=== PATIENT | female | born 1930 | race African-American/Black ===

== ENCOUNTER 2020-01-30 19:59 | Inpatient (IN) | payer MEDICARE, MEDICAID ==
[~2020-01-30] VITALS: Ht 167.6 cm; Wt 68.5 kg
[2020-01-30 20:05] VITALS: BP 82/45
--- NOTE | 2020-01-30 20:05 | NUR ---
ED Nurse Note: Pt BIBA from home CO of generalized weakness x 3 days, afebrile, denies n/v/d. HR elevated, BP low, ERMD aware. Pt denies others being sick at home. Pt aao x 4, bedbound, incontinent. Awaiting ERMD at bedside
--- NOTE | 2020-01-30 20:10 | Emergency Room Report ---
History of Present Illness General Chief Complaint: Generalized Weakness Source: Patient (Ivonne Mora DO) Present Illness HPI Patient presents with complaints of general weakness from home We have very limited history there was question of chemo and radiation however we do not have any record of this Patient also reports radiation for gastric ulcers which does not correlate clinically Therefore the history of present illness remains very limited Patient denies vomiting there was no reports of diarrhea paramedics provided very limited input I am attempting to contact family and provide any further input from them Patient denies any cough denies any rash Contact was made with the patient's primary physician who does provide significant input patient has history of gastric cancer Had radiation at [facility] has also had recent hospitalization at [facility] End of November Patient also appears to have a history of atrial fibrillation and anemia (Ivonne Mora DO) Allergies: Coded Allergies: No Known Allergies (Unverified , 01/30/20) COVID-19 Screening Contact w/high risk pt: No Recent Travel to affected area: No Experienced COVID-19 symptoms?: No (Ivonne Mora DO) Patient History Past Medical History: see triage record Last Menstrual Period: na Reviewed Nursing Documentation: PMH: Agreed; PSxH: Agreed (Ivonne Mora DO) Nursing Documentation-PMH Hx Hypertension: Yes Hx Diabetes: Yes (Ivonne Mora DO) Review of Systems All Other Systems: limited - Other than the ones mentioned in the history of present illness all others are reviewed however they do stay limited due to the patient's mental status (Ivonne Mora DO) Physical Exam Vital Signs Date Time Temp Pulse Resp B/P (MAP) Pulse Ox O2 Delivery O2 Flow Rate FiO2 01/30/20 19:55 97.0 85 20 105/85 (92) 97 Room Air Sp02 EP Interpretation: reviewed, normal General Appearance: mild distress - Appears weak Head: normocephalic, atraumatic Eyes: bilateral eye PERRL, bilateral eye EOMI ENT: dry mucus membranes Neck: supple Respiratory: lungs clear, no respiratory distress, no retraction Cardiovascular #1: no edema, tachycardia Gastrointestinal: non tender, soft Musculoskeletal: normal inspection - Patient moves all extremities there is no obvious focal deficit however general weakness is appreciated Neurologic: oriented - Patient is awake and oriented to self however cannot provide any medical history Skin: no rash Lymphatic: no adenopathy (Ivonne Mora DO) Procedures Critical Care Time Critical Care Time 85 minutes for multiple re-evaluations critical presentation concern for decompensation and possible not including any procedural time (Ivonne Mora DO) Central Line Central Line : Consent: Emergent Central Line Lumen: triple Maximal Sterile Barrier Tech: yes cap, yes mask, yes sterile gown, yes sterile gloves, yes large sterile sheet, yes hand hygiene, yes chlorhexidine prep Central Line Postion: femoral (R) Anesthesia: Lidocaine cc's of anesthesia: 3 Complications: none Central Line Post Position: sutured Attempts: One Patient Tolerated: Well Complications: None (Ivonne Mora DO) Medical Decision Making Diagnostic Impression: Primary Impression: Sepsis Additional Impression: Atrial fibrillation with RVR ER Course Patient is a fairly complex patient with multiple differential to consideration including but not limited to cardiac cardiopulmonary and vascular emergencies Infectious process Covid-19 Significant dehydration also all entertained patient receiving IV hydration X-ray shows some minimal right-sided effusion Blood work reveals findings consistent with the patient's past medical history including renal insufficiency anemia at hemoglobin of 7.9 Patient however does not meet criteria for emergency transfusion type and screen has been ordered Patient had central line placed Given the lack of any appropriate IV access and admitted for further inpatient care And patient admitted to higher level of care in critical condition Labs Test 01/30/20 20:41 01/30/20 22:45 01/31/20 05:05 White Blood Count 6.7 K/UL (4.8-10.8) Red Blood Count 2.83 M/UL (4.20-5.40) Hemoglobin 7.9 G/DL (12.0-16.0) Hematocrit 26.0 % (37.0-47.0) Mean Corpuscular Volume 92 FL (80-99) Mean Corpuscular Hemoglobin 27.9 PG (27.0-31.0) Mean Corpuscular Hemoglobin Concent 30.4 G/DL (32.0-36.0) Red Cell Distribution Width 19.9 % (11.6-14.8) Platelet Count 490 K/UL (150-450) Mean Platelet Volume 6.2 FL (6.5-10.1) Neutrophils (%) (Auto) % (45.0-75.0) Lymphocytes (%) (Auto) % (20.0-45.0) Monocytes (%) (Auto) % (1.0-10.0) Eosinophils (%) (Auto) % (0.0-3.0) Basophils (%) (Auto) % (0.0-2.0) Differential Total Cells Counted 100 Neutrophils % (Manual) 88 % (45-75) Lymphocytes % (Manual) 6 % (20-45) Monocytes % (Manual) 6 % (1-10) Eosinophils % (Manual) 0 % (0-3) Basophils % (Manual) 0 % (0-2) Band Neutrophils 0 % (0-8) Platelet Estimate Increased Platelet Morphology Normal Polychromasia 1+ Hypochromasia 1+ Anisocytosis 2+ Prothrombin Time 11.6 SEC (9.30-11.50) Prothromb Time International Ratio 1.1 (0.9-1.1) Urine Color Wendy Urine Appearance Slightly cloudy Urine pH 5 (4.5-8.0) Urine Specific [place] 1.025 (1.005-1.035) Urine Protein 1+ (NEGATIVE) Urine Glucose (UA) Negative (NEGATIVE) Urine Ketones 1+ (NEGATIVE) Urine Blood 1+ (NEGATIVE) Urine Nitrite Negative (NEGATIVE) Urine Bilirubin 2+ (NEGATIVE) Urine Ictotest Negative (NEGATIVE) Urine Urobilinogen 1 MG/DL (0.0-1.0) Urine Leukocyte Esterase 1+ (NEGATIVE) Urine RBC 5-10 /HPF (0 - 2) Urine WBC 5-10 /HPF (0 - 2) Urine Squamous Epithelial Cells Few /LPF (NONE/OCC) Urine Bacteria Moderate /HPF (NONE) Sodium Level 137 MMOL/L (136-145) 139 MMOL/L (136-145) Potassium Level 3.6 MMOL/L (3.5-5.1) 3.5 MMOL/L (3.5-5.1) Chloride Level 95 MMOL/L (98-107) 98 MMOL/L (98-107) Carbon Dioxide Level 22 MMOL/L (21-32) 23 MMOL/L (21-32) Anion Gap 20 mmol/L (5-15) 19 mmol/L (5-15) Blood Urea Nitrogen 64 mg/dL (7-18) 61 mg/dL (7-18) Creatinine 2.7 MG/DL (0.55-1.30) 2.8 MG/DL (0.55-1.30) Estimat Glomerular Filtration Rate 20.1 mL/min (>60) 19.3 mL/min (>60) Glucose Level 180 MG/DL (74-106) 162 MG/DL (74-106) Lactic Acid Level 2.10 mmol/L (0.4-2.0) 2.20 mmol/L (0.66-2.22) Calcium Level 8.7 MG/DL (8.5-10.1) 8.2 MG/DL (8.5-10.1) Total Bilirubin 0.6 MG/DL (0.2-1.0) Aspartate Amino Transf (AST/SGOT) 20 U/L (15-37) Alanine Aminotransferase (ALT/SGPT) 17 U/L (12-78) Alkaline Phosphatase 139 U/L (46-116) Total Creatine Kinase 74 U/L (26-308) Creatine Kinase MB 0.6 NG/ML (0.0-3.6) Creatine Kinase MB Relative Index 0.8 Troponin I 0.000 ng/mL (0.000-0.056) 0.000 ng/mL (0.000-0.056) Pro-B-Type Natriuretic Peptide 45681 pg/mL (0-125) Total Protein 6.3 G/DL (6.4-8.2) Albumin 2.2 G/DL (3.4-5.0) Globulin 4.1 g/dL Albumin/Globulin Ratio 0.5 (1.0-2.7) Lipase 690 U/L (73-393) Hemoglobin A1c 5.9 % (4.3-6.0) Magnesium Level 2.0 MG/DL (1.8-2.4) Triglycerides Level 144 MG/DL (30-150) Cholesterol Level 176 MG/DL (< 200) LDL Cholesterol 110 mg/dL (<100) HDL Cholesterol 39 MG/DL (40-60) Cholesterol/HDL Ratio 4.5 (3.3-4.4) Thyroid Stimulating Hormone (TSH) 3.407 uiU/mL (0.358-3.740) (Ivonne Mora DO) ER Course Patient was endorsed me by Dr. Mora. Patient was noted to have history of atrial fibrillation being admitted to the hospital with slightly diminished blood pressure as well as rapid rate. She was noted to have rapid rate of 150 briefly and was given IV Cardizem. She subsequently had improvement in her heart rate. She was also given Rocephin due to some urinary infection. Labs Test 01/30/20 20:41 01/30/20 22:45 White Blood Count 6.7 K/UL (4.8-10.8) Red Blood Count 2.83 M/UL (4.20-5.40) Hemoglobin 7.9 G/DL (12.0-16.0) Hematocrit 26.0 % (37.0-47.0) Mean Corpuscular Volume 92 FL (80-99) Mean Corpuscular Hemoglobin 27.9 PG (27.0-31.0) Mean Corpuscular Hemoglobin Concent 30.4 G/DL (32.0-36.0) Red Cell Distribution Width 19.9 % (11.6-14.8) Platelet Count 490 K/UL (150-450) Mean Platelet Volume 6.2 FL (6.5-10.1) Neutrophils (%) (Auto) % (45.0-75.0) Lymphocytes (%) (Auto) % (20.0-45.0) Monocytes (%) (Auto) % (1.0-10.0) Eosinophils (%) (Auto) % (0.0-3.0) Basophils (%) (Auto) % (0.0-2.0) Differential Total Cells Counted 100 Neutrophils % (Manual) 88 % (45-75) Lymphocytes % (Manual) 6 % (20-45) Monocytes % (Manual) 6 % (1-10) Eosinophils % (Manual) 0 % (0-3) Basophils % (Manual) 0 % (0-2) Band Neutrophils 0 % (0-8) Platelet Estimate Increased Platelet Morphology Normal Polychromasia 1+ Hypochromasia 1+ Anisocytosis 2+ Prothrombin Time 11.6 SEC (9.30-11.50) Prothromb Time International Ratio 1.1 (0.9-1.1) Urine Color Wendy Urine Appearance Slightly cloudy Urine pH 5 (4.5-8.0) Urine Specific [place] 1.025 (1.005-1.035) Urine Protein 1+ (NEGATIVE) Urine Glucose (UA) Negative (NEGATIVE) Urine Ketones 1+ (NEGATIVE) Urine Blood 1+ (NEGATIVE) Urine Nitrite Negative (NEGATIVE) Urine Bilirubin 2+ (NEGATIVE) Urine Ictotest Negative (NEGATIVE) Urine Urobilinogen 1 MG/DL (0.0-1.0) Urine Leukocyte Esterase 1+ (NEGATIVE) Urine RBC 5-10 /HPF (0 - 2) Urine WBC 5-10 /HPF (0 - 2) Urine Squamous Epithelial Cells Few /LPF (NONE/OCC) Urine Bacteria Moderate /HPF (NONE) Sodium Level 137 MMOL/L (136-145) Potassium Level 3.6 MMOL/L (3.5-5.1) Chloride Level 95 MMOL/L (98-107) Carbon Dioxide Level 22 MMOL/L (21-32) Anion Gap 20 mmol/L (5-15) Blood Urea Nitrogen 64 mg/dL (7-18) Creatinine 2.7 MG/DL (0.55-1.30) Estimat Glomerular Filtration Rate 20.1 mL/min (>60) Glucose Level 180 MG/DL (74-106) Calcium Level 8.7 MG/DL (8.5-10.1) Total Bilirubin 0.6 MG/DL (0.2-1.0) Aspartate Amino Transf (AST/SGOT) 20 U/L (15-37) Alanine Aminotransferase (ALT/SGPT) 17 U/L (12-78) Alkaline Phosphatase 139 U/L (46-116) Total Creatine Kinase 74 U/L (26-308) Creatine Kinase MB 0.6 NG/ML (0.0-3.6) Creatine Kinase MB Relative Index 0.8 Troponin I 0.000 ng/mL (0.000-0.056) Pro-B-Type Natriuretic Peptide 18875 pg/mL (0-125) Total Protein 6.3 G/DL (6.4-8.2) Albumin 2.2 G/DL (3.4-5.0) Globulin 4.1 g/dL Albumin/Globulin Ratio 0.5 (1.0-2.7) Lipase 690 U/L (73-393) Lactic Acid Level 2.20 mmol/L (0.66-2.22) (Avery Murdock MD) EKG Diagnostic Results Rate: tachycardiac Rhythm: other ST Segments: other - Irregularly irregular ST changes (Ivonne Mora DO) Rhythm Strip Diag. Results EP Interpretation: yes Rate: 145 Rhythm: no PVC's, no ectopy, other - Irregularly irregular nonspecific ST changes (Ivonne Mora DO) Chest X-Ray Diagnostic Results Chest X-Ray Diagnostic Results : Chest X-Ray Ordered: Yes # of Views/Limited/Complete: 1 View Indication: Chest Pain EP Interpretation: Yes Interpretation: no pneumothorax, other - Small right-sided effusion heart size normal no acute bony abnormality Impression: Other - Small right-sided effusion Electronically Signed by: Ivonne Mora DO (Ivonne Mora DO) Last Vital Signs Date Time Temp Pulse Resp B/P (MAP) Pulse Ox O2 Delivery O2 Flow Rate FiO2 01/30/20 19:55 97.0 85 20 105/85 (92) 97 Room Air Status: improved (Ivonne Mora DO) Disposition: ADMITTED INPATIENT Condition: Critical Ivonne Mora DO Jan 30, 2020 20:10 Avery Murdock MD Jan 31, 2020 00:52
--- NOTE | 2020-01-30 20:12 | NUR ---
ED Nurse Note: ERMD at bedside for initial assessment
--- NOTE | 2020-01-30 20:13 | NUR ---
ED Nurse Note: EKG performed by electrician technician/ EDUCATIONAL/DEVELOPMENT ASSISTANT, ROSELIAD reviewing results.
--- NOTE | 2020-01-30 20:20 | NUR ---
ED Nurse Note: 2 attempts by 2 nurses to obtain IV line. Successful 22g IV in left wrist, IV fluids started and running. Pt tolerated well. Blood draw unable to be obtained. ERMD made aware. Will continue to gain access.
--- NOTE | 2020-01-30 20:35 | NUR ---
ED Nurse Note: Flu swab sent to lab
--- NOTE | 2020-01-30 20:40 | NUR ---
ED Nurse Note: Lab called to obtain blood draw d/t unsuccessful attempts via staff nurses and charge nurse.
--- NOTE | 2020-01-30 20:59 | NUR ---
ED Nurse Note: Blood draw successfully obtained, no access available. Awaiting ERMD at bedside.
[2020-01-30 21:01] LABS: HEMOGLOBIN 7.9 G/DL (12.0-16.0); MEAN CORPUSCULAR VOLUME 92 FL (80-99); PLATELET COUNT 490 K/UL (150-450); RED BLOOD COUNT 2.83 M/UL (4.20-5.40); RED CELL DISTRIBUTION WIDTH 19.9 % (11.6-14.8); WHITE BLOOD COUNT 6.7 K/UL (4.8-10.8)
[2020-01-30 21:05] LABS: APPEARANCE,URINE SLIGHTLY CLOUDY; BILIRUBIN, URINE 2+ (NEGATIVE); GLUCOSE, URINE (UA) NEGATIVE (NEGATIVE); KETONES,URINE 1+ (NEGATIVE); LEUKOCYTE ESTERASE ,URINE 1+ (NEGATIVE); NITRITE,URINE NEGATIVE (NEGATIVE); PH,URINE 5 (4.5-8.0); PROTEIN,URINE 1+ (NEGATIVE); UROBILINOGEN,URINE 1 MG/DL (0.0-1.0)
--- NOTE | 2020-01-30 21:05 | NUR ---
ED Nurse Note: IV line in wrist infiltrated. IV line discontinued. ERMD aware.
[2020-01-30 21:06] LABS: COLOR,URINE AMBER; INR 1.1 (0.9-1.1)
[2020-01-30 21:09] LABS: ANION GAP 20 mmol/L (5-15); BLOOD UREA NITROGEN 64 mg/dL (7-18); CALCIUM 8.7 MG/DL (8.5-10.1); CARBON DIOXIDE 22 MMOL/L (21-32); CHLORIDE 95 MMOL/L (98-107); CREATININE 2.7 MG/DL (0.55-1.30); POTASSIUM 3.6 MMOL/L (3.5-5.1); SODIUM 137 MMOL/L (136-145)
[2020-01-30] MEDS ORDERED: ZOFRAN ODT8 MG ORAL (21:09)
[2020-01-30] MEDS ORDERED: METOPROLOL TART50 M1 ORAL (21:09)
[2020-01-30] MEDS ORDERED: PRAVASTATIN SOD20 M1 ORAL (21:09)
[2020-01-30] MEDS ORDERED: TRADJENTA5 MG PO (21:09)
[2020-01-30] MEDS ORDERED: REGLAN10 M1 ORAL (21:09)
--- NOTE | 2020-01-30 21:10 | NUR ---
ED Nurse Note: Blood draw and urine sent to lab
[2020-01-30 21:21] LABS: ALANINE AMINOTRANSFERASE 17 U/L (12-78); ALBUMIN 2.2 G/DL (3.4-5.0); ALBUMIN/GLOBULIN RATIO 0.5 (1.0-2.7); ALKALINE PHOSPHATASE 139 U/L (46-116); ASPARTATE AMINO TRANSFERASE 20 U/L (15-37); BILIRUBIN,TOTAL 0.6 MG/DL (0.2-1.0); CKMB 0.6 NG/ML (0.0-3.6); CREATINE KINASE 74 U/L (26-308)
--- NOTE | 2020-01-30 21:42 | NUR ---
ED Nurse Note: ERMD obtained central line in right femoral. Line is patent and intact. Pt stable condition. Pt resting in bed aao x 4. will continue to monitor
[2020-01-30 22:34] VITALS: BP 105/62
--- NOTE | 2020-01-30 22:35 | NUR ---
ED Nurse Note: Pts grandson called for update on pt status. Pt aware and consented to informing grandson. grandson updated on POC.
--- NOTE | 2020-01-30 22:45 | NUR ---
ED Nurse Note: Repeat lactic drawn and COVID swab sent to lab
--- NOTE | 2020-01-30 22:55 | NUR ---
HAND-OFF: Report given to Reggie Olivarez RN. Pt moved to RM 07, placed on monitor. VSS.
--- NOTE | 2020-01-30 22:56 | NUR ---
ED Nurse Note: received report from Lyubov HOLMAN. will resume care of patient
[2020-01-30] MEDS ORDERED: Ondansetron ODT 8mg tab ORAL PRN (23:15)
[2020-01-30 23:39] VITALS: BP 98/55
--- NOTE | 2020-01-31 | NUR ---
ED Nurse Note: PRESSURE WOUND NOTED ON SACRAL AREA.
--- NOTE | 2020-01-31 00:15 | NUR ---
ED Nurse Note: patient c/o nausea and vomitted clear emesis. per standing order, will administer zofran.
[2020-01-31] MEDS ORDERED: cefTRIAXone 1 GM in NS 55 ML IVPB ONE (00:30)
--- NOTE | 2020-01-31 00:30 | NUR ---
ED Nurse Note: pt c/o lower back pain 05/14. per standing order, will administer med
[2020-01-31] MEDS ORDERED: dilTIAZem HCl 25mg/5ml Inj ONE (00:40)
[2020-01-31] MEDS ORDERED: dilTIAZem HCl 25mg/5ml Inj IVP ONE (00:45)
[2020-01-31 01:42] VITALS: BP 89/67
[2020-01-31] MEDS ORDERED: NS 250 ML IVPB ONE (02:00)
[2020-01-31 03:38] VITALS: BP 99/83
--- NOTE | 2020-01-31 03:39 | NUR ---
ED Nurse Note: pt is calm and sleeping. vss, nad. repositioned patient position
--- NOTE | 2020-01-31 04:00 | NUR ---
ED Nurse Note: unable to draw blood from central line. line flushing with fluid but is not drawing up blood. peripheral iv sites attempted but unable to obtain at this time. called lab for draw. will attempt again at a later time
--- NOTE | 2020-01-31 04:30 | NUR ---
ED Nurse Note: PER EVS, KINSEY BED NOT AVAILABLE AT THIS TIME. BANKRUPTCY LAW SPECIALIST AWARE.
--- NOTE | 2020-01-31 05:00 | NUR ---
ED Nurse Note: blood drawn and sent to lab
[2020-01-31 06:00] VITALS: BP 106/52
--- NOTE | 2020-01-31 06:00 | NUR ---
ED Nurse Note: PATIENT IS CALM AND SLEEPING. VSS, NAD.
[2020-01-31 06:30] LABS: ANION GAP 19 mmol/L (5-15); BLOOD UREA NITROGEN 61 mg/dL (7-18); CALCIUM 8.2 MG/DL (8.5-10.1); CARBON DIOXIDE 23 MMOL/L (21-32); CHLORIDE 98 MMOL/L (98-107); CHOLESTEROL 176 MG/DL (< 200); CREATININE 2.8 MG/DL (0.55-1.30); HDL CHOLESTEROL 39 MG/DL (40-60); POTASSIUM 3.5 MMOL/L (3.5-5.1); SODIUM 139 MMOL/L (136-145); TRIGLYCERIDES 144 MG/DL (30-150)
[2020-01-31] MEDS: NovoLOG Insulin Flexpen SUBQ SCH ×4 (06:30→20:54)
--- NOTE | 2020-01-31 06:34 | NUR ---
ED Nurse Note: INSULIN NOT ADMINISTERED BS WITHIN RANGE. BS 137
--- NOTE | 2020-01-31 07:16 | NUR ---
ED Nurse Note: gave report to Lakshmi HOLMAN. Endorsed plan of care
--- NOTE | 2020-01-31 07:20 | NUR ---
ED Nurse Note: pt care assumed. pt resting in room with even reg resp. vss.
[2020-01-31 07:50] VITALS: BP 103/49
--- NOTE | 2020-01-31 08:06 | NUR ---
PTs granddaughter info Cynthia Eric [phone]
--- NOTE | 2020-01-31 08:14 | NUR ---
ED Nurse Note: repor given to Rach anthony on [facility]. called pt family Marlena that states pt was in [facility] for approx 1 month and then to [facility] for approx 1 month also. pt home from [facility] on january 28. per Marlena she is availabe by phone at anytime for updates or questions. pt prepared for transport to [facility] with covid precautions and acls protocol
--- NOTE | 2020-01-31 08:35 | NUR ---
NURSE NOTES: Received report from Rajani Lyman RN. Patient is admitted for sepsis and weakness under the care of Dr. Leno Wilson. Patient is alert and oriented x 4, able to make needs known and follow commands. On room air, respirations even and unlabored. Incontinent with diaper in place, danilo-care provided and external female catheter placed and hooked to low, continuous suction. Sacral full thickness pressure ulcer noted, wound care done and dressing placed. Right femoral TLC noted with dressing intact. Bed locked in lowest position with side rails up x 3. All needs attended to. Call light within reach. Will continue to monitor.
[2020-01-31 08:40] VITALS: BP 117/56
[2020-01-31] MEDS: Metoprolol Tartrate 50mg tab ORAL SCH ×2 (08:47→20:52)
--- NOTE | 2020-01-31 09:55 | NUR ---
*-* INSURANCE *-* ALL AVAILABLE CLINICALS HAVE BEEN FAXED TO: CASEY ESPARZA REF# [id number] # [phone] FAX#[phone] REVIEWS/CLINICALS Addendum: 02/01/20 at 0931 by TONEY NORRIS CASEY BUI:LARRY P: [phone] T: [phone] F: [phone]
--- NOTE | 2020-01-31 11:13 | Diagnostic Imaging Report ---
Indication: Shortness of breath Technique: One view of the chest Comparison: none Findings: There is apparent elevation right hemidiaphragm. This may be due to volume loss, pleural fluid, or both. There is some atelectasis and possibly hazy consolidation at the right lung base. The right upper lobe, left lung and pleural space are clear. The heart size is normal. Impression: Right basilar atelectasis and/or pleural fluid. There may be some hazy consolidation as well.
--- NOTE | 2020-01-31 12:30 | NUR ---
NURSE NOTES: attempted to draw blood from TLC, yet TLC is unable to draw the blood at this moment. flushes well without resistance. attempt to draw the blood by peripheral, but unable to draw the blood due to hard stick. called [employer] and reported that unable to draw the blood. per [employer], she will come and draw the blood in AM. noted. call light within pt's reach. pt states no pain at this moment. no SOB noted. Addendum: 02/01/20 at 0127 by PUMA JIMENEZ RN wrong time
--- NOTE | 2020-01-31 13:04 | NUR ---
CASE MANAGEMENT: REVIEW 89 YEAR OLD FEMALE BIBA FROM HOME CC: GENERALIZED WEAKNESS x3 DAYS . Hx STOMACH CA on CHEMO SI: A-F SIB w/RVR . SEPSIS . DEHYDRATION T 97.0 HR 85 RR 20 BP 105/85 SAT 97% ROOM AIR H/H 7.9/26.[address] 490 CXR -- RIGHT-SIDED EFFUSION IS: NS IVF BOLUS X1 CARDIZEM IV X1 CEFTRIAXONE IV X1 PATIENT ADMITTED TO STEP DOWN UNIT 01/28/2020 DCP: PATIENT IS FROM HOME
[2020-01-31] MEDS ORDERED: HYDROcodone/Acetamin 5/325 tab ORAL PRN (13:30)
[2020-01-31] MEDS ORDERED: HYDROcodone/Acetamin 10/325 tab ORAL PRN (13:30)
--- NOTE | 2020-01-31 13:38 | Cardiology Progress Note ---
Assessment/Plan Assessment/Plan need hydration await covd 19 results may need tx if hgb drops further as i suspect with volume repletion watch renal fx cardaic enzyme neg ekg noted st elevation in lead v3 only and no other lead and trop all neg if covid is neg will have echo thank you [id number] Subjective Subjective of iron deficiency anemia,profound normocytic anemia sp tx #Gastric adenocarcinoma c/b occult upper GI bleedings/p 3 doses of~palliative radiation to prevent/minimize further bleeding. # Normocytic anemia secondary to blood loss # Reactive thrombocytosis # H. Pylori infection Quadruple therapy~as noted below~for 2 weeks (-), last dose 12/15 -~Please retest for cure~after 2~weeks off of~PPI to decrease chance of false negative testing. #Nausea Most likely 2/2 XRT and malignancy-related. If in fact patient's antibiotics are contributory, the patient's nausea should improve within the next few days after she completes treatment on 12/16. -~Well controlled on~PRN Zofran and Compazine Pernieal Boil Patient with firmmass in gluteal cleft on right buttocks near anus, heterogenously echogenic on bedside US, no clear drainable fluid pocket. T2DM Hba1c 6.4 1 month ago. # Afib # Hypertension - continue metoprolol # Hyperlipidemia - continue pravastatin #GERD - PPI as above Objective Last 24 Hour Vital Signs Date Time Temp Pulse Resp B/P (MAP) Pulse Ox O2 Delivery O2 Flow Rate FiO2 01/31/20 08:47 109 117/56 01/31/20 08:40 Room Air 01/31/20 08:40 97.0 18 117/56 (76) 98 01/31/20 08:17 103 18 103/42 99 Room Air 01/31/20 07:50 103 18 103/49 99 Room Air 01/31/20 06:00 106 16 106/52 99 Room Air 01/31/20 03:38 105 16 99/83 99 Room Air 01/31/20 01:42 97.6 111 16 89/67 99 Room Air 01/31/20 01:07 97.6 01/31/20 00:42 139 96/70 01/30/20 23:39 97.3 118 18 98/55 97 Room Air 01/30/20 22:34 97.0 122 18 105/62 97 Room Air 01/30/20 20:05 152 20 Room Air 01/30/20 20:05 97.0 152 20 82/45 97 Room Air 01/30/20 19:55 97.0 85 20 105/85 (92) 97 Room Air Intake and Output 01/30/20 01/31/20 19:00 07:00 Intake Total 0 ml Balance 0 ml Intake Oral 0 ml Laboratory Tests Test 01/30/20 20:41 01/30/20 22:45 01/31/20 05:05 White Blood Count 6.7 K/UL (4.8-10.8) Red Blood Count 2.83 M/UL (4.20-5.40) L Hemoglobin 7.9 G/DL (12.0-16.0) L Hematocrit 26.0 % (37.0-47.0) L Mean Corpuscular Volume 92 FL (80-99) Mean Corpuscular Hemoglobin 27.9 PG (27.0-31.0) Mean Corpuscular Hemoglobin Concent 30.4 G/DL (32.0-36.0) L Red Cell Distribution Width 19.9 % (11.6-14.8) H Platelet Count 490 K/UL (150-450) H Mean Platelet Volume 6.2 FL (6.5-10.1) L Neutrophils (%) (Auto) % (45.0-75.0) Lymphocytes (%) (Auto) % (20.0-45.0) Monocytes (%) (Auto) % (1.0-10.0) Eosinophils (%) (Auto) % (0.0-3.0) Basophils (%) (Auto) % (0.0-2.0) Differential Total Cells Counted 100 Neutrophils % (Manual) 88 % (45-75) H Lymphocytes % (Manual) 6 % (20-45) L Monocytes % (Manual) 6 % (1-10) Eosinophils % (Manual) 0 % (0-3) Basophils % (Manual) 0 % (0-2) Band Neutrophils 0 % (0-8) Platelet Estimate Increased H Platelet Morphology Normal Polychromasia 1+ Hypochromasia 1+ Anisocytosis 2+ Prothrombin Time 11.6 SEC (9.30-11.50) H Prothromb Time International Ratio 1.1 (0.9-1.1) Urine Color Wendy Urine Appearance Slightly cloudy Urine pH 5 (4.5-8.0) Urine Specific [place] 1.025 (1.005-1.035) Urine Protein 1+ (NEGATIVE) H Urine Glucose (UA) Negative (NEGATIVE) Urine Ketones 1+ (NEGATIVE) H Urine Blood 1+ (NEGATIVE) H Urine Nitrite Negative (NEGATIVE) Urine Bilirubin 2+ (NEGATIVE) H Urine Ictotest Negative (NEGATIVE) Urine Urobilinogen 1 MG/DL (0.0-1.0) H Urine Leukocyte Esterase 1+ (NEGATIVE) H Urine RBC 5-10 /HPF (0 - 2) H Urine WBC 5-10 /HPF (0 - 2) H Urine Squamous Epithelial Cells Few /LPF (NONE/OCC) Urine Bacteria Moderate /HPF (NONE) H Sodium Level 137 MMOL/L (136-145) 139 MMOL/L (136-145) Potassium Level 3.6 MMOL/L (3.5-5.1) 3.5 MMOL/L (3.5-5.1) Chloride Level 95 MMOL/L (98-107) L 98 MMOL/L (98-107) Carbon Dioxide Level 22 MMOL/L (21-32) 23 MMOL/L (21-32) Anion Gap 20 mmol/L (5-15) H 19 mmol/L (5-15) H Blood Urea Nitrogen 64 mg/dL (7-18) H 61 mg/dL (7-18) H Creatinine 2.7 MG/DL (0.55-1.30) H 2.8 MG/DL (0.55-1.30) H Estimat Glomerular Filtration Rate 20.1 mL/min (>60) 19.3 mL/min (>60) Glucose Level 180 MG/DL (74-106) H 162 MG/DL (74-106) H Lactic Acid Level 2.10 mmol/L (0.4-2.0) H 2.20 mmol/L (0.66-2.22) Calcium Level 8.7 MG/DL (8.5-10.1) 8.2 MG/DL (8.5-10.1) L Total Bilirubin 0.6 MG/DL (0.2-1.0) Aspartate Amino Transf (AST/SGOT) 20 U/L (15-37) Alanine Aminotransferase (ALT/SGPT) 17 U/L (12-78) Alkaline Phosphatase 139 U/L (46-116) H Total Creatine Kinase 74 U/L (26-308) Creatine Kinase MB 0.6 NG/ML (0.0-3.6) Creatine Kinase MB Relative Index 0.8 Troponin I 0.000 ng/mL (0.000-0.056) 0.000 ng/mL (0.000-0.056) Pro-B-Type Natriuretic Peptide 82250 pg/mL (0-125) H Total Protein 6.3 G/DL (6.4-8.2) L Albumin 2.2 G/DL (3.4-5.0) L Globulin 4.1 g/dL Albumin/Globulin Ratio 0.5 (1.0-2.7) L Lipase 690 U/L (73-393) H Hemoglobin A1c 5.9 % (4.3-6.0) Magnesium Level 2.0 MG/DL (1.8-2.4) Triglycerides Level 144 MG/DL (30-150) Cholesterol Level 176 MG/DL (< 200) LDL Cholesterol 110 mg/dL (<100) H HDL Cholesterol 39 MG/DL (40-60) L Cholesterol/HDL Ratio 4.5 (3.3-4.4) H Thyroid Stimulating Hormone (TSH) 3.407 uiU/mL (0.358-3.740) Microbiology Date/Time Source Procedure Growth Status 01/30/20 21:00 Nasal Nares - Final Complete 01/30/20 21:00 Nasal Nares - Final Complete 01/30/20 20:41 Urine,Clean Catch Urine Culture - Preliminary NO GROWTH Resulted 01/31/20 06:00 Rectum Received Brian Sweeney MD Jan 31, 2020 13:38
--- NOTE | 2020-01-31 15:16 | NUR ---
NURSE NOTES:WOUND CARE NOTES:Pt presented on admission with Unstageable pressure injury to sacrum(L)1cm x (W)1cm. Base of wound has 100% slough Marginal erythema along edges. Periwound indurated with darker skin tone. Pt verbalized tenderness when minimally palpated. Bilat heels are boggy but blanchable . Pt denied tenderness when each heel individually palpated.Hemosiderin with Xerosis skin distal aspects of both lower ext.Both feet are edematous. Tx.Plan: Cleanse Sacral wound with Saline. Apply Therahoney. Apply Moisture Barrier Paste periwound. Cover with Optifoam drsg. Change every 3 days and prn. Apply Cavilon Skin Barrier to both heels. Cover each heel with Optifoam drsg.Change every 7 days and prn. Reposition at least every 2hours or as tolerated. Off-load heels with pillow.
--- NOTE | 2020-01-31 16:05 | History & Physical ---
History and Physical History & Physicial HP dictated # [id number] Leno Wilson MD Jan 31, 2020 16:05
--- NOTE | 2020-01-31 19:15 | Consultation ---
DATE OF CONSULTATION: 01/31/2020 CARDIOLOGY CONSULTATION CONSULTING PHYSICIAN: Brian Sweeney MD. REFERRING PHYSICIAN: Leno Wilson MD. REASON FOR REFERRAL: Atrial fibrillation. HISTORY OF PRESENT ILLNESS: The patient is an 89-year-old female with history of female with history of multiple medical problems. The patient recently hospitalized and discharged from [facility] to a convalescent facility. She presented with symptomatic anemia and some secondary myocardial infarction. She was transfused, was diagnosed with gastric adenocarcinoma, received palliative radiation therapy to prevent or minimize risk of recurrent bleeding, was sent to convalescent facility and she was actually discharged from the convalescent facility two days ago, stayed at home for one day and family called the paramedics and the patient was brought to the emergency room here at [facility]. Ambulance run sheet was reviewed and the patient was complaining of feeling tired and weak for a few days and the family stated the patient is going through chemotherapy for chronic stage IV stomach cancer and had been staying at a convalescent facility, just discharged. The patient denies any chest pains to them. No shortness of breath. No trauma noted. The patient's family indicates the patient is not eating much and she was not hungry. By the paramedics, blood pressure initially was 88/53 with heart rate of 81 and then 105/86 with heart rate of 153. An EKG was performed showing atrial fibrillation with rapid ventricular response. The patient was transferred to the emergency room at [facility] and has been seen by the emergency room physician who found that the patient was having limited capacity to provide information. The patient denied any coughing and denied any rash to the emergency room physician. According to the nursing staff here, the patient is not complaining of any chest pain and is not complaining of any shortness of breath and has not been really been coughing here. Main complaint is abdominal pain and back pain according to the nursing staff. The patient is pending COVID-19 testing at this time as she was at convalescent facility just recently where COVID-19 has been reported. PAST MEDICAL HISTORY: According to the [facility] records which I personally reviewed includes history of anemia with generalized weakness secondary that, non ST-elevation myocardial infarction secondary to anemia, gastroesophageal reflux disease, atrial fibrillation, hyperlipidemia, gastric mass which was diagnosed as gastric adenocarcinoma, H. pylori that was diagnosed and [facility], reactive thrombocytosis as well as stable nausea felt to be secondary to radiation therapy and malignancy related, diabetes mellitus type 2, atrial fibrillation, hypertension, hyperlipidemia as well. Troponin at the time of non-ST elevation myocardial infarction type 2 was 0.14 and her EKG showed atrial fibrillation with rapid ventricular response prior to that. ALLERGIES: She is not allergic to any medications. SOCIAL HISTORY: Previously she resided with a family member, her granddaughter, but most recently she was transferred to convalescent facility and she is actually transferred back home for a day or two. PAST SURGICAL HISTORY: and cholecystectomy. FAMILY HISTORY: Positive for prostate cancer. SOCIAL HISTORY: Never smoked. No drug use. REVIEW OF SYSTEMS: Really at this time limited based on what was provided in the emergency room. PHYSICAL EXAMINATION: Deferred secondary to unknown COVID status with high likelihood. LABORATORY AND DIAGNOSTIC DATA: Laboratory values here include a white count of 6.7, hemoglobin 7.9, and platelet count of 490. Sodium 139, potassium of 3.5, chloride 98, bicarb 23, BUN of 61, creatinine 2.8, and glucose of 162. A1c of 5.9. Lactic acid of 2.1 and subsequent 2.2. Calcium is 8.2, magnesium is 2. two separate cardiac enzyme between last night and this morning were completely negative. Total cholesterol 176 with LDL of 110 and HDL of 39. TSH of 3.67 and [place] proBNP [place] 55484 and albumin of 2.2. Lipase is 690. EKG shows atrial fibrillation with rapid ventricular response. There is some ST-segment elevation only in lead V3, none of the other leads have ST-segment elevation. Review of the [facility] records from prior hospitalization back in December shows a creatinine at baseline 0.69, hemoglobin at the time of discharge was 10.9 from [facility]. Her last echocardiogram that was performed was October 2019 showing hyperdynamic LV systolic function with ejection fraction 75%, moderate diastolic dysfunction being noted on the echocardiogram with pulmonary hypertension in the 60s with normal IVC size. ASSESSMENT AND PLAN: 1. Poor p.o. intake. 2. Dehydration. 3. Acute renal failure likely secondary to above. 4. Anemia with history of the same status post prior transfusions. 5. Gastric adenocarcinoma, status post palliative radiation therapy and some chemotherapy. 6. History of H. pylori. 7. Atrial fibrillation with rapid ventricular response. 8. Hypotension. 9. History of hypertension. 10. Diabetes mellitus. 11. Elevated lipase, possible pancreatitis. Dr. Wilson this patient was seen in cardiac consultation. The patient's rapid ventricular response prior to admission and consultation most suggestive of anemia and volume depletion. I am not sure if she is actually taking any of her medications at home. She simply requires the beta blockers for heart rate control which have been initiated. IV hydration to be continued. She previously had hyperdynamic left ventricular systolic function and this is at least going back to October. The echocardiogram needs to be repeated once the patient COVID status is confirmed and if negative. She does have history of pulmonary hypertension. Venous duplex study of the lower extremities may be considered in the future, although I do not think that needs to be done. I suspect that her hemoglobin will drop further with hydration. There is no evidence of myonecrosis on the cardiac enzymes checking, some ST-segment changes that was only limited in lead V3, likely artifactual that was not present on the EKG at [facility]. She has not been treated for any cardiac enzymes issues previously and I suspect due to the fact that she has stage IV cancer that her prognosis may be guarded at best. She may require blood transfusions. For the time being, recommend administration of beta blockers and increase the dose as possible, IV hydration, and check for need for transfusion. Await COVID status. Brian Sweeney M.D. DR: Usha JOB#: [id number] CC:
--- NOTE | 2020-01-31 19:21 | NUR ---
HAND-OFF: Report given to Jessi Mendes RN. Patient in stable condition
--- NOTE | 2020-01-31 19:22 | NUR ---
NURSE NOTES: received pt from Tiffany HOLMAN., pt is sleeping and resting at this moment, easy to arouse. pt is AOx4 at this moment. pt states no pain at this moment. per previous shift, pt is on Afib. pt is on RA 98% no SOB noted. pt has Right femoral TLC intact, clean, and patent. call light within reach. bed at the lowest position, alarmed, and locked. will continue to monitor pt with plan of care.
[2020-01-31] MEDS ORDERED: Dyna-Hex 2% Top Sol 2oz TOPIC SCH (20:00)
--- NOTE | 2020-01-31 23:14 | History and Physical Report ---
DATE OF ADMISSION: 01/30/2020 HISTORY OF PRESENT ILLNESS: This is an 89-year-old female who was just recently discharged from [facility]. Patient has underlying history of gastric cancer and received some radiation before. She was brought into the emergency room for generalized weakness. She was found to be in atrial fibrillation with rapid ventricular response and was admitted for further care. She is a poor historian. PAST MEDICAL HISTORY: Includes also history of anemia, history of non-ST elevated myocardial infarction, history of gastroesophageal reflux disease, atrial fibrillation, hyperlipidemia, gastric adenocarcinoma, H. pylori ulcer. MEDICATIONS: Reviewed in the EMR. SOCIAL HISTORY: No history of smoking or alcohol abuse. ALLERGIES: No known drug allergies. REVIEW OF SYSTEMS: As above. PHYSICAL EXAMINATION: GENERAL: The patient is an elderly female in no acute distress. VITAL SIGNS: Blood pressure is 117/56, pulse is 109, respiratory rate 18, temperature 97. HEENT: Pale conjunctivae. Anicteric sclerae. NECK: Supple. LUNGS: Clear to auscultation. HEART: S1, S2 irregularly irregular. ABDOMEN: Soft, nontender. EXTREMITIES: No cyanosis or edema. LABORATORY FINDINGS: CBC shows a WBC of 6700, hematocrit 26, hemoglobin 7.9, platelets 490,000. Chemistry panel shows serum sodium of 137, potassium 3.6, chloride 95, BUN 64, creatinine 2.7, blood sugar is 180. Albumin is 2.2. ASSESSMENT: This is an 89-year-old female who was admitted with weakness, atrial fibrillation with rapid ventricular response. She has a history of gastric cancer. She has anemia likely from malignancy. Iron deficiency needs to be ruled out. She has renal failure, rule out prerenal azotemia. She may have also underlying chronic kidney disease. PLAN: Patient will be hydrated with IV fluids. Rate control with medications. Cardiology consultation was obtained. Dr. Brian Sweeney saw patient. Dietitian to see patient for calorie calorie count, appetite boosters. Further adjustment will be made in patient's regimen based on hospital course and findings. Leno Wilson M.D. DR: JOE JOB#: [id number] CC: ARLETH
--- NOTE | 2020-02-01 00:30 | NUR ---
NURSE NOTES: attempted to draw blood from TLC, yet TLC is unable to draw the blood at this moment. flushes well without resistance. attempt to draw the blood by peripheral, but unable to draw the blood due to hard stick. called [employer] and reported that unable to draw the blood. per [employer], she will come and draw the blood in AM. noted. call light within pt's reach. pt states no pain at this moment. no SOB noted.
--- NOTE | 2020-02-01 01:00 | NUR ---
NURSE NOTES: repositioned pt, provided new gown, provided oral care. turn pt Q 2hrs, and pt able to help turn side to side. changed to new purewick. no BM noted.call light within reach. bed at the lowest position, alarmed, and locked. will continue to monitor pt with plan of care. pt states no pain at this moment.
[2020-02-01] MEDS: NovoLOG Insulin Flexpen SUBQ SCH ×4 (06:01→21:00)
--- NOTE | 2020-02-01 07:24 | NUR ---
HAND-OFF: Report given to Cary HOLMAN., pt is stable condition, endorsed plan of care.
--- NOTE | 2020-02-01 07:25 | NUR ---
NURSE NOTES: Received patient in bed. In no apparent distress. On room air. Denies any pain at this time. Call light within reach. Bed in lowest position. Droplet and contact isolation observed. Will continue plan of care.
[2020-02-01 08:00] VITALS: BP 109/69
[2020-02-01] MEDS: Metoprolol Tartrate 50mg tab ORAL SCH (09:08)
--- NOTE | 2020-02-01 10:01 | NUR ---
RD ASSESSMENT & RECOMMENDATIONS SEE CARE ACTIVITY FOR COMPLETE ASSESSMENT DAILY ESTIMATED NEEDS: Needs based on Wound 57.6kg 30-35 kcals/kg 5693-8961 total kcals 1.25-1.5 g protein/kg 72-86 g total protein 25-30ml/kcal mL/kg 5466-5697 total fluid mLs NUTRITION DIAGNOSIS: Increased kcal and pro needs r/t wound healing as evidenced by pt w/ unstageable sacral wound. (CURRENT DIET: CCHO MED soft easy chew) PO DIET RECOMMENDATIONS: With current poor po intake, rec liberalized REGULAR diet/ texture as harman ADDITIONAL RECOMMENDATIONS: 1) Add Glucerna TID w/ meals 2) Maintain calibrated bed scale wts 3) Wound care: MVI w/ min qdaily, Vit C 500mg daily + EFREN FRUIT PUNCH BID as tolerated 4) Check lytes + hydration status daily as able 5) Monitor lipase, need for low fat diet 6) SEWER DIGGER eval for appropriate diet texture
--- NOTE | 2020-02-01 11:24 | NUR ---
CASE MANAGEMENT: REVIEW SI: A-FIB w/RVR . SEPSIS . DEHYDRATION T 97.0 HR 137 RR 18 BP 109/69 SAT 98% ROOM AIR TROP I 0.000 URINE CX PENDING BLOOD CX PENDING IS: LOPRESSOR 50MG PO Q12HR PRAVASTATIN 20MG PO QHS NOVOLOG SUBQ AC+HS WOUND CARE -- SACRUM STAGE 3 STEP DOWN UNIT STATUS DCP: PATIENT IS FROM HOME
[2020-02-01 11:57] VITALS: BP 92/41
--- NOTE | 2020-02-01 11:57 | NUR ---
NURSE NOTES: Informed Dr. Leno Wilson that patient's blood pressure is low, 92/41. With order to bolus 250ml x 1. And to keep patient here in SDU until he see the patient.
--- NOTE | 2020-02-01 12:30 | NUR ---
NURSE NOTES: Blood pressure after 250ml bolus is 97/50. Dr. Wilson made aware at bedside.
--- NOTE | 2020-02-01 13:50 | NUR ---
NURSE NOTES: SDU status order obtained from Dr. Wilson. Charge nurse made aware.
--- NOTE | 2020-02-01 14:00 | NUR ---
NURSE NOTES: Dr. Wilson ordered IVF. NS to run at 75ml/hour.
[2020-02-01] MEDS ORDERED: HYDROcodone/Acetamin 10/325 tab ORAL PRN (14:30)
--- NOTE | 2020-02-01 15:29 | Consultation ---
History of Present Illness General Date patient seen: Feb 01, 2020 Reason for Hospitalization: Generalized Weakness Present Illness HPI This is a very pleasant 89-year-old female with multi-medical comorbidities including history of gastric cancer with seeming history of resection and chemoradiation who is a halfway resident began to feel more weak and ill therefore brought to [facility] for evaluation where identified to have abnormal labs requiring admission and further work-up and care plan. During admission identified to have malnutrition BMI 20 as well as notable decubitus ulcers. Abnormal labs. Surgery called to evaluate and assist with care. Patient seen, patient evaluated, chart reviewed. Patient is alert awake and responsive but somewhat confused. States she feels well. Allergies: Coded Allergies: No Known Allergies (Unverified , 01/30/20) COVID-19 Screening Contact w/high risk pt: No Recent Travel to affected area: No Experienced COVID-19 symptoms?: No Medication History Scheduled Metoclopramide Hcl* (Reglan*), 10 MG ORAL THREE TIMES A DAY, (Reported) Metoprolol Tartrate* (Metoprolol Tartrate*), 50 MG ORAL EVERY 12 HOURS, ( Reported) Pravastatin Sod* (Pravastatin Sod*), 20 MG ORAL BEDTIME, (Reported) Scheduled PRN Ondansetron Odt* (Zofran Odt*), 4 MG ORAL Q6H PRN for Nausea & Vomiting, ( Reported) Miscellaneous Medications Linagliptin (Tradjenta), 5 MG PO, (Reported) Patient History Limited by: age, medical condition History Provided By: Patient, Medical Record Healthcare decision maker Resuscitation status Full Code Advanced Directive on File Past Medical/Surgical History Past Medical/Surgical History: (1) Sepsis (2) Anorexia (3) Malnutrition (4) Gastric cancer (5) Atrial fibrillation with RVR (6) DM (diabetes mellitus) (7) Low BP (8) Acute on chronic renal failure (9) Anemia Review of Systems Review of Symptoms General ROS: no weight loss or fever Psychological ROS: no depression or mood changes, no memory loss Ophthalmic ROS: no visual changes or eye irritation ENT ROS: no nasal congestion, hearing loss, dizziness Allergy and Immunology ROS: no allergic symptoms or urticaria Hematological and Lymphatic ROS: no swollen glands, unusual bleeding or bruising Endocrine ROS: no polyuria, polydipsia, weight changes, temperature intolerance Respiratory ROS: no cough, shortness of breath, or wheezing Cardiovascular ROS: no chest pain or dyspnea on exertion Gastrointestinal ROS: denies abdominal pain, bright red blood in stool. Musculoskeletal ROS: no myalgias or arthralgias Neurological ROS: no TIA or stroke symptoms Dermatological ROS: no new or changing skin lesions, rashes or pruritis Physical Exam Physical Exam General appearance: alert, cooperative, no distress, appears stated age Head: Normocephalic, without obvious abnormality, atraumatic Eyes: conjunctivae/corneas clear. PERRL, EOM's intact. Fundi benign Throat: Lips, mucosa, and tongue normal. Teeth and gums normal Neck: supple, symmetrical, trachea midline, no adenopathy, thyroid: not enlarged, symmetric, no tenderness/mass/nodules, no carotid bruit and no JVD Lungs: clear to auscultation bilaterally Heart: regular rate and rhythm, S1, S2 normal, no murmur, click, rub or gallop Abdomen: soft, non-tender. Bowel sounds normal. No masses, no organomegaly prior midline incision well-healed Extremities: extremities normal, atraumatic, no cyanosis or edema Pulses: 2+ and symmetric Skin: Skin color, texture, turgor normal. No rashes or lesions please see below stage decubitus ulcer Neurologic: Grossly normal Last 24 Hour Vital Signs Date Time Temp Pulse Resp B/P (MAP) Pulse Ox O2 Delivery O2 Flow Rate FiO2 02/01/20 12:00 Room Air 02/01/20 11:57 97.0 110 18 92/41 (58) 95 02/01/20 11:35 113 02/01/20 09:08 137 109/69 02/01/20 08:00 Room Air 02/01/20 08:00 97.0 137 18 109/69 (82) 98 02/01/20 07:32 111 02/01/20 04:00 Room Air 02/01/20 03:34 106 02/01/20 00:00 Room Air 01/31/20 23:26 86 01/31/20 20:52 96 110/60 01/31/20 20:00 Room Air 01/31/20 19:32 96 01/31/20 16:00 Room Air 01/31/20 15:41 102 Intake and Output 01/31/20 02/01/20 19:00 07:00 Intake Total 150 ml 50 ml Balance 150 ml 50 ml Intake Oral 150 ml 50 ml # Voids 2 1 Laboratory Tests Test 02/01/20 03:05 Troponin I 0.000 ng/mL (0.000-0.056) Height (Feet): 5 Height (Inches): 6.00 Weight (Pounds): 127 Medications Current Medications Medications (Trade) Dose Ordered Sig/Wally Route PRN Reason Start Time Stop Time Status Last Admin Dose Admin Acetaminophen (Tylenol) 650 mg Q4H PRN ORAL Mild Pain (Pain Scale 1-3) 02/01/20 14:30 02/29/20 14:29 Acetaminophen/ Hydrocodone Bitart (Lodi 10/325) 1 tab Q4H PRN ORAL Severe Pain (Pain Scale 7-10) 02/01/20 14:30 02/07/20 14:29 Acetaminophen/ Hydrocodone Bitart (Lodi 5/325) 1 tab Q4H PRN ORAL Moderate Pain (Pain Scale 4-6) 02/01/20 14:30 02/07/20 14:29 Chlorhexidine Gluconate (Salma-Hex 2%) 1 applic DAILY@2000 TOPIC 02/01/20 20:00 04/30/20 19:59 Dextrose (Dextrose 50%) 25 ml Q30M PRN IV Hypoglycemia 02/01/20 14:30 04/29/20 23:29 Dextrose (Dextrose 50%) 50 ml Q30M PRN IV Hypoglycemia 02/01/20 14:30 04/29/20 23:29 Insulin Aspart (NovoLOG) BEFORE MEALS AND HS SUBQ 02/01/20 16:30 04/30/20 06:29 Metoclopramide HCl (Reglan) 10 mg THREE TIMES A DAY ORAL 02/01/20 18:00 03/01/20 08:59 Metoprolol Tartrate (Lopressor) 50 mg EVERY 12 HOURS ORAL 02/01/20 21:00 04/30/20 08:59 Ondansetron HCl (Zofran ODT) 4 mg Q6H PRN ORAL Nausea & Vomiting 02/01/20 14:30 03/01/20 14:29 Pravastatin Sodium (Pravachol) 20 mg BEDTIME ORAL 02/01/20 21:00 03/01/20 20:59 Sodium Chloride 1,000 ml @ 75 mls/hr [id number] IV 02/01/20 14:30 03/02/20 14:14 Assessment/Plan Problem List: (1) Sepsis Assessment & Plan: lactic acidosis tachycardic hypotension altered unlikely related to decubitus ulcer and wounds likely chronically infected but not acute labs improving on abx and fluids cont current care plan ICD Codes: A41.9 - Sepsis, unspecified organism SNOMED: 15979640 (2) Anorexia ICD Codes: R63.0 - Anorexia SNOMED: 14894525 (3) Malnutrition Assessment & Plan: DAILY ESTIMATED NEEDS: Needs based on Wound 57.6kg 30-35 kcals/kg 7005-7178 total kcals 1.25-1.5 g protein/kg 72-86 g total protein 25-30ml/kcal mL/kg 0328-1800 total fluid mLs NUTRITION DIAGNOSIS: Increased kcal and pro needs r/t wound healing as evidenced by pt w/ unstageable sacral wound. (CURRENT DIET: CCHO MED soft easy chew) PO DIET RECOMMENDATIONS: With current poor po intake, rec liberalized REGULAR diet/ texture as harman ADDITIONAL RECOMMENDATIONS: 1) Add Glucerna TID w/ meals 2) Maintain calibrated bed scale wts 3) Wound care: MVI w/ min qdaily, Vit C 500mg daily + EFREN FRUIT PUNCH BID as tolerated 4) Check lytes + hydration status daily as able 5) Monitor lipase, need for low fat diet 6) DISPOSAL OPERATOR eval for appropriate diet texture ICD Codes: E46 - Unspecified protein-calorie malnutrition SNOMED: 35079515 (4) Gastric cancer ICD Codes: C16.9 - Malignant neoplasm of stomach, unspecified SNOMED: 749310790 (5) Atrial fibrillation with RVR ICD Codes: I48.91 - Unspecified atrial fibrillation SNOMED: 180180526874468 (6) DM (diabetes mellitus) ICD Codes: E11.9 - Type 2 diabetes mellitus without complications SNOMED: 82455955 (7) Low BP ICD Codes: I95.9 - Hypotension, unspecified SNOMED: 06561868 (8) Acute on chronic renal failure ICD Codes: N17.9 - Acute kidney failure, unspecified; N18.9 - Chronic kidney disease, unspecified SNOMED: 480363437 (9) Anemia ICD Codes: D64.9 - Anemia, unspecified SNOMED: 982398702 (10) Decubital ulcer Assessment & Plan: Pt presented on admission with stage 3 nearing almost a stage 4 as bone almost palpable if not palpable pressure injury to sacrum(L)1cm x (W)1cm. Base of wound has 100% slough Marginal erythema along edges. Periwound indurated with darker skin tone. Pt verbalized tenderness when minimally palpated. Bilat heels are boggy but blanchable . Pt denied tenderness when each heel individually palpated.Hemosiderin with Xerosis skin distal aspects of both lower ext.Both feet are edematous. Tx.Plan: Cleanse Sacral wound with Saline. Apply Therahoney. Apply Moisture Barrier Paste periwound. Cover with Optifoam drsg. Change every 3 days and prn. Apply Cavilon Skin Barrier to both heels. Cover each heel with Optifoam drsg.Change every 7 days and prn. Reposition at least every 2hours or as tolerated. Off-load heels with pillow. ICD Codes: L89.90 - Pressure ulcer of unspecified site, unspecified stage SNOMED: 765045028 Jose Ponce Feb 01, 2020 15:29
--- NOTE | 2020-02-01 15:44 | NUR ---
*-* INSURANCE *-* UPDATED AVAILABLE CLINICALS HAVE BEEN FAXED TO: CASEY BUI:LARRY REF# [id number] P: [phone] T: [phone] F: [phone]
[2020-02-01 16:00] VITALS: BP 100/61
--- NOTE | 2020-02-01 16:20 | NUR ---
NURSE NOTES: Dr. Sweeney at bedside. Informed regarding episode of low blood pressure. With order to reduce metoprolol to 25mg PO q12 hr.
--- NOTE | 2020-02-01 16:29 | Cardiology Progress Note ---
Assessment/Plan Assessment/Plan 1. Poor p.o. intake. 2. Dehydration. 3. Acute renal failure likely secondary to above. 4. Anemia with history of the same status post prior transfusions. 5. Gastric adenocarcinoma, status post palliative radiation therapy and some chemotherapy. 6. History of H. pylori. 7. Atrial fibrillation with rapid ventricular response. 8. Hypotension. 9. History of hypertension. 10. Diabetes mellitus. 11. Elevated lipase, possible pancreatitis need hydration bolus given now on ivf blood cx neg so far d/w dr paul d/w rn await covd 19 results still may need tx if hgb drops further as i suspect with volume repletion watch renal fx cardiac enzyme neg again ekg noted st elevation in lead v3 only and no other leads if covid is neg will have echo watch labs in am post hydration Subjective Subjective per rnn no co of cp nor sob nor dizziness Objective Last 24 Hour Vital Signs Date Time Temp Pulse Resp B/P (MAP) Pulse Ox O2 Delivery O2 Flow Rate FiO2 02/01/20 16:00 96.5 116 16 100/61 (74) 95 02/01/20 16:00 Room Air 02/01/20 12:00 Room Air 02/01/20 11:57 97.0 110 18 92/41 (58) 95 02/01/20 11:35 113 02/01/20 09:08 137 109/69 02/01/20 08:00 Room Air 02/01/20 08:00 97.0 137 18 109/69 (82) 98 02/01/20 07:32 111 02/01/20 04:00 Room Air 02/01/20 03:34 106 02/01/20 00:00 Room Air 01/31/20 23:26 86 01/31/20 20:52 96 110/60 01/31/20 20:00 Room Air 01/31/20 19:32 96 General Appearance: WD/WN, no apparent distress, other - seen thru out window , exam otherwise deferred due to covid status Intake and Output 01/31/20 02/01/20 19:00 07:00 Intake Total 150 ml 50 ml Balance 150 ml 50 ml Intake Oral 150 ml 50 ml # Voids 2 1 Laboratory Tests Test 02/01/20 03:05 Troponin I 0.000 ng/mL (0.000-0.056) Microbiology Date/Time Source Procedure Growth Status 4/27/20 20:41 Blood Blood Culture - Preliminary NO GROWTH AFTER 24 HOURS Resulted 01/30/20 20:41 Blood Blood Culture - Preliminary NO GROWTH AFTER 24 HOURS Resulted 01/30/20 21:00 Nasal Nares - Final Complete 01/30/20 21:00 Nasal Nares - Final Complete 01/30/20 20:41 Urine,Clean Catch Urine Culture - Preliminary NO GROWTH AFTER 24 HOURS Resulted 01/31/20 06:00 Rectum Received Brian Sweeney MD Feb 01, 2020 16:29
--- NOTE | 2020-02-01 19:25 | NUR ---
HAND-OFF: Report given to Suma Hernandez RN.
--- NOTE | 2020-02-01 19:45 | NUR ---
NURSE NOTES: Received pt from [facility]. pt is observed resting in bed, AO X3, able to respond to verbal commands, denies pain at this time. pt is on room air, saturation at 97%, no s/sx of respiratory distress noted at this time. triage technician shows A-fib with HR between 119-130s. no acute cardiac distress noted. Purewick noted. Right femoral TLC noted, patent and intact, running NS at 75 cc/hr. bed in lowest position and locked, siderails up X3, call light within reach. all needs attended to. will continue to monitor.
[2020-02-01 20:00] VITALS: BP 110/60
[2020-02-01] MEDS ORDERED: Metoprolol Tartrate 50mg tab ORAL SCH (21:00)
[2020-02-01] MEDS: Dyna-Hex 2% Top Sol 2oz TOPIC SCH (21:53)
--- NOTE | 2020-02-01 22:30 | NUR ---
NURSE NOTES: bedside glucose check: 119; no insulin needed as per protocol prescribed by MD. due meds given. Purewick in place, noted 100 cc output of dark brownish urine. attempted to draw blood from right femoral TLC for troponin as ordered per MD. unable to draw from line. lost charge card clerk Mamie made aware. all needs attended to. will continue to monitor.
[2020-02-02] VITALS: BP 90/53
[2020-02-02 04:00] VITALS: BP 117/63
[2020-02-02 05:52] LABS: BASOPHILS % (AUTO) 0.5 % (0.0-2.0); EOSINOPHILS % (AUTO) 0.3 % (0.0-3.0); HEMATOCRIT 25.7 % (37.0-47.0); HEMOGLOBIN 8.3 G/DL (12.0-16.0); LYMPHOCYTES % (AUTO) 13.4 % (20.0-45.0); MEAN CORPUSCULAR VOLUME 89 FL (80-99); NEUTROPHILS % (AUTO) 80.9 % (45.0-75.0); PLATELET COUNT 442 K/UL (150-450); RED BLOOD COUNT 2.88 M/UL (4.20-5.40); WHITE BLOOD COUNT 5.4 K/UL (4.8-10.8)
[2020-02-02 06:15] LABS: ANION GAP 21 mmol/L (5-15); BLOOD UREA NITROGEN 77 mg/dL (7-18); CALCIUM 9.1 MG/DL (8.5-10.1); CARBON DIOXIDE 20 MMOL/L (21-32); CHLORIDE 96 MMOL/L (98-107); CREATININE 3.3 MG/DL (0.55-1.30); SODIUM 137 MMOL/L (136-145)
[2020-02-02] MEDS: NovoLOG Insulin Flexpen SUBQ SCH ×4 (06:30→21:00)
--- NOTE | 2020-02-02 07:48 | NUR ---
HAND-OFF: Report given to Shania Kaplan RN. endorsed plan of care.
--- NOTE | 2020-02-02 07:50 | NUR ---
NURSE NOTES: Report received from Suma Wagner RN.Pt resting in bed asleep noted no resp distress on RA easily awakens with verbal stimuli,denies any c/o pain or discomfort,refusing to eat breakfast,pure wick in placed draining dark urine, skin warm and dry ,pt with RT Femoral TLC site intact with IVF NS at 75 ml/hr,SR up x2 call talbot within reach at bedside,HOB elevated,bed lock in lowest position will continue with plans of care.
[2020-02-02 08:00] VITALS: BP 130/86
--- NOTE | 2020-02-02 10:00 | NUR ---
NURSE NOTES: Pt vomiting to coffee ground emesis in small amount,but pt denies any c/o abdominal pain.
[2020-02-02] MEDS: Ascorbic Acid 500mg tab ORAL SCH (10:23)
--- NOTE | 2020-02-02 10:28 | NUR ---
*-* INSURANCE *-* UPDATED AVAILABLE CLINICALS HAVE BEEN FAXED TO: CASEY BUI:LARRY REF# [id number] P: [phone] T: [phone] F: [phone]
[2020-02-02 12:00] VITALS: BP 91/51
--- NOTE | 2020-02-02 12:00 | NUR ---
NURSE NOTES: pt continue to refuse to eat solid foods but however she drinks liquids like juice.
--- NOTE | 2020-02-02 12:08 | General Progress Note ---
Assessment/Plan Problem List: (1) Anorexia ICD Codes: R63.0 - Anorexia SNOMED: 78231752 (2) Malnutrition ICD Codes: E46 - Unspecified protein-calorie malnutrition SNOMED: 61917300 (3) Atrial fibrillation with RVR ICD Codes: I48.91 - Unspecified atrial fibrillation SNOMED: 099062357260123 (4) DM (diabetes mellitus) ICD Codes: E11.9 - Type 2 diabetes mellitus without complications SNOMED: 01539834 (5) Low BP ICD Codes: I95.9 - Hypotension, unspecified SNOMED: 09420273 (6) Acute on chronic renal failure ICD Codes: N17.9 - Acute kidney failure, unspecified; N18.9 - Chronic kidney disease, unspecified SNOMED: 924285330 (7) Anemia ICD Codes: D64.9 - Anemia, unspecified SNOMED: 330341958 (8) Decubital ulcer ICD Codes: L89.90 - Pressure ulcer of unspecified site, unspecified stage SNOMED: 815451845 Assessment/Plan: renal US follow labs rate control check covid Discussed with RN Discussed with RN to Tele today Subjective Allergies: Coded Allergies: No Known Allergies (Unverified , 01/30/20) Subjective In NAD Objective Last 24 Hour Vital Signs Date Time Temp Pulse Resp B/P (MAP) Pulse Ox O2 Delivery O2 Flow Rate FiO2 02/02/20 10:33 118 130/86 02/02/20 08:00 96.0 118 16 130/86 (101) 97 02/02/20 08:00 Room Air 02/02/20 08:00 101 02/02/20 04:00 Room Air 02/02/20 04:00 97.7 135 16 117/63 (81) 96 02/02/20 03:36 118 02/02/20 00:00 Room Air 02/02/20 00:00 96.3 122 16 90/53 (65) 100 02/01/20 23:25 121 02/01/20 21:54 115 110/60 02/01/20 20:00 97.7 115 16 110/60 (77) 97 02/01/20 20:00 Room Air 02/01/20 19:04 121 02/01/20 16:00 96.5 116 16 100/61 (74) 95 02/01/20 16:00 Room Air 02/01/20 15:18 108 Intake and Output 02/01/20 02/02/20 19:00 07:00 Intake Total 595 ml 1081.25 ml Output Total 100 ml Balance 595 ml 981.25 ml Intake Oral 120 ml 240 ml IV Total 475 ml 841.25 ml Output Urine Total 100 ml # Voids 1 Laboratory Tests 02/01/20 23:10: Troponin I 0.000 02/02/20 04:15: White Blood Count 5.4, Red Blood Count 2.88L, Hemoglobin 8.3L, Hematocrit 25.7L , Mean Corpuscular Volume 89, Mean Corpuscular Hemoglobin 28.8, Mean Corpuscular Hemoglobin Concent 32.3, Red Cell Distribution Width 19.0H, Platelet Count 442, Mean Platelet Volume 5.1L, Neutrophils (%) (Auto) 80.9H, Lymphocytes (%) (Auto) 13.4L, Monocytes (%) (Auto) 5.0, Eosinophils (%) (Auto) 0.3, Basophils (%) (Auto) 0.5, Sodium Level 137, Potassium Level 4.0, Chloride Level 96L, Carbon Dioxide Level 20L, Anion Gap 21H, Blood Urea Nitrogen 77H, Creatinine 3.3H, Estimat Glomerular Filtration Rate 15.9, Glucose Level 130H, Calcium Level 9.1 Height (Feet): 5 Height (Inches): 6.00 Weight (Pounds): 127 Cardiovascular: normal rate Respiratory/Chest: lungs clear Leno Wilson MD Feb 02, 2020 12:08
--- NOTE | 2020-02-02 12:12 | General Progress Note ---
Assessment/Plan Problem List: (1) Anorexia ICD Codes: R63.0 - Anorexia SNOMED: 59738175 (2) Malnutrition ICD Codes: E46 - Unspecified protein-calorie malnutrition SNOMED: 28607243 (3) Atrial fibrillation with RVR ICD Codes: I48.91 - Unspecified atrial fibrillation SNOMED: 857802046758823 (4) DM (diabetes mellitus) ICD Codes: E11.9 - Type 2 diabetes mellitus without complications SNOMED: 90450258 (5) Low BP ICD Codes: I95.9 - Hypotension, unspecified SNOMED: 93568065 (6) Acute on chronic renal failure ICD Codes: N17.9 - Acute kidney failure, unspecified; N18.9 - Chronic kidney disease, unspecified SNOMED: 303231950 (7) Anemia ICD Codes: D64.9 - Anemia, unspecified SNOMED: 465396175 (8) Decubital ulcer ICD Codes: L89.90 - Pressure ulcer of unspecified site, unspecified stage SNOMED: 623276209 Status Narrative hypotensive Assessment/Plan: IVF oncology consult ID consult rate control Follow labs Discussed with RN IVF fo low BP Subjective Date patient seen: Feb 01, 2020 Allergies: Coded Allergies: No Known Allergies (Unverified , 01/30/20) Subjective late entry poor po intake Objective Last 24 Hour Vital Signs Date Time Temp Pulse Resp B/P (MAP) Pulse Ox O2 Delivery O2 Flow Rate FiO2 02/02/20 10:33 118 130/86 02/02/20 08:00 96.0 118 16 130/86 (101) 97 02/02/20 08:00 Room Air 02/02/20 08:00 101 02/02/20 04:00 Room Air 02/02/20 04:00 97.7 135 16 117/63 (81) 96 02/02/20 03:36 118 02/02/20 00:00 Room Air 02/02/20 00:00 96.3 122 16 90/53 (65) 100 02/01/20 23:25 121 02/01/20 21:54 115 110/60 02/01/20 20:00 97.7 115 16 110/60 (77) 97 02/01/20 20:00 Room Air 02/01/20 19:04 121 02/01/20 16:00 96.5 116 16 100/61 (74) 95 02/01/20 16:00 Room Air 02/01/20 15:18 108 Intake and Output 02/01/20 02/02/20 19:00 07:00 Intake Total 595 ml 1081.25 ml Output Total 100 ml Balance 595 ml 981.25 ml Intake Oral 120 ml 240 ml IV Total 475 ml 841.25 ml Output Urine Total 100 ml # Voids 1 Laboratory Tests 02/01/20 23:10: Troponin I 0.000 02/02/20 04:15: White Blood Count 5.4, Red Blood Count 2.88L, Hemoglobin 8.3L, Hematocrit 25.7L , Mean Corpuscular Volume 89, Mean Corpuscular Hemoglobin 28.8, Mean Corpuscular Hemoglobin Concent 32.3, Red Cell Distribution Width 19.0H, Platelet Count 442, Mean Platelet Volume 5.1L, Neutrophils (%) (Auto) 80.9H, Lymphocytes (%) (Auto) 13.4L, Monocytes (%) (Auto) 5.0, Eosinophils (%) (Auto) 0.3, Basophils (%) (Auto) 0.5, Sodium Level 137, Potassium Level 4.0, Chloride Level 96L, Carbon Dioxide Level 20L, Anion Gap 21H, Blood Urea Nitrogen 77H, Creatinine 3.3H, Estimat Glomerular Filtration Rate 15.9, Glucose Level 130H, Calcium Level 9.1 Height (Feet): 5 Height (Inches): 6.00 Weight (Pounds): 127 Cardiovascular: normal rate Respiratory/Chest: lungs clear Abdomen: soft Leno Wilson MD Feb 02, 2020 12:12
--- NOTE | 2020-02-02 14:09 | NUR ---
CASE MANAGEMENT:REVIEW SI;A-FIB W/RVR. AC/CHR RENAL FAILURE. ANEMIA. MALNUTRITION. ST III SACRAL DECUB. 96.0 135 16 90/53 96% ON RA H/H 8.3/25.7 CO2 20 BUN 77 CR 3.3 IS;LOPRESSOR PO Q12 HRS INSULIN NOVOLOG IVF NS @ 75 ML/HR VIT C QD ABRAN STATUS PATIENT WILL BE TRANSFERRED TO TELEMETRY DCP;FROM HOME
--- NOTE | 2020-02-02 15:00 | NUR ---
NURSE NOTES: Dr Sweeney at bedside,updated re pt's status ,atrial Fib and vomiting of coffee ground emesis.
[2020-02-02 16:00] VITALS: BP 98/49
--- NOTE | 2020-02-02 16:02 | Cardiology Progress Note ---
Assessment/Plan Assessment/Plan 1. Poor p.o. intake. 2. Dehydration. 3. Acute renal failure likely secondary to above. 4. Anemia with history of the same status post prior transfusions. 5. Gastric adenocarcinoma, status post palliative radiation therapy and some chemotherapy. 6. History of H. pylori. 7. Atrial fibrillation with rapid ventricular response. 8. Hypotension. 9. History of hypertension. 10. Diabetes mellitus. 11. Elevated lipase, possible pancreatitis need hydration bolus given now on ivf blood cx neg so far d/w rn await covd 19 results still cardiac enzyme neg again ekg noted st elevation in lead v3 only and no other leads echo at [facility] 10/2019 had shown sig hyperdynamic systolic function if covid is neg will have echo labs noted onc to see hr alittel higher on lower dose of metorpolol bp dropped per rn after recieving metoprlol (133 to 91) rather unusual response to bb , await repeat Subjective Cardiovascular: Reports: no symptoms Subjective vomiteted coffee graoudn per rn , no diarrhe no coughing Objective Last 24 Hour Vital Signs Date Time Temp Pulse Resp B/P (MAP) Pulse Ox O2 Delivery O2 Flow Rate FiO2 02/02/20 12:00 96.3 116 16 91/51 (64) 97 02/02/20 12:00 Room Air 02/02/20 12:00 124 02/02/20 10:33 118 130/86 02/02/20 08:00 96.0 118 16 130/86 (101) 97 02/02/20 08:00 Room Air 02/02/20 08:00 101 02/02/20 04:00 Room Air 02/02/20 04:00 97.7 135 16 117/63 (81) 96 02/02/20 03:36 118 02/02/20 00:00 Room Air 02/02/20 00:00 96.3 122 16 90/53 (65) 100 02/01/20 23:25 121 02/01/20 21:54 115 110/60 02/01/20 20:00 97.7 115 16 110/60 (77) 97 02/01/20 20:00 Room Air 02/01/20 19:04 121 02/01/20 16:00 96.5 116 16 100/61 (74) 95 02/01/20 16:00 Room Air General Appearance: no apparent distress - from window Intake and Output 02/01/20 02/02/20 19:00 07:00 Intake Total 595 ml 1081.25 ml Output Total 100 ml Balance 595 ml 981.25 ml Intake Oral 120 ml 240 ml IV Total 475 ml 841.25 ml Output Urine Total 100 ml # Voids 1 Laboratory Tests Test 02/01/20 23:10 02/02/20 04:15 Troponin I 0.000 ng/mL (0.000-0.056) White Blood Count 5.4 K/UL (4.8-10.8) Red Blood Count 2.88 M/UL (4.20-5.40) L Hemoglobin 8.3 G/DL (12.0-16.0) L Hematocrit 25.7 % (37.0-47.0) L Mean Corpuscular Volume 89 FL (80-99) Mean Corpuscular Hemoglobin 28.8 PG (27.0-31.0) Mean Corpuscular Hemoglobin Concent 32.3 G/DL (32.0-36.0) Red Cell Distribution Width 19.0 % (11.6-14.8) H Platelet Count 442 K/UL (150-450) Mean Platelet Volume 5.1 FL (6.5-10.1) L Neutrophils (%) (Auto) 80.9 % (45.0-75.0) H Lymphocytes (%) (Auto) 13.4 % (20.0-45.0) L Monocytes (%) (Auto) 5.0 % (1.0-10.0) Eosinophils (%) (Auto) 0.3 % (0.0-3.0) Basophils (%) (Auto) 0.5 % (0.0-2.0) Sodium Level 137 MMOL/L (136-145) Potassium Level 4.0 MMOL/L (3.5-5.1) Chloride Level 96 MMOL/L (98-107) L Carbon Dioxide Level 20 MMOL/L (21-32) L Anion Gap 21 mmol/L (5-15) H Blood Urea Nitrogen 77 mg/dL (7-18) H Creatinine 3.3 MG/DL (0.55-1.30) H Estimat Glomerular Filtration Rate 15.9 mL/min (>60) Glucose Level 130 MG/DL (74-106) H Calcium Level 9.1 MG/DL (8.5-10.1) Microbiology Date/Time Source Procedure Growth Status 01/30/20 20:41 Blood Blood Culture - Preliminary NO GROWTH AFTER 48 HOURS Resulted 01/30/20 20:41 Blood Blood Culture - Preliminary NO GROWTH AFTER 48 HOURS Resulted 01/31/20 06:00 Nasal Nares MRSA Culture - Final Staphylococcus Aureus - Mrsa Complete 01/30/20 21:00 Nasal Nares - Final Complete 01/30/20 21:00 Nasal Nares - Final Complete 01/30/20 20:41 Urine,Clean Catch Urine Culture - Final Mixed Urogenital Contaminants Complete 01/31/20 06:00 Rectum VRE Culture - Final NO VANCOMYCIN RESISTANT ENTEROCOCCUS ... Complete 01/31/20 06:00 Rectum - Final NO CARBAPENEM-RESISTANT ENTEROBACTERI... Complete Brian Sweeney MD Feb 02, 2020 16:02
--- NOTE | 2020-02-02 16:34 | Surgery Progress Note ---
Surgery Progress Note Subjective Additional Comments afebrile, tachycardic labs noted no wbc. cr elevated pending echo from covid status Objective Last 24 Hour Vital Signs Date Time Temp Pulse Resp B/P (MAP) Pulse Ox O2 Delivery O2 Flow Rate FiO2 02/02/20 16:00 Room Air 02/02/20 16:00 96.4 129 20 98/49 (65) 92 02/02/20 12:00 96.3 116 16 91/51 (64) 97 02/02/20 12:00 Room Air 02/02/20 12:00 124 02/02/20 10:33 118 130/86 02/02/20 08:00 96.0 118 16 130/86 (101) 97 02/02/20 08:00 Room Air 02/02/20 08:00 101 02/02/20 04:00 Room Air 02/02/20 04:00 97.7 135 16 117/63 (81) 96 02/02/20 03:36 118 02/02/20 00:00 Room Air 02/02/20 00:00 96.3 122 16 90/53 (65) 100 02/01/20 23:25 121 02/01/20 21:54 115 110/60 02/01/20 20:00 97.7 115 16 110/60 (77) 97 02/01/20 20:00 Room Air 02/01/20 19:04 121 I&O Intake and Output 02/01/20 02/02/20 19:00 07:00 Intake Total 595 ml 1081.25 ml Output Total 100 ml Balance 595 ml 981.25 ml Intake Oral 120 ml 240 ml IV Total 475 ml 841.25 ml Output Urine Total 100 ml # Voids 1 Dressing: other Wound: other Drains: other Cardiovascular: RSR Respiratory: decreased breath sounds Abdomen: soft, non-tender, present bowel sounds Extremities: no tenderness, no cyanosis Laboratory Tests Test 02/01/20 23:10 02/02/20 04:15 Troponin I 0.000 ng/mL (0.000-0.056) White Blood Count 5.4 K/UL (4.8-10.8) Red Blood Count 2.88 M/UL (4.20-5.40) L Hemoglobin 8.3 G/DL (12.0-16.0) L Hematocrit 25.7 % (37.0-47.0) L Mean Corpuscular Volume 89 FL (80-99) Mean Corpuscular Hemoglobin 28.8 PG (27.0-31.0) Mean Corpuscular Hemoglobin Concent 32.3 G/DL (32.0-36.0) Red Cell Distribution Width 19.0 % (11.6-14.8) H Platelet Count 442 K/UL (150-450) Mean Platelet Volume 5.1 FL (6.5-10.1) L Neutrophils (%) (Auto) 80.9 % (45.0-75.0) H Lymphocytes (%) (Auto) 13.4 % (20.0-45.0) L Monocytes (%) (Auto) 5.0 % (1.0-10.0) Eosinophils (%) (Auto) 0.3 % (0.0-3.0) Basophils (%) (Auto) 0.5 % (0.0-2.0) Sodium Level 137 MMOL/L (136-145) Potassium Level 4.0 MMOL/L (3.5-5.1) Chloride Level 96 MMOL/L (98-107) L Carbon Dioxide Level 20 MMOL/L (21-32) L Anion Gap 21 mmol/L (5-15) H Blood Urea Nitrogen 77 mg/dL (7-18) H Creatinine 3.3 MG/DL (0.55-1.30) H Estimat Glomerular Filtration Rate 15.9 mL/min (>60) Glucose Level 130 MG/DL (74-106) H Calcium Level 9.1 MG/DL (8.5-10.1) Plan Problems: (1) Sepsis Assessment & Plan: lactic acidosis tachycardic hypotension altered unlikely related to decubitus ulcer and wounds likely chronically infected but not acute labs improving on abx and fluids cont current care plan improving (2) Anorexia (3) Malnutrition Assessment & Plan: DAILY ESTIMATED NEEDS: Needs based on Wound 57.6kg 30-35 kcals/kg 1524-6559 total kcals 1.25-1.5 g protein/kg 72-86 g total protein 25-30ml/kcal mL/kg 4185-2335 total fluid mLs NUTRITION DIAGNOSIS: Increased kcal and pro needs r/t wound healing as evidenced by pt w/ unstageable sacral wound. (CURRENT DIET: CCHO MED soft easy chew) PO DIET RECOMMENDATIONS: With current poor po intake, rec liberalized REGULAR diet/ texture as harman ADDITIONAL RECOMMENDATIONS: 1) Add Glucerna TID w/ meals 2) Maintain calibrated bed scale wts 3) Wound care: MVI w/ min qdaily, Vit C 500mg daily + EFREN FRUIT PUNCH BID as tolerated 4) Check lytes + hydration status daily as able 5) Monitor lipase, need for low fat diet 6) HEALTH SCIENCE INSTRUCTOR eval for appropriate diet texture (4) Gastric cancer (5) Atrial fibrillation with RVR (6) DM (diabetes mellitus) (7) Low BP (8) Acute on chronic renal failure (9) Anemia (10) Decubital ulcer Assessment & Plan: Pt presented on admission with stage 3 nearing almost a stage 4 as bone almost palpable if not palpable pressure injury to sacrum(L)1cm x (W)1cm. Base of wound has 100% slough Marginal erythema along edges. Periwound indurated with darker skin tone. Pt verbalized tenderness when minimally palpated. Bilat heels are boggy but blanchable . Pt denied tenderness when each heel individually palpated.Hemosiderin with Xerosis skin distal aspects of both lower ext.Both feet are edematous. Tx.Plan: Cleanse Sacral wound with Saline. Apply Therahoney. Apply Moisture Barrier Paste periwound. Cover with Optifoam drsg. Change every 3 days and prn. Apply Cavilon Skin Barrier to both heels. Cover each heel with Optifoam drsg.Change every 7 days and prn. Reposition at least every 2hours or as tolerated. Off-load heels with pillow. Jose Ponce Feb 02, 2020 16:34
--- NOTE | 2020-02-02 17:00 | NUR ---
NURSE NOTES: Pt stable,in no distress,Dr Wilson with orders to transfer pt to Telemetry.
--- NOTE | 2020-02-02 19:19 | NUR ---
HAND-OFF: Report given to Suma Wagner RN.
--- NOTE | 2020-02-02 19:20 | NUR ---
NURSE NOTES: Received pt from Shania Kaplan RN. will continue plan of care.
--- NOTE | 2020-02-02 19:30 | Consultation ---
DATE OF CONSULTATION: 02/02/2020 INFECTIOUS DISEASE CONSULTATION CONSULTING PHYSICIAN: Jassi Wilson MD. PRIMARY ATTENDING PHYSICIAN: Leno Wilson MD. REASON FOR CONSULT: Rule out of COVID-19, pyuria, UTI. HISTORY OF PRESENT ILLNESS: This is an 89-year-old female admitted on January 29, from home because of general weakness. The patient has history of gastric cancer, recent hospitalization in [facility], had radiation therapy. Before that, the patient was in shelter and was at home for 1 or 2 days. At the time of admission, she had tachycardia and atrial fibrillation with heart rate of 152. PAST MEDICAL HISTORY: Gastric cancer, adenocarcinoma, status post radiation, anemia, [id number] DC, hyperlipidemia, history of H. pylori infection, gastroesophageal reflux disease, diabetes mellitus, and pressure ulcer. ALLERGIES: No known drug allergies. MEDICATIONS: Getting multivitamin, vitamin C, Reglan, fluoxetine, metoprolol, insulin, Zofran, Tylenol, [place]. SOCIAL HISTORY: Single. Lives with granddaughter. No history of alcohol, drug abuse, or smoking. REVIEW OF SYSTEMS: Limited. According to the nurse, she had some coffee-ground vomiting yesterday. PHYSICAL EXAMINATION: VITAL SIGNS: Temperature 97.7, there was no fever in the hospital, pulse 135, blood pressure is 117/66. HEAD AND NECK: Moist mucus membrane. HEART: Tachycardic, irregular. LUNGS: Clear. ABDOMEN: Soft. EXTREMITIES: No edema. SKIN: She has pressure ulcer in the sacral area that is small. LABORATORY DATA: WBC 5.4, hemoglobin 8.3, hematocrit 25.7, platelet is 442,000. Sodium 137, potassium 4, chloride 96, bicarb 20, BUN 77, creatinine 3.3, glucose is 130. Troponin was negative. Blood culture x2, negative. Urine culture, mixed contaminant. Influenza A and B were negative. Carbapenem-resistant Enterobacter in rectum was negative. VRE was negative. IMPRESSION: Generalized weakness and worsening of renal function, likely acute renal failure. We will try to rule out COVID-19. She has pyuria, sacral pressure ulcer, severe anemia, gastric cancer on palliative treatment, diabetes mellitus, acute renal failure. RECOMMENDATION: We will follow on COVID-19 test. We will observe off antibiotic for now. At the end of my exam, I thank Dr. Leno Wilson for involving me in the care of this patient. Jassi Wilson M.D. DR: NELLY JOB#: [id number] CC:
[2020-02-02 20:00] VITALS: BP 103/54
--- NOTE | 2020-02-02 20:05 | NUR ---
NURSE NOTES: pt observed resting in bed, appears to be sleeping, able to respond to name and verbal commands. no s/sx of pain noted at this time. pt is on room air, saturation: 96%, no s/sx of respiratory distress noted at this time. media monitor shows a-fib, with HR between 103-125. no acute cardiac distress noted. Right femoral TLC noted, patent and running NS at 75 cc/hr. will change dressing at later time per patient's request. bed in lowest position and locked, siderails up X3, call light within reach. all needs attended to. will continue to monitor.
[2020-02-02] MEDS: Dyna-Hex 2% Top Sol 2oz TOPIC SCH (20:45)
--- NOTE | 2020-02-02 22:00 | NUR ---
NURSE NOTES: pt refused scheduled 2100 medications. patient education provided for each medication, including risks/benefits. pt continued to refuse. no s/sx of distress noted at this time. will continue to monitor.
[2020-02-03] VITALS: BP 96/71
[2020-02-03 04:00] VITALS: BP 109/60
--- NOTE | 2020-02-03 04:53 | NUR ---
NURSE NOTES: pt provided CHG bath. turned and repositioned patient with pillow support. Right femoral TLC dressing changed using sterile technique. low urine output noted in canister connected to Purewick. bladder scan performed, 106 ml urine measured. pt voided X1; bladder scan redone. 88 ml urine measured. lungs auscultated bilaterally. noted diminished breath sounds bilateral lower lobes and rhonchi noted in upper and middle lobes. fluids stopped at this time d/t low urine output. no s/sx of SOB. will continue to monitor.
--- NOTE | 2020-02-03 05:00 | NUR ---
NURSE NOTES: resumed fluids d/t pt's BP of 109/60 and poor PO intake. will discuss with MD regarding low urine output. will continue to monitor.
[2020-02-03 05:29] LABS: HEMATOCRIT 18.5 % (37.0-47.0); MEAN CORPUSCULAR VOLUME 88 FL (80-99); PLATELET COUNT 342 K/UL (150-450); RED BLOOD COUNT 2.11 M/UL (4.20-5.40); RED CELL DISTRIBUTION WIDTH 18.8 % (11.6-14.8); WHITE BLOOD COUNT 6.8 K/UL (4.8-10.8)
--- NOTE | 2020-02-03 05:55 | NUR ---
NURSE NOTES: Received call from Kenney from lab regarding patient's hemoglobin level of 6.0. will inform MD.
[2020-02-03 06:12] LABS: ANION GAP 25 mmol/L (5-15); BLOOD UREA NITROGEN 78 mg/dL (7-18); CALCIUM 8.2 MG/DL (8.5-10.1); CARBON DIOXIDE 14 MMOL/L (21-32); CHLORIDE 100 MMOL/L (98-107); CREATININE 3.2 MG/DL (0.55-1.30); POTASSIUM 3.4 MMOL/L (3.5-5.1); SODIUM 139 MMOL/L (136-145)
--- NOTE | 2020-02-03 06:20 | NUR ---
NURSE NOTES: bedside glucose check: 148. no insulin administered d/t pt's refusal and poor PO intake. pt refused scheduled 0600 meds. educated patient on benefits/risks of meds. pt continued to refuse. will continue to monitor.
[2020-02-03] MEDS: NovoLOG Insulin Flexpen SUBQ SCH ×4 (06:30→21:00)
--- NOTE | 2020-02-03 06:30 | NUR ---
NURSE NOTES: left message for Dr. Leno Wilson regarding patient's abnormal labs of hemoglobin, potassium, BUN, and creatinine levels. Also informed MD of pt's low urine output. awaiting call back.
--- NOTE | 2020-02-03 07:05 | NUR ---
NURSE NOTES: Received call back from Dr. Leno Wilson with new orders. will place new orders as prescribed per MD.
--- NOTE | 2020-02-03 07:45 | NUR ---
HAND-OFF: Report given to Shania Kaplan RN. endorsed plan of care.
--- NOTE | 2020-02-03 07:50 | NUR ---
NURSE NOTES: Report received from Suma Wagner RN.Pt resting in bed asleep noted no resp distress opens eyes spontaneously,denies any c/o abd pain,with pure wick in placed but pt had a very low urine output during the night,skin warm and dry with IV site to RT Femoral TLC ,IVF NS at 75 ml/hr site intact,SR up x2 HOB elevated,call talbot within reach at bedside bed lock in lowest position will continue with plans of care.
[2020-02-03 08:00] VITALS: BP 113/90
--- NOTE | 2020-02-03 08:48 | NUR ---
RD ASSESSMENT & RECOMMENDATIONS SEE CARE ACTIVITY FOR COMPLETE ASSESSMENT DAILY ESTIMATED NEEDS: Needs based on Wound 57.6kg 30-35 kcals/kg 7205-3101 total kcals 1.25-1.5 g protein/kg 72-86 g total protein 25-30ml/kcal mL/kg 8336-6394 total fluid mLs NUTRITION DIAGNOSIS: Increased kcal and pro needs r/t wound healing as evidenced by pt w/ unstageable sacral wound (per MD, stage 3 to 4). (CURRENT DIET: CCHO MED soft easy chew) PO DIET RECOMMENDATIONS: With current poor po intake, rec liberalized REGULAR diet/ texture as harman ENTERAL NUTRITION RECOMMENDATIONS: Consult RD for non oral TF recs if part of POC w/ continued poor po ADDITIONAL RECOMMENDATIONS: 1) Add Glucerna TID w/ meals 2) Maintain calibrated bed scale wts 3) Wound care: MVI w/ min qdaily, Vit C 500mg daily + EFREN FRUIT PUNCH BID as tolerated 4) Check lytes + hydration status daily as able 5) Monitor lipase, need for low fat diet 6) COMPOSITION WORKER eval for appropriate diet texture
[2020-02-03 08:54] LABS: ALANINE AMINOTRANSFERASE 21 U/L (12-78); ALBUMIN 1.9 G/DL (3.4-5.0); ALKALINE PHOSPHATASE 507 U/L (46-116); ASPARTATE AMINO TRANSFERASE 50 U/L (15-37); BILIRUBIN,DIRECT 0.2 MG/DL (0.0-0.3); BILIRUBIN,TOTAL 0.5 MG/DL (0.2-1.0); FERRITIN 765 NG/ML (8-388); GAMMA GLUTAMYL TRANSPEPTIDASE 304 U/L (5-85)
[2020-02-03] MEDS: Ascorbic Acid 500mg tab ORAL SCH (08:57)
--- NOTE | 2020-02-03 09:00 | NUR ---
NURSE NOTES: Jenkins catheter insertion with FR 16 done per MD's order,procedure tolerated well,
[2020-02-03 09:12] LABS: % IRON SATURATION 42 % (15-50); IRON 73 ug/dL (50-175); TOTAL IRON BINDING CAPACITY 175 ug/dL (250-450)
[2020-02-03 09:26] LABS: PHOSPHORUS 6.3 MG/DL (2.5-4.9)
--- NOTE | 2020-02-03 10:15 | Infectious Diseases Prog Note ---
Assessment/Plan Assessment/Plan IMPRESSION: Acute renal failure. Negative COVID-19 test Pyuria, Sacral pressure ulcer, Severe anemia, Gastric cancer on palliative treatment, Diabetes mellitus. MRSA carrier RECOMMENDATION: We will observe off antibiotic for now. Discontinue Droplet isolation Subjective ROS Limited/Unobtainable: Yes Constitutional: Denies: fever Respiratory: Reports: no symptoms Allergies: Coded Allergies: No Known Allergies (Unverified , 01/30/20) Objective Vital Signs Last 24 Hour Vital Signs Date Time Temp Pulse Resp B/P (MAP) Pulse Ox O2 Delivery O2 Flow Rate FiO2 02/03/20 08:57 128 113/90 02/03/20 08:00 96.4 128 24 113/90 (98) 97 02/03/20 04:00 97.4 115 24 109/60 (76) 94 02/03/20 04:00 127 02/03/20 04:00 Room Air 02/03/20 00:00 Room Air 02/03/20 00:00 126 02/03/20 00:00 97.0 87 24 96/71 (79) 95 02/02/20 20:00 Room Air 02/02/20 20:00 97.0 76 20 103/54 (70) 95 02/02/20 20:00 120 02/02/20 16:00 Room Air 02/02/20 16:00 96.4 129 20 98/49 (65) 92 02/02/20 16:00 97 02/02/20 12:00 96.3 116 16 91/51 (64) 97 02/02/20 12:00 Room Air 02/02/20 12:00 124 02/02/20 10:33 118 130/86 Height (Feet): 5 Height (Inches): 6.00 Weight (Pounds): 127 General Appearance: no acute distress HEENT: mucous membranes moist Respiratory/Chest: lungs clear Cardiovascular: tachycardia Abdomen: soft, non tender Extremities: no edema Neurologic/Psychiatric: alert, responsive Laboratory Tests Test 02/03/20 05:05 White Blood Count 6.8 K/UL (4.8-10.8) Red Blood Count 2.11 M/UL (4.20-5.40) L Hemoglobin 6.0 G/DL (12.0-16.0) *L Hematocrit 18.5 % (37.0-47.0) L Mean Corpuscular Volume 88 FL (80-99) Mean Corpuscular Hemoglobin 28.6 PG (27.0-31.0) Mean Corpuscular Hemoglobin Concent 32.7 G/DL (32.0-36.0) Red Cell Distribution Width 18.8 % (11.6-14.8) H Platelet Count 342 K/UL (150-450) Mean Platelet Volume 4.7 FL (6.5-10.1) L Neutrophils (%) (Auto) % (45.0-75.0) Lymphocytes (%) (Auto) % (20.0-45.0) Monocytes (%) (Auto) % (1.0-10.0) Eosinophils (%) (Auto) % (0.0-3.0) Basophils (%) (Auto) % (0.0-2.0) Differential Total Cells Counted 100 Neutrophils % (Manual) 94 % (45-75) H Lymphocytes % (Manual) 5 % (20-45) L Monocytes % (Manual) 1 % (1-10) Eosinophils % (Manual) 0 % (0-3) Basophils % (Manual) 0 % (0-2) Band Neutrophils 0 % (0-8) Nucleated Red Blood Cells 2 /100 WBC Platelet Estimate Adequate Platelet Morphology Normal Hypochromasia 1+ Anisocytosis 1+ Acanthocytes 2+ Sodium Level 139 MMOL/L (136-145) Potassium Level 3.4 MMOL/L (3.5-5.1) L Chloride Level 100 MMOL/L (98-107) Carbon Dioxide Level 14 MMOL/L (21-32) L Anion Gap 25 mmol/L (5-15) H Blood Urea Nitrogen 78 mg/dL (7-18) H Creatinine 3.2 MG/DL (0.55-1.30) H Estimat Glomerular Filtration Rate 16.6 mL/min (>60) Glucose Level 150 MG/DL (74-106) H Uric Acid 19.2 MG/DL (2.6-7.2) H Calcium Level 8.2 MG/DL (8.5-10.1) L Phosphorus Level 6.3 MG/DL (2.5-4.9) H Magnesium Level 1.9 MG/DL (1.8-2.4) Iron Level 73 ug/dL (50-175) Total Iron Binding Capacity 175 ug/dL (250-450) L Percent Iron Saturation 42 % (15-50) Unsaturated Iron Binding 102 ug/dL (112-346) L Ferritin 765 NG/ML (8-388) H Total Bilirubin 0.5 MG/DL (0.2-1.0) Direct Bilirubin 0.2 MG/DL (0.0-0.3) Gamma Glutamyl Transpeptidase 304 U/L (5-85) H Aspartate Amino Transf (AST/SGOT) 50 U/L (15-37) H Alanine Aminotransferase (ALT/SGPT) 21 U/L (12-78) Alkaline Phosphatase 507 U/L (46-116) H Total Protein 5.4 G/DL (6.4-8.2) L Albumin 1.9 G/DL (3.4-5.0) L Vitamin B12 Level 694 PG/ML (193-986) Folate 5.0 NG/ML (8.6-58.9) L Current Medications Medications (Trade) Dose Ordered Sig/Wally Route PRN Reason Start Time Stop Time Status Last Admin Dose Admin Acetaminophen (Tylenol) 650 mg Q4H PRN ORAL Mild Pain (Pain Scale 1-3) 02/01/20 14:30 02/29/20 14:29 Acetaminophen/ Hydrocodone Bitart (Arab 10/325) 1 tab Q4H PRN ORAL Severe Pain (Pain Scale 7-10) 02/01/20 14:30 02/07/20 14:29 Acetaminophen/ Hydrocodone Bitart (Arab 5/325) 1 tab Q4H PRN ORAL Moderate Pain (Pain Scale 4-6) 02/01/20 14:30 02/07/20 14:29 Ascorbic Acid (Vitamin C) 500 mg DAILY ORAL 02/02/20 09:00 03/03/20 08:59 02/03/20 08:57 Chlorhexidine Gluconate (Salma-Hex 2%) 1 applic DAILY@1999 TOPIC 02/01/20 20:00 04/30/20 19:59 02/02/20 20:45 Dextrose (Dextrose 50%) 25 ml Q30M PRN IV Hypoglycemia 02/01/20 14:30 04/29/20 23:29 Dextrose (Dextrose 50%) 50 ml Q30M PRN IV Hypoglycemia 02/01/20 14:30 04/29/20 23:29 Insulin Aspart (NovoLOG) BEFORE MEALS AND HS SUBQ 02/01/20 16:30 04/30/20 06:29 02/02/20 11:30 Metoclopramide HCl (Reglan) 10 mg EVERY 8 HOURS ORAL 02/01/20 22:00 03/01/20 08:59 02/02/20 16:11 Metoprolol Tartrate (Lopressor) 25 mg EVERY 12 HOURS ORAL 02/01/20 21:00 04/30/20 08:59 02/03/20 08:57 Multivitamins (Multivitamins) 1 tab DAILY ORAL 02/02/20 09:00 03/03/20 08:59 02/03/20 08:57 Ondansetron HCl (Zofran) 4 mg Q6H PRN IVP Nausea & Vomiting 02/01/20 16:30 03/02/20 16:29 Potassium Chloride 100 ml @ 50 mls/hr ONCE ONCE IVPB 02/03/20 09:00 02/03/20 10:59 02/03/20 08:57 Pravastatin Sodium (Pravachol) 20 mg BEDTIME ORAL 02/01/20 21:00 03/01/20 20:59 02/01/20 21:53 Sodium Chloride 1,000 ml @ 75 mls/hr [id number] IV 02/01/20 14:30 03/02/20 14:14 02/03/20 06:06 Jassi Wilson MD February 03, 2020 10:15
--- NOTE | 2020-02-03 10:22 | NUR ---
*-* INSURANCE *-* UPDATED AVAILABLE CLINICALS HAVE BEEN FAXED TO: CASEY BUI:LARRY REF# [id number] P: [phone] T: [phone] F: [phone]
--- NOTE | 2020-02-03 11:31 | Surgery Progress Note ---
Surgery Progress Note Subjective Additional Comments acute anemia. no active bleeding. possible dilutional states she is okay but cannot get comfortable in bed no n/v/f/c Objective Last 24 Hour Vital Signs Date Time Temp Pulse Resp B/P (MAP) Pulse Ox O2 Delivery O2 Flow Rate FiO2 02/03/20 08:57 128 113/90 02/03/20 08:00 138 02/03/20 08:00 Room Air 02/03/20 08:00 96.4 128 24 113/90 (98) 97 02/03/20 04:00 97.4 115 24 109/60 (76) 94 02/03/20 04:00 127 02/03/20 04:00 Room Air 02/03/20 00:00 Room Air 02/03/20 00:00 126 02/03/20 00:00 97.0 87 24 96/71 (79) 95 02/02/20 20:00 Room Air 02/02/20 20:00 97.0 76 20 103/54 (70) 95 02/02/20 20:00 120 02/02/20 16:00 Room Air 02/02/20 16:00 96.4 129 20 98/49 (65) 92 02/02/20 16:00 97 02/02/20 12:00 96.3 116 16 91/51 (64) 97 02/02/20 12:00 Room Air 02/02/20 12:00 124 I&O Intake and Output 02/02/20 02/03/20 19:00 07:00 Intake Total 1140 ml 817.5 ml Output Total 150 ml 20 ml Balance 990 ml 797.5 ml Intake Oral 240 ml IV Total 900 ml 817.5 ml Output Urine Total 150 ml 20 ml Dressing: other Wound: other Cardiovascular: RSR Respiratory: decreased breath sounds Abdomen: soft, non-tender, present bowel sounds Extremities: no cyanosis, other Laboratory Tests Test 02/03/20 05:05 White Blood Count 6.8 K/UL (4.8-10.8) Red Blood Count 2.11 M/UL (4.20-5.40) L Hemoglobin 6.0 G/DL (12.0-16.0) *L Hematocrit 18.5 % (37.0-47.0) L Mean Corpuscular Volume 88 FL (80-99) Mean Corpuscular Hemoglobin 28.6 PG (27.0-31.0) Mean Corpuscular Hemoglobin Concent 32.7 G/DL (32.0-36.0) Red Cell Distribution Width 18.8 % (11.6-14.8) H Platelet Count 342 K/UL (150-450) Mean Platelet Volume 4.7 FL (6.5-10.1) L Neutrophils (%) (Auto) % (45.0-75.0) Lymphocytes (%) (Auto) % (20.0-45.0) Monocytes (%) (Auto) % (1.0-10.0) Eosinophils (%) (Auto) % (0.0-3.0) Basophils (%) (Auto) % (0.0-2.0) Differential Total Cells Counted 100 Neutrophils % (Manual) 94 % (45-75) H Lymphocytes % (Manual) 5 % (20-45) L Monocytes % (Manual) 1 % (1-10) Eosinophils % (Manual) 0 % (0-3) Basophils % (Manual) 0 % (0-2) Band Neutrophils 0 % (0-8) Nucleated Red Blood Cells 2 /100 WBC Platelet Estimate Adequate Platelet Morphology Normal Hypochromasia 1+ Anisocytosis 1+ Acanthocytes 2+ Sodium Level 139 MMOL/L (136-145) Potassium Level 3.4 MMOL/L (3.5-5.1) L Chloride Level 100 MMOL/L (98-107) Carbon Dioxide Level 14 MMOL/L (21-32) L Anion Gap 25 mmol/L (5-15) H Blood Urea Nitrogen 78 mg/dL (7-18) H Creatinine 3.2 MG/DL (0.55-1.30) H Estimat Glomerular Filtration Rate 16.6 mL/min (>60) Glucose Level 150 MG/DL (74-106) H Uric Acid 19.2 MG/DL (2.6-7.2) H Calcium Level 8.2 MG/DL (8.5-10.1) L Phosphorus Level 6.3 MG/DL (2.5-4.9) H Magnesium Level 1.9 MG/DL (1.8-2.4) Iron Level 73 ug/dL (50-175) Total Iron Binding Capacity 175 ug/dL (250-450) L Percent Iron Saturation 42 % (15-50) Unsaturated Iron Binding 102 ug/dL (112-346) L Ferritin 765 NG/ML (8-388) H Total Bilirubin 0.5 MG/DL (0.2-1.0) Direct Bilirubin 0.2 MG/DL (0.0-0.3) Gamma Glutamyl Transpeptidase 304 U/L (5-85) H Aspartate Amino Transf (AST/SGOT) 50 U/L (15-37) H Alanine Aminotransferase (ALT/SGPT) 21 U/L (12-78) Alkaline Phosphatase 507 U/L (46-116) H Total Protein 5.4 G/DL (6.4-8.2) L Albumin 1.9 G/DL (3.4-5.0) L Vitamin B12 Level 694 PG/ML (193-986) Folate 5.0 NG/ML (8.6-58.9) L Plan Problems: (1) Sepsis Assessment & Plan: lactic acidosis tachycardic hypotension altered unlikely related to decubitus ulcer and wounds likely chronically infected but not acute labs improving on abx and fluids cont current care plan improving trend h/h (2) Anorexia (3) Malnutrition Assessment & Plan: DAILY ESTIMATED NEEDS: Needs based on Wound 57.6kg 30-35 kcals/kg 1463-0357 total kcals 1.25-1.5 g protein/kg 72-86 g total protein 25-30ml/kcal mL/kg 8790-6691 total fluid mLs NUTRITION DIAGNOSIS: Increased kcal and pro needs r/t wound healing as evidenced by pt w/ unstageable sacral wound. 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 Base of wound has 100% slough Marginal erythema along edges. Periwound indurated with darker skin tone. Pt verbalized tenderness when minimally palpated. Bilat heels are boggy but blanchable . Pt denied tenderness when each heel individually palpated.Hemosiderin with Xerosis skin distal aspects of both lower ext.Both feet are edematous. Tx.Plan: Cleanse Sacral wound with Saline. Apply Therahoney. Apply Moisture Barrier Paste periwound. Cover with Optifoam drsg. Change every 3 days and prn. Apply Cavilon Skin Barrier to both heels. Cover each heel with Optifoam drsg.Change every 7 days and prn. Reposition at least every 2hours or as tolerated. Off-load heels with pillow. Jose Ponce February 03, 2020 11:31
--- NOTE | 2020-02-03 11:31 | NUR ---
CASE MANAGEMENT: REVIEW 02/03/2020 SI:SEPSIS. T: 96.4 HR 128 RR 24 B/P 113/90 SATS 97% ON RA LABS: HGB 6 HCT 18.5 K 3.4 BUN 78 CR 3.2 GLU 150 CA 8.2 PHOS 6.3 GGT 304 AST 50 ALP 507 IS:NS @ 75 ML/HR REGLAN PO Q8H LOPRESSOR PO Q12H PRAVACHOL PO QHS INSULIN ASPART SUBQ AC/HS SDU
[2020-02-03] MEDS: HYDROcodone/Acetamin 5/325 tab ORAL PRN (11:35)
[2020-02-03 11:37] VITALS: BP 108/55
--- NOTE | 2020-02-03 13:08 | Nephrology Progress Note ---
Assessment/Plan Problem List: (1) Acute on chronic renal failure (2) Low BP (3) Anorexia (4) Sepsis (5) Atrial fibrillation with RVR (6) Decubital ulcer Assessment Plan Change IV hydration to D5 normal saline with a higher rate Stop statins as liver enzyme is elevated Start folate Start Megace Continue to monitor renal parameters Jenkins in place Patient was transfused Albumin 5% bolus Start p.o. Bicitra Subjective ROS Limited/Unobtainable: Yes Objective Objective Last 24 Hour Vital Signs Date Time Temp Pulse Resp B/P (MAP) Pulse Ox O2 Delivery O2 Flow Rate FiO2 02/03/20 12:00 Room Air 02/03/20 11:37 96.1 138 24 108/55 (72) 97 02/03/20 08:57 128 113/90 02/03/20 08:00 138 02/03/20 08:00 Room Air 02/03/20 08:00 96.4 128 24 113/90 (98) 97 02/03/20 04:00 97.4 115 24 109/60 (76) 94 02/03/20 04:00 127 02/03/20 04:00 Room Air 02/03/20 00:00 Room Air 02/03/20 00:00 126 02/03/20 00:00 97.0 87 24 96/71 (79) 95 02/02/20 20:00 Room Air 02/02/20 20:00 97.0 76 20 103/54 (70) 95 02/02/20 20:00 120 02/02/20 16:00 Room Air 02/02/20 16:00 96.4 129 20 98/49 (65) 92 02/02/20 16:00 97 Intake and Output 02/02/20 02/03/20 19:00 07:00 Intake Total 1140 ml 817.5 ml Output Total 150 ml 20 ml Balance 990 ml 797.5 ml Intake Oral 240 ml IV Total 900 ml 817.5 ml Output Urine Total 150 ml 20 ml Laboratory Tests 02/03/20 05:05: White Blood Count 6.8, Red Blood Count 2.11L, Hemoglobin 6.0*L, Hematocrit 18.5L , Mean Corpuscular Volume 88, Mean Corpuscular Hemoglobin 28.6, Mean Corpuscular Hemoglobin Concent 32.7, Red Cell Distribution Width 18.8H, Platelet Count 342, Mean Platelet Volume 4.7L, Neutrophils (%) (Auto) , Lymphocytes (%) (Auto) , Monocytes (%) (Auto) , Eosinophils (%) (Auto) , Basophils (%) (Auto) , Differential Total Cells Counted 100, Neutrophils % ( Manual) 94H, Lymphocytes % (Manual) 5L, Monocytes % (Manual) 1, Eosinophils % ( Manual) 0, Basophils % (Manual) 0, Band Neutrophils 0, Nucleated Red Blood Cells 2, Platelet Estimate Adequate, Platelet Morphology Normal, Hypochromasia 1 +, Anisocytosis 1+, Acanthocytes 2+, Sodium Level 139, Potassium Level 3.4L, Chloride Level 100, Carbon Dioxide Level 14L, Anion Gap 25H, Blood Urea Nitrogen 78H, Creatinine 3.2H, Estimat Glomerular Filtration Rate 16.6, Glucose Level 150H, Uric Acid 19.2H, Calcium Level 8.2L, Phosphorus Level 6.3H, Magnesium Level 1.9, Iron Level 73, Total Iron Binding Capacity 175L, Percent Iron Saturation 42, Unsaturated Iron Binding 102L, Ferritin 765H, Total Bilirubin 0.5, Direct Bilirubin 0.2, Gamma Glutamyl Transpeptidase 304H, Aspartate Amino Transf (AST/SGOT) 50H, Alanine Aminotransferase (ALT/SGPT) 21, Alkaline Phosphatase 507H, Total Protein 5.4L, Albumin 1.9L, Vitamin B12 Level 694, Folate 5.0L Height (Feet): 5 Height (Inches): 6.00 Weight (Pounds): 127 General Appearance: no apparent distress, lethargic Cardiovascular: tachycardia Respiratory/Chest: decreased breath sounds Abdomen: soft Carlos Sanches MD February 03, 2020 13:08
[2020-02-03] MEDS ORDERED: Sodium Citrate 30ml ORAL SCH (13:30)
--- NOTE | 2020-02-03 14:50 | NUR ---
NURSE NOTES: Pt with low H/H 6.0/18.5,Transfuse 1 unit of PRBC,V/S monitored,stable,no signs of transfusion reaction presented,blood transfusion tolerated.
[2020-02-03] MEDS: D5NS 1,000 ML IV SCH ×2 (14:51→23:40)
[2020-02-03] MEDS: Megace 400mg/10ml Susp ORAL SCH ×2 (14:58→18:00)
--- NOTE | 2020-02-03 15:27 | Diagnostic Imaging Report ---
Indication: Acute renal failure Technique: Grayscale and duplex images of the kidneys, retroperitoneum, and bladder were obtained. Comparison: none Findings: Right kidney measures 10.2 cm in length. Left kidney measures 9 point cm in length. Both kidneys demonstrate slightly increased echogenicity. There is bilateral mild to moderate hydronephrosis, slightly worse on the right than on the left. No focal abnormality. Normal inferior vena cava. Bladder contains a Jenkins catheter. There is approximately 58 mL of urine within the bladder despite this. Impression: Bilateral mild to moderate hydronephrosis, right greater than left. Etiology not demonstrated. Slightly increased bilateral renal echogenicity, consistent with medical renal disease Calculated urinary bladder volume 58 mL despite the presence of a Jenkins catheter
[2020-02-03 16:00] VITALS: BP 95/56
--- NOTE | 2020-02-03 17:00 | NUR ---
NURSE NOTES: Ongoing blood transfusion completed,V/S monitored,stable no transfusion reaction noted.
[2020-02-03] MEDS ORDERED: Tubing IV Secondary IV ONE (17:12)
[2020-02-03] MEDS ORDERED: D5NS 1000ml IV ONE (17:12)
[2020-02-03] MEDS ORDERED: Tubing Blood Filter IV ONE (17:12)
[2020-02-03] MEDS ORDERED: NS 275ml ONE (17:17)
[2020-02-03] MEDS ORDERED: NS 500ML ONE (17:17)
[2020-02-03] MEDS: Sodium Citrate 30ml ORAL SCH ×2 (18:00→23:28)
--- NOTE | 2020-02-03 19:15 | NUR ---
NURSE NOTES: Received from Fatou Kaplan RN. In bed sleeping. Responds to name and verbal commands. no s/s of pain or distress noted. pt is on room air, saturation: 96%. Respirations even and unlabored. monitor technician showing a-fib. Right femoral TLC intact and patent and infusing D5NS at 100 cc/hr. Dressing dry and intact. Bed in lowest position and locked in place. Side rails up X3, call light within reach. Bed alarm engaged. Will continue to POC
--- NOTE | 2020-02-03 19:35 | NUR ---
HAND-OFF: Report given to Epifanio Rick RN. .
[2020-02-03] MEDS: Dyna-Hex 2% Top Sol 2oz TOPIC SCH (23:28)
[2020-02-04] VITALS: BP 102/55
--- NOTE | 2020-02-04 | NUR ---
NURSE NOTES: In bed sleeping. Responds to name and verbal commands. no apparent pain or distress. pt is on room air, saturation: 96%. Respirations even and unlabored. dye tank tender showing a-fib. Bed in lowest position and locked in place. Side rails up X3, call light within reach. Bed alarm engaged. Will continue to POC
[2020-02-04 04:00] VITALS: BP 113/56
--- NOTE | 2020-02-04 04:00 | NUR ---
NURSE NOTES: In bed sleeping. no apparent pain or distress. on room air, saturation at 98%. Respirations even and unlabored. cardiac monitor showing a-fib. Bed in lowest position and locked in place. Side rails up X3, call light within reach. Bed alarm engaged. Will continue to POC
[2020-02-04] MEDS: Sodium Citrate 30ml ORAL SCH ×4 (05:16→23:46)
[2020-02-04] MEDS: NovoLOG Insulin Flexpen SUBQ SCH ×4 (05:20→21:35)
--- NOTE | 2020-02-04 07:15 | NUR ---
HAND-OFF: Report given to Epifanio Noble RN.
[2020-02-04 08:00] VITALS: BP 117/71
[2020-02-04 08:00] LABS: ALANINE AMINOTRANSFERASE 12 U/L (12-78); ALBUMIN 2.9 G/DL (3.4-5.0); ALBUMIN/GLOBULIN RATIO 0.8 (1.0-2.7); ALKALINE PHOSPHATASE 494 U/L (46-116); ANION GAP 24 mmol/L (5-15); ASPARTATE AMINO TRANSFERASE 36 U/L (15-37); BILIRUBIN,TOTAL 0.6 MG/DL (0.2-1.0); BLOOD UREA NITROGEN 82 mg/dL (7-18); CALCIUM 9.4 MG/DL (8.5-10.1); CARBON DIOXIDE 14 MMOL/L (21-32); CHLORIDE 99 MMOL/L (98-107); CREATININE 3.7 MG/DL (0.55-1.30); PHOSPHORUS 6.3 MG/DL (2.5-4.9); POTASSIUM 4.2 MMOL/L (3.5-5.1); SODIUM 137 MMOL/L (136-145)
[2020-02-04 08:09] LABS: CREATINE KINASE 83 U/L (26-308)
[2020-02-04 09:01] LABS: HEMATOCRIT 25.9 % (37.0-47.0); HEMOGLOBIN 8.4 G/DL (12.0-16.0); MEAN CORPUSCULAR VOLUME 91 FL (80-99); PLATELET COUNT 304 K/UL (150-450); RED BLOOD COUNT 2.84 M/UL (4.20-5.40); RED CELL DISTRIBUTION WIDTH 17.5 % (11.6-14.8); WHITE BLOOD COUNT 6.1 K/UL (4.8-10.8)
[2020-02-04] MEDS: D5NS 1,000 ML IV SCH ×2 (09:34→18:27)
[2020-02-04] MEDS: Megace 400mg/10ml Susp ORAL SCH ×2 (09:34→17:10)
[2020-02-04] MEDS: Ascorbic Acid 500mg tab ORAL SCH (09:35)
--- NOTE | 2020-02-04 11:13 | Surgery Progress Note ---
Surgery Progress Note Subjective Additional Comments Patient seen and examined bedside. No acute events. Resting comfortably. Labs reviewed imaging noted. Air mattress in place. Turned on her side. States she is comfortable without any complaints Objective Last 24 Hour Vital Signs Date Time Temp Pulse Resp B/P (MAP) Pulse Ox O2 Delivery O2 Flow Rate FiO2 02/04/20 09:35 142 117/71 02/04/20 08:00 Room Air 02/04/20 08:00 141 02/04/20 08:00 96.8 142 20 117/71 (86) 95 02/04/20 04:00 96.8 110 20 113/56 (75) 97 02/04/20 04:00 113 02/04/20 03:50 Room Air 02/04/20 00:00 Room Air 02/04/20 00:00 97.0 102 20 102/55 (71) 96 02/04/20 00:00 102 02/03/20 23:36 102 102/55 02/03/20 20:00 Room Air 02/03/20 20:00 97 02/03/20 16:00 103 02/03/20 16:00 Room Air 02/03/20 16:00 95.9 66 24 95/56 (69) 97 02/03/20 12:00 Room Air 02/03/20 12:00 126 02/03/20 11:37 96.1 138 24 108/55 (72) 97 I&O Intake and Output 02/03/20 02/04/20 19:00 07:00 Intake Total 590 ml 1440 ml Output Total 100 ml Balance 590 ml 1340 ml Intake Oral 240 ml 240 ml IV Total 100 ml 1200 ml Blood Product 250 ml Output Urine Total 100 ml Dressing: dry Wound: clean Cardiovascular: RSR Respiratory: decreased breath sounds Abdomen: soft, non-tender, present bowel sounds Extremities: no cyanosis, other Laboratory Tests Test 02/04/20 06:45 White Blood Count 6.1 K/UL (4.8-10.8) Red Blood Count 2.84 M/UL (4.20-5.40) L Hemoglobin 8.4 G/DL (12.0-16.0) #L Hematocrit 25.9 % (37.0-47.0) #L Mean Corpuscular Volume 91 FL (80-99) Mean Corpuscular Hemoglobin 29.6 PG (27.0-31.0) Mean Corpuscular Hemoglobin Concent 32.4 G/DL (32.0-36.0) Red Cell Distribution Width 17.5 % (11.6-14.8) H Platelet Count 304 K/UL (150-450) Mean Platelet Volume 5.0 FL (6.5-10.1) L Neutrophils (%) (Auto) % (45.0-75.0) Lymphocytes (%) (Auto) % (20.0-45.0) Monocytes (%) (Auto) % (1.0-10.0) Eosinophils (%) (Auto) % (0.0-3.0) Basophils (%) (Auto) % (0.0-2.0) Neutrophils % (Manual) Pending Lymphocytes % (Manual) Pending Platelet Estimate Pending Platelet Morphology Pending Sodium Level 137 MMOL/L (136-145) Potassium Level 4.2 MMOL/L (3.5-5.1) Chloride Level 99 MMOL/L (98-107) Carbon Dioxide Level 14 MMOL/L (21-32) L Anion Gap 24 mmol/L (5-15) H Blood Urea Nitrogen 82 mg/dL (7-18) H Creatinine 3.7 MG/DL (0.55-1.30) H Estimat Glomerular Filtration Rate 13.9 mL/min (>60) Glucose Level 228 MG/DL (74-106) H Uric Acid 18.3 MG/DL (2.6-7.2) H Calcium Level 9.4 MG/DL (8.5-10.1) Phosphorus Level 6.3 MG/DL (2.5-4.9) H Magnesium Level 2.0 MG/DL (1.8-2.4) Total Bilirubin 0.6 MG/DL (0.2-1.0) Aspartate Amino Transf (AST/SGOT) 36 U/L (15-37) Alanine Aminotransferase (ALT/SGPT) 12 U/L (12-78) Alkaline Phosphatase 494 U/L (46-116) H Total Creatine Kinase 83 U/L (26-308) Total Protein 6.5 G/DL (6.4-8.2) Albumin 2.9 G/DL (3.4-5.0) L Globulin 3.6 g/dL Albumin/Globulin Ratio 0.8 (1.0-2.7) L Cortisol AM Sample Pending Plan Problems: (1) Sepsis Assessment & Plan: lactic acidosis tachycardic hypotension altered unlikely related to decubitus ulcer and wounds likely chronically infected but not acute labs improving on abx and fluids cont current care plan improving trend h/h - prbc prn diet as tolerated (2) Anorexia (3) Malnutrition Assessment & Plan: DAILY ESTIMATED NEEDS: Needs based on Wound 57.6kg 30-35 kcals/kg 3633-2298 total kcals 1.25-1.5 g protein/kg 72-86 g total protein 25-30ml/kcal mL/kg 7644-1088 total fluid mLs NUTRITION DIAGNOSIS: Increased kcal and pro needs r/t wound healing as evidenced by pt w/ unstageable sacral wound. 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 Base of wound has 100% slough Marginal erythema along edges. Periwound indurated with darker skin tone. Pt verbalized tenderness when minimally palpated. Bilat heels are boggy but blanchable . Pt denied tenderness when each heel individually palpated.Hemosiderin with Xerosis skin distal aspects of both lower ext.Both feet are edematous. Tx.Plan: Cleanse Sacral wound with Saline. Apply Therahoney. Apply Moisture Barrier Paste periwound. Cover with Optifoam drsg. Change every 3 days and prn. Apply Cavilon Skin Barrier to both heels. Cover each heel with Optifoam drsg.Change every 7 days and prn. Reposition at least every 2hours or as tolerated. Off-load heels with pillow. Jose Ponce February 04, 2020 11:13
[2020-02-04 11:58] VITALS: BP 109/56
[2020-02-04] MEDS ORDERED: D5NS 1000ml IV ONE (15:11)
--- NOTE | 2020-02-04 15:26 | Nephrology Progress Note ---
Assessment/Plan Problem List: (1) Acute on chronic renal failure Assessment: Creatinine rising (2) Low BP (3) Anorexia (4) Sepsis (5) Atrial fibrillation with RVR (6) Decubital ulcer Assessment Plan Change IV hydration to D5 normal saline with a higher rate Normal saline and albumin bolus Stop statins as liver enzyme is elevated Start folate Start Megace Continue to monitor renal parameters Jenkins in place Patient was transfused Monitor renal parameters Start p.o. Bicitra Subjective ROS Limited/Unobtainable: No Constitutional: Reports: malaise Objective Objective Last 24 Hour Vital Signs Date Time Temp Pulse Resp B/P (MAP) Pulse Ox O2 Delivery O2 Flow Rate FiO2 02/04/20 12:00 90 02/04/20 12:00 Room Air 02/04/20 11:58 96.9 98 20 109/56 (73) 100 02/04/20 09:35 142 117/71 02/04/20 08:00 Room Air 02/04/20 08:00 141 02/04/20 08:00 96.8 142 20 117/71 (86) 95 02/04/20 04:00 96.8 110 20 113/56 (75) 97 02/04/20 04:00 113 02/04/20 03:50 Room Air 02/04/20 00:00 Room Air 02/04/20 00:00 97.0 102 20 102/55 (71) 96 02/04/20 00:00 102 02/03/20 23:36 102 102/55 02/03/20 20:00 Room Air 02/03/20 20:00 97 02/03/20 16:00 103 02/03/20 16:00 Room Air 02/03/20 16:00 95.9 66 24 95/56 (69) 97 Intake and Output 02/03/20 02/04/20 19:00 07:00 Intake Total 590 ml 1440 ml Output Total 100 ml Balance 590 ml 1340 ml Intake Oral 240 ml 240 ml IV Total 100 ml 1200 ml Blood Product 250 ml Output Urine Total 100 ml Current Medications Medications (Trade) Dose Ordered Sig/Wally Route PRN Reason Start Time Stop Time Status Last Admin Dose Admin Acetaminophen (Tylenol) 650 mg Q4H PRN ORAL Mild Pain (Pain Scale 1-3) 02/01/20 14:30 02/29/20 14:29 Acetaminophen/ Hydrocodone Bitart ([place] 10/325) 1 tab Q4H PRN ORAL Severe Pain (Pain Scale 7-10) 02/01/20 14:30 02/07/20 14:29 Acetaminophen/ Hydrocodone Bitart ([place] 5/325) 1 tab Q4H PRN ORAL Moderate Pain (Pain Scale 4-6) 02/01/20 14:30 02/07/20 14:29 02/03/20 11:35 Albumin Human 500 ml @ 0 mls/hr Q0M ONCE IV 02/04/20 16:00 02/04/20 16:01 Ascorbic Acid (Vitamin C) 500 mg DAILY ORAL 02/02/20 09:00 03/03/20 08:59 02/04/20 09:35 Chlorhexidine Gluconate (Salma-Hex 2%) 1 applic DAILY@2000 TOPIC 02/01/20 20:00 04/30/20 19:59 02/03/20 23:28 Dextrose (Dextrose 50%) 25 ml Q30M PRN IV Hypoglycemia 02/01/20 14:30 04/29/20 23:29 Dextrose (Dextrose 50%) 50 ml Q30M PRN IV Hypoglycemia 02/01/20 14:30 04/29/20 23:29 Dextrose/Sodium Chloride 1,000 ml @ 100 mls/hr Q10H IV 02/03/20 13:15 03/04/20 13:14 02/04/20 09:34 Folic Acid (Folate) 2 mg DAILY ORAL 02/03/20 13:15 03/04/20 13:14 02/04/20 09:35 Insulin Aspart (NovoLOG) BEFORE MEALS AND HS SUBQ 02/01/20 16:30 04/30/20 06:29 02/04/20 11:58 Megestrol Acetate (Megace) 400 mg TWICE A DAY ORAL 02/03/20 13:15 05/03/20 13:14 02/04/20 09:34 Metoclopramide HCl (Reglan) 5 mg EVERY 8 HOURS ORAL 02/04/20 22:00 03/01/20 08:59 Metoprolol Tartrate (Lopressor) 25 mg EVERY 12 HOURS ORAL 02/01/20 21:00 04/30/20 08:59 02/04/20 09:35 Multivitamins (Multivitamins) 1 tab DAILY ORAL 02/02/20 09:00 03/03/20 08:59 02/04/20 09:34 Ondansetron HCl (Zofran) 4 mg Q6H PRN IVP Nausea & Vomiting 02/01/20 16:30 03/02/20 16:29 Sodium Chloride 500 ml @ 999 mls/hr Q31M ONCE IV 02/04/20 15:22 02/04/20 15:52 Sodium Citrate (Bicitra) 30 ml EVERY 6 HOURS ORAL 02/03/20 18:00 03/04/20 17:59 02/04/20 13:33 Laboratory Tests 02/04/20 06:45: White Blood Count 6.1, Red Blood Count 2.84L, Hemoglobin 8.4#L, Hematocrit 25.9# L, Mean Corpuscular Volume 91, Mean Corpuscular Hemoglobin 29.6, Mean Corpuscular Hemoglobin Concent 32.4, Red Cell Distribution Width 17.5H, Platelet Count 304, Mean Platelet Volume 5.0L, Neutrophils (%) (Auto) , Lymphocytes (%) (Auto) , Monocytes (%) (Auto) , Eosinophils (%) (Auto) , Basophils (%) (Auto) , Differential Total Cells Counted 100, Neutrophils % ( Manual) 86H, Lymphocytes % (Manual) 9L, Monocytes % (Manual) 5, Eosinophils % ( Manual) 0, Basophils % (Manual) 0, Band Neutrophils 0, Platelet Estimate Adequate, Platelet Morphology Normal, Red Blood Cell Morphology Normal, Sodium Level 137, Potassium Level 4.2, Chloride Level 99, Carbon Dioxide Level 14L, Anion Gap 24H, Blood Urea Nitrogen 82H, Creatinine 3.7H, Estimat Glomerular Filtration Rate 13.9, Glucose Level 228H, Uric Acid 18.3H, Calcium Level 9.4, Phosphorus Level 6.3H, Magnesium Level 2.0, Total Bilirubin 0.6, Aspartate Amino Transf (AST/SGOT) 36, Alanine Aminotransferase (ALT/SGPT) 12, Alkaline Phosphatase 494H, Total Creatine Kinase 83, Total Protein 6.5, Albumin 2.9L, Globulin 3.6, Albumin/Globulin Ratio 0.8L, Cortisol AM Sample [Pending] Height (Feet): 5 Height (Inches): 6.00 Weight (Pounds): 127 General Appearance: no apparent distress Cardiovascular: tachycardia Respiratory/Chest: decreased breath sounds Abdomen: distended Fouladian,Carlos MD February 04, 2020 15:26
[2020-02-04 16:00] VITALS: BP 106/55
--- NOTE | 2020-02-04 17:49 | NUR ---
NURSE NOTES: Patient noted with only 100 ml of urine output per rivers catheter urine bag, rivers patent and draining, performed bladder scan and scan revealed 0 ml retention, blood pressure 111/66 HR 104, lung sounds clear bilaterally, no SOB noted, pt is on D5NS IV at 100 ml/hr. Called and informed Dr. Sanches of assessments. Dr. Sanches acknowledged and ordered Lasix 20 mg IV x 1 and also informed this nurse to continue IV fluids at this time. Orders entered, noted, and carried out. Will continue to monitor patient.
--- NOTE | 2020-02-04 19:34 | NUR ---
HAND-OFF: Report given to RIVER Casanova.
--- NOTE | 2020-02-04 19:35 | NUR ---
NURSE NOTES: Received patient and report from RIVER GUAN. Responds to name and verbal commands. no s/s of pain or distress noted. pt is on room air, saturation: 97%. Respirations even and unlabored. classroom monitor showing A-Fib with HR of 108. Right femoral TLC intact and patent and infusing D5NS at 100 cc/hr. Dressing dry and intact. Bed in lowest position and locked in place. Side rails up X3, call light within reach. Bed alarm engaged. Will continue to plan of care.
[2020-02-04 20:00] VITALS: BP 108/49
--- NOTE | 2020-02-04 20:00 | NUR ---
HAND-OFF: Report given to RIVER YANES. using SBAR.Patient remains stable in condition.
[2020-02-04] MEDS: Dyna-Hex 2% Top Sol 2oz TOPIC SCH (21:33)
[2020-02-04] MEDS: Pantoprazole Inj IVP SCH (21:33)
--- NOTE | 2020-02-04 21:41 | Cardiology Progress Note ---
Assessment/Plan Assessment/Plan the patient was hypotensvie in the morning, probably after IV lasix, but her Bp went up to 110. atrial fibrillation: continue metoprolol for rate control Subjective Subjective cardiology coverage for Dr Sweeney, the patient is resting in bed, she reports no palpitations, dizzness or dyspnea Objective Last 24 Hour Vital Signs Date Time Temp Pulse Resp B/P (MAP) Pulse Ox O2 Delivery O2 Flow Rate FiO2 02/04/20 20:25 100 108/49 02/04/20 20:00 Room Air 02/04/20 20:00 96.4 135 20 108/49 (68) 96 02/04/20 16:00 108 02/04/20 16:00 Room Air 02/04/20 16:00 97.1 108 20 106/55 (72) 96 02/04/20 12:00 90 02/04/20 12:00 Room Air 02/04/20 11:58 96.9 98 20 109/56 (73) 100 02/04/20 09:35 142 117/71 02/04/20 08:00 Room Air 02/04/20 08:00 141 02/04/20 08:00 96.8 142 20 117/71 (86) 95 02/04/20 04:00 96.8 110 20 113/56 (75) 97 02/04/20 04:00 113 02/04/20 03:50 Room Air 02/04/20 00:00 Room Air 02/04/20 00:00 97.0 102 20 102/55 (71) 96 02/04/20 00:00 102 02/03/20 23:36 102 102/55 General Appearance: no apparent distress EENT: PERRL/EOMI Neck: no JVD Rhythm: Afib Cardiovascular: tachycardia, systolic murmur Respiratory/Chest: crackles/rales ( at bases) Abdomen: soft Extremities: moderate edema Intake and Output 02/03/20 02/04/20 19:00 07:00 Intake Total 590 ml 1440 ml Output Total 100 ml Balance 590 ml 1340 ml Intake Oral 240 ml 240 ml IV Total 100 ml 1200 ml Blood Product 250 ml Output Urine Total 100 ml Laboratory Tests Test 02/04/20 06:45 White Blood Count 6.1 K/UL (4.8-10.8) Red Blood Count 2.84 M/UL (4.20-5.40) L Hemoglobin 8.4 G/DL (12.0-16.0) #L Hematocrit 25.9 % (37.0-47.0) #L Mean Corpuscular Volume 91 FL (80-99) Mean Corpuscular Hemoglobin 29.6 PG (27.0-31.0) Mean Corpuscular Hemoglobin Concent 32.4 G/DL (32.0-36.0) Red Cell Distribution Width 17.5 % (11.6-14.8) H Platelet Count 304 K/UL (150-450) Mean Platelet Volume 5.0 FL (6.5-10.1) L Neutrophils (%) (Auto) % (45.0-75.0) Lymphocytes (%) (Auto) % (20.0-45.0) Monocytes (%) (Auto) % (1.0-10.0) Eosinophils (%) (Auto) % (0.0-3.0) Basophils (%) (Auto) % (0.0-2.0) Differential Total Cells Counted 100 Neutrophils % (Manual) 86 % (45-75) H Lymphocytes % (Manual) 9 % (20-45) L Monocytes % (Manual) 5 % (1-10) Eosinophils % (Manual) 0 % (0-3) Basophils % (Manual) 0 % (0-2) Band Neutrophils 0 % (0-8) Platelet Estimate Adequate Platelet Morphology Normal Red Blood Cell Morphology Normal Sodium Level 137 MMOL/L (136-145) Potassium Level 4.2 MMOL/L (3.5-5.1) Chloride Level 99 MMOL/L (98-107) Carbon Dioxide Level 14 MMOL/L (21-32) L Anion Gap 24 mmol/L (5-15) H Blood Urea Nitrogen 82 mg/dL (7-18) H Creatinine 3.7 MG/DL (0.55-1.30) H Estimat Glomerular Filtration Rate 13.9 mL/min (>60) Glucose Level 228 MG/DL (74-106) H Uric Acid 18.3 MG/DL (2.6-7.2) H Calcium Level 9.4 MG/DL (8.5-10.1) Phosphorus Level 6.3 MG/DL (2.5-4.9) H Magnesium Level 2.0 MG/DL (1.8-2.4) Total Bilirubin 0.6 MG/DL (0.2-1.0) Aspartate Amino Transf (AST/SGOT) 36 U/L (15-37) Alanine Aminotransferase (ALT/SGPT) 12 U/L (12-78) Alkaline Phosphatase 494 U/L (46-116) H Total Creatine Kinase 83 U/L (26-308) Total Protein 6.5 G/DL (6.4-8.2) Albumin 2.9 G/DL (3.4-5.0) L Globulin 3.6 g/dL Albumin/Globulin Ratio 0.8 (1.0-2.7) L Cortisol AM Sample Pending Rosalie Borrero MD February 04, 2020 21:41
[2020-02-05] VITALS: BP 101/46
[2020-02-05] MEDS: HYDROcodone/Acetamin 5/325 tab ORAL PRN (03:01)
[2020-02-05 04:00] VITALS: BP 111/60
[2020-02-05] MEDS: Sodium Citrate 30ml ORAL SCH ×3 (05:53→17:34)
[2020-02-05] MEDS: D5NS 1,000 ML IV SCH ×2 (05:53→15:02)
[2020-02-05] MEDS: NovoLOG Insulin Flexpen SUBQ SCH ×4 (05:55→20:11)
--- NOTE | 2020-02-05 07:24 | NUR ---
HAND-OFF: Report given to RIVER Allen.
--- NOTE | 2020-02-05 07:25 | NUR ---
NURSE NOTES: Received report from iBnh Arredondo RN. Patient asleep in bed, opens eyes spontaneously, oriented x 3, able to make needs known and follow commands. On room air, respirations even and unlabored. Jenkins catheter patent and draining well. Right femoral TLC infusing D5NS @ 100 cc/hr, asymptomatic. Bed locked in lowest position with side rails up x 3. All needs attended to. Call light within reach. Will continue to monitor.
[2020-02-05 08:00] VITALS: BP 116/50
[2020-02-05 08:30] LABS: BASOPHILS % (AUTO) 0.4 % (0.0-2.0); EOSINOPHILS % (AUTO) 1.4 % (0.0-3.0); HEMATOCRIT 25.3 % (37.0-47.0); HEMOGLOBIN 8.3 G/DL (12.0-16.0); LYMPHOCYTES % (AUTO) 8.2 % (20.0-45.0); MEAN CORPUSCULAR VOLUME 89 FL (80-99); MONOCYTES % (AUTO) 6.3 % (1.0-10.0); NEUTROPHILS % (AUTO) 83.8 % (45.0-75.0); PLATELET COUNT 295 K/UL (150-450); RED BLOOD COUNT 2.85 M/UL (4.20-5.40); RED CELL DISTRIBUTION WIDTH 17.3 % (11.6-14.8)
[2020-02-05 08:38] LABS: PHOSPHORUS 4.7 MG/DL (2.5-4.9)
[2020-02-05 08:49] LABS: ALANINE AMINOTRANSFERASE 88 U/L (12-78); ALBUMIN/GLOBULIN RATIO 0.9 (1.0-2.7); ALKALINE PHOSPHATASE 1073 U/L (46-116); ANION GAP 17 mmol/L (5-15); ASPARTATE AMINO TRANSFERASE 174 U/L (15-37); BLOOD UREA NITROGEN 69 mg/dL (7-18); CALCIUM 8.8 MG/DL (8.5-10.1); CARBON DIOXIDE 20 MMOL/L (21-32); CHLORIDE 107 MMOL/L (98-107); CREATININE 3.6 MG/DL (0.55-1.30); POTASSIUM 3.5 MMOL/L (3.5-5.1); SODIUM 144 MMOL/L (136-145)
[2020-02-05] MEDS: Megace 400mg/10ml Susp ORAL SCH ×2 (09:10→17:34)
[2020-02-05] MEDS: Pantoprazole Inj IVP SCH ×2 (09:10→20:09)
[2020-02-05] MEDS: Ascorbic Acid 500mg tab ORAL SCH (09:11)
--- NOTE | 2020-02-05 10:15 | Nephrology Progress Note ---
Assessment/Plan Problem List: (1) Acute on chronic renal failure Assessment: Creatinine rising (2) Low BP (3) Anorexia (4) Sepsis (5) Atrial fibrillation with RVR (6) Decubital ulcer Assessment Plan Dr. Leno Duncan will resume care starting February 05 serum creatinine appears to be leveling off Change IV hydration to D5 normal saline with a higher rate Normal saline and albumin bolus as needed Stop statins as liver enzyme is elevated Start folate Start Megace Continue to monitor renal parameters Jenkins in place Patient was transfused Monitor renal parameters Adjust. Bicitra dosage Subjective ROS Limited/Unobtainable: No Constitutional: Reports: malaise, weakness Objective Objective Last 24 Hour Vital Signs Date Time Temp Pulse Resp B/P (MAP) Pulse Ox O2 Delivery O2 Flow Rate FiO2 02/05/20 09:11 134 116/50 02/05/20 08:00 97.2 134 18 116/50 (72) 92 02/05/20 04:00 Room Air 02/05/20 04:00 97.0 134 20 111/60 (77) 93 02/05/20 03:53 148 02/05/20 00:00 97.2 116 20 101/46 (64) 97 02/05/20 00:00 Room Air 02/04/20 23:40 107 02/04/20 20:25 100 108/49 02/04/20 20:00 Room Air 02/04/20 20:00 96.4 135 20 108/49 (68) 96 02/04/20 19:03 129 02/04/20 16:00 108 02/04/20 16:00 Room Air 02/04/20 16:00 97.1 108 20 106/55 (72) 96 02/04/20 12:00 90 02/04/20 12:00 Room Air 02/04/20 11:58 96.9 98 20 109/56 (73) 100 Intake and Output 02/04/20 02/05/20 19:00 07:00 Intake Total 200 ml 1411.67 ml Output Total 100 ml 100 ml Balance 100 ml 1311.67 ml Intake Oral 200 ml 300 ml IV Total 1111.67 ml Output Urine Total 100 ml 100 ml Current Medications Medications (Trade) Dose Ordered Sig/Wally Route PRN Reason Start Time Stop Time Status Last Admin Dose Admin Acetaminophen (Tylenol) 650 mg Q4H PRN ORAL Mild Pain (Pain Scale 1-3) 02/01/20 14:30 02/29/20 14:29 02/05/20 03:43 Acetaminophen/ Hydrocodone Bitart ([place] 10/325) 1 tab Q4H PRN ORAL Severe Pain (Pain Scale 7-10) 02/01/20 14:30 02/07/20 14:29 Acetaminophen/ Hydrocodone Bitart ([place] 5/325) 1 tab Q4H PRN ORAL Moderate Pain (Pain Scale 4-6) 02/01/20 14:30 02/07/20 14:29 02/05/20 03:01 Allopurinol (allopurinoL) 300 mg DAILY ORAL 02/05/20 09:00 03/06/20 08:59 02/05/20 09:11 Ascorbic Acid (Vitamin C) 500 mg DAILY ORAL 02/02/20 09:00 03/03/20 08:59 02/05/20 09:11 Chlorhexidine Gluconate (Salma-Hex 2%) 1 applic DAILY@2000 TOPIC 02/01/20 20:00 04/30/20 19:59 02/04/20 21:33 Dextrose (Dextrose 50%) 25 ml Q30M PRN IV Hypoglycemia 02/01/20 14:30 04/29/20 23:29 Dextrose (Dextrose 50%) 50 ml Q30M PRN IV Hypoglycemia 02/01/20 14:30 04/29/20 23:29 Dextrose/Sodium Chloride 1,000 ml @ 100 mls/hr Q10H IV 02/03/20 13:15 03/04/20 13:14 02/05/20 05:53 Folic Acid (Folate) 2 mg DAILY ORAL 02/03/20 13:15 03/04/20 13:14 02/05/20 09:10 Insulin Aspart (NovoLOG) BEFORE MEALS AND HS SUBQ 02/01/20 16:30 04/30/20 06:29 02/05/20 05:55 Megestrol Acetate (Megace) 400 mg TWICE A DAY ORAL 02/03/20 13:15 05/03/20 13:14 02/05/20 09:10 Metoclopramide HCl (Reglan) 5 mg EVERY 8 HOURS ORAL 02/04/20 22:00 03/01/20 08:59 02/05/20 05:54 Metoprolol Tartrate (Lopressor) 25 mg EVERY 12 HOURS ORAL 02/01/20 21:00 04/30/20 08:59 02/05/20 09:11 Multivitamins (Multivitamins) 1 tab DAILY ORAL 02/02/20 09:00 03/03/20 08:59 02/05/20 09:11 Ondansetron HCl (Zofran) 4 mg Q6H PRN IVP Nausea & Vomiting 02/01/20 16:30 03/02/20 16:29 Pantoprazole (Protonix) 40 mg EVERY 12 HOURS IVP 02/04/20 21:00 03/05/20 20:59 02/05/20 09:10 Sodium Citrate (Bicitra) 30 ml EVERY 6 HOURS ORAL 02/03/20 18:00 03/04/20 17:59 02/05/20 05:53 Laboratory Tests 02/05/20 07:30: White Blood Count 5.0, Red Blood Count 2.85L, Hemoglobin 8.3L, Hematocrit 25.3L , Mean Corpuscular Volume 89, Mean Corpuscular Hemoglobin 29.3, Mean Corpuscular Hemoglobin Concent 33.0, Red Cell Distribution Width 17.3H, Platelet Count 295, Mean Platelet Volume 5.3L, Neutrophils (%) (Auto) 83.8H, Lymphocytes (%) (Auto) 8.2L, Monocytes (%) (Auto) 6.3, Eosinophils (%) (Auto) 1.4, Basophils (%) (Auto) 0.4, Sodium Level 144, Potassium Level 3.5, Chloride Level 107, Carbon Dioxide Level 20L, Anion Gap 17H, Blood Urea Nitrogen 69H, Creatinine 3.6H, Estimat Glomerular Filtration Rate 14.4, Glucose Level 217H, Uric Acid 17.2H, Calcium Level 8.8, Phosphorus Level 4.7, Magnesium Level 1.8, Total Bilirubin 1.0, Aspartate Amino Transf (AST/SGOT) 174H, Alanine Aminotransferase (ALT/SGPT) 88H, Alkaline Phosphatase 1073H, C-Reactive Protein , Quantitative 18.9H, Total Protein 6.5, Albumin 3.0L, Globulin 3.5, Albumin/ Globulin Ratio 0.9L Height (Feet): 5 Height (Inches): 6.00 Weight (Pounds): 127 General Appearance: no apparent distress, lethargic Cardiovascular: tachycardia Respiratory/Chest: decreased breath sounds Abdomen: soft Carlos Sanches MD February 05, 2020 10:15
--- NOTE | 2020-02-05 11:26 | Infectious Diseases Prog Note ---
Assessment/Plan Assessment/Plan IMPRESSION: Acute renal failure. Negative COVID-19 test Pyuria, Sacral pressure ulcer, Severe anemia, Gastric cancer on palliative treatment, Diabetes mellitus. MRSA carrier Atrial fibrillation RECOMMENDATION: We will observe off antibiotic for now. Discontinue Droplet isolation Subjective ROS Limited/Unobtainable: Yes Constitutional: Reports: no symptoms Respiratory: Reports: no symptoms Gastrointestinal/Abdominal: Reports: no symptoms Allergies: Coded Allergies: No Known Allergies (Unverified , 01/30/20) Objective Vital Signs Last 24 Hour Vital Signs Date Time Temp Pulse Resp B/P (MAP) Pulse Ox O2 Delivery O2 Flow Rate FiO2 02/05/20 09:11 134 116/50 02/05/20 08:00 97.2 134 18 116/50 (72) 92 02/05/20 04:00 Room Air 02/05/20 04:00 97.0 134 20 111/60 (77) 93 02/05/20 03:53 148 02/05/20 00:00 97.2 116 20 101/46 (64) 97 02/05/20 00:00 Room Air 02/04/20 23:40 107 02/04/20 20:25 100 108/49 02/04/20 20:00 Room Air 02/04/20 20:00 96.4 135 20 108/49 (68) 96 02/04/20 19:03 129 02/04/20 16:00 108 02/04/20 16:00 Room Air 02/04/20 16:00 97.1 108 20 106/55 (72) 96 02/04/20 12:00 90 02/04/20 12:00 Room Air 02/04/20 11:58 96.9 98 20 109/56 (73) 100 Height (Feet): 5 Height (Inches): 6.00 Weight (Pounds): 127 General Appearance: no acute distress HEENT: mucous membranes moist Respiratory/Chest: lungs clear Cardiovascular: tachycardia, other - femoral central line Abdomen: soft, non tender Extremities: other - edema of legs Neurologic/Psychiatric: alert, responsive Laboratory Tests Test 02/05/20 07:30 White Blood Count 5.0 K/UL (4.8-10.8) Red Blood Count 2.85 M/UL (4.20-5.40) L Hemoglobin 8.3 G/DL (12.0-16.0) L Hematocrit 25.3 % (37.0-47.0) L Mean Corpuscular Volume 89 FL (80-99) Mean Corpuscular Hemoglobin 29.3 PG (27.0-31.0) Mean Corpuscular Hemoglobin Concent 33.0 G/DL (32.0-36.0) Red Cell Distribution Width 17.3 % (11.6-14.8) H Platelet Count 295 K/UL (150-450) Mean Platelet Volume 5.3 FL (6.5-10.1) L Neutrophils (%) (Auto) 83.8 % (45.0-75.0) H Lymphocytes (%) (Auto) 8.2 % (20.0-45.0) L Monocytes (%) (Auto) 6.3 % (1.0-10.0) Eosinophils (%) (Auto) 1.4 % (0.0-3.0) Basophils (%) (Auto) 0.4 % (0.0-2.0) Sodium Level 144 MMOL/L (136-145) Potassium Level 3.5 MMOL/L (3.5-5.1) Chloride Level 107 MMOL/L (98-107) Carbon Dioxide Level 20 MMOL/L (21-32) L Anion Gap 17 mmol/L (5-15) H Blood Urea Nitrogen 69 mg/dL (7-18) H Creatinine 3.6 MG/DL (0.55-1.30) H Estimat Glomerular Filtration Rate 14.4 mL/min (>60) Glucose Level 217 MG/DL (74-106) H Uric Acid 17.2 MG/DL (2.6-7.2) H Calcium Level 8.8 MG/DL (8.5-10.1) Phosphorus Level 4.7 MG/DL (2.5-4.9) Magnesium Level 1.8 MG/DL (1.8-2.4) Total Bilirubin 1.0 MG/DL (0.2-1.0) Aspartate Amino Transf (AST/SGOT) 174 U/L (15-37) H Alanine Aminotransferase (ALT/SGPT) 88 U/L (12-78) H Alkaline Phosphatase 1073 U/L (46-116) H C-Reactive Protein, Quantitative 18.9 mg/dL (0.00-0.90) H Total Protein 6.5 G/DL (6.4-8.2) Albumin 3.0 G/DL (3.4-5.0) L Globulin 3.5 g/dL Albumin/Globulin Ratio 0.9 (1.0-2.7) L Current Medications Medications (Trade) Dose Ordered Sig/Wally Route PRN Reason Start Time Stop Time Status Last Admin Dose Admin Acetaminophen (Tylenol) 650 mg Q4H PRN ORAL Mild Pain (Pain Scale 1-3) 02/01/20 14:30 02/29/20 14:29 02/05/20 03:43 Acetaminophen/ Hydrocodone Bitart ([place] 10/325) 1 tab Q4H PRN ORAL Severe Pain (Pain Scale 7-10) 02/01/20 14:30 02/07/20 14:29 Acetaminophen/ Hydrocodone Bitart ([place] 5/325) 1 tab Q4H PRN ORAL Moderate Pain (Pain Scale 4-6) 02/01/20 14:30 02/07/20 14:29 02/05/20 03:01 Allopurinol (allopurinoL) 300 mg DAILY ORAL 02/05/20 09:00 03/06/20 08:59 02/05/20 09:11 Ascorbic Acid (Vitamin C) 500 mg DAILY ORAL 02/02/20 09:00 03/03/20 08:59 02/05/20 09:11 Chlorhexidine Gluconate ([place]ma-Hex 2%) 1 applic DAILY@2000 TOPIC 02/01/20 20:00 04/30/20 19:59 02/04/20 21:33 Dextrose (Dextrose 50%) 25 ml Q30M PRN IV Hypoglycemia 02/01/20 14:30 04/29/20 23:29 Dextrose (Dextrose 50%) 50 ml Q30M PRN IV Hypoglycemia 02/01/20 14:30 04/29/20 23:29 Dextrose/Sodium Chloride 1,000 ml @ 100 mls/hr Q10H IV 02/03/20 13:15 03/04/20 13:14 02/05/20 05:53 Folic Acid (Folate) 2 mg DAILY ORAL 02/03/20 13:15 03/04/20 13:14 02/05/20 09:10 Insulin Aspart (NovoLOG) BEFORE MEALS AND HS SUBQ 02/01/20 16:30 04/30/20 06:29 02/05/20 05:55 Megestrol Acetate (Megace) 400 mg TWICE A DAY ORAL 02/03/20 13:15 05/03/20 13:14 02/05/20 09:10 Metoclopramide HCl (Reglan) 5 mg EVERY 8 HOURS ORAL 02/04/20 22:00 03/01/20 08:59 02/05/20 05:54 Metoprolol Tartrate (Lopressor) 25 mg EVERY 12 HOURS ORAL 02/01/20 21:00 04/30/20 08:59 02/05/20 09:11 Multivitamins (Multivitamins) 1 tab DAILY ORAL 02/02/20 09:00 03/03/20 08:59 02/05/20 09:11 Ondansetron HCl (Zofran) 4 mg Q6H PRN IVP Nausea & Vomiting 02/01/20 16:30 03/02/20 16:29 Pantoprazole (Protonix) 40 mg EVERY 12 HOURS IVP 02/04/20 21:00 03/05/20 20:59 02/05/20 09:10 Sodium Citrate (Bicitra) 30 ml TID ORAL 02/05/20 13:00 03/04/20 17:59 Jassi Wilson MD February 05, 2020 11:26
[2020-02-05 12:00] VITALS: BP 117/58
[2020-02-05 16:00] VITALS: BP 109/54
--- NOTE | 2020-02-05 16:48 | Cardiology Progress Note ---
Assessment/Plan Assessment/Plan will add digoxin for better rate control Subjective Subjective cardiology coverage for Dr Sweeney, the patient is resting in bed, she reports no palpitations, dizzness or dyspnea Objective Last 24 Hour Vital Signs Date Time Temp Pulse Resp B/P (MAP) Pulse Ox O2 Delivery O2 Flow Rate FiO2 02/05/20 16:00 125 02/05/20 16:00 Room Air 02/05/20 12:00 97.3 142 19 117/58 (77) 92 02/05/20 12:00 Room Air 02/05/20 11:51 142 02/05/20 11:41 142 02/05/20 09:11 134 116/50 02/05/20 08:00 Room Air 02/05/20 08:00 97.2 134 18 116/50 (72) 92 02/05/20 07:48 148 02/05/20 04:00 Room Air 02/05/20 04:00 97.0 134 20 111/60 (77) 93 02/05/20 03:53 148 02/05/20 00:00 97.2 116 20 101/46 (64) 97 02/05/20 00:00 Room Air 02/04/20 23:40 107 02/04/20 20:25 100 108/49 02/04/20 20:00 Room Air 02/04/20 20:00 96.4 135 20 108/49 (68) 96 02/04/20 19:03 129 General Appearance: lethargic EENT: PERRL/EOMI Neck: non-tender Rhythm: Afib Cardiovascular: tachycardia, systolic murmur Respiratory/Chest: crackles/rales Abdomen: non tender Intake and Output 02/04/20 02/05/20 19:00 07:00 Intake Total 200 ml 1411.67 ml Output Total 100 ml 100 ml Balance 100 ml 1311.67 ml Intake Oral 200 ml 300 ml IV Total 1111.67 ml Output Urine Total 100 ml 100 ml Laboratory Tests Test 02/05/20 07:30 White Blood Count 5.0 K/UL (4.8-10.8) Red Blood Count 2.85 M/UL (4.20-5.40) L Hemoglobin 8.3 G/DL (12.0-16.0) L Hematocrit 25.3 % (37.0-47.0) L Mean Corpuscular Volume 89 FL (80-99) Mean Corpuscular Hemoglobin 29.3 PG (27.0-31.0) Mean Corpuscular Hemoglobin Concent 33.0 G/DL (32.0-36.0) Red Cell Distribution Width 17.3 % (11.6-14.8) H Platelet Count 295 K/UL (150-450) Mean Platelet Volume 5.3 FL (6.5-10.1) L Neutrophils (%) (Auto) 83.8 % (45.0-75.0) H Lymphocytes (%) (Auto) 8.2 % (20.0-45.0) L Monocytes (%) (Auto) 6.3 % (1.0-10.0) Eosinophils (%) (Auto) 1.4 % (0.0-3.0) Basophils (%) (Auto) 0.4 % (0.0-2.0) Sodium Level 144 MMOL/L (136-145) Potassium Level 3.5 MMOL/L (3.5-5.1) Chloride Level 107 MMOL/L (98-107) Carbon Dioxide Level 20 MMOL/L (21-32) L Anion Gap 17 mmol/L (5-15) H Blood Urea Nitrogen 69 mg/dL (7-18) H Creatinine 3.6 MG/DL (0.55-1.30) H Estimat Glomerular Filtration Rate 14.4 mL/min (>60) Glucose Level 217 MG/DL (74-106) H Uric Acid 17.2 MG/DL (2.6-7.2) H Calcium Level 8.8 MG/DL (8.5-10.1) Phosphorus Level 4.7 MG/DL (2.5-4.9) Magnesium Level 1.8 MG/DL (1.8-2.4) Total Bilirubin 1.0 MG/DL (0.2-1.0) Aspartate Amino Transf (AST/SGOT) 174 U/L (15-37) H Alanine Aminotransferase (ALT/SGPT) 88 U/L (12-78) H Alkaline Phosphatase 1073 U/L (46-116) H C-Reactive Protein, Quantitative 18.9 mg/dL (0.00-0.90) H Total Protein 6.5 G/DL (6.4-8.2) Albumin 3.0 G/DL (3.4-5.0) L Globulin 3.5 g/dL Albumin/Globulin Ratio 0.9 (1.0-2.7) L Rosalie Borrero MD February 05, 2020 16:48
--- NOTE | 2020-02-05 18:59 | NUR ---
HAND-OFF: Report given to Jessi Mendes RN.
--- NOTE | 2020-02-05 19:00 | NUR ---
NURSE NOTES: received pt from Tiffany HOLMAN., pt is AO x 3-4 with confusion. pt is in RA and O2sat is at 97% no SOB noted. pt able to follow command slowly. rivers cath is in draining well with gravity. right femoral TLC noted dressing site is intact, clean, and patent. call light within reach. bed at the lowest position, alarmed, and locked. will continue to monitor pt with plan of care.
[2020-02-05] MEDS: Dyna-Hex 2% Top Sol 2oz TOPIC SCH (19:57)
--- NOTE | 2020-02-05 19:57 | NUR ---
NURSE NOTES: per daughter(Kimberly) request, checked pt's back if anything causing pt in pain, yet nothing found behind pt. repositioned pt. pt initially did not want pain medicine, but now pt wants to take Tyenol by mouth. pain pillow support given. pt states pain got better by repositioned. call light within reach. bed at the lowest position, alarmed. no SOB noted. will closely monitor
[2020-02-05 20:00] VITALS: BP 110/57
--- NOTE | 2020-02-05 21:28 | Surgery Progress Note ---
Surgery Progress Note Subjective Additional Comments Labs stable. Off antibiotics doing well Micro reviewed off isolation Exam stable Objective Last 24 Hour Vital Signs Date Time Temp Pulse Resp B/P (MAP) Pulse Ox O2 Delivery O2 Flow Rate FiO2 02/05/20 20:09 110 108/57 02/05/20 20:00 96.9 110 20 110/57 (74) 97 02/05/20 20:00 106 02/05/20 16:47 123 02/05/20 16:00 97.0 125 21 109/54 (72) 94 02/05/20 16:00 125 02/05/20 16:00 Room Air 02/05/20 12:00 97.3 142 19 117/58 (77) 92 02/05/20 12:00 Room Air 02/05/20 11:51 142 02/05/20 11:41 142 02/05/20 09:11 134 116/50 02/05/20 08:00 Room Air 02/05/20 08:00 97.2 134 18 116/50 (72) 92 02/05/20 07:48 148 02/05/20 04:00 Room Air 02/05/20 04:00 97.0 134 20 111/60 (77) 93 02/05/20 03:53 148 02/05/20 00:00 97.2 116 20 101/46 (64) 97 02/05/20 00:00 Room Air 02/04/20 23:40 107 I&O Intake and Output 02/04/20 02/05/20 19:00 07:00 Intake Total 200 ml 1411.67 ml Output Total 100 ml 100 ml Balance 100 ml 1311.67 ml Intake Oral 200 ml 300 ml IV Total 1111.67 ml Output Urine Total 100 ml 100 ml Dressing: dry Wound: clean Cardiovascular: RSR Respiratory: clear Abdomen: soft, non-tender, present bowel sounds Extremities: no cyanosis Laboratory Tests Test 02/05/20 07:30 White Blood Count 5.0 K/UL (4.8-10.8) Red Blood Count 2.85 M/UL (4.20-5.40) L Hemoglobin 8.3 G/DL (12.0-16.0) L Hematocrit 25.3 % (37.0-47.0) L Mean Corpuscular Volume 89 FL (80-99) Mean Corpuscular Hemoglobin 29.3 PG (27.0-31.0) Mean Corpuscular Hemoglobin Concent 33.0 G/DL (32.0-36.0) Red Cell Distribution Width 17.3 % (11.6-14.8) H Platelet Count 295 K/UL (150-450) Mean Platelet Volume 5.3 FL (6.5-10.1) L Neutrophils (%) (Auto) 83.8 % (45.0-75.0) H Lymphocytes (%) (Auto) 8.2 % (20.0-45.0) L Monocytes (%) (Auto) 6.3 % (1.0-10.0) Eosinophils (%) (Auto) 1.4 % (0.0-3.0) Basophils (%) (Auto) 0.4 % (0.0-2.0) Sodium Level 144 MMOL/L (136-145) Potassium Level 3.5 MMOL/L (3.5-5.1) Chloride Level 107 MMOL/L (98-107) Carbon Dioxide Level 20 MMOL/L (21-32) L Anion Gap 17 mmol/L (5-15) H Blood Urea Nitrogen 69 mg/dL (7-18) H Creatinine 3.6 MG/DL (0.55-1.30) H Estimat Glomerular Filtration Rate 14.4 mL/min (>60) Glucose Level 217 MG/DL (74-106) H Uric Acid 17.2 MG/DL (2.6-7.2) H Calcium Level 8.8 MG/DL (8.5-10.1) Phosphorus Level 4.7 MG/DL (2.5-4.9) Magnesium Level 1.8 MG/DL (1.8-2.4) Total Bilirubin 1.0 MG/DL (0.2-1.0) Aspartate Amino Transf (AST/SGOT) 174 U/L (15-37) H Alanine Aminotransferase (ALT/SGPT) 88 U/L (12-78) H Alkaline Phosphatase 1073 U/L (46-116) H C-Reactive Protein, Quantitative 18.9 mg/dL (0.00-0.90) H Total Protein 6.5 G/DL (6.4-8.2) Albumin 3.0 G/DL (3.4-5.0) L Globulin 3.5 g/dL Albumin/Globulin Ratio 0.9 (1.0-2.7) L Plan Problems: (1) Sepsis Assessment & Plan: lactic acidosis tachycardic hypotension altered unlikely related to decubitus ulcer and wounds likely chronically infected but not acute labs improving on abx and fluids cont current care plan improving trend h/h - prbc prn diet as tolerated improving overall off abx stable (2) Anorexia (3) Malnutrition Assessment & Plan: DAILY ESTIMATED NEEDS: Needs based on Wound 57.6kg 30-35 kcals/kg 3291-9265 total kcals 1.25-1.5 g protein/kg 72-86 g total protein 25-30ml/kcal mL/kg 6818-1184 total fluid mLs NUTRITION DIAGNOSIS: Increased kcal and pro needs r/t wound healing as evidenced by pt w/ unstageable sacral wound. (CURRENT DIET: CCHO MED soft easy chew) PO DIET RECOMMENDATIONS: With current poor po intake, rec liberalized REGULAR diet/ texture as harman ADDITIONAL RECOMMENDATIONS: 1) Add Glucerna TID w/ meals 2) Maintain calibrated bed scale wts 3) Wound care: MVI w/ min qdaily, Vit C 500mg daily + EFREN FRUIT PUNCH BID as tolerated 4) Check lytes + hydration status daily as able 5) Monitor lipase, need for low fat diet 6) PLUMBING SERVICE TECHNICIAN eval for appropriate diet texture (4) Gastric cancer (5) Atrial fibrillation with RVR (6) DM (diabetes mellitus) (7) Low BP (8) Acute on chronic renal failure (9) Anemia (10) Decubital ulcer Assessment & Plan: Pt presented on admission with stage 3 nearing almost a stage 4 as bone almost palpable if not palpable pressure injury to sacrum(L)1cm x (W)1cm. Base of wound has 100% slough Marginal erythema along edges. Periwound indurated with darker skin tone. Pt verbalized tenderness when minimally palpated. Bilat heels are boggy but blanchable . Pt denied tenderness when each heel individually palpated.Hemosiderin with Xerosis skin distal aspects of both lower ext.Both feet are edematous. Tx.Plan: Cleanse Sacral wound with Saline. Apply Therahoney. Apply Moisture Barrier Paste periwound. Cover with Optifoam drsg. Change every 3 days and prn. Apply Cavilon Skin Barrier to both heels. Cover each heel with Optifoam drsg.Change every 7 days and prn. Reposition at least every 2hours or as tolerated. Off-load heels with pillow. Jose Ponce February 05, 2020 21:28
--- NOTE | 2020-02-05 22:05 | NUR ---
NURSE NOTES: spoke with pt's daughter Williams Lowe, updated pt's condition at this moment that VSS and pt is sleeping without s/s of pain. no s/s of SOB. told Williams (pt daughter) to call Dr.A. Wilson if she wants to get more detailed questions. Williams Lowe said " I have Dr. Carlos Wilson's phone number and I will ask about my mom." noted. will closely monitor pt.
--- NOTE | 2020-02-05 22:10 | NUR ---
NURSE NOTES: assessed pt Neuro, PERRLA on bilateral eye with 3mm. pt able to follow commands, smile looks symmetric, no drooling face expression noted. pt's bilateral hands strength are equal and bilateral foot strength are equal as well.pt speaks slowly without slurring. pt states no pain at this time, and pt wants to continue to sleep. call light within reach.
[2020-02-06] VITALS: BP 91/65
[2020-02-06] MEDS: D5NS 1,000 ML IV SCH ×3 (00:33→19:00)
[2020-02-06 04:00] VITALS: BP 116/70
--- NOTE | 2020-02-06 06:00 | NUR ---
NURSE NOTES: cleaned pt, provided new gown, new blanket, and oral care given. pt states no pain at this moment and pt wants to sleep. no SOB noted. call light within reach. will continue to monitor pt
[2020-02-06] MEDS: NovoLOG Insulin Flexpen SUBQ SCH ×4 (06:22→21:00)
[2020-02-06 07:18] LABS: HEMATOCRIT 23.8 % (37.0-47.0); HEMOGLOBIN 7.8 G/DL (12.0-16.0); MEAN CORPUSCULAR VOLUME 91 FL (80-99); PLATELET COUNT 266 K/UL (150-450); RED BLOOD COUNT 2.62 M/UL (4.20-5.40); RED CELL DISTRIBUTION WIDTH 18.2 % (11.6-14.8); WHITE BLOOD COUNT 5.9 K/UL (4.8-10.8)
--- NOTE | 2020-02-06 07:20 | NUR ---
HAND-OFF: Report given to Batsheva HOLMAN,. pt remains stable condition. endorsed plan of care, endorsed regarding pt's speech changes.
--- NOTE | 2020-02-06 07:20 | NUR ---
HAND-OFF: Report given to Greg HOLMAN., pt is stable condition. Addendum: 02/06/20 at 0751 by PUMA JIMENEZ RN koko bernard
--- NOTE | 2020-02-06 07:40 | NUR ---
NURSE NOTES: left voice mail to Dr. Carlos Wilson regarding pt's changed speech pattern per pt's daughter. neuro assessment done: Bilateral eye SAROJ, follow commands, no drooling noted, slow speech with confusion noted. call light within reach. will wait for call back from Dr. Wilson.
[2020-02-06 07:44] LABS: GAMMA GLUTAMYL TRANSPEPTIDASE 456 U/L (5-85); LACTATE DEHYDROGENASE 514 U/L (81-234)
[2020-02-06 07:57] LABS: ALANINE AMINOTRANSFERASE 80 U/L (12-78); ALBUMIN 2.5 G/DL (3.4-5.0); ALBUMIN/GLOBULIN RATIO 0.8 (1.0-2.7); ALKALINE PHOSPHATASE 914 U/L (46-116); ANION GAP 15 mmol/L (5-15); ASPARTATE AMINO TRANSFERASE 145 U/L (15-37); BILIRUBIN,TOTAL 0.8 MG/DL (0.2-1.0); BLOOD UREA NITROGEN 70 mg/dL (7-18); CALCIUM 8.7 MG/DL (8.5-10.1); CARBON DIOXIDE 20 MMOL/L (21-32); CHLORIDE 109 MMOL/L (98-107); CREATININE 3.9 MG/DL (0.55-1.30); PHOSPHORUS 5.2 MG/DL (2.5-4.9); POTASSIUM 3.1 MMOL/L (3.5-5.1); SODIUM 144 MMOL/L (136-145)
[2020-02-06 08:00] VITALS: BP 93/37
--- NOTE | 2020-02-06 08:10 | NUR ---
NURSE NOTES: Report received from RIVER Quintero.Pt awake with speech unclear. Dr Wilson aware , no apparent distress at this time. 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 Jenkins catheter in place with no urine out put noted at this time.RF / TLC running D5Ns at 100cc/hr . Will continue same care plan and follow up with labs.
--- NOTE | 2020-02-06 09:15 | Consultation ---
DATE OF CONSULTATION: 02/03/2020 CONSULTING PHYSICIAN: Cristel Brown MD. REFERRING PHYSICIAN: Leno Wilson MD. REASON FOR CONSULTATION: Colon cancer. HISTORY OF PRESENT ILLNESS: The patient is a very pleasant unfortunate 89-year-old female who has been admitted to [facility] with significant severe fatigue. The patient does have history of prior gastric cancer, was diagnosed at [facility] and status post course of palliative radiation to the stomach due to the significant bleeding. The patient presented to the ER with severe fatigued, has been ruled out for COVID x1. The patient was noted to have atrial fibrillation with rapid ventricular response and was admitted for further evaluation. The patient is a very poor historian, unfortunately I am unable to obtain any records on the patient. However, the patient medical records from [facility] has been reviewed in detail and it has been noted below. PAST MEDICAL HISTORY: History of gastric cancer, history of adenocarcinoma, history of anemia, history of non-ST elevated myocardial infarction, history of gastroesophageal reflux disease, history of atrial fibrillation, hyperlipidemia, gastric adenocarcinoma as mentioned history of H. pylori positive. PAST SURGICAL HISTORY: Unable to obtain from the patient. MEDICATIONS: Noted in EMR. ALLERGIES: Per the medical record. SOCIAL HISTORY: No history of tobacco, alcohol, or drugs. Per records, the patient apparently lives at [facility]. FAMILY HISTORY: Unable to obtain from the patient. REVIEW OF SYSTEMS: Unable to obtain from the patient. The patient is very drowsy, barely responsive at this point and time. PHYSICAL EXAMINATION: GENERAL: The patient is an elderly female in no acute distress. VITALS: Temperature of 95.9, pulse of 66, blood pressure 95/56. HEAD AND NECK: Sclarea are icteric. CHEST: Rhonchi bilaterally. CARDIAC: Regular S1 and S2. ABDOMEN: Tender, somewhat distended. EXTREMITIES: Trace edema. NEUROLOGIC: The patient does not follow neurologic commands. LYMPHATICS: There is no cervical, supraclavicular, axillary, or groin adenopathy palpable. LABORATORY AND DIAGNOSTIC DATA: Hemoglobin of 6 with a white count 6.8 with a platelet count 342, and INR 1.1. The patient has been noted to have white blood cells of 6.3, magnesium 1.9. Iron saturation of 42, with a ferritin of 765, AST and ALT of 50 and 21 with GGT of 304, alkaline phosphatase 507. Albumin 1.9. The patient has a B12 level at 694 with folate of 5. ASSESSMENT AND PLAN: 1. The patient with history of colon cancer. The patient was admitted to the [facility] in 2019. During hospitalization, the patient was noted to be severely anemic. She had undergone evaluation with an endoscopy, stomach biopsy was done on 11/30/2019. Pathology demonstrated poorly differentiated adenocarcinoma. The patient's HER2/dominic was noted to be negative. I will try to eval the pathology for PDL1 and MSI to see if the patient can be a candidate for immunotherapy in future if she is improved clinically.The patient did undergo CT scan, chest, abdomen, pelvis on 12/01/2019 at [facility] demonstrating multiple large abdominal lymph nodes which may be metastatic in nature, cardiomegaly, small pulmonary nodules are noted, minimal fat stranding in the left subclavian vein was noted. Currently the patient presented back to the hospital with significant anemia felt most likely from gastrointestinal bleeding. The patient's overall condition remains poor. If the patient performance actually improved consideration of sysytemic chemo with FOLFOX will be made. The patient is minimally responsive at this time however. At this point therefore, the patient is not a candidate for chemotherapy given her general condition. The patient needs to be evaluated by Gastroenterology in terms of possibility endoscopic intervenention to see if bleeding can be stopped. 2. Lower extremity edema. Venous duplex will be done stat, to rule out DVT. 3. Anemia, likely secondary to gastrointestinal bleed given the known large gastric cancer. Transfusion to keep hemoglobin greater than 7. 4. Altered mental status, etiology unclear. I recommend brain imaging with MRI brain with contrast to RO stroke or metastasis. We will defer to primary to also consider neuro eval. 5. case has been discussed with Dr Wilson re code status at6 great length. Since the patient is altered, will try to call the daughter. 6. severe malnutritien with albumin 1.9 needs NG feeding or other alternative mode of feeding if continue sto be altered. consider evaluation for aspiration evaluation when more alert. 7. elavated GGT etiology unclear questioably due to liver mets vs fatty liver. consider to eval for hepatitis, will defer to PMD. Extended discussion had been taken up discussing with Dr Wilson, other consultants, nursing staff. Records including pathology and imaging from [facility] has been reviewed indetail. 65 minutes spent accomplishing all above. Cristel Brown M.D. DR: Kat JOB#: [id number] CC: ARLETH
[2020-02-06] MEDS: Pantoprazole Inj IVP SCH ×2 (09:41→21:18)
[2020-02-06] MEDS: Megace 400mg/10ml Susp ORAL SCH ×2 (09:41→17:11)
[2020-02-06] MEDS: Sodium Citrate 30ml ORAL SCH ×3 (09:41→17:11)
[2020-02-06] MEDS: Ascorbic Acid 500mg tab ORAL SCH (09:41)
--- NOTE | 2020-02-06 10:00 | NUR ---
NURSE NOTES: Pt noted with poor appetite, encouraged as tolerated. Needs reinforcement, will continue same care plan.No significant change at this time.
--- NOTE | 2020-02-06 11:54 | Infectious Diseases Prog Note ---
Assessment/Plan Assessment/Plan IMPRESSION: Acute renal failure. Negative COVID-19 test Pyuria, Sacral pressure ulcer, Severe anemia, Gastric cancer on palliative treatment, Diabetes mellitus. MRSA carrier Atrial fibrillation History of colon cancer RECOMMENDATION: We will observe off antibiotic for now. Subjective ROS Limited/Unobtainable: Yes Allergies: Coded Allergies: No Known Allergies (Unverified , 01/30/20) Objective Vital Signs Last 24 Hour Vital Signs Date Time Temp Pulse Resp B/P (MAP) Pulse Ox O2 Delivery O2 Flow Rate FiO2 02/06/20 09:00 95 93/37 02/06/20 08:00 97.0 65 18 93/37 (55) 96 02/06/20 08:00 Room Air 02/06/20 04:00 Room Air 02/06/20 04:00 97.0 112 20 116/70 (85) 98 02/06/20 04:00 102 02/06/20 00:00 97.2 110 20 91/65 (74) 98 02/06/20 00:00 Room Air 02/05/20 23:33 95 02/05/20 20:09 110 108/57 02/05/20 20:00 96.9 110 20 110/57 (74) 97 02/05/20 20:00 Room Air 02/05/20 20:00 106 02/05/20 16:47 123 02/05/20 16:00 97.0 125 21 109/54 (72) 94 02/05/20 16:00 125 02/05/20 16:00 Room Air 02/05/20 12:00 97.3 142 19 117/58 (77) 92 02/05/20 12:00 Room Air Height (Feet): 5 Height (Inches): 6.00 Weight (Pounds): 127 General Appearance: no acute distress HEENT: mucous membranes moist Respiratory/Chest: lungs clear Cardiovascular: tachycardia Abdomen: soft, non tender Extremities: no edema Neurologic/Psychiatric: other - sleeping Laboratory Tests Test 02/06/20 06:29 White Blood Count 5.9 K/UL (4.8-10.8) Red Blood Count 2.62 M/UL (4.20-5.40) L Hemoglobin 7.8 G/DL (12.0-16.0) L Hematocrit 23.8 % (37.0-47.0) L Mean Corpuscular Volume 91 FL (80-99) Mean Corpuscular Hemoglobin 29.8 PG (27.0-31.0) Mean Corpuscular Hemoglobin Concent 32.7 G/DL (32.0-36.0) Red Cell Distribution Width 18.2 % (11.6-14.8) H Platelet Count 266 K/UL (150-450) Mean Platelet Volume 5.2 FL (6.5-10.1) L Neutrophils (%) (Auto) % (45.0-75.0) Lymphocytes (%) (Auto) % (20.0-45.0) Monocytes (%) (Auto) % (1.0-10.0) Eosinophils (%) (Auto) % (0.0-3.0) Basophils (%) (Auto) % (0.0-2.0) Differential Total Cells Counted 100 Neutrophils % (Manual) 79 % (45-75) H Lymphocytes % (Manual) 8 % (20-45) L Monocytes % (Manual) 10 % (1-10) Eosinophils % (Manual) 3 % (0-3) Basophils % (Manual) 0 % (0-2) Band Neutrophils 0 % (0-8) Platelet Estimate Adequate Platelet Morphology Normal Hypochromasia 3+ Anisocytosis 2+ Sodium Level 144 MMOL/L (136-145) Potassium Level 3.1 MMOL/L (3.5-5.1) L Chloride Level 109 MMOL/L (98-107) H Carbon Dioxide Level 20 MMOL/L (21-32) L Anion Gap 15 mmol/L (5-15) Blood Urea Nitrogen 70 mg/dL (7-18) H Creatinine 3.9 MG/DL (0.55-1.30) H Estimat Glomerular Filtration Rate 13.1 mL/min (>60) Glucose Level 157 MG/DL (74-106) H Uric Acid 16.3 MG/DL (2.6-7.2) H Calcium Level 8.7 MG/DL (8.5-10.1) Phosphorus Level 5.2 MG/DL (2.5-4.9) H Magnesium Level 1.6 MG/DL (1.8-2.4) L Total Bilirubin 0.8 MG/DL (0.2-1.0) Gamma Glutamyl Transpeptidase 456 U/L (5-85) H Aspartate Amino Transf (AST/SGOT) 145 U/L (15-37) H Alanine Aminotransferase (ALT/SGPT) 80 U/L (12-78) H Alkaline Phosphatase 914 U/L (46-116) H Lactate Dehydrogenase 514 U/L (81-234) H C-Reactive Protein, Quantitative 21.0 mg/dL (0.00-0.90) H Pro-B-Type Natriuretic Peptide > 14125 pg/mL (0-125) H Total Protein 5.7 G/DL (6.4-8.2) L Albumin 2.5 G/DL (3.4-5.0) L Globulin 3.2 g/dL Albumin/Globulin Ratio 0.8 (1.0-2.7) L Current Medications Medications (Trade) Dose Ordered Sig/Wally Route PRN Reason Start Time Stop Time Status Last Admin Dose Admin Acetaminophen (Tylenol) 650 mg Q4H PRN ORAL Mild Pain (Pain Scale 1-3) 02/01/20 14:30 02/29/20 14:29 02/05/20 19:58 Acetaminophen/ Hydrocodone Bitart ([place] 10/325) 1 tab Q4H PRN ORAL Severe Pain (Pain Scale 7-10) 02/01/20 14:30 02/07/20 14:29 Acetaminophen/ Hydrocodone Bitart ([place] 5/325) 1 tab Q4H PRN ORAL Moderate Pain (Pain Scale 4-6) 02/01/20 14:30 02/07/20 14:29 02/05/20 03:01 Allopurinol (allopurinoL) 300 mg DAILY ORAL 02/05/20 09:00 03/06/20 08:59 02/06/20 09:41 Ascorbic Acid (Vitamin C) 500 mg DAILY ORAL 02/02/20 09:00 03/03/20 08:59 02/06/20 09:41 Chlorhexidine Gluconate (Salma-Hex 2%) 1 applic DAILY@1999 TOPIC 02/01/20 20:00 04/30/20 19:59 02/05/20 19:57 Dextrose (Dextrose 50%) 25 ml Q30M PRN IV Hypoglycemia 02/01/20 14:30 04/29/20 23:29 Dextrose (Dextrose 50%) 50 ml Q30M PRN IV Hypoglycemia 02/01/20 14:30 04/29/20 23:29 Dextrose/Sodium Chloride 1,000 ml @ 100 mls/hr Q10H IV 02/03/20 13:15 03/04/20 13:14 02/06/20 00:33 Folic Acid (Folate) 2 mg DAILY ORAL 02/03/20 13:15 03/04/20 13:14 02/06/20 09:41 Insulin Aspart (NovoLOG) BEFORE MEALS AND HS SUBQ 02/01/20 16:30 04/30/20 06:29 02/06/20 06:22 Megestrol Acetate (Megace) 400 mg TWICE A DAY ORAL 02/03/20 13:15 05/03/20 13:14 02/06/20 09:41 Metoclopramide HCl (Reglan) 5 mg EVERY 8 HOURS ORAL 02/04/20 22:00 03/01/20 08:59 02/06/20 06:22 Metoprolol Tartrate (Lopressor) 25 mg EVERY 12 HOURS ORAL 02/01/20 21:00 04/30/20 08:59 02/05/20 20:09 Multivitamins (Multivitamins) 1 tab DAILY ORAL 02/02/20 09:00 03/03/20 08:59 02/06/20 09:41 Ondansetron HCl (Zofran) 4 mg Q6H PRN IVP Nausea & Vomiting 02/01/20 16:30 03/02/20 16:29 Pantoprazole (Protonix) 40 mg EVERY 12 HOURS IVP 02/04/20 21:00 03/05/20 20:59 02/06/20 09:41 Sodium Citrate (Bicitra) 30 ml TID ORAL 02/05/20 13:00 03/04/20 17:59 02/06/20 09:41 Jassi Wilson MD February 06, 2020 11:54
[2020-02-06 12:00] VITALS: BP 101/56
--- NOTE | 2020-02-06 12:09 | NUR ---
NURSE NOTES: Patient asleep with no apparent distress. Remains on close monitoring.Turned and repositioned. Keep HOB elevated at 35 degree to prevent aspiration.No change in condition at this time, will continue to monitor
--- NOTE | 2020-02-06 12:51 | NUR ---
NURSE NOTES: Unable to reach Dr Wilson to report potassium 3.1, Mg 1.6. Spoke with Risa from his office she will try to reach him again and call back.
--- NOTE | 2020-02-06 14:06 | NUR ---
NURSE NOTES: Pt asleep, no apparent distress, still noted with poor intake.Fluids encouraged as tolerated. No change in condition.Will continue to monitor
--- NOTE | 2020-02-06 14:33 | NUR ---
CASE MANAGEMENT: REVIEW SI: ACUTE RENAL FAILURE . ANEMIA . GASTRIC CA . COLON CA T 97.0 HR 142 RR 20 BP 91/65 SAT 96% ROOM AIR H/H 7.8/23.8 BUN 70 CR 3.9 AST 145 ALT 80 ALK PHOS 914 BNP >30798 IS: LOPRESSOR 50MG PO Q12HR PRAVASTATIN 20MG PO QHS NOVOLOG SUBQ AC+HS WOUND CARE -- SACRUM STAGE 3 TRANSFUSE PRBC NEEDED OBSERVE OFF ANTIBIOTICS STEP DOWN UNIT STATUS DCP: PATIENT IS FROM HOME
--- NOTE | 2020-02-06 14:51 | Surgery Progress Note ---
Surgery Progress Note Subjective Additional Comments h/h drop exam unchanged no active bleeding identified input appreciated Objective Last 24 Hour Vital Signs Date Time Temp Pulse Resp B/P (MAP) Pulse Ox O2 Delivery O2 Flow Rate FiO2 02/06/20 12:00 Room Air 02/06/20 12:00 97.0 100 18 101/56 (71) 96 02/06/20 09:00 95 93/37 02/06/20 08:00 97.0 65 18 93/37 (55) 96 02/06/20 08:00 Room Air 02/06/20 04:00 Room Air 02/06/20 04:00 97.0 112 20 116/70 (85) 98 02/06/20 04:00 102 02/06/20 00:00 97.2 110 20 91/65 (74) 98 02/06/20 00:00 Room Air 02/05/20 23:33 95 02/05/20 20:09 110 108/57 02/05/20 20:00 96.9 110 20 110/57 (74) 97 02/05/20 20:00 Room Air 02/05/20 20:00 106 02/05/20 16:47 123 02/05/20 16:00 97.0 125 21 109/54 (72) 94 02/05/20 16:00 125 02/05/20 16:00 Room Air I&O Intake and Output 02/05/20 02/06/20 19:00 07:00 Intake Total 1298.334 ml 1100 ml Output Total 25 ml 50 ml Balance 1273.334 ml 1050 ml Intake Oral 100 ml 100 ml IV Total 1198.334 ml 1000 ml Output Urine Total 25 ml 50 ml # Bowel Movements 1 Dressing: other Wound: other Drains: other Cardiovascular: RSR Respiratory: decreased breath sounds Abdomen: soft, non-tender, present bowel sounds Extremities: no cyanosis Laboratory Tests Test 02/06/20 06:29 White Blood Count 5.9 K/UL (4.8-10.8) Red Blood Count 2.62 M/UL (4.20-5.40) L Hemoglobin 7.8 G/DL (12.0-16.0) L Hematocrit 23.8 % (37.0-47.0) L Mean Corpuscular Volume 91 FL (80-99) Mean Corpuscular Hemoglobin 29.8 PG (27.0-31.0) Mean Corpuscular Hemoglobin Concent 32.7 G/DL (32.0-36.0) Red Cell Distribution Width 18.2 % (11.6-14.8) H Platelet Count 266 K/UL (150-450) Mean Platelet Volume 5.2 FL (6.5-10.1) L Neutrophils (%) (Auto) % (45.0-75.0) Lymphocytes (%) (Auto) % (20.0-45.0) Monocytes (%) (Auto) % (1.0-10.0) Eosinophils (%) (Auto) % (0.0-3.0) Basophils (%) (Auto) % (0.0-2.0) Differential Total Cells Counted 100 Neutrophils % (Manual) 79 % (45-75) H Lymphocytes % (Manual) 8 % (20-45) L Monocytes % (Manual) 10 % (1-10) Eosinophils % (Manual) 3 % (0-3) Basophils % (Manual) 0 % (0-2) Band Neutrophils 0 % (0-8) Platelet Estimate Adequate Platelet Morphology Normal Hypochromasia 3+ Anisocytosis 2+ Sodium Level 144 MMOL/L (136-145) Potassium Level 3.1 MMOL/L (3.5-5.1) L Chloride Level 109 MMOL/L (98-107) H Carbon Dioxide Level 20 MMOL/L (21-32) L Anion Gap 15 mmol/L (5-15) Blood Urea Nitrogen 70 mg/dL (7-18) H Creatinine 3.9 MG/DL (0.55-1.30) H Estimat Glomerular Filtration Rate 13.1 mL/min (>60) Glucose Level 157 MG/DL (74-106) H Uric Acid 16.3 MG/DL (2.6-7.2) H Calcium Level 8.7 MG/DL (8.5-10.1) Phosphorus Level 5.2 MG/DL (2.5-4.9) H Magnesium Level 1.6 MG/DL (1.8-2.4) L Total Bilirubin 0.8 MG/DL (0.2-1.0) Gamma Glutamyl Transpeptidase 456 U/L (5-85) H Aspartate Amino Transf (AST/SGOT) 145 U/L (15-37) H Alanine Aminotransferase (ALT/SGPT) 80 U/L (12-78) H Alkaline Phosphatase 914 U/L (46-116) H Lactate Dehydrogenase 514 U/L (81-234) H C-Reactive Protein, Quantitative 21.0 mg/dL (0.00-0.90) H Pro-B-Type Natriuretic Peptide > 76483 pg/mL (0-125) H Total Protein 5.7 G/DL (6.4-8.2) L Albumin 2.5 G/DL (3.4-5.0) L Globulin 3.2 g/dL Albumin/Globulin Ratio 0.8 (1.0-2.7) L Plan Problems: (1) Sepsis Assessment & Plan: lactic acidosis tachycardic hypotension altered unlikely related to decubitus ulcer and wounds likely chronically infected but not acute labs improving on abx and fluids cont current care plan improving trend h/h - prbc prn diet as tolerated improving overall off abx stable onc input noted. hx colon cancer dx in [facility]. GI bleed from Ca? unfortunately not operative candidate (2) Anorexia (3) Malnutrition Assessment & Plan: DAILY ESTIMATED NEEDS: Needs based on Wound 57.6kg 30-35 kcals/kg 2268-1754 total kcals 1.25-1.5 g protein/kg 72-86 g total protein 25-30ml/kcal mL/kg 4125-8674 total fluid mLs NUTRITION DIAGNOSIS: Increased kcal and pro needs r/t wound healing as evidenced by pt w/ unstageable sacral wound. (CURRENT DIET: CCHO MED soft easy chew) PO DIET RECOMMENDATIONS: With current poor po intake, rec liberalized REGULAR diet/ texture as harman ADDITIONAL RECOMMENDATIONS: 1) Add Glucerna TID w/ meals 2) Maintain calibrated bed scale wts 3) Wound care: MVI w/ min qdaily, Vit C 500mg daily + EFREN FRUIT PUNCH BID as tolerated 4) Check lytes + hydration status daily as able 5) Monitor lipase, need for low fat diet 6) RESEARCH TECH eval for appropriate diet texture (4) Gastric cancer (5) Atrial fibrillation with RVR (6) DM (diabetes mellitus) (7) Low BP (8) Acute on chronic renal failure (9) Anemia (10) Decubital ulcer Assessment & Plan: Pt presented on admission with stage 3 nearing almost a stage 4 as bone almost palpable if not palpable pressure injury to sacrum(L)1cm x (W)1cm. Base of wound has 100% slough Marginal erythema along edges. Periwound indurated with darker skin tone. Pt verbalized tenderness when minimally palpated. Bilat heels are boggy but blanchable . Pt denied tenderness when each heel individually palpated.Hemosiderin with Xerosis skin distal aspects of both lower ext.Both feet are edematous. Tx.Plan: Cleanse Sacral wound with Saline. Apply Therahoney. Apply Moisture Barrier Paste periwound. Cover with Optifoam drsg. Change every 3 days and prn. Apply Cavilon Skin Barrier to both heels. Cover each heel with Optifoam drsg.Change every 7 days and prn. Reposition at least every 2hours or as tolerated. Off-load heels with pillow. Jose Ponce February 06, 2020 14:51
--- NOTE | 2020-02-06 14:53 | General Progress Note ---
Assessment/Plan Problem List: (1) Anorexia ICD Codes: R63.0 - Anorexia SNOMED: 70148842 (2) Malnutrition ICD Codes: E46 - Unspecified protein-calorie malnutrition SNOMED: 65677594 (3) Atrial fibrillation with RVR ICD Codes: I48.91 - Unspecified atrial fibrillation SNOMED: 412859557558900 (4) DM (diabetes mellitus) ICD Codes: E11.9 - Type 2 diabetes mellitus without complications SNOMED: 23053256 (5) Low BP ICD Codes: I95.9 - Hypotension, unspecified SNOMED: 55380972 (6) Acute on chronic renal failure ICD Codes: N17.9 - Acute kidney failure, unspecified; N18.9 - Chronic kidney disease, unspecified SNOMED: 913711352 (7) Anemia ICD Codes: D64.9 - Anemia, unspecified SNOMED: 831197934 (8) Decubital ulcer ICD Codes: L89.90 - Pressure ulcer of unspecified site, unspecified stage SNOMED: 588182225 (9) Hypokalemia ICD Codes: E87.6 - Hypokalemia SNOMED: 59019250 (10) Hypomagnesemia ICD Codes: E83.42 - Hypomagnesemia SNOMED: 579929103 Assessment/Plan: IVF oncology F/U rate control Follow labs Discussed with RN chris Ocampo and Subjective Allergies: Coded Allergies: No Known Allergies (Unverified , 01/30/20) Subjective still with poor appetite Objective Last 24 Hour Vital Signs Date Time Temp Pulse Resp B/P (MAP) Pulse Ox O2 Delivery O2 Flow Rate FiO2 02/06/20 12:00 Room Air 02/06/20 12:00 97.0 100 18 101/56 (71) 96 02/06/20 09:00 95 93/37 02/06/20 08:00 97.0 65 18 93/37 (55) 96 02/06/20 08:00 Room Air 02/06/20 04:00 Room Air 02/06/20 04:00 97.0 112 20 116/70 (85) 98 02/06/20 04:00 102 02/06/20 00:00 97.2 110 20 91/65 (74) 98 02/06/20 00:00 Room Air 02/05/20 23:33 95 5/3/20 20:09 110 108/57 02/05/20 20:00 96.9 110 20 110/57 (74) 97 02/05/20 20:00 Room Air 02/05/20 20:00 106 02/05/20 16:47 123 02/05/20 16:00 97.0 125 21 109/54 (72) 94 02/05/20 16:00 125 02/05/20 16:00 Room Air Intake and Output 02/05/20 02/06/20 19:00 07:00 Intake Total 1298.334 ml 1100 ml Output Total 25 ml 50 ml Balance 1273.334 ml 1050 ml Intake Oral 100 ml 100 ml IV Total 1198.334 ml 1000 ml Output Urine Total 25 ml 50 ml # Bowel Movements 1 Laboratory Tests 02/06/20 06:29: White Blood Count 5.9, Red Blood Count 2.62L, Hemoglobin 7.8L, Hematocrit 23.8L , Mean Corpuscular Volume 91, Mean Corpuscular Hemoglobin 29.8, Mean Corpuscular Hemoglobin Concent 32.7, Red Cell Distribution Width 18.2H, Platelet Count 266, Mean Platelet Volume 5.2L, Neutrophils (%) (Auto) , Lymphocytes (%) (Auto) , Monocytes (%) (Auto) , Eosinophils (%) (Auto) , Basophils (%) (Auto) , Differential Total Cells Counted 100, Neutrophils % ( Manual) 79H, Lymphocytes % (Manual) 8L, Monocytes % (Manual) 10, Eosinophils % ( Manual) 3, Basophils % (Manual) 0, Band Neutrophils 0, Platelet Estimate Adequate, Platelet Morphology Normal, Hypochromasia 3+, Anisocytosis 2+, Sodium Level 144, Potassium Level 3.1L, Chloride Level 109H, Carbon Dioxide Level 20L, Anion Gap 15, Blood Urea Nitrogen 70H, Creatinine 3.9H, Estimat Glomerular Filtration Rate 13.1, Glucose Level 157H, Uric Acid 16.3H, Calcium Level 8.7, Phosphorus Level 5.2H, Magnesium Level 1.6L, Total Bilirubin 0.8, Gamma Glutamyl Transpeptidase 456H, Aspartate Amino Transf (AST/SGOT) 145H, Alanine Aminotransferase (ALT/SGPT) 80H, Alkaline Phosphatase 914H, Lactate Dehydrogenase 514H, C-Reactive Protein, Quantitative 21.0H, Pro-B-Type Natriuretic Peptide > 81350M, Total Protein 5.7L, Albumin 2.5L, Globulin 3.2, Albumin/Globulin Ratio 0.8L Height (Feet): 5 Height (Inches): 6.00 Weight (Pounds): 127 Cardiovascular: normal rate Respiratory/Chest: lungs clear Abdomen: soft Leno Wilson MD February 06, 2020 14:53
--- NOTE | 2020-02-06 14:58 | NUR ---
*-* INSURANCE *-* UPDATED AVAILABLE CLINICALS HAVE BEEN FAXED TO: CASEY BUI:LARRY REF# [id number] P: [phone] T: [phone] F: [phone]
[2020-02-06 16:00] VITALS: BP 120/71
--- NOTE | 2020-02-06 16:23 | NUR ---
NURSE NOTES: Dr Banks made aware potassium 3.1 and Mg 1.6, no new orders at this time and charge nurse made aware.Pt turned and repositioned.No apparent acute distress, no change in condition.Will continue close monitoring
--- NOTE | 2020-02-06 17:25 | NUR ---
NURSE NOTES: BS 146, REFUSED TO EAT
--- NOTE | 2020-02-06 17:52 | Cardiology Progress Note ---
Assessment/Plan Assessment/Plan 1. Poor p.o. intake. 2. Dehydration. 3. Acute renal failure likely secondary to above. 4. Anemia with history of the same status post prior transfusions. 5. Gastric adenocarcinoma, status post palliative radiation therapy and some chemotherapy. 6. History of H. pylori. 7. Atrial fibrillation with rapid ventricular response. 8. Hypotension. 9. History of hypertension. 10. Diabetes mellitus. 11. Elevated lipase, possible pancreatitis s/p hydration blood cx neg d/w rn covd 19 neg cardiac enzyme neg again echo at [facility] 10/2019 had shown sig hyperdynamic systolic function will have echo labs noted dtr had indicated pt was slurred little not on anticoagualiton in afib due to gib possiblity of cva cannot be excluded hr borderline controled bp borderline tele reviewed Subjective ROS Limited/Unobtainable: Yes Subjective Pt asleep, no apparent distress, still noted with poor intake.Fluids encouraged as tolerated. , per rn dtr felt pt slurred Objective Last 24 Hour Vital Signs Date Time Temp Pulse Resp B/P (MAP) Pulse Ox O2 Delivery O2 Flow Rate FiO2 02/06/20 16:00 Room Air 02/06/20 16:00 97.6 99 18 120/71 (87) 98 02/06/20 12:00 Room Air 02/06/20 12:00 97.0 100 18 101/56 (71) 96 02/06/20 12:00 112 02/06/20 09:00 95 93/37 02/06/20 08:00 150 02/06/20 08:00 97.0 65 18 93/37 (55) 96 02/06/20 08:00 Room Air 02/06/20 04:00 Room Air 02/06/20 04:00 97.0 112 20 116/70 (85) 98 02/06/20 04:00 102 02/06/20 00:00 97.2 110 20 91/65 (74) 98 02/06/20 00:00 Room Air 02/05/20 23:33 95 02/05/20 20:09 110 108/57 02/05/20 20:00 96.9 110 20 110/57 (74) 97 02/05/20 20:00 Room Air 02/05/20 20:00 106 General Appearance: no apparent distress, patient on isolation Intake and Output 02/05/20 02/06/20 19:00 07:00 Intake Total 1298.334 ml 1100 ml Output Total 25 ml 50 ml Balance 1273.334 ml 1050 ml Intake Oral 100 ml 100 ml IV Total 1198.334 ml 1000 ml Output Urine Total 25 ml 50 ml # Bowel Movements 1 Laboratory Tests Test 02/06/20 06:29 White Blood Count 5.9 K/UL (4.8-10.8) Red Blood Count 2.62 M/UL (4.20-5.40) L Hemoglobin 7.8 G/DL (12.0-16.0) L Hematocrit 23.8 % (37.0-47.0) L Mean Corpuscular Volume 91 FL (80-99) Mean Corpuscular Hemoglobin 29.8 PG (27.0-31.0) Mean Corpuscular Hemoglobin Concent 32.7 G/DL (32.0-36.0) Red Cell Distribution Width 18.2 % (11.6-14.8) H Platelet Count 266 K/UL (150-450) Mean Platelet Volume 5.2 FL (6.5-10.1) L Neutrophils (%) (Auto) % (45.0-75.0) Lymphocytes (%) (Auto) % (20.0-45.0) Monocytes (%) (Auto) % (1.0-10.0) Eosinophils (%) (Auto) % (0.0-3.0) Basophils (%) (Auto) % (0.0-2.0) Differential Total Cells Counted 100 Neutrophils % (Manual) 79 % (45-75) H Lymphocytes % (Manual) 8 % (20-45) L Monocytes % (Manual) 10 % (1-10) Eosinophils % (Manual) 3 % (0-3) Basophils % (Manual) 0 % (0-2) Band Neutrophils 0 % (0-8) Platelet Estimate Adequate Platelet Morphology Normal Hypochromasia 3+ Anisocytosis 2+ Sodium Level 144 MMOL/L (136-145) Potassium Level 3.1 MMOL/L (3.5-5.1) L Chloride Level 109 MMOL/L (98-107) H Carbon Dioxide Level 20 MMOL/L (21-32) L Anion Gap 15 mmol/L (5-15) Blood Urea Nitrogen 70 mg/dL (7-18) H Creatinine 3.9 MG/DL (0.55-1.30) H Estimat Glomerular Filtration Rate 13.1 mL/min (>60) Glucose Level 157 MG/DL (74-106) H Uric Acid 16.3 MG/DL (2.6-7.2) H Calcium Level 8.7 MG/DL (8.5-10.1) Phosphorus Level 5.2 MG/DL (2.5-4.9) H Magnesium Level 1.6 MG/DL (1.8-2.4) L Total Bilirubin 0.8 MG/DL (0.2-1.0) Gamma Glutamyl Transpeptidase 456 U/L (5-85) H Aspartate Amino Transf (AST/SGOT) 145 U/L (15-37) H Alanine Aminotransferase (ALT/SGPT) 80 U/L (12-78) H Alkaline Phosphatase 914 U/L (46-116) H Lactate Dehydrogenase 514 U/L (81-234) H C-Reactive Protein, Quantitative 21.0 mg/dL (0.00-0.90) H Pro-B-Type Natriuretic Peptide > 78072 pg/mL (0-125) H Total Protein 5.7 G/DL (6.4-8.2) L Albumin 2.5 G/DL (3.4-5.0) L Globulin 3.2 g/dL Albumin/Globulin Ratio 0.8 (1.0-2.7) L Brian Sweeney MD February 06, 2020 17:52
--- NOTE | 2020-02-06 18:18 | NUR ---
NURSE NOTES: Adls done, turned and repositioned.No acute distress, no change in condition.One bag potassium 10meq waisted, changed to 20 meq as ordered, pt has central line. Will continue Addendum: 02/06/20 at 1820 by Batsheva Montague RN will continue monitoring
--- NOTE | 2020-02-06 18:43 | NUR ---
NURSE NOTES: Dr Banks aware poor urine output. New order BMP, renal US for obstruction, decrease IVF to 50cc.Order noted and carried out. Addendum: 02/06/20 at 1845 by Batsheva Montague RN urine ouput during shift 15cc, bladder scan 15cc
--- NOTE | 2020-02-06 19:20 | NUR ---
NURSE NOTES: Received patient and report from RIVER Herman. Patient is observed resting in bed and remains obtunded at this time. No pain noted upon assessment. Pt is currently on RA with an O2 sat of 96% noted and no s/sx of distress noted. Pt noted to be AFib on tele monitor with a HR of 93 with no s/sx of distress noted. Jenkins catheter noted. R Fem TLC noted to be asymptomatic, intact and patent. Diagnostics reviewed.Skin alterations noted. Fall, Aspiration and Skin precautions observed. Pt remains resting in bed; Bed remains in the lowest position with the safety wheels engaged, call light within reach, side rails up x3 and bed alarm activated. Will continue plan of care. Will continue to monitor.
--- NOTE | 2020-02-06 19:31 | NUR ---
HAND-OFF: Report given to RIVER Robins.
--- NOTE | 2020-02-06 19:40 | NUR ---
NURSE NOTES: Spoke with Donn in pharmacy regarding retiming last bag of mag due to IV access. Pharmacist to retime magnesium. Will carry out order.
[2020-02-06 20:00] VITALS: BP 107/65
[2020-02-06] MEDS: Dyna-Hex 2% Top Sol 2oz TOPIC SCH (20:32)
--- NOTE | 2020-02-06 21:00 | NUR ---
NURSE NOTES: Scheduled Lopressor held due to SBP >110 noted. Pt declined blood sugar and novolog. Pt educated on risks ans benefits of medication but continues to decline. Pt remains free of s/sx of hyperglycemia and hypoglycemia. Will continue to monitor.
[2020-02-07] VITALS: BP 108/52
--- NOTE | 2020-02-07 | NUR ---
NURSE NOTES: Pt provided with a bed bath, oral care and linen change. Pt noted to be disoriented and peeling femoral TLC dressing off. Central line dressing change performed per protocol. Pt tolerated care well. ROM exercises encouraged and performed per pt tolerance. Pt remains resting in bed; bed remains in lowest position with safety wheels engaged, side rails up x3, call light within reach and bed alarm activated. Will continue to monitor.
[2020-02-07 04:00] VITALS: BP 110/60
[2020-02-07] MEDS: NovoLOG Insulin Flexpen SUBQ SCH ×5 (06:05→20:33)
--- NOTE | 2020-02-07 06:15 | NUR ---
NURSE NOTES: Deviation from baseline noted during neuro check. Pt noted to be weaker on left side and facial drooping noted. Called and left an urgent message for return call. Will await call back. Will continue to monitor. Called Dr Sweeney per charge nurse r/t pt being in afib and not on dvt prophylaxis due to suspect GI bleed. Per cariology wait for Dr Wilson's return call.
--- NOTE | 2020-02-07 06:28 | NUR ---
NURSE NOTES: Reglan held due to change in patient condition and concern for potential CVA. Will consult with primary physician.
[2020-02-07 06:53] LABS: HEMATOCRIT 24.2 % (37.0-47.0); HEMOGLOBIN 7.9 G/DL (12.0-16.0); MEAN CORPUSCULAR VOLUME 90 FL (80-99); PLATELET COUNT 257 K/UL (150-450); RED BLOOD COUNT 2.68 M/UL (4.20-5.40); RED CELL DISTRIBUTION WIDTH 18.2 % (11.6-14.8); WHITE BLOOD COUNT 6.5 K/UL (4.8-10.8)
--- NOTE | 2020-02-07 07:00 | NUR ---
HAND-OFF: Report given to RIVER Cowan. Endorsed plan of care. Day RN to follow up regarding change in pt condition, pending labs and additional concerns.
--- NOTE | 2020-02-07 07:25 | NUR ---
NURSE NOTES: Received report from RIVER Robins. Patient is resting in bed in stable condition. No s/sx of SOB, breathing is even and unlabored. Pt A&O x 3 with moments of confusion. Bilateral arms strength strong. Face symmetrical. Denies any presence of pain or discomfort at this time. Bed is in lowest position, brakes engaged. Call light is kept within easy reach. Will continue to monitor patient.
[2020-02-07 07:46] LABS: ANION GAP 16 mmol/L (5-15); BLOOD UREA NITROGEN 71 mg/dL (7-18); CALCIUM 8.7 MG/DL (8.5-10.1); CARBON DIOXIDE 18 MMOL/L (21-32); CHLORIDE 112 MMOL/L (98-107); POTASSIUM 4.1 MMOL/L (3.5-5.1); SODIUM 146 MMOL/L (136-145)
[2020-02-07 08:00] VITALS: BP 110/60
--- NOTE | 2020-02-07 08:11 | NUR ---
RD ASSESSMENT & RECOMMENDATIONS SEE CARE ACTIVITY FOR COMPLETE ASSESSMENT DAILY ESTIMATED NEEDS: Needs based on Wound 57.6kg 30-35 kcals/kg 6129-1612 total kcals 1.25-1.5 g protein/kg 72-86 g total protein 25-30ml/kcal mL/kg 3664-4622 total fluid mLs NUTRITION DIAGNOSIS: * Increased kcal and pro needs r/t wound healing as evidenced by pt w/ unstageable sacral wound (per MD, stage 3 to 4), w/ prolonged poor oral intake. CURRENT DIET:CCHO MED, RENAL/ soft easy chew PO DIET RECOMMENDATIONS: With current poor po intake, rec liberalized REGULAR diet/ TEXTURE PER PERSONAL ATTENDANT ENTERAL NUTRITION RECOMMENDATIONS: Consult RD for non oral TF recs if part of POC w/ continued poor po ADDITIONAL RECOMMENDATIONS: 1) PERSONAL ATTENDANT eval for appropriate diet texture 2) Calibrated bed scale wts 3) Wound care: Continue MVI + VIt C + EFREN FRUIT PUNCH BID as tolerated 4) Nepro TID w/ meals added 5) Monitor renal fxn and lytes- worsening renal fxn, phos elevated 6) Consider nonoral feeding due to prolonged minimal intake
[2020-02-07] MEDS: Megace 400mg/10ml Susp ORAL SCH (09:35)
[2020-02-07] MEDS: Sodium Citrate 30ml ORAL SCH ×3 (09:35→17:45)
[2020-02-07] MEDS: Pantoprazole Inj IVP SCH ×2 (09:35→20:31)
[2020-02-07] MEDS: Ascorbic Acid 500mg tab ORAL SCH (09:36)
--- NOTE | 2020-02-07 10:22 | NUR ---
CASE MANAGEMENT: REVIEW SI: ACUTE RENAL FAILURE . ANEMIA . GASTRIC CA . COLON CA T 96.8 HR 130 RR 16 BP 108/52 SAT 94% ROOM AIR H/H 7.9/24.2 NA 146 BUN 71 CR 4.0 RENAL US PENDING IS: D5 NS IVF @ 50ML/HR PROTONIX IV Q12HR LOPRESSOR 25MG PO Q12HR MEGACE 400MG ORAL TWICE A DAY NOVOLOG SUBQ AC+HS WOUND CARE -- SACRUM STAGE 3 TRANSFUSE PRBC NEEDED STEP DOWN UNIT STATUS DCP: PATIENT IS FROM HOME
--- NOTE | 2020-02-07 10:56 | Diagnostic Imaging Report ---
Indication: Abnormal renal function tests, difficulty urinating, history of bilateral hydronephrosis Technique: Grayscale and duplex images of the kidneys, retroperitoneum, and bladder were obtained. Comparison: 02/03/2020 Findings: Right kidney measures 10.6 cm in length. Left kidney measures 9.1 cm in length. Both kidneys demonstrate normal echogenicity. There is bilateral mild to moderate hydronephrosis which appears stable to slightly more severe bilaterally. There are small bilateral renal cysts. Normal inferior vena cava. Bladder is empty, contains a Jenkins catheter. . Some free pelvic fluid is noted. Impression: Bilateral hydronephrosis, stable or slightly worse as compared to prior exam of 02/03/2020 Empty bladder with a Jenkins catheter Trace free pelvic fluid, significance uncertain but not physiologic in a postmenopausal female.
--- NOTE | 2020-02-07 11:00 | NUR ---
NURSE NOTES: Dr. Sweeney at nurse station. MD seen and examined patient at bedside. Informed MD that patient's SBP goes as low as 95 mmHg, patient is noted with Metoprolol [address] Sweeney and ordered parameters, do not administer Metoprolol 25 mg if SBP lesser than 99 mmHg. Order entered, noted, and carried out. Will continue to monitor patient.
--- NOTE | 2020-02-07 11:54 | NUR ---
NURSE NOTES: Contacted and informed Dr. Carlos Wilson that per patient's CBC levels today hemoglobin 7.9, hematocrit 24.2, platelet 257, BP 110/60, HR 109. Yesterday's Hgb 7.8. Dr. Carlos Wilson acknowledged and ordered Dr. Cristel Brown for consult. Order entered, noted, and carried out. Will continue to monitor patient.
--- NOTE | 2020-02-07 11:56 | Cardiology Progress Note ---
Assessment/Plan Assessment/Plan 1. Poor p.o. intake. 2. Dehydration. 3. Acute renal failure likely secondary to above. 4. Anemia with history of the same status post prior transfusions. 5. Gastric adenocarcinoma, status post palliative radiation therapy and some chemotherapy. 6. History of H. pylori. 7. Atrial fibrillation with rapid ventricular response. 8. Hypotension. 9. History of hypertension. 10. Diabetes mellitus. 11. Elevated lipase, possible pancreatitis 12. local weakness? s/p hydration blood cx neg d/w rn earleir to day and just now , i was called by rn earlier abpou ? assymtery in face but nto been persisitent covd 19 neg cardiac enzyme neg again echo at [facility] 10/2019 had shown sig hyperdynamic systolic function labs noted dtr had indicated to rn yest pt was slurred little not on anticoagulation in afib due to gib possibility of cva cannot be excluded hr borderline controlled bp borderline tele reviewed afib not sure that anything can be done to prevent a stroke sinc3e has had recent gi bleed and continues to have anemia Subjective ROS Limited/Unobtainable: Yes Subjective Pt asleep, no apparent distress, still noted with poor intake.Fluids encouraged as tolerated. , per rn dtr felt pt slurred Objective Last 24 Hour Vital Signs Date Time Temp Pulse Resp B/P (MAP) Pulse Ox O2 Delivery O2 Flow Rate FiO2 02/07/20 09:36 109 110/60 02/07/20 08:00 119 02/07/20 08:00 Room Air 02/07/20 08:00 97.9 109 16 110/60 (77) 94 02/07/20 04:00 97.1 120 16 110/60 (77) 94 02/07/20 04:00 Room Air 02/07/20 03:35 112 02/07/20 00:00 Room Air 02/07/20 00:00 96.8 130 16 108/52 (70) 96 02/06/20 23:30 116 02/06/20 20:00 97.7 97 16 107/65 (79) 96 02/06/20 20:00 Room Air 02/06/20 20:00 95 02/06/20 16:00 Room Air 02/06/20 16:00 97.6 99 18 120/71 (87) 98 02/06/20 16:00 139 02/06/20 12:00 Room Air 02/06/20 12:00 97.0 100 18 101/56 (71) 96 02/06/20 12:00 112 General Appearance: other - looks comfortabel i donot appreciate any facial assymetery Intake and Output 02/06/20 02/07/20 19:00 07:00 Intake Total 80 ml 330 ml Output Total 15 ml 50 ml Balance 65 ml 280 ml Intake Oral 80 ml 30 ml IV Total 300 ml Output Urine Total 15 ml 50 ml Laboratory Tests Test 02/07/20 03:50 White Blood Count 6.5 K/UL (4.8-10.8) Red Blood Count 2.68 M/UL (4.20-5.40) L Hemoglobin 7.9 G/DL (12.0-16.0) L Hematocrit 24.2 % (37.0-47.0) L Mean Corpuscular Volume 90 FL (80-99) Mean Corpuscular Hemoglobin 29.5 PG (27.0-31.0) Mean Corpuscular Hemoglobin Concent 32.6 G/DL (32.0-36.0) Red Cell Distribution Width 18.2 % (11.6-14.8) H Platelet Count 257 K/UL (150-450) Mean Platelet Volume 5.6 FL (6.5-10.1) L Neutrophils (%) (Auto) % (45.0-75.0) Lymphocytes (%) (Auto) % (20.0-45.0) Monocytes (%) (Auto) % (1.0-10.0) Eosinophils (%) (Auto) % (0.0-3.0) Basophils (%) (Auto) % (0.0-2.0) Differential Total Cells Counted 100 Neutrophils % (Manual) 84 % (45-75) H Lymphocytes % (Manual) 7 % (20-45) L Monocytes % (Manual) 7 % (1-10) Eosinophils % (Manual) 1 % (0-3) Basophils % (Manual) 1 % (0-2) Band Neutrophils 0 % (0-8) Nucleated Red Blood Cells 12 /100 WBC Platelet Estimate Adequate Platelet Morphology Normal Hypochromasia 3+ Anisocytosis 2+ Sodium Level 146 MMOL/L (136-145) H Potassium Level 4.1 MMOL/L (3.5-5.1) Chloride Level 112 MMOL/L (98-107) H Carbon Dioxide Level 18 MMOL/L (21-32) L Anion Gap 16 mmol/L (5-15) H Blood Urea Nitrogen 71 mg/dL (7-18) H Creatinine 4.0 MG/DL (0.55-1.30) H Estimat Glomerular Filtration Rate 12.7 mL/min (>60) Glucose Level 143 MG/DL (74-106) H Calcium Level 8.7 MG/DL (8.5-10.1) Magnesium Level 2.6 MG/DL (1.8-2.4) H Brian Sweeney MD February 07, 2020 11:56
[2020-02-07 12:00] VITALS: BP 104/64
--- NOTE | 2020-02-07 12:11 | NUR ---
*-* INSURANCE *-* UPDATED AVAILABLE CLINICALS HAVE BEEN FAXED TO: CASEY BUI:LARRY REF# [id number] P: [phone] T: [phone] F: [phone]
--- NOTE | 2020-02-07 13:19 | General Progress Note ---
Assessment/Plan Problem List: (1) Anorexia ICD Codes: R63.0 - Anorexia SNOMED: 87019255 (2) Malnutrition ICD Codes: E46 - Unspecified protein-calorie malnutrition SNOMED: 38076404 (3) Atrial fibrillation with RVR ICD Codes: I48.91 - Unspecified atrial fibrillation SNOMED: 371401126194573 (4) DM (diabetes mellitus) ICD Codes: E11.9 - Type 2 diabetes mellitus without complications SNOMED: 70421905 (5) Low BP ICD Codes: I95.9 - Hypotension, unspecified SNOMED: 27921102 (6) Acute on chronic renal failure ICD Codes: N17.9 - Acute kidney failure, unspecified; N18.9 - Chronic kidney disease, unspecified SNOMED: 570786012 (7) Anemia ICD Codes: D64.9 - Anemia, unspecified SNOMED: 195599341 (8) Decubital ulcer ICD Codes: L89.90 - Pressure ulcer of unspecified site, unspecified stage SNOMED: 698571333 (9) Hypokalemia ICD Codes: E87.6 - Hypokalemia SNOMED: 89527040 (10) Hypomagnesemia ICD Codes: E83.42 - Hypomagnesemia SNOMED: 652985844 Status Narrative bilat Farrell on renal US Assessment/Plan: IVF oncology F/U rate control Follow labs Discussed with therapist occupational consult GI consult Subjective Allergies: Coded Allergies: No Known Allergies (Unverified , 01/30/20) Subjective still with poor appetite Objective Last 24 Hour Vital Signs Date Time Temp Pulse Resp B/P (MAP) Pulse Ox O2 Delivery O2 Flow Rate FiO2 02/07/20 12:00 Room Air 02/07/20 09:36 109 110/60 02/07/20 08:00 119 02/07/20 08:00 Room Air 02/07/20 08:00 97.9 109 16 110/60 (77) 94 02/07/20 04:00 97.1 120 16 110/60 (77) 94 02/07/20 04:00 Room Air 02/07/20 03:35 112 02/07/20 00:00 Room Air 02/07/20 00:00 96.8 130 16 108/52 (70) 96 02/06/20 23:30 116 02/06/20 20:00 97.7 97 16 107/65 (79) 96 02/06/20 20:00 Room Air 02/06/20 20:00 95 02/06/20 16:00 Room Air 02/06/20 16:00 97.6 99 18 120/71 (87) 98 02/06/20 16:00 139 Intake and Output 02/06/20 02/07/20 19:00 07:00 Intake Total 80 ml 330 ml Output Total 15 ml 50 ml Balance 65 ml 280 ml Intake Oral 80 ml 30 ml IV Total 300 ml Output Urine Total 15 ml 50 ml Laboratory Tests 02/07/20 03:50: White Blood Count 6.5, Red Blood Count 2.68L, Hemoglobin 7.9L, Hematocrit 24.2L , Mean Corpuscular Volume 90, Mean Corpuscular Hemoglobin 29.5, Mean Corpuscular Hemoglobin Concent 32.6, Red Cell Distribution Width 18.2H, Platelet Count 257, Mean Platelet Volume 5.6L, Neutrophils (%) (Auto) , Lymphocytes (%) (Auto) , Monocytes (%) (Auto) , Eosinophils (%) (Auto) , Basophils (%) (Auto) , Differential Total Cells Counted 100, Neutrophils % ( Manual) 84H, Lymphocytes % (Manual) 7L, Monocytes % (Manual) 7, Eosinophils % ( Manual) 1, Basophils % (Manual) 1, Band Neutrophils 0, Nucleated Red Blood Cells 12, Platelet Estimate Adequate, Platelet Morphology Normal, Hypochromasia 3+, Anisocytosis 2+, Sodium Level 146H, Potassium Level 4.1, Chloride Level 112H , Carbon Dioxide Level 18L, Anion Gap 16H, Blood Urea Nitrogen 71H, Creatinine 4.0H, Estimat Glomerular Filtration Rate 12.7, Glucose Level 143H, Calcium Level 8.7, Magnesium Level 2.6H Height (Feet): 5 Height (Inches): 6.00 Weight (Pounds): 127 Cardiovascular: normal rate Respiratory/Chest: lungs clear Edema: 3+ Generalized Leno Wilson MD February 07, 2020 13:19
--- NOTE | 2020-02-07 13:33 | Infectious Diseases Prog Note ---
Assessment/Plan Assessment/Plan IMPRESSION: Acute renal failure. Negative COVID-19 test Pyuria, Sacral pressure ulcer, Severe anemia, Gastric cancer on palliative treatment, Diabetes mellitus. MRSA carrier Atrial fibrillation History of colon cancer RECOMMENDATION: We will observe off antibiotic for now. Subjective ROS Limited/Unobtainable: Yes Constitutional: Reports: no symptoms Respiratory: Reports: no symptoms Cardiovascular: Reports: no symptoms Musculoskeletal: Reports: pain Allergies: Coded Allergies: No Known Allergies (Unverified , 01/30/20) Objective Vital Signs Last 24 Hour Vital Signs Date Time Temp Pulse Resp B/P (MAP) Pulse Ox O2 Delivery O2 Flow Rate FiO2 02/07/20 12:00 Room Air 02/07/20 09:36 109 110/60 02/07/20 08:00 119 02/07/20 08:00 Room Air 02/07/20 08:00 97.9 109 16 110/60 (77) 94 02/07/20 04:00 97.1 120 16 110/60 (77) 94 02/07/20 04:00 Room Air 02/07/20 03:35 112 02/07/20 00:00 Room Air 02/07/20 00:00 96.8 130 16 108/52 (70) 96 02/06/20 23:30 116 02/06/20 20:00 97.7 97 16 107/65 (79) 96 02/06/20 20:00 Room Air 02/06/20 20:00 95 02/06/20 16:00 Room Air 02/06/20 16:00 97.6 99 18 120/71 (87) 98 02/06/20 16:00 139 Height (Feet): 5 Height (Inches): 6.00 Weight (Pounds): 127 General Appearance: no acute distress HEENT: mucous membranes moist Respiratory/Chest: lungs clear Cardiovascular: tachycardia Abdomen: soft, non tender Extremities: other - legs edema Neurologic/Psychiatric: alert, responsive Laboratory Tests Test 02/07/20 03:50 White Blood Count 6.5 K/UL (4.8-10.8) Red Blood Count 2.68 M/UL (4.20-5.40) L Hemoglobin 7.9 G/DL (12.0-16.0) L Hematocrit 24.2 % (37.0-47.0) L Mean Corpuscular Volume 90 FL (80-99) Mean Corpuscular Hemoglobin 29.5 PG (27.0-31.0) Mean Corpuscular Hemoglobin Concent 32.6 G/DL (32.0-36.0) Red Cell Distribution Width 18.2 % (11.6-14.8) H Platelet Count 257 K/UL (150-450) Mean Platelet Volume 5.6 FL (6.5-10.1) L Neutrophils (%) (Auto) % (45.0-75.0) Lymphocytes (%) (Auto) % (20.0-45.0) Monocytes (%) (Auto) % (1.0-10.0) Eosinophils (%) (Auto) % (0.0-3.0) Basophils (%) (Auto) % (0.0-2.0) Differential Total Cells Counted 100 Neutrophils % (Manual) 84 % (45-75) H Lymphocytes % (Manual) 7 % (20-45) L Monocytes % (Manual) 7 % (1-10) Eosinophils % (Manual) 1 % (0-3) Basophils % (Manual) 1 % (0-2) Band Neutrophils 0 % (0-8) Nucleated Red Blood Cells 12 /100 WBC Platelet Estimate Adequate Platelet Morphology Normal Hypochromasia 3+ Anisocytosis 2+ Sodium Level 146 MMOL/L (136-145) H Potassium Level 4.1 MMOL/L (3.5-5.1) Chloride Level 112 MMOL/L (98-107) H Carbon Dioxide Level 18 MMOL/L (21-32) L Anion Gap 16 mmol/L (5-15) H Blood Urea Nitrogen 71 mg/dL (7-18) H Creatinine 4.0 MG/DL (0.55-1.30) H Estimat Glomerular Filtration Rate 12.7 mL/min (>60) Glucose Level 143 MG/DL (74-106) H Calcium Level 8.7 MG/DL (8.5-10.1) Magnesium Level 2.6 MG/DL (1.8-2.4) H Current Medications Medications (Trade) Dose Ordered Sig/Wally Route PRN Reason Start Time Stop Time Status Last Admin Dose Admin Acetaminophen (Tylenol) 650 mg Q4H PRN ORAL Mild Pain (Pain Scale 1-3) 02/01/20 14:30 02/29/20 14:29 02/05/20 19:58 Acetaminophen/ Hydrocodone Bitart ([place] 10/325) 1 tab Q4H PRN ORAL Severe Pain (Pain Scale 7-10) 02/01/20 14:30 02/07/20 14:29 Acetaminophen/ Hydrocodone Bitart ([place] 5/325) 1 tab Q4H PRN ORAL Moderate Pain (Pain Scale 4-6) 02/01/20 14:30 02/07/20 14:29 02/05/20 03:01 Allopurinol (allopurinoL) 300 mg DAILY ORAL 02/05/20 09:00 03/06/20 08:59 02/07/20 09:35 Ascorbic Acid (Vitamin C) 500 mg DAILY ORAL 02/02/20 09:00 03/03/20 08:59 02/07/20 09:36 Chlorhexidine Gluconate (Salma-Hex 2%) 1 applic DAILY@2000 TOPIC 02/01/20 20:00 04/30/20 19:59 02/06/20 20:32 Dextrose (Dextrose 50%) 25 ml Q30M PRN IV Hypoglycemia 02/01/20 14:30 04/29/20 23:29 Dextrose (Dextrose 50%) 50 ml Q30M PRN IV Hypoglycemia 02/01/20 14:30 04/29/20 23:29 Dextrose/Sodium Chloride 1,000 ml @ 50 mls/hr Q20H IV 02/06/20 19:00 03/07/20 18:59 Folic Acid (Folate) 2 mg DAILY ORAL 02/03/20 13:15 03/04/20 13:14 02/07/20 09:36 Insulin Aspart (NovoLOG) BEFORE MEALS AND HS SUBQ 02/01/20 16:30 04/30/20 06:29 02/06/20 13:31 Metoclopramide HCl (Reglan) 5 mg EVERY 8 HOURS ORAL 02/04/20 22:00 03/01/20 08:59 02/06/20 21:18 Metoprolol Tartrate (Lopressor) 25 mg EVERY 12 HOURS ORAL 02/07/20 21:00 04/30/20 08:59 Multivitamins (Multivitamins) 1 tab DAILY ORAL 02/02/20 09:00 03/03/20 08:59 02/07/20 09:36 Ondansetron HCl (Zofran) 4 mg Q6H PRN IVP Nausea & Vomiting 02/01/20 16:30 03/02/20 16:29 Pantoprazole (Protonix) 40 mg EVERY 12 HOURS IVP 02/04/20 21:00 03/05/20 20:59 02/07/20 09:35 Sodium Citrate (Bicitra) 30 ml TID ORAL 02/05/20 13:00 03/04/20 17:59 02/07/20 09:35 Jassi Wilson MD February 07, 2020 13:33
--- NOTE | 2020-02-07 14:00 | NUR ---
NURSE NOTES: Dr. Padron seen and examined patient at bedside. Informed Dr. Padron that per night nurse they noticed weakness on left side, this nurse informed Dr. Padron that patient is able to squeeze hands bilaterally, equal strength, weak; no facial drooping noted. Dr. Padron acknowledged and informed this nurse they will assess patient. Informed this nurse they will put in orders themself. Noted. Will continue to monitor patient.
--- NOTE | 2020-02-07 14:17 | NUR ---
NURSE NOTES: Called Dr. Brown and informed MD of Dr. Carlos Wilson's consult order regarding hemoglobin of 7.9. Dr. Brown acknowledged and ordered STAT venous duplex of bilateral lower extremities to rule out DVT and repeat CBC tomorrow morning. Orders entered, noted, and carried out. Will continue to monitor patient.
[2020-02-07] MEDS: D5NS 1,000 ML IV SCH ×2 (14:28→17:46)
--- NOTE | 2020-02-07 14:30 | NUR ---
NURSE NOTES: Contacted and informed Dr. Carlos Wilson that bed is now available in telemetry. Dr. Carlos Wilson acknowledged and ordered to continue transfer patient to Telemetry as per order. Charge nurse made aware. Will continue to monitor patient.
--- NOTE | 2020-02-07 14:54 | Consultation ---
Consult Note Consult Note [facility] NEUROLOGY CONSULTATION February 07, [address] Wilson, I evaluated Ms. Liao and my assessment is as follows. HISTORY: Ms. Philly Liao is an 89-year-old, right-handed, black lady, have a past history of dyslipidemia, coronary artery disease status post myocardial infarction, atrial fibrillation, gastroesophageal reflux disease, and gastric adenocarcinoma for which she is status post radiation therapy. She was recently discharged from [facility] to her home where she was noted to be generally weak. She was brought into the [facility] emergency room for generalized weakness. She was noted to be in atrial fibrillation with a rapid ventricular rate. As per her nurse in the early hours of today she was noted to be weaker on her left side with increased left facial drooping and inability to move her left side. However at this point in time he tells me that she is able to move all limbs. Ms. Liao herself is completely oblivious as to what is going on and is unable to give me any history. PAST HISTORY: Dyslipidemia, coronary artery disease status post myocardial infarction, atrial fibrillation, gastroesophageal reflux disease, and gastric adenocarcinoma for which she is status post radiation therapy. FAMILY HISTORY: Unavailable and and unable to find in her chart. PERSONAL HISTORY: Home: She lives at home with her son. 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 Habits: She used to smoke when she was young but stopped smoking numerous years ago. She denies the use of alcohol or illicit drugs. ALLERGIES: No known allergies. NEUROLOGIC REVIEW OF SYSTEMS: Unable to obtain. PHYSICAL EXAMINATION: GENERAL: She is a well-developed, relatively well-nourished, black lady, lying in bed, in no acute distress. VITAL SIGNS: Pulse: 120/minute. Blood Pressure: 104/64 mm of Hg. Respirations: 16/minute Temperature: 96.8 F HEAD: Normocephalic and atraumatic. NECK: No neck rigidity was observed. EENT: Benign. NEUROLOGIC EXAMINATION: MENTAL STATUS EXAMINATION: She was awake and alert. She was oriented to self only. She thought she was at [facility]. She was able to recall 3/3 words immediately, but could not remember any of them after 1 minute and after 3 minutes. She was able to remember presidents Trump with hints. She was unable to remember presidents prior to that. She was unable to do simple mathematics. She was unable to do simple visual-spatial problems. SPEECH: She had a mild dysarthria. LANGUAGE: She had a moderate anomia for low- and mid- frequency words CRANIAL NERVE EXAMINATION: II: The visual montoya were intact to confrontation testing. III, IV, : External ocular movements were full and pupils 3 mm in diameter equal, round, regular and reactive to light. V: The facial sensations were normal, and the temporales, masseters and pterygoids functioned normally. VII: She had a left seventh central facial paresis. VIII: The patient was able to hear well bilaterally and had no nystagmus. IX: The palate moved symmetrically on phonation. X: There was no hoarseness of voice. XI: The sternocleidomastoids and trapezii functioned normally. XII: The tongue was in the midline without any fasciculations or atrophy. MOTOR SYSTEM: The tone was normal in all 4 extremities. Examination of muscle mass revealed no focal wasting. Examination of power was exceedingly difficult to perform because of varying degrees of effort. She however had lower extremity weakness much more than upper extremity weakness and left-sided weakness more than right-sided weakness. SENSORY EXAMINATION: She was able to localize light touch all over her body. She was unable to cooperate further sensory modalities. COORDINATION: She was able to perform [id number]-tk-[id number] testing bilaterally. She was unable to perform [id number]-ji-[id number] testing. REFLEXES: Trace+ and bilaterally symmetric at the biceps, triceps, brachioradialis, and knees. 0 at both ankles. The plantar responses were flexor bilaterally. STANCE & GAIT: Could not be tested. ABNORMAL MOVEMENTS: None DIAGNOSTIC IMPRESSION: 1. Ms. Philly Liao is an 89-year-old, right-handed, black lady, have a past history of dyslipidemia, coronary artery disease status post myocardial infarction, atrial fibrillation, gastroesophageal reflux disease, and gastric adenocarcinoma for which she is status post radiation therapy. 2. She was recently discharged from [facility] to her home where she was noted to be generally weak. She was brought into the [facility] emergency room for generalized weakness. She was noted to be in atrial fibrillation with a rapid ventricular rate. 3. As per her nurse in the early hours of today she was noted to be weaker on her left side with increased left facial drooping and inability to move her left side. However at this point in time he tells me that she is able to move all limbs. 4. On neurological examination, at this time, she does have significant problems with orientation, recent and remote memory, visuospatial function, higher cognitive function and language. She does have a left seventh central facial paresis. She also has a quadriparesis involving the lower extremities significantly more than the upper extremities and the left side more than the right side. The deep tendon reflexes are globally diminished. She is unable to stand and walk. 5. The patient's history and neurological examination are most consistent with pre-existing generalized weakness and now increased left-sided weakness. The patient does have atrial fibrillation and is not anticoagulated. There is a possibility that she may have had a cerebrovascular event. 6. She also has significant cognitive problems. It is unclear if these problems are old or new. RECOMMENDATIONS: 1. Agree with management thus far. 2. An MRI scan of the brain will be ordered to evaluate the patient for acute intracranial pathology as a reason for left hemiparesis. 3. Carotid duplex will be ordered to evaluate the patient for hemodynamically significant carotid disease. 4. The patient should be mobilized with the help of PT and OT. 5. She should be worked up thoroughly for treatable causes of cognitive dysfunction and cerebrovascular disease. 6. Depending on the results of the above-mentioned tests further recommendations will be given. Thank you for entrusting me to take care of Ms. Liao' neurologic needs. I shall follow her with you. Sincerely, Abran Padron M.D., M.S.P.H. Neurologist & Clinical Neurophysiologist Abran Padron MD February 07, 2020 14:54
--- NOTE | 2020-02-07 15:00 | NUR ---
NURSE NOTES: Dr. Carlos Wilson contacted this nurse and ordered patient NPO at midnight for "possible cysto" tomorrow. Order entered, noted, and carried out. Will continue to monitor patient.
--- NOTE | 2020-02-07 15:00 | NUR ---
TRANSFER TO FLOOR: Patient transferred to Telemetry, per Dr. Carlos Connolly. Report given to RIVER Edgar. Belongings and medications given to RIVER Edgar. Family informed of transfer.
--- NOTE | 2020-02-07 15:15 | NUR ---
NURSE NOTES: Per Dr. Sweeney patient okay to go off tele for procedures. Noted. Order entered and noted. RIVER Edgar made aware.
--- NOTE | 2020-02-07 15:18 | Surgery Progress Note ---
Surgery Progress Note Subjective Additional Comments noted left sided weakness lfts / lipase elevated tachycardic afebrile Objective Last 24 Hour Vital Signs Date Time Temp Pulse Resp B/P (MAP) Pulse Ox O2 Delivery O2 Flow Rate FiO2 02/07/20 12:00 Room Air 02/07/20 12:00 96.8 120 16 104/64 (77) 100 02/07/20 12:00 103 02/07/20 09:36 109 110/60 02/07/20 08:00 119 02/07/20 08:00 Room Air 02/07/20 08:00 97.9 109 16 110/60 (77) 94 02/07/20 04:00 97.1 120 16 110/60 (77) 94 02/07/20 04:00 Room Air 02/07/20 03:35 112 02/07/20 00:00 Room Air 02/07/20 00:00 96.8 130 16 108/52 (70) 96 02/06/20 23:30 116 02/06/20 20:00 97.7 97 16 107/65 (79) 96 02/06/20 20:00 Room Air 02/06/20 20:00 95 02/06/20 16:00 Room Air 02/06/20 16:00 97.6 99 18 120/71 (87) 98 02/06/20 16:00 139 I&O Intake and Output 02/06/20 02/07/20 19:00 07:00 Intake Total 80 ml 330 ml Output Total 15 ml 50 ml Balance 65 ml 280 ml Intake Oral 80 ml 30 ml IV Total 300 ml Output Urine Total 15 ml 50 ml Dressing: saturated Wound: clean Cardiovascular: RSR Respiratory: decreased breath sounds Abdomen: soft, non-tender, present bowel sounds Extremities: no tenderness, no cyanosis, other Laboratory Tests Test 02/07/20 03:50 White Blood Count 6.5 K/UL (4.8-10.8) Red Blood Count 2.68 M/UL (4.20-5.40) L Hemoglobin 7.9 G/DL (12.0-16.0) L Hematocrit 24.2 % (37.0-47.0) L Mean Corpuscular Volume 90 FL (80-99) Mean Corpuscular Hemoglobin 29.5 PG (27.0-31.0) Mean Corpuscular Hemoglobin Concent 32.6 G/DL (32.0-36.0) Red Cell Distribution Width 18.2 % (11.6-14.8) H Platelet Count 257 K/UL (150-450) Mean Platelet Volume 5.6 FL (6.5-10.1) L Neutrophils (%) (Auto) % (45.0-75.0) Lymphocytes (%) (Auto) % (20.0-45.0) Monocytes (%) (Auto) % (1.0-10.0) Eosinophils (%) (Auto) % (0.0-3.0) Basophils (%) (Auto) % (0.0-2.0) Differential Total Cells Counted 100 Neutrophils % (Manual) 84 % (45-75) H Lymphocytes % (Manual) 7 % (20-45) L Monocytes % (Manual) 7 % (1-10) Eosinophils % (Manual) 1 % (0-3) Basophils % (Manual) 1 % (0-2) Band Neutrophils 0 % (0-8) Nucleated Red Blood Cells 12 /100 WBC Platelet Estimate Adequate Platelet Morphology Normal Hypochromasia 3+ Anisocytosis 2+ Erythrocyte Sedimentation Rate Pending Sodium Level 146 MMOL/L (136-145) H Potassium Level 4.1 MMOL/L (3.5-5.1) Chloride Level 112 MMOL/L (98-107) H Carbon Dioxide Level 18 MMOL/L (21-32) L Anion Gap 16 mmol/L (5-15) H Blood Urea Nitrogen 71 mg/dL (7-18) H Creatinine 4.0 MG/DL (0.55-1.30) H Estimat Glomerular Filtration Rate 12.7 mL/min (>60) Glucose Level 143 MG/DL (74-106) H Hemoglobin A1c Pending Calcium Level 8.7 MG/DL (8.5-10.1) Magnesium Level 2.6 MG/DL (1.8-2.4) H Vitamin D 25-Hydroxy Pending 25-Hydroxy Vitamin D2 Pending 25-Hydroxy Vitamin D3 Pending Thyroid Stimulating Hormone (TSH) Pending Rapid Plasma Reagin Pending Plan Problems: (1) Sepsis Assessment & Plan: lactic acidosis tachycardic hypotension altered unlikely related to decubitus ulcer and wounds likely chronically infected but not acute labs improving on abx and fluids cont current care plan improving trend h/h - prbc prn diet as tolerated improving overall off abx stable onc input noted. hx colon cancer dx in [facility]. GI bleed from Ca? unfortunately not operative candidate GI eval pending h/h stable neuro input noted pancreatitis meds vs lipids vs gb? US ordered (2) Anorexia (3) Malnutrition Assessment & Plan: DAILY ESTIMATED NEEDS: Needs based on Wound 57.6kg 30-35 kcals/kg 2560-4935 total kcals 1.25-1.5 g protein/kg 72-86 g total protein 25-30ml/kcal mL/kg 5301-7207 total fluid mLs NUTRITION DIAGNOSIS: Increased kcal and pro needs r/t wound healing as evidenced by pt w/ unstageable sacral wound. (CURRENT DIET: CCHO MED soft easy chew) PO DIET RECOMMENDATIONS: With current poor po intake, rec liberalized REGULAR diet/ texture as harman ADDITIONAL RECOMMENDATIONS: 1) Add Glucerna TID w/ meals 2) Maintain calibrated bed scale wts 3) Wound care: MVI w/ min qdaily, Vit C 500mg daily + EFREN FRUIT PUNCH BID as tolerated 4) Check lytes + hydration status daily as able 5) Monitor lipase, need for low fat diet 6) [employer] eval for appropriate diet texture (4) Gastric cancer (5) Atrial fibrillation with RVR (6) DM (diabetes mellitus) (7) Low BP (8) Acute on chronic renal failure (9) Anemia (10) Decubital ulcer Assessment & Plan: Pt presented on admission with stage 3 nearing almost a stage 4 as bone almost palpable if not palpable pressure injury to sacrum(L)1cm x (W)1cm. Base of wound has 100% slough Marginal erythema along edges. Periwound indurated with darker skin tone. Pt verbalized tenderness when minimally palpated. Bilat heels are boggy but blanchable . Pt denied tenderness when each heel individually palpated.Hemosiderin with Xerosis skin distal aspects of both lower ext.Both feet are edematous. Tx.Plan: Cleanse Sacral wound with Saline. Apply Therahoney. Apply Moisture Barrier Paste periwound. Cover with Optifoam drsg. Change every 3 days and prn. Apply Cavilon Skin Barrier to both heels. Cover each heel with Optifoam drsg.Change every 7 days and prn. Reposition at least every 2hours or as tolerated. Off-load heels with pillow. Jose Ponce February 07, 2020 15:18
--- NOTE | 2020-02-07 15:19 | NUR ---
NURSE NOTES: Received patient and report from Epifanio HOLMAN. Patient transferred from step down unit 2W to tele 2E. Patient is AAO X2-3 with episode of confusion, denies any pain at this time. No s/s of respiratory distress noted. Patient is on electronic device monitor with AFIB at 93. Noted patient has sacral redness. with optifoam in place. Bed is in lowest position with bedside rails up x3, brakes engaged for safety, call light is within reach. Will continue with the plan of care.
--- NOTE | 2020-02-07 15:33 | NUR ---
NURSE NOTES: Patient is off tele for procedure - MRI of the brain, no contrast. Patient is in stable condition.
[2020-02-07 16:00] VITALS: BP 100/56
--- NOTE | 2020-02-07 16:00 | NUR ---
NURSE NOTES: Patient is back on the floor
--- NOTE | 2020-02-07 18:47 | NUR ---
NURSE NOTES: Venous duplex done, audio visual technician reported that patient is DVT positive. Will notify
--- NOTE | 2020-02-07 18:52 | NUR ---
NURSE NOTES: Notified Dr. Gracia Wilson about the venous duplex report, positive DVT on the R. lower leg. Awaiting response. Will continue to monitor patient.
--- NOTE | 2020-02-07 18:56 | NUR ---
NURSE NOTES: New order iv heparin-VTE and bolus.
[2020-02-07] MEDS ORDERED: Heparin 5000 units/ml inj IV SCH (19:30)
[2020-02-07] MEDS ORDERED: Heparin 25,000u/D5W 500ml 500 ML IV SCH (19:30)
--- NOTE | 2020-02-07 19:56 | NUR ---
HAND-OFF: Report given to Sunitha HOLMAN.Endorsed the plan of care.
[2020-02-07 20:00] VITALS: BP 97/54
--- NOTE | 2020-02-07 20:05 | NUR ---
NURSE NOTES: Received report from RIVER Edgar. Patient is awake lying semi-fang's; resting comfortably. No signs of acute distress noted; denies pain at this time. AOx2-3, able to make needs known to a degree with periods of confusion. Right femoral triple lumen catheter in place. Jenkins catheter draining well to gravity. On P200, low air loss mattress for appropriate wound management. Bed at lowest position, brakes on, siderails up x3. Call light within reach. Will continue to monitor.
[2020-02-07] MEDS: Dyna-Hex 2% Top Sol 2oz TOPIC SCH (20:31)
--- NOTE | 2020-02-07 21:42 | Diagnostic Imaging Report ---
Indication: Left-sided weakness and facial droop, altered mental status Technique: sagittal T1 fast spin echo, axial T1 FLAIR, axial T2 FLAIR, axial T2 FS PROPELLER, axial diffusion weighted images. ADC and exponential ADC maps generated. Patient unable to cooperate optimally, and GRE images could not be obtained. Comparison: none Findings: Exam is somewhat limited due to patient motion artifact. No gross abnormal areas of restricted diffusion to suggest acute infarction. No acute hemorrhage or edema, although evaluation for such is somewhat limited in the absence of GRE images.. No mass effect nor midline shift. There is marked age-related enlargement of the ventricles and extra axial CSF spaces. There is some periventricular high T2 signal with suggests chronic microvascular ischemic change. The vascular flow voids are preserved.. There is fairly extensive left maxillary sinus opacification. There is also disease within the left sphenoid sinus. Impression: Limited exam, as described Negative for acute intracranial bleed, mass effect, or infarct
--- NOTE | 2020-02-07 22:00 | Consultation ---
DATE OF CONSULTATION: 02/07/2020 CONSULTING PHYSICIAN: Baldo Hager MD. ATTENDING/REFERRING PHYSICIAN: Leno Wilson MD. CHIEF COMPLAINT/HISTORY OF PRESENT ILLNESS: I was asked by Dr. Wilson to evaluate this 89-year-old female regarding a history of bilateral hydronephrosis and renal insufficiency. The patient has a history of gastric cancer and has received radiation for the same in the past. She was brought in with atrial fibrillation and rapid ventricular response. The patient is also noted to have a sacral decubitus wound, which was quite deep. Given her renal insufficiency, a renal ultrasound was ordered, which revealed bilateral cpkxbuhg-mj-mogkde hydronephrosis. PAST MEDICAL HISTORY: 1. Gastric cancer. 2. Atrial fibrillation. 3. Anemia. 4. Myocardial infarction. 5. GERD. 6. Hyperlipidemia. 7. H. pylori ulcer. PAST SURGICAL HISTORY: Unknown. MEDICATIONS: Please see the chart for current medications and administration details. Briefly, the patient is not currently receiving any antibiotic. ALLERGIES: No known drug allergies. SOCIAL HISTORY: No history of tobacco, alcohol, or drug abuse. FAMILY HISTORY: Noncontributory. REVIEW OF SYSTEMS: A 14-system review of systems was unremarkable outside what is described above. PHYSICAL EXAMINATION: GENERAL: Patient is an elderly frail female, in no obvious distress. HEENT: NC/AT. EOMI. Oropharynx clear. NECK: Supple. CHEST: Within normal limits. ABDOMEN: Soft, nontender, nondistended. EXTREMITIES: Warm and well perfused. No cyanosis, clubbing, or edema. NEUROLOGIC: Grossly nonfocal. BACK: Reveals sacral wound appears to be stage III. LABORATORY DATA: White blood cell count 6.5, hematocrit 24.2, platelets 257. PT, PTT, INR notable for PT of 11.6. Sodium 146, potassium 4.1, chloride 112, bicarbonate 18, BUN 71, creatinine 4 up from 2.7 on admission, glucose 143. Calcium 8.7. LFTs notable for elevated AST and ALT. Alkaline phosphatase 914. Urinalysis, specific gravity 1.025, pH 5.0. Dip test notable for 1+ protein, 1+ ketones, 1+ occult blood, 2+ bilirubin, 1+ leukocyte esterase. Microanalysis with 5 to 10 red and white blood cells per high-power field and moderate bacteria seen. RPR pending. Urine culture, mixed contaminant. Blood cultures no growth. COVID-19 testing negative. MRSA culture positive. DIAGNOSTIC IMAGING: Renal ultrasound with bilateral hydronephrosis, stable with slightly worse compared to previous exam of 02/03/2020. Bladder is empty with a Jenkins catheter in place. ASSESSMENT AND PLAN: In summary, patient is an 89-year-old female with a history of multiple medical issues including gastric cancer and advanced sacral decubitus ulceration. She presents with issues from the same and worsening renal insufficiency. Workup for the same reveals bilateral hydronephrosis. Laboratory data is notable for a creatinine of 4. Patient is COVID negative. This patient has hydronephrosis in the setting of an increased creatinine. A CT scan of the abdomen and pelvis would be helpful to rule out any intrinsic or extrinsic source of compression of the ureters to explain the same. If there is evidence of obstruction, consideration could be given to nephrostomy tubes for drainage of the kidneys and improvement of renal function. If there is no evidence of any obstructive source and there is hydronephrosis down to the bladder, then it is likely secondary to chronic reflux and there is no need for intervention from a surgical standpoint. Thank you for allowing me to participate in the care of this unfortunate lady. Please do not hesitate to contact me for any questions that you may further have regarding her care. I will see her with you as needed. Baldo Hager M.D. DR: GRACY JOB#: [id number] CC:
--- NOTE | 2020-02-07 22:30 | NUR ---
NURSE NOTES: Left message for Chrissy Kramer, patient's daughter, regarding consent for CT abdomen and pelvis with or without contrast procedure. Awaiting callback.
[2020-02-08] VITALS: BP 109/59
--- NOTE | 2020-02-08 00:49 | NUR ---
NURSE NOTES: Per Chrissy, patient's daughter, she wants to speak to the urologist first before consenting for the procedure.
[2020-02-08 03:28] LABS: HEMATOCRIT 23.6 % (37.0-47.0); HEMOGLOBIN 7.8 G/DL (12.0-16.0); MEAN CORPUSCULAR VOLUME 91 FL (80-99); PLATELET COUNT 239 K/UL (150-450); RED CELL DISTRIBUTION WIDTH 20.1 % (11.6-14.8); WHITE BLOOD COUNT 7.1 K/UL (4.8-10.8)
[2020-02-08 04:00] VITALS: BP 114/68
[2020-02-08 04:11] LABS: ALANINE AMINOTRANSFERASE 106 U/L (12-78); ALBUMIN 2.1 G/DL (3.4-5.0); ALBUMIN/GLOBULIN RATIO 0.7 (1.0-2.7); ALKALINE PHOSPHATASE 1203 U/L (46-116); ANION GAP 17 mmol/L (5-15); ASPARTATE AMINO TRANSFERASE 192 U/L (15-37); BILIRUBIN,TOTAL 2.3 MG/DL (0.2-1.0); BLOOD UREA NITROGEN 68 mg/dL (7-18); CALCIUM 8.4 MG/DL (8.5-10.1); CARBON DIOXIDE 19 MMOL/L (21-32); CHLORIDE 112 MMOL/L (98-107); CREATININE 4.3 MG/DL (0.55-1.30); POTASSIUM 3.8 MMOL/L (3.5-5.1); SODIUM 148 MMOL/L (136-145)
--- NOTE | 2020-02-08 04:12 | NUR ---
NURSE NOTES: Patient is awake lying semi-fang's; resting comfortably. No signs of acute distress noted; complains of some pain, but refuses pain medication at this time.
[2020-02-08 04:19] LABS: AMYLASE 77 U/L (25-115)
--- NOTE | 2020-02-08 04:33 | NUR ---
NURSE NOTES: Held Heparin drip per protocol since PTT is > 150.
--- NOTE | 2020-02-08 05:12 | NUR ---
NURSE NOTES: Called Dr. Wilson regarding patient's hemoglobin level of 7.8 and lactic acid of 2.50. Awaiting callback for any further orders.
[2020-02-08] MEDS ORDERED: Heparin 25,000u/D5W 500ml 500 ML IV SCH ×5 (05:30→23:00)
[2020-02-08] MEDS: NovoLOG Insulin Flexpen SUBQ SCH ×4 (05:45→22:12)
--- NOTE | 2020-02-08 07:39 | NUR ---
HAND-OFF: Report given to RIVER Connelly and RIVER Price. Patient is awake lying semi-fang's; resting comfortably. Jenkins catheter in place. In stable condition.
[2020-02-08 08:00] VITALS: BP 102/63
--- NOTE | 2020-02-08 08:00 | NUR ---
NURSE NOTES: Patient stable, AOx1 with no complaints and no s/sx of distress or pain. RR even and unlabored on RA. Triple Lumen catheter dressing dry and intact. All 3 ports flushed and patent. Heparin drip infusing as ordered at 14units/kg/hr and D5NS running at 50mL/hr. Jenkins draining to gravity with small amount of urine. Side rails up x2, call light within reach. Bed low and locked. Will continue to monitor.
--- NOTE | 2020-02-08 08:28 | NUR ---
NURSE NOTES: Patient taken down for CT.
--- NOTE | 2020-02-08 08:45 | NUR ---
NURSE NOTES: Patient returned from CT.
--- NOTE | 2020-02-08 08:49 | NUR ---
CT A/P WO COMPLETED
--- NOTE | 2020-02-08 08:58 | NUR ---
CASE MANAGEMENT:REVIEW 02/08/20 SI: AFIB W/RVR. AC/CR RENAL FAILURE 96.8 104 20 102/63 96% ON RA H/H-7.8/23.6 PB=105 BUN+68 CR+4.3 LACTIC ACID+2.50 TBILI+2.3 DBILI+2.0 AST/ALT+192/106 APTT>150 IS: HEPARIN GTT 14U/KG/HR ALLOPURINOL PO QD VIT C PO QD FOLATE PO QD MVI PO QD REGLAN PO Q8HRS LOPRESSOR PO Q12 IV PROTONIX Q12 BICITRA PO TID : NOW ON TELEMETRY UNIT DCP: PATIENT IS FROM HOME...DISCHARGE DISPOSITION WILL HINGE ON HOSPITALIZATION OUTCOME PLAN: ONCOLOGY FOR GASTRIC [place] UROLOGIST FOR BILATERAL HYDRONEPHROSIS ~ RENAL US NOTED WORSENING HYDRONEPHROSIS
[2020-02-08] MEDS: Pantoprazole Inj IVP SCH ×2 (09:40→22:13)
[2020-02-08] MEDS: Sodium Citrate 30ml ORAL SCH ×3 (09:41→18:13)
[2020-02-08] MEDS: Ascorbic Acid 500mg tab ORAL SCH (09:45)
--- NOTE | 2020-02-08 10:00 | NUR ---
NURSE NOTES: Spoke with daughter Chrissy regarding pt's care. Would like to speak with doctor.
--- NOTE | 2020-02-08 11:00 | Diagnostic Imaging Report ---
Indication: Acute renal failure, hydronephrosis demonstrated on recent renal sonograms. Technique: Spiral acquisitions obtained through the abdomen and pelvis. No oral contrast. No IV contrast utilized, per referring physician request. Multiplanar reconstructions were generated. Total dose length product 394 mGycm. CTDIvol(s) 7 mGy. Dose reduction achieved using automated exposure control Comparison: Reference made to renal ultrasound 02/07/2020 and abdominal ultrasound Findings: There is bilateral mild to moderate hydronephrosis. There is unusual cylindrical masslike soft tissue extending from the bilateral renal neal to the bilateral ovaries. Large calcifications are seen in that on the left. The ureters are not visible separate from these masses until the level of the bilateral adnexa, where the ureters emerge into the pelvic fat and continue along the usual course to the bladder. There is a 2 cm cyst in the lower pole of the left kidney. Lack of IV contrast limits assessment of the renal parenchyma, however. Beginning at the level of the kidneys and extending cephalad, there is fairly extensive retroperitoneal lymphadenopathy, with nodes measuring up to 3 x 1.8 cm in diameter. There is peripancreatic and retrocrural lymphadenopathy as well. There is a 2.9 cm diameter soft tissue mass immediately adjacent to the greater curvature the stomach, as well as multiple other smaller nodes surrounding the stomach and within the gastrocolic ligament. Lack of IV contrast limits assessment of the other solid organs. The liver demonstrates punctate calcifications likely representing old granulomatous disease. There is soft tissue fullness in the region of the jcarlos hepatis. The gallbladder is not definitely visible. The bile ducts are nondilated. The pancreas is unremarkable. The spleen demonstrates granulomatous calcifications. The right adrenal demonstrates masslike enlargement, measuring 2.6 x 2.2 cm. The left adrenal is unremarkable. Bladder is empty, contains a Jenkins catheter. Free fluid is seen in the pelvis and also surrounding the liver and spleen. There is also fluid tracking in the left paracolic gutter. There is also a fluid pocket in the anterior pelvis to the right of midline, adjacent to the uterine fundus and surrounding several small bowel loops. The distal esophagus is unremarkable. The stomach is considerably distended. No small bowel distention. The appendix is normal. Contrast is seen throughout the colon, although none was ingested for this exam. There is colonic diverticulosis. No evidence of acute diverticulitis. There is a right groin central venous catheter. Numerous gas bubbles are seen within the right common femoral and external iliac and common iliac veins, and there is relatively increased attenuation of the right femoral and profunda femoral veins as compared to the contralateral side. A few gas bubbles are also seen within the left common femoral vein. There is considerable edema of the subcutaneous fat. There are bilateral pleural effusions, large on the right and [id number] on the left.. There is compressive atelectasis of portions of both lower lobes. A noncalcified nodule is seen in the inferior right middle lobe measuring approximately 3 mm in diameter. The heart size is normal. The bones demonstrate extensive degenerative spondylosis changes. Impression: Unusual finding of cylindrical soft tissue collections extending cephalad from the bilateral adnexal region toward the renal neal. There is also extensive retroperitoneal, peripancreatic, and gastrocolic ligament lymphadenopathy, most likely metastatic in nature. The cylindrical soft tissue collections may represent an unusual manifestation of bilateral ovarian malignancy, or could represent confluent retroperitoneal lymphadenopathy. Bilateral hydronephrosis. Presumably related to the above, as the proximal ureters are completely inseparable from above described soft tissue masses Distended stomach. Given the presence of poorly defined soft tissue fullness in the region of the jcarlos hepatis, the possibility of gastric outlet obstruction at this level should be considered. Trace free intraperitoneal fluid Large right and moderate left pleural effusions Right groin central venous catheter. High attenuation of the femoral, deep femoral, and upstream femoral veins is consistent with venous thrombosis described on recent venous duplex scan. Gas bubbles within the veins are most likely related to the central venous catheter placement if recent, but the possibility of septic phlebitis with a gas-forming organism should also be considered. Right adrenal mass, nonspecific, could indicate metastatic involvement or an adenoma Nonvisualized gallbladder, likely prior cholecystectomy Bilateral compressive atelectatic changes of both lower lobes of the lungs. Noncalcified right middle lobe nodule, approximately 3 mm diameter Other findings as noted, including degenerative spondylosis changes, Jenkins catheter, colonic diverticulosis, evidence of old granulomatous disease within the liver and spleen, left lower pole renal cyst The CT scanner at [facility] is accredited by the [employer] and the scans are performed using protocols designed to limit radiation exposure to as low as reasonably achievable to attain images of sufficient resolution adequate for diagnostic evaluation.
--- NOTE | 2020-02-08 11:44 | Infectious Diseases Prog Note ---
Assessment/Plan Assessment/Plan IMPRESSION: Acute renal failure. Negative COVID-19 test Pyuria, Sacral pressure ulcer, Severe anemia, Gastric cancer on palliative treatment, Diabetes mellitus. MRSA carrier Atrial fibrillation History of colon cancer DVT Abdominal mass Hydronephrosis RECOMMENDATION: We will observe off antibiotic for now. Subjective ROS Limited/Unobtainable: Yes Constitutional: Denies: fever Allergies: Coded Allergies: No Known Allergies (Unverified , 01/30/20) Objective Vital Signs Last 24 Hour Vital Signs Date Time Temp Pulse Resp B/P (MAP) Pulse Ox O2 Delivery O2 Flow Rate FiO2 02/08/20 09:44 87 102/63 02/08/20 09:00 Room Air 02/08/20 08:00 96.8 87 20 102/63 (76) 96 02/08/20 04:00 104 02/08/20 04:00 97.2 81 19 114/68 (83) 96 02/08/20 00:00 106 02/08/20 00:00 97.0 84 18 109/59 (76) 97 02/07/20 21:00 88 97/54 02/07/20 21:00 Room Air 02/07/20 20:00 97.2 88 17 97/54 (68) 97 02/07/20 20:00 110 02/07/20 16:00 106 02/07/20 16:00 Room Air 02/07/20 16:00 97.3 106 18 100/56 (71) 100 02/07/20 12:00 Room Air 02/07/20 12:00 96.8 120 16 104/64 (77) 100 02/07/20 12:00 103 Height (Feet): 5 Height (Inches): 6.00 Weight (Pounds): 176 General Appearance: no acute distress Respiratory/Chest: lungs clear Cardiovascular: normal rate Extremities: other - legs edema Skin: other - sacral ulcer Neurologic/Psychiatric: other - sleeping Laboratory Tests Test 02/07/20 19:50 02/08/20 03:15 Activated Partial Thromboplast Time 29 SEC (23-33) > 150 SEC (23-33) *H White Blood Count 7.1 K/UL (4.8-10.8) Red Blood Count 2.60 M/UL (4.20-5.40) L Hemoglobin 7.8 G/DL (12.0-16.0) L Hematocrit 23.6 % (37.0-47.0) L Mean Corpuscular Volume 91 FL (80-99) Mean Corpuscular Hemoglobin 29.8 PG (27.0-31.0) Mean Corpuscular Hemoglobin Concent 32.8 G/DL (32.0-36.0) Red Cell Distribution Width 20.1 % (11.6-14.8) H Platelet Count 239 K/UL (150-450) Mean Platelet Volume 5.5 FL (6.5-10.1) L Neutrophils (%) (Auto) % (45.0-75.0) Lymphocytes (%) (Auto) % (20.0-45.0) Monocytes (%) (Auto) % (1.0-10.0) Eosinophils (%) (Auto) % (0.0-3.0) Basophils (%) (Auto) % (0.0-2.0) Sodium Level 148 MMOL/L (136-145) H Potassium Level 3.8 MMOL/L (3.5-5.1) Chloride Level 112 MMOL/L (98-107) H Carbon Dioxide Level 19 MMOL/L (21-32) L Anion Gap 17 mmol/L (5-15) H Blood Urea Nitrogen 68 mg/dL (7-18) H Creatinine 4.3 MG/DL (0.55-1.30) H Estimat Glomerular Filtration Rate 11.8 mL/min (>60) Glucose Level 172 MG/DL (74-106) H Lactic Acid Level 2.50 mmol/L (0.4-2.0) H Calcium Level 8.4 MG/DL (8.5-10.1) L Total Bilirubin 2.3 MG/DL (0.2-1.0) H Direct Bilirubin 2.0 MG/DL (0.0-0.3) H Aspartate Amino Transf (AST/SGOT) 192 U/L (15-37) H Alanine Aminotransferase (ALT/SGPT) 106 U/L (12-78) H Alkaline Phosphatase 1203 U/L (46-116) H Total Protein 5.0 G/DL (6.4-8.2) L Albumin 2.1 G/DL (3.4-5.0) L Globulin 2.9 g/dL Albumin/Globulin Ratio 0.7 (1.0-2.7) L Amylase Level 77 U/L (25-115) Lipase 366 U/L (73-393) Current Medications Medications (Trade) Dose Ordered Sig/Wally Route PRN Reason Start Time Stop Time Status Last Admin Dose Admin Acetaminophen (Tylenol) 650 mg Q4H PRN ORAL Mild Pain (Pain Scale 1-3) 02/07/20 15:03 03/08/20 15:02 Allopurinol (allopurinoL) 300 mg DAILY ORAL 02/08/20 09:00 03/06/20 08:59 02/08/20 09:40 Ascorbic Acid (Vitamin C) 500 mg DAILY ORAL 02/08/20 09:00 03/03/20 08:59 02/08/20 09:45 Chlorhexidine Gluconate (Salma-Hex 2%) 1 applic DAILY@2000 TOPIC 02/07/20 20:00 04/30/20 19:59 02/07/20 20:31 Dextrose (Dextrose 50%) 25 ml Q30M PRN IV Hypoglycemia 02/07/20 15:30 04/29/20 23:29 Dextrose (Dextrose 50%) 50 ml Q30M PRN IV Hypoglycemia 02/07/20 15:30 04/29/20 23:29 Dextrose/Sodium Chloride 1,000 ml @ 50 mls/hr Q20H IV 02/07/20 15:03 03/08/20 15:02 02/07/20 17:46 Folic Acid (Folate) 2 mg DAILY ORAL 02/08/20 09:00 03/04/20 13:14 02/08/20 09:41 Heparin Sodium/ Dextrose 500 ml @ 16.13 mls/ hr ADJUST PER PROTOCOL IV 02/08/20 05:30 03/09/20 05:29 02/08/20 05:34 Insulin Aspart (NovoLOG) BEFORE MEALS AND HS SUBQ 02/07/20 16:30 04/30/20 06:29 02/08/20 05:45 Metoclopramide HCl (Reglan) 5 mg EVERY 8 HOURS ORAL 02/07/20 22:00 03/01/20 08:59 02/08/20 05:40 Metoprolol Tartrate (Lopressor) 25 mg EVERY 12 HOURS ORAL 02/07/20 21:00 04/30/20 08:59 02/08/20 09:44 Multivitamins (Multivitamins) 1 tab DAILY ORAL 02/08/20 09:00 03/03/20 08:59 02/08/20 09:44 Ondansetron HCl (Zofran) 4 mg Q6H PRN IVP Nausea & Vomiting 02/07/20 15:04 03/08/20 15:03 Pantoprazole (Protonix) 40 mg EVERY 12 HOURS IVP 02/07/20 21:00 03/05/20 20:59 02/08/20 09:40 Sodium Citrate (Bicitra) 30 ml TID ORAL 02/07/20 18:00 03/04/20 17:59 02/08/20 09:41 Jassi Wilson MD February 08, 2020 11:44
[2020-02-08 12:00] VITALS: BP 104/73
[2020-02-08] MEDS: D5NS 1,000 ML IV SCH (12:25)
--- NOTE | 2020-02-08 13:07 | NUR ---
*-* INSURANCE *-* UPDATED AVAILABLE CLINICALS HAVE BEEN FAXED TO: CASEY BUI:LARRY REF# [id number] P: [phone] T: [phone] F: [phone]
--- NOTE | 2020-02-08 14:00 | NUR ---
NURSE NOTES: Dr. Wilson returning daughter, Chrissy's phone call.
--- NOTE | 2020-02-08 14:22 | Diagnostic Imaging Report ---
Indication: Abnormal renal function tests, abdominal pain Technique: Arevalo-scale and duplex images of the upper abdomen were obtained Comparison: Renal ultrasound of earlier the same day Findings: Gallbladder is not visualized. Common bile duct measures 5 mm in diameter. No intrahepatic biliary ductal dilatation. Liver demonstrates coarsened echogenicity. No focal abnormality Portal vein and hepatic veins are patent. Pancreas is obscured by bowel gas. Spleen is unremarkable. Left kidney measures 10.5 cm in length. Right kidney measures 12.8 cm length. Both kidneys demonstrate normal echogenicity. There is moderate bilateral hydronephrosis. There is a cyst in the lower pole of the left kidney. Abdominal aorta is partially obscured by bowel gas, visualized portions are non-aneurysmal . There is a right pleural effusion Impression: Nonvisualized gallbladder, likely surgically absent. Negative for dilated bile ducts Bilateral hydronephrosis, also previously reported Right pleural effusion Note nonvisualization of the pancreas and portions of the abdominal aorta
[2020-02-08] MEDS ORDERED: Isovue-300 100ml vial INJ PRN (14:26)
--- NOTE | 2020-02-08 14:38 | Diagnostic Imaging Report ---
Indication: Bilateral leg pain Technique: Grayscale and duplex images of the bilateral lower extremity veins Comparison: none Findings: Thrombus is seen within the right common femoral, femoral, and popliteal veins. This results in absence of flow on Doppler, and noncompressibility. Thrombus also extends into the calf veins. There is edema of the subcutaneous fat. There is a central venous catheter within the common femoral vein On the left, grayscale and duplex images demonstrate no evidence of intraluminal thrombus. Normal phasic Doppler waveforms. Normal compressibility. Impression: Positive for extensive right common femoral, femoral, popliteal, and calf vein deep venous thrombosis. This appears to be related to a central venous catheter within the right common femoral vein extending into the iliac veins Negative for left lower extremity deep venous thrombosis Dr. Wilson is aware of the findings
--- NOTE | 2020-02-08 14:48 | Surgery Progress Note ---
Surgery Progress Note Subjective Additional Comments US noted CT noted discussed with radiology and pcp lft's noted Objective Last 24 Hour Vital Signs Date Time Temp Pulse Resp B/P (MAP) Pulse Ox O2 Delivery O2 Flow Rate FiO2 02/08/20 09:44 87 102/63 02/08/20 09:00 Room Air 02/08/20 08:00 123 02/08/20 08:00 96.8 87 20 102/63 (76) 96 02/08/20 04:00 104 02/08/20 04:00 97.2 81 19 114/68 (83) 96 02/08/20 00:00 106 02/08/20 00:00 97.0 84 18 109/59 (76) 97 02/07/20 21:00 88 97/54 02/07/20 21:00 Room Air 02/07/20 20:00 97.2 88 17 97/54 (68) 97 02/07/20 20:00 110 02/07/20 16:00 106 02/07/20 16:00 Room Air 02/07/20 16:00 97.3 106 18 100/56 (71) 100 I&O Intake and Output 02/07/20 02/08/20 19:00 07:00 Intake Total 682.927 ml Output Total 50 ml Balance 632.927 ml IV Total 682.927 ml Output Urine Total 50 ml # Voids 2 Cardiovascular: RSR Respiratory: decreased breath sounds Abdomen: soft, non-tender, present bowel sounds, non-distended Extremities: edema, no cyanosis Laboratory Tests Test 02/07/20 19:50 02/08/20 03:15 02/08/20 12:00 Activated Partial Thromboplast Time 29 SEC (23-33) > 150 SEC (23-33) *H > 150 SEC (23-33) *H White Blood Count 7.1 K/UL (4.8-10.8) Red Blood Count 2.60 M/UL (4.20-5.40) L Hemoglobin 7.8 G/DL (12.0-16.0) L Hematocrit 23.6 % (37.0-47.0) L Mean Corpuscular Volume 91 FL (80-99) Mean Corpuscular Hemoglobin 29.8 PG (27.0-31.0) Mean Corpuscular Hemoglobin Concent 32.8 G/DL (32.0-36.0) Red Cell Distribution Width 20.1 % (11.6-14.8) H Platelet Count 239 K/UL (150-450) Mean Platelet Volume 5.5 FL (6.5-10.1) L Neutrophils (%) (Auto) % (45.0-75.0) Lymphocytes (%) (Auto) % (20.0-45.0) Monocytes (%) (Auto) % (1.0-10.0) Eosinophils (%) (Auto) % (0.0-3.0) Basophils (%) (Auto) % (0.0-2.0) Sodium Level 148 MMOL/L (136-145) H Potassium Level 3.8 MMOL/L (3.5-5.1) Chloride Level 112 MMOL/L (98-107) H Carbon Dioxide Level 19 MMOL/L (21-32) L Anion Gap 17 mmol/L (5-15) H Blood Urea Nitrogen 68 mg/dL (7-18) H Creatinine 4.3 MG/DL (0.55-1.30) H Estimat Glomerular Filtration Rate 11.8 mL/min (>60) Glucose Level 172 MG/DL (74-106) H Lactic Acid Level 2.50 mmol/L (0.4-2.0) H Calcium Level 8.4 MG/DL (8.5-10.1) L Total Bilirubin 2.3 MG/DL (0.2-1.0) H Direct Bilirubin 2.0 MG/DL (0.0-0.3) H Aspartate Amino Transf (AST/SGOT) 192 U/L (15-37) H Alanine Aminotransferase (ALT/SGPT) 106 U/L (12-78) H Alkaline Phosphatase 1203 U/L (46-116) H Total Protein 5.0 G/DL (6.4-8.2) L Albumin 2.1 G/DL (3.4-5.0) L Globulin 2.9 g/dL Albumin/Globulin Ratio 0.7 (1.0-2.7) L Amylase Level 77 U/L (25-115) Lipase 366 U/L (73-393) Plan Problems: (1) Sepsis Assessment & Plan: lactic acidosis tachycardic hypotension altered unlikely related to decubitus ulcer and wounds likely chronically infected but not acute labs improving on abx and fluids cont current care plan improving trend h/h - prbc prn diet as tolerated improving overall off abx stable onc input noted. hx colon cancer dx in [facility]. GI bleed from Ca? unfortunately not operative candidate GI eval pending h/h stable neuro input noted pancreatitis meds vs lipids vs gb? US noted Gallbladder is not visualized. Common bile duct measures 5 mm in diameter. No intrahepatic biliary ductal dilatation. Liver demonstrates coarsened echogenicity. No focal abnormality Portal vein and hepatic veins are patent. Pancreas is obscured by bowel gas. Spleen is unremarkable. Left kidney measures 10.5 cm in length. Right kidney measures 12.8 cm length. Both kidneys demonstrate normal echogenicity. There is moderate bilateral hydronephrosis. There is a cyst in the lower pole of the left kidney. Abdominal aorta is partially obscured by bowel gas, visualized portions are non-aneurysmal . There is a right pleural effusion Impression: Nonvisualized gallbladder, likely surgically absent. Negative for dilated bile ducts Bilateral hydronephrosis, also previously reported Right pleural effusion Note nonvisualization of the pancreas and portions of the abdominal aorta CT noted duplex noted will plan for removal of line. on gtt hep will watch for bleeding b/l nephrostomy planned will follow with recs ?hospice vs comfort care (2) Anorexia (3) Malnutrition Assessment & Plan: DAILY ESTIMATED NEEDS: Needs based on Wound 57.6kg 30-35 kcals/kg 5933-9965 total kcals 1.25-1.5 g protein/kg 72-86 g total protein 25-30ml/kcal mL/kg 0533-3920 total fluid mLs NUTRITION DIAGNOSIS: Increased kcal and pro needs r/t wound healing as evidenced by pt w/ unstageable sacral wound. (CURRENT DIET: CCHO MED soft easy chew) PO DIET RECOMMENDATIONS: With current poor po intake, rec liberalized REGULAR diet/ texture as harman ADDITIONAL RECOMMENDATIONS: 1) Add Glucerna TID w/ meals 2) Maintain calibrated bed scale wts 3) Wound care: MVI w/ min qdaily, Vit C 500mg daily + EFREN FRUIT PUNCH BID as tolerated 4) Check lytes + hydration status daily as able 5) Monitor lipase, need for low fat diet 6) HYDRAULIC MINER eval for appropriate diet texture (4) Gastric cancer (5) Atrial fibrillation with RVR (6) DM (diabetes mellitus) (7) Low BP (8) Acute on chronic renal failure (9) Anemia (10) Decubital ulcer Assessment & Plan: Pt presented on admission with stage 3 nearing almost a stage 4 as bone almost palpable if not palpable pressure injury to sacrum(L)1cm x (W)1cm. Base of wound has 100% slough Marginal erythema along edges. Periwound indurated with darker skin tone. Pt verbalized tenderness when minimally palpated. Bilat heels are boggy but blanchable . Pt denied tenderness when each heel individually palpated.Hemosiderin with Xerosis skin distal aspects of both lower ext.Both feet are edematous. Tx.Plan: Cleanse Sacral wound with Saline. Apply Therahoney. Apply Moisture Barrier Paste periwound. Cover with Optifoam drsg. Change every 3 days and prn. Apply Cavilon Skin Barrier to both heels. Cover each heel with Optifoam drsg.Change every 7 days and prn. Reposition at least every 2hours or as tolerated. Off-load heels with pillow. Jose Ponce February 08, 2020 14:48
--- NOTE | 2020-02-08 14:57 | General Progress Note ---
Assessment/Plan Problem List: (1) Anorexia ICD Codes: R63.0 - Anorexia SNOMED: 75687451 (2) Malnutrition ICD Codes: E46 - Unspecified protein-calorie malnutrition SNOMED: 52042490 (3) Atrial fibrillation with RVR ICD Codes: I48.91 - Unspecified atrial fibrillation SNOMED: 260554606251520 (4) DM (diabetes mellitus) ICD Codes: E11.9 - Type 2 diabetes mellitus without complications SNOMED: 83610829 (5) Low BP ICD Codes: I95.9 - Hypotension, unspecified SNOMED: 32291309 (6) Acute on chronic renal failure ICD Codes: N17.9 - Acute kidney failure, unspecified; N18.9 - Chronic kidney disease, unspecified SNOMED: 294333331 (7) Anemia ICD Codes: D64.9 - Anemia, unspecified SNOMED: 732109458 (8) Decubital ulcer ICD Codes: L89.90 - Pressure ulcer of unspecified site, unspecified stage SNOMED: 979517921 (9) Hypokalemia ICD Codes: E87.6 - Hypokalemia SNOMED: 47458034 (10) Hypomagnesemia ICD Codes: E83.42 - Hypomagnesemia SNOMED: 982167532 (11) Obstructive uropathy ICD Codes: N13.9 - Obstructive and reflux uropathy, unspecified SNOMED: 7099371 (12) Gastric cancer ICD Codes: C16.9 - Malignant neoplasm of stomach, unspecified SNOMED: 822462299 (13) DVT (deep venous thrombosis) ICD Codes: I82.409 - Acute embolism and thrombosis of unspecified deep veins of unspecified lower extremity SNOMED: 686057120 Assessment/Plan: IV heparin oncology F/U rate control Follow labs Discussed with RN Discussed with urologist GI consult Ordered Nephrostomies Discussed with daughter for 35 minutes I explained to the daughter patient's condition. I also described DNR status and possible outcomes in case of a CPR. She wants to talk to rest of family. She would like to keep pt full code for now. Subjective Allergies: Coded Allergies: No Known Allergies (Unverified , 01/30/20) Subjective still with poor appetite Objective Last 24 Hour Vital Signs Date Time Temp Pulse Resp B/P (MAP) Pulse Ox O2 Delivery O2 Flow Rate FiO2 02/08/20 09:44 87 102/63 02/08/20 09:00 Room Air 02/08/20 08:00 123 02/08/20 08:00 96.8 87 20 102/63 (76) 96 02/08/20 04:00 104 02/08/20 04:00 97.2 81 19 114/68 (83) 96 02/08/20 00:00 106 02/08/20 00:00 97.0 84 18 109/59 (76) 97 02/07/20 21:00 88 97/54 02/07/20 21:00 Room Air 02/07/20 20:00 97.2 88 17 97/54 (68) 97 02/07/20 20:00 110 02/07/20 16:00 106 02/07/20 16:00 Room Air 02/07/20 16:00 97.3 106 18 100/56 (71) 100 Intake and Output 02/07/20 02/08/20 19:00 07:00 Intake Total 682.927 ml Output Total 50 ml Balance 632.927 ml IV Total 682.927 ml Output Urine Total 50 ml # Voids 2 Laboratory Tests 02/07/20 19:50: Activated Partial Thromboplast Time 29 02/08/20 03:15: Activated Partial Thromboplast Time > 150*H, White Blood Count 7.1, Red Blood Count 2.60L, Hemoglobin 7.8L, Hematocrit 23.6L, Mean Corpuscular Volume 91, Mean Corpuscular Hemoglobin 29.8, Mean Corpuscular Hemoglobin Concent 32.8, Red Cell Distribution Width 20.1H, Platelet Count 239, Mean Platelet Volume 5.5L, Neutrophils (%) (Auto) , Lymphocytes (%) (Auto) , Monocytes (%) (Auto) , Eosinophils (%) (Auto) , Basophils (%) (Auto) , Sodium Level 148H, Potassium Level 3.8, Chloride Level 112H, Carbon Dioxide Level 19L, Anion Gap 17H, Blood Urea Nitrogen 68H, Creatinine 4.3H, Estimat Glomerular Filtration Rate 11.8, Glucose Level 172H, Lactic Acid Level 2.50H, Calcium Level 8.4L, Total Bilirubin 2.3H, Direct Bilirubin 2.0H, Aspartate Amino Transf (AST/SGOT) 192H, Alanine Aminotransferase (ALT/SGPT) 106H, Alkaline Phosphatase 1203H, Total Protein 5.0L, Albumin 2.1L, Globulin 2.9, Albumin/Globulin Ratio 0.7L, Amylase Level 77, Lipase 366 02/08/20 12:00: Activated Partial Thromboplast Time > 150*H Height (Feet): 5 Height (Inches): 6.00 Weight (Pounds): 159 Respiratory/Chest: lungs clear Leno Wilson MD February 08, 2020 14:57
--- NOTE | 2020-02-08 15:24 | Neurology Progress Note ---
Interim History Interim History Interim History Ms. Philly Liao is an 89-year-old, right-handed, black lady, have a past history of dyslipidemia, coronary artery disease status post myocardial infarction, atrial fibrillation, gastroesophageal reflux disease, and gastric adenocarcinoma for which she is status post radiation therapy. She was recently discharged from [facility] to her home where she was noted to be generally weak. She was brought into the [facility] emergency room for generalized weakness. She was noted to be in atrial fibrillation with a rapid ventricular rate. As per her nurse in the early hours of 02/07/20 she was noted to be weaker on her left side with increased left facial drooping and inability to move her left side. However at this point in time he tells me that she is able to move all limbs. She feels better today. She however continues to be cognitively impoverished. She is also generally weak with left greater than right weakness. She denies any new neurological symptoms. She is still oblivious as to why she is in the hospital. Objective Physical Exam Last Vital Signs Date Time Temp Pulse Resp B/P (MAP) Pulse Ox O2 Delivery O2 Flow Rate FiO2 02/08/20 09:44 87 102/63 02/08/20 09:00 Room Air 02/08/20 08:00 96.8 20 96 Laboratory Tests Test 02/07/20 19:50 02/08/20 03:15 02/08/20 12:00 Activated Partial Thromboplast Time 29 SEC (23-33) > 150 SEC (23-33) *H > 150 SEC (23-33) *H White Blood Count 7.1 K/UL (4.8-10.8) Red Blood Count 2.60 M/UL (4.20-5.40) L Hemoglobin 7.8 G/DL (12.0-16.0) L Hematocrit 23.6 % (37.0-47.0) L Mean Corpuscular Volume 91 FL (80-99) Mean Corpuscular Hemoglobin 29.8 PG (27.0-31.0) Mean Corpuscular Hemoglobin Concent 32.8 G/DL (32.0-36.0) Red Cell Distribution Width 20.1 % (11.6-14.8) H Platelet Count 239 K/UL (150-450) Mean Platelet Volume 5.5 FL (6.5-10.1) L Neutrophils (%) (Auto) % (45.0-75.0) Lymphocytes (%) (Auto) % (20.0-45.0) Monocytes (%) (Auto) % (1.0-10.0) Eosinophils (%) (Auto) % (0.0-3.0) Basophils (%) (Auto) % (0.0-2.0) Sodium Level 148 MMOL/L (136-145) H Potassium Level 3.8 MMOL/L (3.5-5.1) Chloride Level 112 MMOL/L (98-107) H Carbon Dioxide Level 19 MMOL/L (21-32) L Anion Gap 17 mmol/L (5-15) H Blood Urea Nitrogen 68 mg/dL (7-18) H Creatinine 4.3 MG/DL (0.55-1.30) H Estimat Glomerular Filtration Rate 11.8 mL/min (>60) Glucose Level 172 MG/DL (74-106) H Lactic Acid Level 2.50 mmol/L (0.4-2.0) H Calcium Level 8.4 MG/DL (8.5-10.1) L Total Bilirubin 2.3 MG/DL (0.2-1.0) H Direct Bilirubin 2.0 MG/DL (0.0-0.3) H Aspartate Amino Transf (AST/SGOT) 192 U/L (15-37) H Alanine Aminotransferase (ALT/SGPT) 106 U/L (12-78) H Alkaline Phosphatase 1203 U/L (46-116) H Total Protein 5.0 G/DL (6.4-8.2) L Albumin 2.1 G/DL (3.4-5.0) L Globulin 2.9 g/dL Albumin/Globulin Ratio 0.7 (1.0-2.7) L Amylase Level 77 U/L (25-115) Lipase 366 U/L (73-393) Neurologic Exam Objective PHYSICAL EXAMINATION: GENERAL: She is a well-developed, relatively well-nourished, black lady, lying in bed, in no acute distress. HEAD: Normocephalic and atraumatic. NECK: No neck rigidity was observed. EENT: Benign. NEUROLOGIC EXAMINATION: MENTAL STATUS EXAMINATION: She was awake and alert. She was oriented to self only. She was able to recall 3/3 words immediately, but could not remember any of them after 1 minute and after 3 minutes. She was able to remember presidents Trump with hints. She was unable to remember presidents prior to that. She was unable to do simple mathematics. She was unable to do simple visual-spatial problems. SPEECH: She had a mild dysarthria. LANGUAGE: She had a moderate anomia for low- and mid- frequency words CRANIAL NERVE EXAMINATION: II: The visual montoya were intact to confrontation testing. III, IV, : External ocular movements were full and pupils 3 mm in diameter equal, round, regular and reactive to light. V: The facial sensations were normal, and the temporales, masseters and pterygoids functioned normally. VII: She had a left seventh central facial paresis. VIII: The patient was able to hear well bilaterally and had no nystagmus. IX: The palate moved symmetrically on phonation. X: There was no hoarseness of voice. XI: The sternocleidomastoids and trapezii functioned normally. XII: The tongue was in the midline without any fasciculations or atrophy. MOTOR SYSTEM: The tone was normal in all 4 extremities. Examination of muscle mass revealed no focal wasting. Examination of power was exceedingly difficult to perform because of varying degrees of effort. She however had lower extremity weakness much more than upper extremity weakness and left-sided weakness more than right-sided weakness. SENSORY EXAMINATION: She was able to localize light touch all over her body. She was unable to cooperate further sensory modalities. COORDINATION: She was able to perform [id number] testing bilaterally. She was unable to perform itgx-fc-[id number] testing. REFLEXES: Trace+ and bilaterally symmetric at the biceps, triceps, brachioradialis, and knees. 0 at both ankles. The plantar responses were flexor bilaterally. STANCE & GAIT: Could not be tested. ABNORMAL MOVEMENTS: None Impression/Recommendations Diagnostic Impression DIAGNOSTIC IMPRESSION: 1. Ms. Philly Liao is an 89-year-old, right-handed, black lady, have a past history of dyslipidemia, coronary artery disease status post myocardial infarction, atrial fibrillation, gastroesophageal reflux disease, and gastric adenocarcinoma for which she is status post radiation therapy. 2. She was recently discharged from [facility] to her home where she was noted to be generally weak. She was brought into the [facility] emergency room for generalized weakness. She was noted to be in atrial fibrillation with a rapid ventricular rate. 3. As per her nurse in the early hours of 02/07/2020 she was noted to be weaker on her left side with increased left facial drooping and inability to move her left side. However at this point in time he tells me that she is able to move all limbs. 4. She feels better today. She however continues to be cognitively impoverished. She is also generally weak with left greater than right weakness. She denies any new neurological symptoms. She is still oblivious as to why she is in the hospital. 5. On neurological examination, at this time, she does have significant problems with orientation, recent and remote memory, visuospatial function, higher cognitive function and language. She does have a left seventh central facial paresis. She also has a quadriparesis involving the lower extremities significantly more than the upper extremities and the left side more than the right side. The deep tendon reflexes are globally diminished. She is unable to stand and walk. 6. The MRI scan of the brain reveals atrophy and deep white matter changes but no acute pathology. 7. The patient's history and neurological examination are most consistent with pre-existing generalized weakness and now increased left-sided weakness. An acute cerebrovascular event has been excluded. 8. She used to have significant cognitive problems. It is unclear if these problems are old or new. Recommendations RECOMMENDATIONS: 1. Continue present management. 2. Await carotid duplex to evaluate the patient for hemodynamically significant carotid disease. 3. Mobilize with the help of PT and OT. 4. Observe closely. Abran Padron M.D., M.S.P.H. Neurologist & Clinical Neurophysiologist Abran Padron MD February 08, 2020 15:24
[2020-02-08 16:00] VITALS: BP 110/56
--- NOTE | 2020-02-08 16:00 | NUR ---
NURSE NOTES: Consents for nephrostomy tube and anticipatory blood transfusion received. Addendum: 02/08/20 at 2009 by BEV GUAN RN DR. BILLINGS PAGED REGARDING LOW HGB BUT DID NOT RECEIVE A CALL BACK. ENDORSED TO ONCOMING SHIFT.
--- NOTE | 2020-02-08 16:45 | Pre-Procedure Note/Attestation ---
Pre-Procedure Note/Attestation Complete Prior to Procedure Planned Procedure: bilateral Procedure Narrative: nephrostomies Indications for Procedure Pre-Operative Diagnosis: obstructive uropathy Attestation I attest that I discussed the nature of the procedure; its benefits; risks and complications; and alternatives (and the risks and benefits of such alternatives ), prior to the procedure, with the patient (or the patient's legal asset protection representative). I attest that, if there was a reasonable possibility of needing a blood transfusion, the patient (or the patient's legal asset protection representative) was given the [facility] standardized written summary, pursuant to the [place] Blood Safety Act ([place] Health and Safety Code # 1645, as amended). I attest that I re-evaluated the patient just prior to the surgery and that there has been no change in the patient's H&P, except as documented below: Discussed by phone with pts. daughter Chrissy Kramer at 1642 George Stewart MD February 08, 2020 16:45
--- NOTE | 2020-02-08 19:04 | Cardiology Progress Note ---
Assessment/Plan Assessment/Plan 1. Poor p.o. intake. 2. Dehydration. 3. Acute renal failure likely secondary to above. 4. Anemia with history of the same status post prior transfusions. 5. Gastric adenocarcinoma, status post palliative radiation therapy and some chemotherapy. 6. History of H. pylori. 7. Atrial fibrillation with rapid ventricular response. 8. Hypotension. 9. History of hypertension. 10. Diabetes mellitus. 11. Elevated lipase, possible pancreatitis 12. dvt 13. bilateral pleural effusion 14. hydronephrosis s/p hydration on heparin blood cx neg covd 19 neg cardiac enzyme neg echo at [facility] 10/2019 had shown sig hyperdynamic systolic function labs noted no mri evidence for cva tele reviewed afib possible nephrostomy renal function worse Subjective Subjective Patient is awake lying semi-fang's; resting comfortably. No signs of acute distress noted; complains of some pain, but refuses pain medication at this time. Objective Last 24 Hour Vital Signs Date Time Temp Pulse Resp B/P (MAP) Pulse Ox O2 Delivery O2 Flow Rate FiO2 02/08/20 16:00 98.7 89 19 110/56 (74) 96 02/08/20 16:00 103 02/08/20 12:00 98.1 89 18 104/73 (83) 97 02/08/20 09:44 87 102/63 02/08/20 09:00 Room Air 02/08/20 08:00 123 02/08/20 08:00 96.8 87 20 102/63 (76) 96 02/08/20 04:00 104 02/08/20 04:00 97.2 81 19 114/68 (83) 96 02/08/20 00:00 106 02/08/20 00:00 97.0 84 18 109/59 (76) 97 02/07/20 21:00 88 97/54 02/07/20 21:00 Room Air 02/07/20 20:00 97.2 88 17 97/54 (68) 97 02/07/20 20:00 110 Intake and Output 02/07/20 02/08/20 19:00 07:00 Intake Total 682.927 ml Output Total 50 ml Balance 632.927 ml IV Total 682.927 ml Output Urine Total 50 ml # Voids 2 Laboratory Tests Test 02/07/20 19:50 02/08/20 03:15 02/08/20 12:00 Activated Partial Thromboplast Time 29 SEC (23-33) > 150 SEC (23-33) *H > 150 SEC (23-33) *H White Blood Count 7.1 K/UL (4.8-10.8) Red Blood Count 2.60 M/UL (4.20-5.40) L Hemoglobin 7.8 G/DL (12.0-16.0) L Hematocrit 23.6 % (37.0-47.0) L Mean Corpuscular Volume 91 FL (80-99) Mean Corpuscular Hemoglobin 29.8 PG (27.0-31.0) Mean Corpuscular Hemoglobin Concent 32.8 G/DL (32.0-36.0) Red Cell Distribution Width 20.1 % (11.6-14.8) H Platelet Count 239 K/UL (150-450) Mean Platelet Volume 5.5 FL (6.5-10.1) L Neutrophils (%) (Auto) % (45.0-75.0) Lymphocytes (%) (Auto) % (20.0-45.0) Monocytes (%) (Auto) % (1.0-10.0) Eosinophils (%) (Auto) % (0.0-3.0) Basophils (%) (Auto) % (0.0-2.0) Sodium Level 148 MMOL/L (136-145) H Potassium Level 3.8 MMOL/L (3.5-5.1) Chloride Level 112 MMOL/L (98-107) H Carbon Dioxide Level 19 MMOL/L (21-32) L Anion Gap 17 mmol/L (5-15) H Blood Urea Nitrogen 68 mg/dL (7-18) H Creatinine 4.3 MG/DL (0.55-1.30) H Estimat Glomerular Filtration Rate 11.8 mL/min (>60) Glucose Level 172 MG/DL (74-106) H Lactic Acid Level 2.50 mmol/L (0.4-2.0) H Calcium Level 8.4 MG/DL (8.5-10.1) L Total Bilirubin 2.3 MG/DL (0.2-1.0) H Direct Bilirubin 2.0 MG/DL (0.0-0.3) H Aspartate Amino Transf (AST/SGOT) 192 U/L (15-37) H Alanine Aminotransferase (ALT/SGPT) 106 U/L (12-78) H Alkaline Phosphatase 1203 U/L (46-116) H Total Protein 5.0 G/DL (6.4-8.2) L Albumin 2.1 G/DL (3.4-5.0) L Globulin 2.9 g/dL Albumin/Globulin Ratio 0.7 (1.0-2.7) L Amylase Level 77 U/L (25-115) Lipase 366 U/L (73-393) Brian Sweeney MD February 08, 2020 19:04
[2020-02-08 20:00] VITALS: BP 120/66
--- NOTE | 2020-02-08 20:08 | NUR ---
HAND-OFF: Report given to LALA LYLES RN. Patient stable. Plan of care endorsed.
--- NOTE | 2020-02-08 20:11 | NUR ---
NURSE NOTES: Received report from RIVER Connelly. Patient is awake lying semi-fang's; resting comfortably. No signs of acute distress noted; denies pain at this time. AOx2; able to make needs known to a degree with periods of confusion. Right femoral triple lumen catheter in place. Heparin drip running at 10 units/kg/hr or 14.4 mls/hr. No bleeding noted. Jenkins catheter in place, but draining very little urine. On P200, low air loss mattress for appropriate wound management. Bed at lowest position, brakes on, siderails up x3. Call light within reach. Will continue to monitor.
[2020-02-08] MEDS: Dyna-Hex 2% Top Sol 2oz TOPIC SCH (22:13)
[2020-02-09] VITALS: BP 96/67
--- NOTE | 2020-02-09 00:29 | Consultation ---
DATE OF CONSULTATION: 02/08/2020 CONSULTING PHYSICIAN: Erick Brooks MD. REFERRING PHYSICIAN: Leno Wilson MD. CHIEF COMPLAINT: Dysphagia. HISTORY OF PRESENT ILLNESS: Most of history per chart. This is an 89-year-old female with history of metastatic gastric cancer and recently was discharged from [facility], who is admitted to [facility]. The patient now, in terms of GI standpoint, has not been eating well and the family wanted the patient to have a G-tube placement. PAST MEDICAL HISTORY: 1. Metastatic gastric CA. 2. Atrial fibrillation. 3. Coronary artery disease and RI. 4. Hypertension. 5. Diabetes. 6. GERD. 7. Anemia. ALLERGIES: No known drug allergies. MEDICATIONS: Please see medication reconciliation list. SOCIAL HISTORY: The patient has no recent history of tobacco, alcohol, or IV drug abuse. PAST SURGICAL HISTORY: and cholecystectomy. REVIEW OF SYSTEMS: Limited. PHYSICAL EXAMINATION: VITAL SIGNS: Temperature is 96.8, respirations 20, pulse is 123, and blood pressure is 102/63. HEENT: Normocephalic and atraumatic. Mildly pale conjunctivae. NECK: Supple. No evidence of obvious lymphadenopathy. CARDIOVASCULAR: Irregularly irregular. Plus S1, S2. LUNGS: Decreased breath sounds bilaterally based on the supine exam. ABDOMEN: Soft. Bowel sounds are present. No rebound. No guarding. No peritoneal sign. EXTREMITIES: No cyanosis. No clubbing. No edema. LABORATORY DATA: White count is 7.1, hemoglobin 7.8, hematocrit 23, platelet count is 239,000. ASSESSMENT AND PLAN: This is an 89-year-old female with metastatic gastric cancer, now with failure to thrive. I spoke with the family member and the daughter wanted everything done for this patient including G-tube. The procedure was explained to her in detail. The risks and benefits of procedure were explained to her and she still wanted to have it done. Plan to schedule for Thursday. I want to thank, Dr. Leno Wilson, for this kind referral. Erick Brooks M.D. DR: Tiburcio JOB#: [id number] CC: Leno Wilson M.D.; Fax#: [phone]
--- NOTE | 2020-02-09 03:21 | NUR ---
NURSE NOTES: Patient is asleep lying semi-fang's; resting comfortably. No signs of acute distress or pain noted at this time. Jenkins catheter in place. Heparin drip running at 7 units/kg/hr or 10.08 mls/hr. No bleeding noted.
[2020-02-09 04:00] VITALS: BP 103/63
[2020-02-09] MEDS: NovoLOG Insulin Flexpen SUBQ SCH ×4 (06:08→21:00)
[2020-02-09 06:10] LABS: BASOPHILS % (AUTO) 0.9 % (0.0-2.0); EOSINOPHILS % (AUTO) 0.7 % (0.0-3.0); HEMATOCRIT 27.2 % (37.0-47.0); HEMOGLOBIN 8.6 G/DL (12.0-16.0); LYMPHOCYTES % (AUTO) 6.3 % (20.0-45.0); MEAN CORPUSCULAR VOLUME 94 FL (80-99); NEUTROPHILS % (AUTO) 83.1 % (45.0-75.0); PLATELET COUNT 238 K/UL (150-450); RED BLOOD COUNT 2.89 M/UL (4.20-5.40); RED CELL DISTRIBUTION WIDTH 20.9 % (11.6-14.8); WHITE BLOOD COUNT 7.2 K/UL (4.8-10.8)
--- NOTE | 2020-02-09 07:35 | NUR ---
HAND-OFF: Report given to RIVER Connelly. Patient is awake lying semi-fang's; resting comfortably. Endorsed to oncoming shift RN regarding patient's nephrostomy placement procedure later today; verbalized understanding. Jenkins catheter in place. Heparin drip running at 10.08 mls/hr. In stable condition.
[2020-02-09] MEDS ORDERED: Heparin 5000 units/ml inj IV SCH (07:45)
[2020-02-09 07:59] VITALS: BP 102/84
--- NOTE | 2020-02-09 08:00 | NUR ---
NURSE NOTES: Patient stable, AOx1 with no complaints and no s/sx of distress or pain. RR even and unlabored on RA. Triple Lumen catheter dressing peeling from side and appear to be leaking. Dressing changed. aware that it is leaking. All 3 ports flushed and patent. Heparin drip infusing as ordered at 7units/kg/hr. Jenkins draining to gravity with small amount of urine. Side rails up x2, call light within reach. Bed low and locked. Will continue to monitor. Addendum: 02/09/20 at 1523 by BEV GUAN RN 88 Addendum: 02/09/20 at 1524 by BEV GUAN RN HEPARIN DRIP RATE CHANGED AT THIS TIME TO 9UNITS/KG/HR AND 2,500UNITS IVP GIVEN.
[2020-02-09] MEDS: Ascorbic Acid 500mg tab ORAL SCH (08:11)
[2020-02-09] MEDS: Sodium Citrate 30ml ORAL SCH ×3 (08:11→17:08)
[2020-02-09] MEDS: Pantoprazole Inj IVP SCH ×2 (08:12→21:12)
[2020-02-09] MEDS: Heparin 25,000u/D5W 500ml 500 ML IV SCH (08:14)
--- NOTE | 2020-02-09 10:00 | NUR ---
NURSE NOTES: Heparin drip held per orders prior to procedure.
--- NOTE | 2020-02-09 11:26 | NUR ---
NURSE NOTES:WOUND CARE FOLLOW-UP NOTES:Pt presented on admission with Unstageable Sacral pressure injury. Base of wound has 80% slough,20% beefy granulation. Edges are macerated. Periwound indurated with mixed erythema and darker skin tone that is tender when minimally palpated. Hemosiderin with Xerosis skin distal aspects bilat lower ext. Both heels are boggy but blanchable. Wound Tx are effective and continued as ordered. All wound prevention protocols continued as care-planned.
--- NOTE | 2020-02-09 11:57 | General Progress Note ---
Assessment/Plan Assessment/Plan: 1. Metastatic gastric CA. 2. Atrial fibrillation. 3. Coronary artery disease and ID. 4. Hypertension. 5. Diabetes. 6. GERD. 7. Anemia. 8. DVT d/w family plan for PEG for tomorrow hold heparin drip 6 hours prior to the procedure Subjective ROS Limited/Unobtainable: No Allergies: Coded Allergies: No Known Allergies (Unverified , 01/30/20) Objective Last 24 Hour Vital Signs Date Time Temp Pulse Resp B/P (MAP) Pulse Ox O2 Delivery O2 Flow Rate FiO2 02/09/20 09:00 Room Air 02/09/20 08:11 76 102/84 02/09/20 08:00 100 02/09/20 07:59 98.6 76 20 102/84 (90) 96 02/09/20 04:00 91 02/09/20 04:00 97.8 98 18 103/63 (76) 96 02/09/20 00:00 98.1 92 20 96/67 (77) 96 02/09/20 00:00 93 02/08/20 22:13 99 120/66 02/08/20 21:00 Room Air 02/08/20 20:00 97.5 99 20 120/66 (84) 96 02/08/20 20:00 93 02/08/20 16:00 98.7 89 19 110/56 (74) 96 02/08/20 16:00 103 02/08/20 12:00 98.1 89 18 104/73 (83) 97 Intake and Output 02/08/20 02/09/20 19:00 07:00 Intake Total 14.4 ml 117.62 ml Output Total 50 ml 20 ml Balance -35.6 ml 97.62 ml IV Total 14.4 ml 117.62 ml Output Urine Total 50 ml 20 ml Laboratory Tests 02/08/20 12:00: Activated Partial Thromboplast Time > 150*H 02/08/20 20:55: Activated Partial Thromboplast Time 123H 02/09/20 05:55: Activated Partial Thromboplast Time 60H, White Blood Count 7.2, Red Blood Count 2.89L, Hemoglobin 8.6L, Hematocrit 27.2L, Mean Corpuscular Volume 94, Mean Corpuscular Hemoglobin 29.8, Mean Corpuscular Hemoglobin Concent 31.7L, Red Cell Distribution Width 20.9H, Platelet Count 238, Mean Platelet Volume 5.9L, Neutrophils (%) (Auto) 83.1H, Lymphocytes (%) (Auto) 6.3L, Monocytes (%) (Auto) 9.0, Eosinophils (%) (Auto) 0.7, Basophils (%) (Auto) 0.9 Height (Feet): 5 Height (Inches): 6.00 Weight (Pounds): 161 General Appearance: no apparent distress EENT: normal ENT inspection Neck: supple Cardiovascular: normal rate Respiratory/Chest: decreased breath sounds Abdomen: normal bowel sounds, non tender, soft Extremities: non-tender Erick Brooks MD February 09, 2020 11:56
[2020-02-09 12:00] VITALS: BP 107/57
--- NOTE | 2020-02-09 12:18 | General Progress Note ---
Assessment/Plan Problem List: (1) Anorexia ICD Codes: R63.0 - Anorexia SNOMED: 24240874 (2) Malnutrition ICD Codes: E46 - Unspecified protein-calorie malnutrition SNOMED: 59547014 (3) Atrial fibrillation with RVR ICD Codes: I48.91 - Unspecified atrial fibrillation SNOMED: 020261764132934 (4) DM (diabetes mellitus) ICD Codes: E11.9 - Type 2 diabetes mellitus without complications SNOMED: 31788842 (5) Low BP ICD Codes: I95.9 - Hypotension, unspecified SNOMED: 27495379 (6) Acute on chronic renal failure ICD Codes: N17.9 - Acute kidney failure, unspecified; N18.9 - Chronic kidney disease, unspecified SNOMED: 993216649 (7) Anemia ICD Codes: D64.9 - Anemia, unspecified SNOMED: 660347961 (8) Decubital ulcer ICD Codes: L89.90 - Pressure ulcer of unspecified site, unspecified stage SNOMED: 487622378 (9) Hypokalemia ICD Codes: E87.6 - Hypokalemia SNOMED: 48333845 (10) Hypomagnesemia ICD Codes: E83.42 - Hypomagnesemia SNOMED: 657495437 (11) Obstructive uropathy ICD Codes: N13.9 - Obstructive and reflux uropathy, unspecified SNOMED: 5268378 (12) Gastric cancer ICD Codes: C16.9 - Malignant neoplasm of stomach, unspecified SNOMED: 907307126 (13) DVT (deep venous thrombosis) ICD Codes: I82.409 - Acute embolism and thrombosis of unspecified deep veins of unspecified lower extremity SNOMED: 308567686 Assessment/Plan: IV heparin oncology F/U rate control Follow labs await nephrostomies Subjective Allergies: Coded Allergies: No Known Allergies (Unverified , 01/30/20) Subjective still with poor appetite Objective Last 24 Hour Vital Signs Date Time Temp Pulse Resp B/P (MAP) Pulse Ox O2 Delivery O2 Flow Rate FiO2 02/09/20 09:00 Room Air 02/09/20 08:11 76 102/84 02/09/20 08:00 100 02/09/20 07:59 98.6 76 20 102/84 (90) 96 02/09/20 04:00 91 02/09/20 04:00 97.8 98 18 103/63 (76) 96 02/09/20 00:00 98.1 92 20 96/67 (77) 96 02/09/20 00:00 93 02/08/20 22:13 99 120/66 02/08/20 21:00 Room Air 02/08/20 20:00 97.5 99 20 120/66 (84) 96 02/08/20 20:00 93 02/08/20 16:00 98.7 89 19 110/56 (74) 96 02/08/20 16:00 103 Intake and Output 02/08/20 02/09/20 19:00 07:00 Intake Total 14.4 ml 117.62 ml Output Total 50 ml 20 ml Balance -35.6 ml 97.62 ml IV Total 14.4 ml 117.62 ml Output Urine Total 50 ml 20 ml Laboratory Tests 02/08/20 20:55: Activated Partial Thromboplast Time 123H 02/09/20 05:55: Activated Partial Thromboplast Time 60H, White Blood Count 7.2, Red Blood Count 2.89L, Hemoglobin 8.6L, Hematocrit 27.2L, Mean Corpuscular Volume 94, Mean Corpuscular Hemoglobin 29.8, Mean Corpuscular Hemoglobin Concent 31.7L, Red Cell Distribution Width 20.9H, Platelet Count 238, Mean Platelet Volume 5.9L, Neutrophils (%) (Auto) 83.1H, Lymphocytes (%) (Auto) 6.3L, Monocytes (%) (Auto) 9.0, Eosinophils (%) (Auto) 0.7, Basophils (%) (Auto) 0.9 Height (Feet): 5 Height (Inches): 6.00 Weight (Pounds): 161 Cardiovascular: normal rate Respiratory/Chest: lungs clear Leno Wilson MD February 09, 2020 12:18
--- NOTE | 2020-02-09 12:35 | NUR ---
CASE MANAGEMENT:REVIEW 02/09/20 SI: AFIB W/RVR. AC/CR RENAL FAILURE OBSTRUCTIVE UROPATHY. DVT 98.6 100 20 102/84 96% ON RA H/H-8.6/27.2 IS: HEPARIN GTT 14U/KG/HR ALLOPURINOL PO QD VIT C PO QD FOLATE PO QD MVI PO QD REGLAN PO Q8HRS LOPRESSOR PO Q12 IV PROTONIX Q12 BICITRA PO TID : TELEMETRY UNIT DCP: PATIENT IS FROM HOME...DISCHARGE DISPOSITION WILL HINGE ON HOSPITALIZATION OUTCOME PLAN: ONCOLOGY FOR GASTRIC CA UROLOGIST FOR BILATERAL HYDRONEPHROSIS ~ RENAL US NOTED WORSENING HYDRONEPHROSIS CONSENT FOR NEPHROSTOMY TUBES CONSENT FOR EGD W/PEG PLACEMENT
--- NOTE | 2020-02-09 12:40 | NUR ---
DISCHARGE PLANNING PATIENT IS FROM HOME BUT WILL LIKELY NEED SNF PLACEMENT NOT READY FOR DISCHARGE TODAY CONSENT FOR EGD W/PEG AND CONSENT FOR NEPHROTOMY TUBES PENDING
[2020-02-09] MEDS ORDERED: fentaNYL 100 mcg/2 mL IV ONE (12:45)
[2020-02-09] MEDS ORDERED: Flumazenil 0.1mg/ml 5ml Inj IV ONE (12:45)
[2020-02-09] MEDS ORDERED: Midazolam 2mg/2ml Inj IVP ONE (12:45)
[2020-02-09] MEDS ORDERED: Naloxone 2 MG in D5W 500ml 498 ML IV SCH (12:45)
[2020-02-09] MEDS ORDERED: Lidocaine 1% Plain 30 ml INJ ONE (12:45)
--- NOTE | 2020-02-09 12:46 | NUR ---
NURSE NOTES: Called Dr. Brooks's office for clarification on consent. Awaiting call back.
[2020-02-09] MEDS ORDERED: ceFAZolin 2gm/50ml Premix 50 ML IVPB ONE (13:00)
[2020-02-09] MEDS ORDERED: Naloxone 0.4mg/ml Inj IVP ONE (13:00)
[2020-02-09] MEDS ORDERED: Omnipaque-300 100ml vial INJ PRN (13:30)
--- NOTE | 2020-02-09 13:30 | NUR ---
NURSE NOTES: Procedure on hold until tomorrow due to increased PT and PTT levels. Will hold heparin until procedure tomorrow.
[2020-02-09 13:40] LABS: INR 1.2 (0.9-1.1)
--- NOTE | 2020-02-09 14:01 | Infectious Diseases Prog Note ---
Assessment/Plan Assessment/Plan IMPRESSION: Acute renal failure. Negative COVID-19 test Pyuria, Sacral pressure ulcer, Severe anemia, Gastric cancer on palliative treatment, Diabetes mellitus. MRSA carrier Atrial fibrillation History of colon cancer DVT Abdominal mass Hydronephrosis RECOMMENDATION: We will observe off antibiotic for now. Will hve nephrostomy tube & PEG placement Subjective ROS Limited/Unobtainable: Yes Constitutional: Denies: fever Allergies: Coded Allergies: No Known Allergies (Unverified , 01/30/20) Objective Vital Signs Last 24 Hour Vital Signs Date Time Temp Pulse Resp B/P (MAP) Pulse Ox O2 Delivery O2 Flow Rate FiO2 02/09/20 09:00 Room Air 02/09/20 08:11 76 102/84 02/09/20 08:00 100 02/09/20 07:59 98.6 76 20 102/84 (90) 96 02/09/20 04:00 91 02/09/20 04:00 97.8 98 18 103/63 (76) 96 02/09/20 00:00 98.1 92 20 96/67 (77) 96 02/09/20 00:00 93 02/08/20 22:13 99 120/66 02/08/20 21:00 Room Air 02/08/20 20:00 97.5 99 20 120/66 (84) 96 02/08/20 20:00 93 02/08/20 16:00 98.7 89 19 110/56 (74) 96 02/08/20 16:00 103 Height (Feet): 5 Height (Inches): 6.00 Weight (Pounds): 161 General Appearance: no acute distress HEENT: mucous membranes moist Respiratory/Chest: lungs clear Cardiovascular: normal rate Abdomen: soft, non tender Extremities: other - edema of legs Laboratory Tests Test 02/08/20 20:55 02/09/20 05:55 02/09/20 12:05 Activated Partial Thromboplast Time 123 SEC (23-33) H 60 SEC (23-33) H 111 SEC (23-33) H White Blood Count 7.2 K/UL (4.8-10.8) Red Blood Count 2.89 M/UL (4.20-5.40) L Hemoglobin 8.6 G/DL (12.0-16.0) L Hematocrit 27.2 % (37.0-47.0) L Mean Corpuscular Volume 94 FL (80-99) Mean Corpuscular Hemoglobin 29.8 PG (27.0-31.0) Mean Corpuscular Hemoglobin Concent 31.7 G/DL (32.0-36.0) L Red Cell Distribution Width 20.9 % (11.6-14.8) H Platelet Count 238 K/UL (150-450) Mean Platelet Volume 5.9 FL (6.5-10.1) L Neutrophils (%) (Auto) 83.1 % (45.0-75.0) H Lymphocytes (%) (Auto) 6.3 % (20.0-45.0) L Monocytes (%) (Auto) 9.0 % (1.0-10.0) Eosinophils (%) (Auto) 0.7 % (0.0-3.0) Basophils (%) (Auto) 0.9 % (0.0-2.0) Prothrombin Time 12.6 SEC (9.30-11.50) H Prothromb Time International Ratio 1.2 (0.9-1.1) H Current Medications Medications (Trade) Dose Ordered Sig/Wally Route PRN Reason Start Time Stop Time Status Last Admin Dose Admin Acetaminophen (Tylenol) 650 mg Q4H PRN ORAL Mild Pain (Pain Scale 1-3) 02/07/20 15:03 03/08/20 15:02 Allopurinol (allopurinoL) 300 mg DAILY ORAL 02/08/20 09:00 03/06/20 08:59 02/09/20 08:11 Ascorbic Acid (Vitamin C) 500 mg DAILY ORAL 02/08/20 09:00 03/03/20 08:59 02/09/20 08:11 Chlorhexidine Gluconate (Salma-Hex 2%) 1 applic DAILY@1999 TOPIC 02/07/20 20:00 04/30/20 19:59 02/08/20 22:13 Dextrose (Dextrose 50%) 25 ml Q30M PRN IV Hypoglycemia 02/07/20 15:30 04/29/20 23:29 Dextrose (Dextrose 50%) 50 ml Q30M PRN IV Hypoglycemia 02/07/20 15:30 04/29/20 23:29 Folic Acid (Folate) 2 mg DAILY ORAL 02/08/20 09:00 03/04/20 13:14 02/09/20 08:11 Heparin Sodium/ Dextrose 500 ml @ 12.96 mls/ hr ADJUST PER PROTOCOL IV 02/09/20 07:45 03/10/20 07:44 02/09/20 08:14 Insulin Aspart (NovoLOG) BEFORE MEALS AND HS SUBQ 02/07/20 16:30 04/30/20 06:29 02/08/20 12:17 Iohexol (OMNIPAQUE-300 100ml) 100 ml ONCE PRN INJ radiology procedure 02/09/20 13:30 02/11/20 13:29 Iopamidol (Isovue-300 100ml) 100 ml NOW PRN INJ RADIOLOGY 02/08/20 14:26 02/10/20 23:59 Metoclopramide HCl (Reglan) 5 mg EVERY 8 HOURS ORAL 02/07/20 22:00 03/01/20 08:59 02/08/20 22:13 Metoprolol Tartrate (Lopressor) 25 mg EVERY 12 HOURS ORAL 02/07/20 21:00 04/30/20 08:59 02/08/20 22:13 Multivitamins (Multivitamins) 1 tab DAILY ORAL 02/08/20 09:00 03/03/20 08:59 02/09/20 08:11 Ondansetron HCl (Zofran) 4 mg Q6H PRN IVP Nausea & Vomiting 02/07/20 15:04 03/08/20 15:03 Pantoprazole (Protonix) 40 mg EVERY 12 HOURS IVP 02/07/20 21:00 03/05/20 20:59 02/09/20 08:12 Sodium Citrate (Bicitra) 30 ml TID ORAL 02/07/20 18:00 03/04/20 17:59 02/09/20 08:11 Jassi Wilson MD February 09, 2020 14:01
--- NOTE | 2020-02-09 15:35 | NUR ---
*-* INSURANCE *-* UPDATED AVAILABLE CLINICALS HAVE BEEN FAXED TO: CASEY BUI:LARRY REF# [id number] P: [phone] T: [phone] F: [phone]
[2020-02-09 16:00] VITALS: BP 109/75
--- NOTE | 2020-02-09 17:44 | Cardiology Progress Note ---
Assessment/Plan Assessment/Plan 1. Poor p.o. intake. 2. Dehydration. 3. Acute renal failure likely secondary to above. 4. Anemia with history of the same status post prior transfusions. 5. Gastric adenocarcinoma, status post palliative radiation therapy and some chemotherapy. 6. History of H. pylori. 7. Atrial fibrillation with rapid ventricular response. 8. Hypotension. 9. History of hypertension. 10. Diabetes mellitus. 11. Elevated lipase, possible pancreatitis 12. dvt 13. bilateral pleural effusion 14. hydronephrosis s/p hydration was on heparin now off pending procedure blood cx neg covd 19 neg cardiac enzyme neg echo at [facility] 10/2019 had shown sig hyperdynamic systolic function labs noted no mri evidence for cva tele reviewed afib pending nephrostomy pending peg renal function worse demarcus seem better hr seem ok if needed iv metorpolol 5 mg q4h prn Subjective Subjective not very communicative , not eatign pocketing food in mouth per rn Objective Last 24 Hour Vital Signs Date Time Temp Pulse Resp B/P (MAP) Pulse Ox O2 Delivery O2 Flow Rate FiO2 02/09/20 16:00 84 02/09/20 16:00 96.8 70 18 109/75 (86) 96 02/09/20 12:00 98.1 60 19 107/57 (74) 98 02/09/20 09:00 Room Air 02/09/20 08:11 76 102/84 02/09/20 08:00 100 02/09/20 07:59 98.6 76 20 102/84 (90) 96 02/09/20 04:00 91 02/09/20 04:00 97.8 98 18 103/63 (76) 96 02/09/20 00:00 98.1 92 20 96/67 (77) 96 02/09/20 00:00 93 02/08/20 22:13 99 120/66 02/08/20 21:00 Room Air 02/08/20 20:00 97.5 99 20 120/66 (84) 96 02/08/20 20:00 93 General Appearance: no apparent distress, patient on isolation, isolation precautions Intake and Output 02/08/20 02/09/20 19:00 07:00 Intake Total 14.4 ml 117.62 ml Output Total 50 ml 20 ml Balance -35.6 ml 97.62 ml IV Total 14.4 ml 117.62 ml Output Urine Total 50 ml 20 ml Laboratory Tests Test 02/08/20 20:55 02/09/20 05:55 02/09/20 12:05 Activated Partial Thromboplast Time 123 SEC (23-33) H 60 SEC (23-33) H 111 SEC (23-33) H White Blood Count 7.2 K/UL (4.8-10.8) Red Blood Count 2.89 M/UL (4.20-5.40) L Hemoglobin 8.6 G/DL (12.0-16.0) L Hematocrit 27.2 % (37.0-47.0) L Mean Corpuscular Volume 94 FL (80-99) Mean Corpuscular Hemoglobin 29.8 PG (27.0-31.0) Mean Corpuscular Hemoglobin Concent 31.7 G/DL (32.0-36.0) L Red Cell Distribution Width 20.9 % (11.6-14.8) H Platelet Count 238 K/UL (150-450) Mean Platelet Volume 5.9 FL (6.5-10.1) L Neutrophils (%) (Auto) 83.1 % (45.0-75.0) H Lymphocytes (%) (Auto) 6.3 % (20.0-45.0) L Monocytes (%) (Auto) 9.0 % (1.0-10.0) Eosinophils (%) (Auto) 0.7 % (0.0-3.0) Basophils (%) (Auto) 0.9 % (0.0-2.0) Prothrombin Time 12.6 SEC (9.30-11.50) H Prothromb Time International Ratio 1.2 (0.9-1.1) H Brian Sweeney MD February 09, 2020 17:44
--- NOTE | 2020-02-09 17:54 | Surgery Progress Note ---
Surgery Progress Note Subjective Additional Comments US noted plan for line removal after g tube on heparin gtt Objective Last 24 Hour Vital Signs Date Time Temp Pulse Resp B/P (MAP) Pulse Ox O2 Delivery O2 Flow Rate FiO2 02/09/20 16:00 84 02/09/20 16:00 96.8 70 18 109/75 (86) 96 02/09/20 12:00 98.1 60 19 107/57 (74) 98 02/09/20 09:00 Room Air 02/09/20 08:11 76 102/84 02/09/20 08:00 100 02/09/20 07:59 98.6 76 20 102/84 (90) 96 02/09/20 04:00 91 02/09/20 04:00 97.8 98 18 103/63 (76) 96 02/09/20 00:00 98.1 92 20 96/67 (77) 96 02/09/20 00:00 93 02/08/20 22:13 99 120/66 02/08/20 21:00 Room Air 02/08/20 20:00 97.5 99 20 120/66 (84) 96 02/08/20 20:00 93 I&O Intake and Output 02/08/20 02/09/20 19:00 07:00 Intake Total 14.4 ml 117.62 ml Output Total 50 ml 20 ml Balance -35.6 ml 97.62 ml IV Total 14.4 ml 117.62 ml Output Urine Total 50 ml 20 ml Dressing: dry Wound: clean Cardiovascular: RSR Respiratory: decreased breath sounds Abdomen: soft, non-tender, present bowel sounds Extremities: no edema, no tenderness, no cyanosis Laboratory Tests Test 02/08/20 20:55 02/09/20 05:55 02/09/20 12:05 Activated Partial Thromboplast Time 123 SEC (23-33) H 60 SEC (23-33) H 111 SEC (23-33) H White Blood Count 7.2 K/UL (4.8-10.8) Red Blood Count 2.89 M/UL (4.20-5.40) L Hemoglobin 8.6 G/DL (12.0-16.0) L Hematocrit 27.2 % (37.0-47.0) L Mean Corpuscular Volume 94 FL (80-99) Mean Corpuscular Hemoglobin 29.8 PG (27.0-31.0) Mean Corpuscular Hemoglobin Concent 31.7 G/DL (32.0-36.0) L Red Cell Distribution Width 20.9 % (11.6-14.8) H Platelet Count 238 K/UL (150-450) Mean Platelet Volume 5.9 FL (6.5-10.1) L Neutrophils (%) (Auto) 83.1 % (45.0-75.0) H Lymphocytes (%) (Auto) 6.3 % (20.0-45.0) L Monocytes (%) (Auto) 9.0 % (1.0-10.0) Eosinophils (%) (Auto) 0.7 % (0.0-3.0) Basophils (%) (Auto) 0.9 % (0.0-2.0) Prothrombin Time 12.6 SEC (9.30-11.50) H Prothromb Time International Ratio 1.2 (0.9-1.1) H Plan Problems: (1) Sepsis Assessment & Plan: lactic acidosis tachycardic hypotension altered unlikely related to decubitus ulcer and wounds likely chronically infected but not acute labs improving on abx and fluids cont current care plan improving trend h/h - prbc prn diet as tolerated improving overall off abx stable onc input noted. hx colon cancer dx in [facility]. GI bleed from Ca? unfortunately not operative candidate GI eval pending h/h stable neuro input noted pancreatitis meds vs lipids vs gb? US noted Gallbladder is not visualized. Common bile duct measures 5 mm in diameter. No intrahepatic biliary ductal dilatation. Liver demonstrates coarsened echogenicity. No focal abnormality Portal vein and hepatic veins are patent. Pancreas is obscured by bowel gas. Spleen is unremarkable. Left kidney measures 10.5 cm in length. Right kidney measures 12.8 cm length. Both kidneys demonstrate normal echogenicity. There is moderate bilateral hydronephrosis. There is a cyst in the lower pole of the left kidney. Abdominal aorta is partially obscured by bowel gas, visualized portions are non-aneurysmal . There is a right pleural effusion Impression: Nonvisualized gallbladder, likely surgically absent. Negative for dilated bile ducts Bilateral hydronephrosis, also previously reported Right pleural effusion Note nonvisualization of the pancreas and portions of the abdominal aorta CT noted duplex noted will plan for removal of line. on gtt hep will watch for bleeding b/l nephrostomy planned will follow with recs ?hospice vs comfort care (2) Anorexia (3) Malnutrition Assessment & Plan: DAILY ESTIMATED NEEDS: Needs based on Wound 57.6kg 30-35 kcals/kg 2120-7430 total kcals 1.25-1.5 g protein/kg 72-86 g total protein 25-30ml/kcal mL/kg 0945-1042 total fluid mLs NUTRITION DIAGNOSIS: Increased kcal and pro needs r/t wound healing as evidenced by pt w/ unstageable sacral wound. (CURRENT DIET: CCHO MED soft easy chew) PO DIET RECOMMENDATIONS: With current poor po intake, rec liberalized REGULAR diet/ texture as harman ADDITIONAL RECOMMENDATIONS: 1) Add Glucerna TID w/ meals 2) Maintain calibrated bed scale wts 3) Wound care: MVI w/ min qdaily, Vit C 500mg daily + EFREN FRUIT PUNCH BID as tolerated 4) Check lytes + hydration status daily as able 5) Monitor lipase, need for low fat diet 6) LICENSED INVESTMENT SALES ASSISTANT eval for appropriate diet texture (4) Gastric cancer (5) Atrial fibrillation with RVR (6) DM (diabetes mellitus) (7) Low BP (8) Acute on chronic renal failure (9) Anemia (10) Decubital ulcer Assessment & Plan: Pt presented on admission with stage 3 nearing almost a stage 4 as bone almost palpable if not palpable pressure injury to sacrum(L)1cm x (W)1cm. Base of wound has 100% slough Marginal erythema along edges. Periwound indurated with darker skin tone. Pt verbalized tenderness when minimally palpated. Bilat heels are boggy but blanchable . Pt denied tenderness when each heel individually palpated.Hemosiderin with Xerosis skin distal aspects of both lower ext.Both feet are edematous. Tx.Plan: Cleanse Sacral wound with Saline. Apply Therahoney. Apply Moisture Barrier Paste periwound. Cover with Optifoam drsg. Change every 3 days and prn. Apply Cavilon Skin Barrier to both heels. Cover each heel with Optifoam drsg.Change every 7 days and prn. Reposition at least every 2hours or as tolerated. Off-load heels with pillow. Jose Ponce February 09, 2020 17:54
--- NOTE | 2020-02-09 18:10 | Neurology Progress Note ---
Interim History Interim History Interim History Ms. Philly Liao is an 89-year-old, right-handed, black lady, have a past history of dyslipidemia, coronary artery disease status post myocardial infarction, atrial fibrillation, gastroesophageal reflux disease, and gastric adenocarcinoma for which she is status post radiation therapy. She was recently discharged from [facility] to her home where she was noted to be generally weak. She was brought into the [facility] emergency room for generalized weakness. She was noted to be in atrial fibrillation with a rapid ventricular rate. As per her nurse in the early hours of 02/07/20 she was noted to be weaker on her left side with increased left facial drooping and inability to move her left side. However at this point in time he tells me that she is able to move all limbs. She feels well. She continues to be cognitively impoverished. She is generally weak with left greater than right weakness. She denies any new neurological symptoms. She is still oblivious as to why she is in the hospital. Review of Systems Neuro Review of Systems Unable to obtain. Objective Physical Exam Last Vital Signs Date Time Temp Pulse Resp B/P (MAP) Pulse Ox O2 Delivery O2 Flow Rate FiO2 02/09/20 16:00 84 02/09/20 16:00 96.8 18 109/75 (86) 96 02/09/20 09:00 Room Air Laboratory Tests Test 02/08/20 20:55 02/09/20 05:55 02/09/20 12:05 Activated Partial Thromboplast Time 123 SEC (23-33) H 60 SEC (23-33) H 111 SEC (23-33) H White Blood Count 7.2 K/UL (4.8-10.8) Red Blood Count 2.89 M/UL (4.20-5.40) L Hemoglobin 8.6 G/DL (12.0-16.0) L Hematocrit 27.2 % (37.0-47.0) L Mean Corpuscular Volume 94 FL (80-99) Mean Corpuscular Hemoglobin 29.8 PG (27.0-31.0) Mean Corpuscular Hemoglobin Concent 31.7 G/DL (32.0-36.0) L Red Cell Distribution Width 20.9 % (11.6-14.8) H Platelet Count 238 K/UL (150-450) Mean Platelet Volume 5.9 FL (6.5-10.1) L Neutrophils (%) (Auto) 83.1 % (45.0-75.0) H Lymphocytes (%) (Auto) 6.3 % (20.0-45.0) L Monocytes (%) (Auto) 9.0 % (1.0-10.0) Eosinophils (%) (Auto) 0.7 % (0.0-3.0) Basophils (%) (Auto) 0.9 % (0.0-2.0) Prothrombin Time 12.6 SEC (9.30-11.50) H Prothromb Time International Ratio 1.2 (0.9-1.1) H Neurologic Exam Objective PHYSICAL EXAMINATION: GENERAL: She is a well-developed, relatively well-nourished, black lady, lying in bed, in no acute distress. HEAD: Normocephalic and atraumatic. NECK: No neck rigidity was observed. EENT: Benign. NEUROLOGIC EXAMINATION: MENTAL STATUS EXAMINATION: She was awake and alert. She was oriented to self only. She was able to recall 3/3 words immediately, but could not remember any of them after 1 minute and after 3 minutes. She was able to remember presidents Trump with hints. She was unable to remember presidents prior to that. She was unable to do simple mathematics. She was unable to do simple visual-spatial problems. SPEECH: She had a mild dysarthria. LANGUAGE: She had a moderate anomia for low- and mid- frequency words CRANIAL NERVE EXAMINATION: II: The visual montoya were intact to confrontation testing. III, IV, : External ocular movements were full and pupils 3 mm in diameter equal, round, regular and reactive to light. V: The facial sensations were normal, and the temporales, masseters and pterygoids functioned normally. VII: She had a left seventh central facial paresis. VIII: The patient was able to hear well bilaterally and had no nystagmus. IX: The palate moved symmetrically on phonation. X: There was no hoarseness of voice. XI: The sternocleidomastoids and trapezii functioned normally. XII: The tongue was in the midline without any fasciculations or atrophy. MOTOR SYSTEM: The tone was normal in all 4 extremities. Examination of muscle mass revealed no focal wasting. Examination of power was exceedingly difficult to perform because of varying degrees of effort. She however had lower extremity weakness much more than upper extremity weakness and left-sided weakness more than right-sided weakness. SENSORY EXAMINATION: She was able to localize light touch all over her body. She was unable to cooperate further sensory modalities. COORDINATION: She was able to perform [id number] testing bilaterally. She was unable to perform [id number] testing. REFLEXES: Trace+ and bilaterally symmetric at the biceps, triceps, brachioradialis, and knees. 0 at both ankles. The plantar responses were flexor bilaterally. STANCE & GAIT: Could not be tested. ABNORMAL MOVEMENTS: None Impression/Recommendations Diagnostic Impression DIAGNOSTIC IMPRESSION: 1. Ms. Philly Liao is an 89-year-old, right-handed, black lady, have a past history of dyslipidemia, coronary artery disease status post myocardial infarction, atrial fibrillation, gastroesophageal reflux disease, and gastric adenocarcinoma for which she is status post radiation therapy. 2. She was recently discharged from [facility] to her home where she was noted to be generally weak. She was brought into the [facility] emergency room for generalized weakness. She was noted to be in atrial fibrillation with a rapid ventricular rate. 3. As per her nurse in the early hours of 02/07/2020 she was noted to be weaker on her left side with increased left facial drooping and inability to move her left side. However at this point in time he tells me that she is able to move all limbs. 4. She feels well. She continues to be cognitively impoverished. She is generally weak with left greater than right weakness. She denies any new neurological symptoms. She is still oblivious as to why she is in the hospital. 5. On neurological examination, at this time, she does have significant problems with orientation, recent and remote memory, visuospatial function, higher cognitive function and language. She does have a left seventh central facial paresis. She also has a quadriparesis involving the lower extremities significantly more than the upper extremities and the left side more than the right side. The deep tendon reflexes are globally diminished. She is unable to stand and walk. 6. The MRI scan of the brain reveals atrophy and deep white matter changes but no acute pathology. 7. The patient's history and neurological examination are most consistent with pre-existing generalized weakness and now increased left-sided weakness. An acute cerebrovascular event has been excluded. 8. She continues to have significant cognitive problems. It is unclear if these problems are old or new. Recommendations RECOMMENDATIONS: 1. Continue present management. 2. Await carotid duplex to evaluate the patient for hemodynamically significant carotid disease. 3. Mobilize with the help of PT and OT. 4. Observe closely. Abran Padron M.D., M.S.P.H. Neurologist & Clinical Neurophysiologist Abran Padron MD February 09, 2020 18:10
--- NOTE | 2020-02-09 19:00 | NUR ---
NURSE NOTES: Received telephone consent from patient's daughter Chrissy but she does not want patient to have both procedures tomorrow. Contacted with Dr. Brooks who stated they will "deal with it tomorrow". Also called Dr. Stewart but phone only rings with no answer or voice message system.
--- NOTE | 2020-02-09 19:52 | NUR ---
HAND-OFF: Report given to Susu Tiwari RN. Patient stable. Plan of care endorsed.
[2020-02-09 20:00] VITALS: BP 125/83
[2020-02-09] MEDS: Dyna-Hex 2% Top Sol 2oz TOPIC SCH (20:00)
[2020-02-09] MEDS ORDERED: D5 1/2NS 1,000 ML IV SCH (20:00)
--- NOTE | 2020-02-09 20:00 | NUR ---
NURSE NOTES: Received report from Belia Castaneda RN. Pt in stable condition, appears to be resting comfortably. No signs or symptoms of distress noted at this time. Denies pain, FLACC 0. Will continue plan of care and close monitoring.
[2020-02-10] VITALS (23 sets, daily range): BP systolic 87–129; BP diastolic 46–66
[2020-02-10] MEDS: NovoLOG Insulin Flexpen SUBQ SCH ×4 (06:30→20:57)
[2020-02-10 06:36] LABS: HEMOGLOBIN 8.7 G/DL (12.0-16.0); MEAN CORPUSCULAR VOLUME 94 FL (80-99); PLATELET COUNT 255 K/UL (150-450); RED BLOOD COUNT 2.86 M/UL (4.20-5.40); RED CELL DISTRIBUTION WIDTH 21.5 % (11.6-14.8); WHITE BLOOD COUNT 8.2 K/UL (4.8-10.8)
[2020-02-10 06:43] LABS: INR 1.2 (0.9-1.1)
--- NOTE | 2020-02-10 07:19 | NUR ---
HAND-OFF: Report given to Belia Castaneda RN. Pt in stable condition, appears to be sleeping comfortably. No signs or symptoms of distress noted at this time.
[2020-02-10] MEDS: Heparin 25,000u/D5W 500ml 500 ML IV SCH ×2 (07:45→18:09)
[2020-02-10 07:47] LABS: ANION GAP 17 mmol/L (5-15); BLOOD UREA NITROGEN 80 mg/dL (7-18); CARBON DIOXIDE 21 MMOL/L (21-32); CHLORIDE 112 MMOL/L (98-107); CREATININE 5.3 MG/DL (0.55-1.30); POTASSIUM 4.2 MMOL/L (3.5-5.1); SODIUM 150 MMOL/L (136-145)
--- NOTE | 2020-02-10 08:01 | NUR ---
NURSE NOTES: Received report from Susu Tiwari RN. Patient in bed sleeping. Pt condition stable. IV fluids infusing. F/C colored urine. Side rails up. Bed low and call light within reach.Will continue with plan of care.
--- NOTE | 2020-02-10 08:30 | NUR ---
NURSE NOTES: Spoke with Dr. Stewart who stated that only nephrostomy tubes will be done today. PT, PTT, INR and PLT okay for procedure today. Message left for daughter informing her that nephrostomy tube placement will be done today because it is much more urgent than the g tube.
[2020-02-10] MEDS: Ascorbic Acid 500mg tab ORAL SCH (08:38)
[2020-02-10] MEDS: Sodium Citrate 30ml ORAL SCH ×3 (08:38→17:46)
[2020-02-10] MEDS: Pantoprazole Inj IVP SCH ×2 (08:38→20:52)
--- NOTE | 2020-02-10 08:51 | NUR ---
CASE MANAGEMENT:REVIEW 02/10/20 SI: AFIB W/RVR. AC/CR RENAL FAILURE OBSTRUCTIVE UROPATHY. DVT (FEMORAL,POPLITEAL AND CALF) 96.7 100 19 118/66 96% ON RA H/H-8.7/27.0 NA+150 BUN+80 CR+5.3 PT+12.6 INR+1.2 IS: HEPARIN GTT 9U/KG/HR ALLOPURINOL PO QD VIT C PO QD FOLATE PO QD MVI PO QD REGLAN PO Q8HRS LOPRESSOR PO Q12 IV PROTONIX Q12 BICITRA PO TID : TELEMETRY UNIT DCP: PATIENT IS FROM HOME...DISCHARGE DISPOSITION WILL HINGE ON HOSPITALIZATION OUTCOME PLAN: ONCOLOGY FOR GASTRIC [place] UROLOGIST FOR BILATERAL HYDRONEPHROSIS ~ RENAL US NOTED WORSENING HYDRONEPHROSIS PENDING NEPHROSTOMY TUBE PLACEMENT AND EGD W/PEG PLACEMENT
[2020-02-10] MEDS ORDERED: Naloxone 0.4mg/ml Inj IVP SCH (09:00)
--- NOTE | 2020-02-10 09:03 | NUR ---
DISCHARGE PLANNING COVID 19 NOT DETECTED NOT READY FOR DISCHARGE TODAY D/T NEPHROSTOMY TUBE PLACEMENT SCHEDULED FOR TODAY EGD W/PEG PLACEMENT SCHEDULED FOR THURSDAY THERE WAS A DELAY IN SIGNED CONSENT FOR ABOVE PROCEDURES
[2020-02-10] MEDS ORDERED: fentaNYL 100 mcg/2 mL IV SCH (10:00)
[2020-02-10] MEDS ORDERED: Midazolam 2mg/2ml Inj IVP SCH (10:00)
[2020-02-10] MEDS ORDERED: ceFAZolin 2gm/50ml Premix 50 ML IVPB SCH ×2 (10:00)
--- NOTE | 2020-02-10 10:02 | NUR ---
RD ASSESSMENT & RECOMMENDATIONS SEE CARE ACTIVITY FOR COMPLETE ASSESSMENT DAILY ESTIMATED NEEDS: Needs based on Wound 57.6kg 30-35 kcals/kg 0121-7909 total kcals 1-1.5 (increase w/ renal fxn improvement) g protein/kg 72-86 g total protein 25-30ml/kcal mL/kg 5130-7160 total fluid mLs NUTRITION DIAGNOSIS: * Increased kcal and pro needs r/t wound healing as evidenced by pt w/ unstageable sacral wound (per MD, stage 3 to 4), w/ prolonged poor oral intake, now pending PEG placement CURRENT DIET:NPO PO DIET RECOMMENDATIONS: IF ORAL DIET INDICATED -> liberalized REGULAR diet/ TEXTURE PER FLEET ASSISTANT ENTERAL NUTRITION RECOMMENDATIONS: Nepro @ 40ml/hr x 24 hrs to provide 960ml, 1728kcal, 77g prot, 698ml free water - Rec Nepro at this time given worsening renal fxn - W/ GI access, initiate Nepro @ 10ml/hr x 8 hrs, advance 5 ml q 6-8 hrs as tolerated to goal rate. - HOB over 30 degrees/ water flush per MD AT HIGH RISK FOR REFEEDING SYNDROME, START TF LOW, INCREASE SLOWLY ADDITIONAL RECOMMENDATIONS: 1) Calibrated bed scale wts- bed w/ added p200 mattress + pump 2) Monitor NPO status, pending PEG placement- NPO/minimal intake x 11 days 3) Wound care: Continue MVI + VIt C (w/ GI access) + EFREN 1PKT BID (w/ TF order) 4) Monitor renal fxn- worsening renal fxn (Creat 5.3), check f/up phos 5) W/ TF initiation, monitor lytes daily, replete as needed (high risk for refeeding syndrome)
--- NOTE | 2020-02-10 10:06 | General Progress Note ---
Assessment/Plan Assessment/Plan: 1. Metastatic gastric CA. 2. Atrial fibrillation. 3. Coronary artery disease and [place]. 4. Hypertension. 5. Diabetes. 6. GERD. 7. Anemia. 8. DVT d/w family agreed for PEG PEG was cancelled for today because family do not want both nephrostomy tube and PEG in a same day plan PEG for Thursday hold heparin drip 6 hours prior to the procedure Subjective ROS Limited/Unobtainable: No Allergies: Coded Allergies: No Known Allergies (Unverified , 01/30/20) Objective Last 24 Hour Vital Signs Date Time Temp Pulse Resp B/P (MAP) Pulse Ox O2 Delivery O2 Flow Rate FiO2 02/10/20 08:00 96.7 76 19 118/66 (83) 96 02/10/20 04:00 97.2 100 16 101/55 (70) 98 02/10/20 04:00 101 02/10/20 00:00 97.6 96 18 114/55 (74) 98 02/10/20 00:00 79 02/09/20 21:18 101 125/86 02/09/20 21:00 Room Air 02/09/20 20:00 103 02/09/20 20:00 97.1 101 16 125/83 (97) 98 02/09/20 16:00 84 02/09/20 16:00 96.8 70 18 109/75 (86) 96 02/09/20 12:00 98.1 60 19 107/57 (74) 98 Intake and Output 02/09/20 02/10/20 19:00 07:00 Intake Total 120 ml Output Total 1200 ml Balance -1080 ml Intake Oral 120 ml Output Urine Total 1200 ml # Voids 3 1 Laboratory Tests 02/09/20 12:05: Prothrombin Time 12.6H, Prothromb Time International Ratio 1.2H, Activated Partial Thromboplast Time 111H 02/10/20 05:40: Prothrombin Time 12.6H, Prothromb Time International Ratio 1.2H, White Blood Count 8.2, Red Blood Count 2.86L, Hemoglobin 8.7L, Hematocrit 27.0L, Mean Corpuscular Volume 94, Mean Corpuscular Hemoglobin 30.3, Mean Corpuscular Hemoglobin Concent 32.1, Red Cell Distribution Width 21.5H, Platelet Count 255, Mean Platelet Volume 6.4L, Neutrophils (%) (Auto) , Lymphocytes (%) (Auto) , Monocytes (%) (Auto) , Eosinophils (%) (Auto) , Basophils (%) (Auto) , Differential Total Cells Counted 100, Neutrophils % (Manual) 86H, Lymphocytes % (Manual) 7L, Monocytes % (Manual) 7, Eosinophils % (Manual) 0, Basophils % ( Manual) 0, Band Neutrophils 0, Nucleated Red Blood Cells 6, Platelet Estimate Adequate, Platelet Morphology Normal, Hypochromasia 2+, Anisocytosis 3+, Sodium Level 150H, Potassium Level 4.2, Chloride Level 112H, Carbon Dioxide Level 21, Anion Gap 17H, Blood Urea Nitrogen 80H, Creatinine 5.3H, Estimat Glomerular Filtration Rate 9.2, Glucose Level 193H, Calcium Level 9.0 02/10/20 05:50: Activated Partial Thromboplast Time 29 Height (Feet): 5 Height (Inches): 6.00 Weight (Pounds): 161 General Appearance: no apparent distress EENT: normal ENT inspection Neck: supple Cardiovascular: normal rate Respiratory/Chest: decreased breath sounds Abdomen: normal bowel sounds, non tender, soft Extremities: non-tender Erick Brooks MD February 10, 2020 10:06
--- NOTE | 2020-02-10 12:07 | Infectious Diseases Prog Note ---
Assessment/Plan Assessment/Plan IMPRESSION: Acute renal failure. Negative COVID-19 test Pyuria, Sacral pressure ulcer, Severe anemia, Gastric cancer on palliative treatment, Diabetes mellitus. MRSA carrier Atrial fibrillation History of colon cancer DVT Abdominal mass Hydronephrosis RECOMMENDATION: We will observe off antibiotic for now. Will have nephrostomy tube & PEG placement Subjective ROS Limited/Unobtainable: Yes Allergies: Coded Allergies: No Known Allergies (Unverified , 01/30/20) Objective Vital Signs Last 24 Hour Vital Signs Date Time Temp Pulse Resp B/P (MAP) Pulse Ox O2 Delivery O2 Flow Rate FiO2 02/10/20 09:00 Room Air 02/10/20 08:00 96.7 76 19 118/66 (83) 96 02/10/20 04:00 97.2 100 16 101/55 (70) 98 02/10/20 04:00 101 02/10/20 00:00 97.6 96 18 114/55 (74) 98 02/10/20 00:00 79 02/09/20 21:18 101 125/86 02/09/20 21:00 Room Air 02/09/20 20:00 103 02/09/20 20:00 97.1 101 16 125/83 (97) 98 02/09/20 16:00 84 02/09/20 16:00 96.8 70 18 109/75 (86) 96 Height (Feet): 5 Height (Inches): 6.00 Weight (Pounds): 161 General Appearance: no acute distress HEENT: mucous membranes moist Respiratory/Chest: lungs clear Cardiovascular: normal rate Abdomen: soft, non tender Neurologic/Psychiatric: disoriented Laboratory Tests Test 02/10/20 05:40 02/10/20 05:50 White Blood Count 8.2 K/UL (4.8-10.8) Red Blood Count 2.86 M/UL (4.20-5.40) L Hemoglobin 8.7 G/DL (12.0-16.0) L Hematocrit 27.0 % (37.0-47.0) L Mean Corpuscular Volume 94 FL (80-99) Mean Corpuscular Hemoglobin 30.3 PG (27.0-31.0) Mean Corpuscular Hemoglobin Concent 32.1 G/DL (32.0-36.0) Red Cell Distribution Width 21.5 % (11.6-14.8) H Platelet Count 255 K/UL (150-450) Mean Platelet Volume 6.4 FL (6.5-10.1) L Neutrophils (%) (Auto) % (45.0-75.0) Lymphocytes (%) (Auto) % (20.0-45.0) Monocytes (%) (Auto) % (1.0-10.0) Eosinophils (%) (Auto) % (0.0-3.0) Basophils (%) (Auto) % (0.0-2.0) Differential Total Cells Counted 100 Neutrophils % (Manual) 86 % (45-75) H Lymphocytes % (Manual) 7 % (20-45) L Monocytes % (Manual) 7 % (1-10) Eosinophils % (Manual) 0 % (0-3) Basophils % (Manual) 0 % (0-2) Band Neutrophils 0 % (0-8) Nucleated Red Blood Cells 6 /100 WBC Platelet Estimate Adequate Platelet Morphology Normal Hypochromasia 2+ Anisocytosis 3+ Prothrombin Time 12.6 SEC (9.30-11.50) H Prothromb Time International Ratio 1.2 (0.9-1.1) H Sodium Level 150 MMOL/L (136-145) H Potassium Level 4.2 MMOL/L (3.5-5.1) Chloride Level 112 MMOL/L (98-107) H Carbon Dioxide Level 21 MMOL/L (21-32) Anion Gap 17 mmol/L (5-15) H Blood Urea Nitrogen 80 mg/dL (7-18) H Creatinine 5.3 MG/DL (0.55-1.30) H Estimat Glomerular Filtration Rate 9.2 mL/min (>60) Glucose Level 193 MG/DL (74-106) H Calcium Level 9.0 MG/DL (8.5-10.1) Activated Partial Thromboplast Time 29 SEC (23-33) Current Medications Medications (Trade) Dose Ordered Sig/Wally Route PRN Reason Start Time Stop Time Status Last Admin Dose Admin Acetaminophen (Tylenol) 650 mg Q4H PRN ORAL Mild Pain (Pain Scale 1-3) 02/07/20 15:03 03/08/20 15:02 Allopurinol (allopurinoL) 300 mg DAILY ORAL 02/08/20 09:00 03/06/20 08:59 02/09/20 08:11 Ascorbic Acid (Vitamin C) 500 mg DAILY ORAL 02/08/20 09:00 03/03/20 08:59 02/09/20 08:11 Cefazolin Sodium 50 ml @ 100 mls/hr ONCE IVPB 02/10/20 10:00 02/10/20 18:00 Chlorhexidine Gluconate (Salma-Hex 2%) 1 applic DAILY@2000 TOPIC 02/07/20 20:00 04/30/20 19:59 02/09/20 20:00 Dextrose (Dextrose 50%) 25 ml Q30M PRN IV Hypoglycemia 02/07/20 15:30 04/29/20 23:29 Dextrose (Dextrose 50%) 50 ml Q30M PRN IV Hypoglycemia 02/07/20 15:30 04/29/20 23:29 Dextrose/Sodium Chloride 1,000 ml @ 50 mls/hr Q20H IV 02/09/20 20:00 03/10/20 19:59 02/09/20 20:00 Fentanyl Citrate (Sublimaze 100 mcg/2 mL) 100 mcg ONCE IV 02/10/20 10:00 02/10/20 18:00 Folic Acid (Folate) 2 mg DAILY ORAL 02/08/20 09:00 03/04/20 13:14 02/09/20 08:11 Heparin Sodium/ Dextrose 500 ml @ 12.96 mls/ hr ADJUST PER PROTOCOL IV 02/09/20 07:45 03/10/20 07:44 02/09/20 08:14 Insulin Aspart (NovoLOG) BEFORE MEALS AND HS SUBQ 02/07/20 16:30 04/30/20 06:29 02/08/20 12:17 Iohexol (OMNIPAQUE-300 100ml) 100 ml ONCE PRN INJ radiology procedure 02/09/20 13:30 02/11/20 13:29 Iopamidol (Isovue-300 100ml) 100 ml NOW PRN INJ RADIOLOGY 02/08/20 14:26 02/10/20 23:59 Metoclopramide HCl (Reglan) 5 mg EVERY 8 HOURS ORAL 02/07/20 22:00 03/01/20 08:59 02/08/20 22:13 Metoprolol Tartrate (Lopressor) 25 mg EVERY 12 HOURS ORAL 02/07/20 21:00 04/30/20 08:59 02/08/20 22:13 Midazolam HCl (Versed 2mg/2ml vial) 2 mg ONCE IVP 02/10/20 10:00 02/10/20 18:00 Multivitamins (Multivitamins) 1 tab DAILY ORAL 02/08/20 09:00 03/03/20 08:59 02/09/20 08:11 Naloxone HCl (Narcan) 0.4 mg ONCE IVP 02/10/20 09:00 02/10/20 18:00 Ondansetron HCl (Zofran) 4 mg Q6H PRN IVP Nausea & Vomiting 02/07/20 15:04 03/08/20 15:03 Pantoprazole (Protonix) 40 mg EVERY 12 HOURS IVP 02/07/20 21:00 03/05/20 20:59 02/09/20 21:12 Sodium Citrate (Bicitra) 30 ml TID ORAL 02/07/20 18:00 03/04/20 17:59 02/09/20 08:11 Jassi Wilson MD February 10, 2020 12:07
--- NOTE | 2020-02-10 12:48 | NUR ---
NURSE NOTES: Skin care, wound care, PICC line dressing change and oral care performed prior to surgery. PICC line still leaking. Applied gauze to dressing. Will endorse that dressing will need to be changed in 2 days per hospital policy or sooner if soiled or not intact. Addendum: 02/10/20 at 1254 by BEV GUAN RN Patient taken down for procedure at this time.
--- NOTE | 2020-02-10 13:11 | Surgery Progress Note ---
Surgery Progress Note Subjective Additional Comments PEG was cancelled for today because family do not want both nephrostomy tube and PEG in a same day plan PEG for Thursday hold line for now Objective Last 24 Hour Vital Signs Date Time Temp Pulse Resp B/P (MAP) Pulse Ox O2 Delivery O2 Flow Rate FiO2 02/10/20 12:00 98.1 60 20 119/56 (77) 97 02/10/20 09:00 Room Air 02/10/20 08:00 96.7 76 19 118/66 (83) 96 02/10/20 04:00 97.2 100 16 101/55 (70) 98 02/10/20 04:00 101 02/10/20 00:00 97.6 96 18 114/55 (74) 98 02/10/20 00:00 79 02/09/20 21:18 101 125/86 02/09/20 21:00 Room Air 02/09/20 20:00 103 02/09/20 20:00 97.1 101 16 125/83 (97) 98 02/09/20 16:00 84 02/09/20 16:00 96.8 70 18 109/75 (86) 96 I&O Intake and Output 02/09/20 02/10/20 19:00 07:00 Intake Total 120 ml Output Total 1200 ml Balance -1080 ml Intake Oral 120 ml Output Urine Total 1200 ml # Voids 3 1 Dressing: dry, other Wound: clean Cardiovascular: RSR Respiratory: clear Abdomen: soft, non-tender, present bowel sounds Extremities: no tenderness, no cyanosis Laboratory Tests Test 02/10/20 05:40 02/10/20 05:50 White Blood Count 8.2 K/UL (4.8-10.8) Red Blood Count 2.86 M/UL (4.20-5.40) L Hemoglobin 8.7 G/DL (12.0-16.0) L Hematocrit 27.0 % (37.0-47.0) L Mean Corpuscular Volume 94 FL (80-99) Mean Corpuscular Hemoglobin 30.3 PG (27.0-31.0) Mean Corpuscular Hemoglobin Concent 32.1 G/DL (32.0-36.0) Red Cell Distribution Width 21.5 % (11.6-14.8) H Platelet Count 255 K/UL (150-450) Mean Platelet Volume 6.4 FL (6.5-10.1) L Neutrophils (%) (Auto) % (45.0-75.0) Lymphocytes (%) (Auto) % (20.0-45.0) Monocytes (%) (Auto) % (1.0-10.0) Eosinophils (%) (Auto) % (0.0-3.0) Basophils (%) (Auto) % (0.0-2.0) Differential Total Cells Counted 100 Neutrophils % (Manual) 86 % (45-75) H Lymphocytes % (Manual) 7 % (20-45) L Monocytes % (Manual) 7 % (1-10) Eosinophils % (Manual) 0 % (0-3) Basophils % (Manual) 0 % (0-2) Band Neutrophils 0 % (0-8) Nucleated Red Blood Cells 6 /100 WBC Platelet Estimate Adequate Platelet Morphology Normal Hypochromasia 2+ Anisocytosis 3+ Prothrombin Time 12.6 SEC (9.30-11.50) H Prothromb Time International Ratio 1.2 (0.9-1.1) H Sodium Level 150 MMOL/L (136-145) H Potassium Level 4.2 MMOL/L (3.5-5.1) Chloride Level 112 MMOL/L (98-107) H Carbon Dioxide Level 21 MMOL/L (21-32) Anion Gap 17 mmol/L (5-15) H Blood Urea Nitrogen 80 mg/dL (7-18) H Creatinine 5.3 MG/DL (0.55-1.30) H Estimat Glomerular Filtration Rate 9.2 mL/min (>60) Glucose Level 193 MG/DL (74-106) H Calcium Level 9.0 MG/DL (8.5-10.1) Activated Partial Thromboplast Time 29 SEC (23-33) Plan Problems: (1) Sepsis Assessment & Plan: lactic acidosis tachycardic hypotension altered unlikely related to decubitus ulcer and wounds likely chronically infected but not acute labs improving on abx and fluids cont current care plan improving trend h/h - prbc prn diet as tolerated improving overall off abx stable onc input noted. hx colon cancer dx in [facility]. GI bleed from Ca? unfortunately not operative candidate GI eval pending h/h stable neuro input noted pancreatitis meds vs lipids vs gb? US noted Gallbladder is not visualized. Common bile duct measures 5 mm in diameter. No intrahepatic biliary ductal dilatation. Liver demonstrates coarsened echogenicity. No focal abnormality Portal vein and hepatic veins are patent. Pancreas is obscured by bowel gas. Spleen is unremarkable. Left kidney measures 10.5 cm in length. Right kidney measures 12.8 cm length. Both kidneys demonstrate normal echogenicity. There is moderate bilateral hydronephrosis. There is a cyst in the lower pole of the left kidney. Abdominal aorta is partially obscured by bowel gas, visualized portions are non-aneurysmal . There is a right pleural effusion Impression: Nonvisualized gallbladder, likely surgically absent. Negative for dilated bile ducts Bilateral hydronephrosis, also previously reported Right pleural effusion Note nonvisualization of the pancreas and portions of the abdominal aorta CT noted duplex noted will plan for removal of line. on gtt hep will watch for bleeding b/l nephrostomy planned will follow with recs PEG was cancelled for today because family do not want both nephrostomy tube and PEG in a same day plan PEG for Thursday hold line removal for now (2) Anorexia (3) Malnutrition Assessment & Plan: DAILY ESTIMATED NEEDS: Needs based on Wound 57.6kg 30-35 kcals/kg 8501-6953 total kcals 1.25-1.5 g protein/kg 72-86 g total protein 25-30ml/kcal mL/kg 6744-7404 total fluid mLs NUTRITION DIAGNOSIS: Increased kcal and pro needs r/t wound healing as evidenced by pt w/ unstageable sacral wound. (CURRENT DIET: CCHO MED soft easy chew) PO DIET RECOMMENDATIONS: With current poor po intake, rec liberalized REGULAR diet/ texture as harman ADDITIONAL RECOMMENDATIONS: 1) Add Glucerna TID w/ meals 2) Maintain calibrated bed scale wts 3) Wound care: MVI w/ min qdaily, Vit C 500mg daily + EFREN FRUIT PUNCH BID as tolerated 4) Check lytes + hydration status daily as able 5) Monitor lipase, need for low fat diet 6) BDC MANAGER eval for appropriate diet texture (4) Gastric cancer (5) Atrial fibrillation with RVR (6) DM (diabetes mellitus) (7) Low BP (8) Acute on chronic renal failure (9) Anemia (10) Decubital ulcer Assessment & Plan: Pt presented on admission with stage 3 nearing almost a stage 4 as bone almost palpable if not palpable pressure injury to sacrum(L)1cm x (W)1cm. Base of wound has 100% slough Marginal erythema along edges. Periwound indurated with darker skin tone. Pt verbalized tenderness when minimally palpated. Bilat heels are boggy but blanchable . Pt denied tenderness when each heel individually palpated.Hemosiderin with Xerosis skin distal aspects of both lower ext.Both feet are edematous. Tx.Plan: Cleanse Sacral wound with Saline. Apply Therahoney. Apply Moisture Barrier Paste periwound. Cover with Optifoam drsg. Change every 3 days and prn. Apply Cavilon Skin Barrier to both heels. Cover each heel with Optifoam drsg.Change every 7 days and prn. Reposition at least every 2hours or as tolerated. Off-load heels with pillow. Jose Ponce February 10, 2020 13:11
--- NOTE | 2020-02-10 13:25 | NUR ---
25mcg fentanyl given IV push per order.
--- NOTE | 2020-02-10 13:26 | Moderate Sedation - Procedural ---
Moderate Sedation HPI Home Medication Reported Medications Linagliptin (TRADJENTA) 5 Mg Tablet, 5 MG PO for DM, TAB 01/30/20 Metoprolol Tartrate* (METOPROLOL TARTRATE*) 50 Mg Tablet, 50 MG ORAL EVERY 12 HOURS for htn, TAB 01/30/20 Ondansetron Odt* (ZOFRAN ODT*) 8 Mg Tab.rapdis, 4 MG ORAL Q6H PRN for Nausea & Vomiting, #30 TAB 01/30/20 Pravastatin Sod* (PRAVASTATIN SOD*) 20 Mg Tablet, 20 MG ORAL BEDTIME for hyperlipidemia, TAB 01/30/20 Metoclopramide Hcl* (REGLAN*) 10 Mg Tablet, 10 MG ORAL THREE TIMES A DAY for nausea, TAB 01/30/20 Patient History Allergies: Coded Allergies: No Known Allergies (Unverified , 01/30/20) Pre-Procedural Mod Sedation Pre-Assessment Time: 13:10 Pre-Sedation Assessment: Eval. Immed. Prior to Sed Airway Assessment (Malampati): III Evaluation Hx of untoward rxns to mod sed: No Plan for Moderate Sedation: Fentanyl ASA Score: II Informed Consent The nature of the procedure/sedation; its benefits; risks and complications; and alternatives (and the risks and benefits of such alternatives) were discussed with the patient (or their legal loan servicing representative), prior to the procedure. All questions were answered to the patient's (or their legal loan servicing representative's) satisfaction and the patient (or their legal loan servicing representative) gave informed consent to the procedure. I attest that I re-evaluated the patient just prior to the surgery and that there has been no change in the patient's H&P, except as documented below: Post Procedure Assessment Post Procedure TIme: 14:00 Communication: No Apparent Limitation Mental Status: Awake Respiration: Unlabored Skin Condition: WNL Adomen: WNL Nausea: NO Vomiting: NO George Stewart MD February 10, 2020 13:26
--- NOTE | 2020-02-10 14:10 | NUR ---
75mcg of fentanyl wasted per protocol. 1mg of versed wasted per protocol. Narcan returned to [facility]
--- NOTE | 2020-02-10 14:20 | NUR ---
pre operation vitals documented at 1417 Addendum: 02/10/20 at 1421 by Maria C Mcgrath RN RN Amended: Links added.
--- NOTE | 2020-02-10 14:25 | NUR ---
*-* INSURANCE *-* UPDATED AVAILABLE CLINICALS HAVE BEEN FAXED TO: CASEY BUI:LARRY REF# [id number] P: [phone] T: [phone] F: [phone]
--- NOTE | 2020-02-10 14:55 | General Progress Note ---
Assessment/Plan Problem List: (1) Anorexia ICD Codes: R63.0 - Anorexia SNOMED: 86802602 (2) Malnutrition ICD Codes: E46 - Unspecified protein-calorie malnutrition SNOMED: 30896044 (3) Atrial fibrillation with RVR ICD Codes: I48.91 - Unspecified atrial fibrillation SNOMED: 771009419411680 (4) DM (diabetes mellitus) ICD Codes: E11.9 - Type 2 diabetes mellitus without complications SNOMED: 74084534 (5) Low BP ICD Codes: I95.9 - Hypotension, unspecified SNOMED: 59897462 (6) Acute on chronic renal failure ICD Codes: N17.9 - Acute kidney failure, unspecified; N18.9 - Chronic kidney disease, unspecified SNOMED: 710824675 (7) Anemia ICD Codes: D64.9 - Anemia, unspecified SNOMED: 377508945 (8) Decubital ulcer ICD Codes: L89.90 - Pressure ulcer of unspecified site, unspecified stage SNOMED: 100497718 (9) Hypokalemia ICD Codes: E87.6 - Hypokalemia SNOMED: 58501883 (10) Hypomagnesemia ICD Codes: E83.42 - Hypomagnesemia SNOMED: 788386198 (11) Obstructive uropathy ICD Codes: N13.9 - Obstructive and reflux uropathy, unspecified SNOMED: 6469565 (12) Gastric cancer ICD Codes: C16.9 - Malignant neoplasm of stomach, unspecified SNOMED: 563604139 (13) DVT (deep venous thrombosis) ICD Codes: I82.409 - Acute embolism and thrombosis of unspecified deep veins of unspecified lower extremity SNOMED: 391012832 Assessment/Plan: IV D5W Discussed with Dr Brown rate control Follow labs Discussed with Radiologist await GT Subjective Allergies: Coded Allergies: No Known Allergies (Unverified , 01/30/20) Subjective all noted had nephrostomies Objective Last 24 Hour Vital Signs Date Time Temp Pulse Resp B/P (MAP) Pulse Ox O2 Delivery O2 Flow Rate FiO2 02/10/20 14:28 98.2 99 24 99 Nasal Cannula 2.0 78 99 92 02/10/20 14:17 98.2 78 21 99/55 (70) 99 02/10/20 14:00 97 19 95/52 (66) 100 02/10/20 13:55 89 19 104/51 (68) 100 02/10/20 13:50 95 20 87/52 (64) 100 02/10/20 13:45 81 20 102/53 (69) 100 02/10/20 13:40 22 98/51 (67) 100 02/10/20 13:35 87 21 100/51 (67) 99 02/10/20 13:30 87 21 104/58 (73) 99 02/10/20 13:11 78 24 2.0 02/10/20 12:00 98.1 60 20 119/56 (77) 97 02/10/20 09:00 Room Air 02/10/20 08:00 96.7 76 19 118/66 (83) 96 02/10/20 04:00 97.2 100 16 101/55 (70) 98 02/10/20 04:00 101 02/10/20 00:00 97.6 96 18 114/55 (74) 98 02/10/20 00:00 79 02/09/20 21:18 101 125/86 02/09/20 21:00 Room Air 02/09/20 20:00 103 02/09/20 20:00 97.1 101 16 125/83 (97) 98 02/09/20 16:00 84 02/09/20 16:00 96.8 70 18 109/75 (86) 96 Intake and Output 02/09/20 02/10/20 19:00 07:00 Intake Total 120 ml Output Total 1200 ml Balance -1080 ml Intake Oral 120 ml Output Urine Total 1200 ml # Voids 3 1 Laboratory Tests 02/10/20 05:40: White Blood Count 8.2, Red Blood Count 2.86L, Hemoglobin 8.7L, Hematocrit 27.0L , Mean Corpuscular Volume 94, Mean Corpuscular Hemoglobin 30.3, Mean Corpuscular Hemoglobin Concent 32.1, Red Cell Distribution Width 21.5H, Platelet Count 255, Mean Platelet Volume 6.4L, Neutrophils (%) (Auto) , Lymphocytes (%) (Auto) , Monocytes (%) (Auto) , Eosinophils (%) (Auto) , Basophils (%) (Auto) , Differential Total Cells Counted 100, Neutrophils % ( Manual) 86H, Lymphocytes % (Manual) 7L, Monocytes % (Manual) 7, Eosinophils % ( Manual) 0, Basophils % (Manual) 0, Band Neutrophils 0, Nucleated Red Blood Cells 6, Platelet Estimate Adequate, Platelet Morphology Normal, Hypochromasia 2 +, Anisocytosis 3+, Prothrombin Time 12.6H, Prothromb Time International Ratio 1.2H, Sodium Level 150H, Potassium Level 4.2, Chloride Level 112H, Carbon Dioxide Level 21, Anion Gap 17H, Blood Urea Nitrogen 80H, Creatinine 5.3H, Estimat Glomerular Filtration Rate 9.2, Glucose Level 193H, Calcium Level 9.0 02/10/20 05:50: Activated Partial Thromboplast Time 29 Height (Feet): 5 Height (Inches): 6.00 Weight (Pounds): 161 Cardiovascular: regular rhythm Respiratory/Chest: lungs clear Edema: no edema noted Generalized Leno Wilson MD February 10, 2020 14:55
--- NOTE | 2020-02-10 15:04 | Neurology Progress Note ---
Interim History Interim History Interim History Ms. Philly Liao is an 89-year-old, right-handed, black lady, have a past history of dyslipidemia, coronary artery disease status post myocardial infarction, atrial fibrillation, gastroesophageal reflux disease, and gastric adenocarcinoma for which she is status post radiation therapy. She was recently discharged from [facility] to her home where she was noted to be generally weak. She was brought into the [facility] emergency room for generalized weakness. She was noted to be in atrial fibrillation with a rapid ventricular rate. As per her nurse in the early hours of 02/07/20 she was noted to be weaker on her left side with increased left facial drooping and inability to move her left side. However at this point in time he tells me that she is able to move all limbs. At this point in time she is sedated. She just got back from nephrostomy placement. She is barely arousable on vigorous stimulation. She is unable to give me any further history. Review of Systems Neuro Review of Systems Unable to obtain. Objective Physical Exam Last Vital Signs Date Time Temp Pulse Resp B/P (MAP) Pulse Ox O2 Delivery O2 Flow Rate FiO2 02/10/20 14:28 98.2 99 24 99 Nasal Cannula 2.0 78 99 92 02/10/20 14:17 99/55 (70) Laboratory Tests Test 02/10/20 05:40 02/10/20 05:50 White Blood Count 8.2 K/UL (4.8-10.8) Red Blood Count 2.86 M/UL (4.20-5.40) L Hemoglobin 8.7 G/DL (12.0-16.0) L Hematocrit 27.0 % (37.0-47.0) L Mean Corpuscular Volume 94 FL (80-99) Mean Corpuscular Hemoglobin 30.3 PG (27.0-31.0) Mean Corpuscular Hemoglobin Concent 32.1 G/DL (32.0-36.0) Red Cell Distribution Width 21.5 % (11.6-14.8) H Platelet Count 255 K/UL (150-450) Mean Platelet Volume 6.4 FL (6.5-10.1) L Neutrophils (%) (Auto) % (45.0-75.0) Lymphocytes (%) (Auto) % (20.0-45.0) Monocytes (%) (Auto) % (1.0-10.0) Eosinophils (%) (Auto) % (0.0-3.0) Basophils (%) (Auto) % (0.0-2.0) Differential Total Cells Counted 100 Neutrophils % (Manual) 86 % (45-75) H Lymphocytes % (Manual) 7 % (20-45) L Monocytes % (Manual) 7 % (1-10) Eosinophils % (Manual) 0 % (0-3) Basophils % (Manual) 0 % (0-2) Band Neutrophils 0 % (0-8) Nucleated Red Blood Cells 6 /100 WBC Platelet Estimate Adequate Platelet Morphology Normal Hypochromasia 2+ Anisocytosis 3+ Prothrombin Time 12.6 SEC (9.30-11.50) H Prothromb Time International Ratio 1.2 (0.9-1.1) H Sodium Level 150 MMOL/L (136-145) H Potassium Level 4.2 MMOL/L (3.5-5.1) Chloride Level 112 MMOL/L (98-107) H Carbon Dioxide Level 21 MMOL/L (21-32) Anion Gap 17 mmol/L (5-15) H Blood Urea Nitrogen 80 mg/dL (7-18) H Creatinine 5.3 MG/DL (0.55-1.30) H Estimat Glomerular Filtration Rate 9.2 mL/min (>60) Glucose Level 193 MG/DL (74-106) H Calcium Level 9.0 MG/DL (8.5-10.1) Activated Partial Thromboplast Time 29 SEC (23-33) Neurologic Exam Objective PHYSICAL EXAMINATION: GENERAL: She is a well-developed, relatively well-nourished, black lady, lying in bed, in no acute distress. HEAD: Normocephalic and atraumatic. NECK: No neck rigidity was observed. EENT: Benign. NEUROLOGIC EXAMINATION: MENTAL STATUS EXAMINATION: She was somnolent. She could be aroused with loud vocal stimulation. However she only kept her eyes open for a few seconds and would go back to sleep. She was unable to cooperate for further mental status testing. SPEECH: She had a mild dysarthria. LANGUAGE: Could not be tested adequately. CRANIAL NERVE EXAMINATION: II: She did blink to threat. III, IV, : External ocular movements were present but subdued. The pupils were 3 mm in diameter equal, round, regular and reactive to light. V-VII: The corneal reflexes were present but brisker on the right than on the left. In addition she also had flattening of the left nasolabial fold VIII: The patient was able to hear well bilaterally and had no nystagmus. IX: The palate moved symmetrically on phonation. X: There was no hoarseness of voice. XI: The sternocleidomastoids and trapezii functioned normally. XII: The tongue was in the midline without any fasciculations or atrophy. MOTOR SYSTEM: The tone was normal in all 4 extremities. Examination of muscle mass revealed no focal wasting. Examination of power was exceedingly difficult to perform because of varying degrees of effort. She however had lower extremity weakness much more than upper extremity weakness and left-sided weakness more than right-sided weakness. SENSORY EXAMINATION: She responded appropriately to deep painful stimuli. She was unable to cooperate for other sensory modalities. COORDINATION: Could not be tested. REFLEXES: Trace+ and bilaterally symmetric at the biceps, triceps, brachioradialis, and knees. 0 at both ankles. The plantar responses were flexor bilaterally. STANCE & GAIT: Could not be tested. ABNORMAL MOVEMENTS: None Impression/Recommendations Diagnostic Impression DIAGNOSTIC IMPRESSION: 1. Ms. Philly Liao is an 89-year-old, right-handed, black lady, have a past history of dyslipidemia, coronary artery disease status post myocardial infarction, atrial fibrillation, gastroesophageal reflux disease, and gastric adenocarcinoma for which she is status post radiation therapy. 2. She was recently discharged from [facility] to her home where she was noted to be generally weak. She was brought into the [facility] emergency room for generalized weakness. She was noted to be in atrial fibrillation with a rapid ventricular rate. 3. As per her nurse in the early hours of 02/07/2020 she was noted to be weaker on her left side with increased left facial drooping and inability to move her left side. However at this point in time he tells me that she is able to move all limbs. 4. At this point in time she is sedated. She just got back from nephrostomy placement. She is barely arousable on vigorous stimulation. She is unable to give me any further history. 5. On neurological examination, at this time, she is somnolent. She can be aroused with loud vocal stimulation. However she only keeps her eyes open for a few seconds and goes back to sleep. She is unable to cooperate for further mental status testing. She does have a left seventh central facial paresis. She also has a quadriparesis involving the lower extremities significantly more than the upper extremities and the left side more than the right side. The deep tendon reflexes are globally diminished. 6. The MRI scan of the brain reveals atrophy and deep white matter changes but no acute pathology. 7. The patient's history and neurological examination are most consistent with pre-existing generalized weakness and now increased left-sided weakness. An acute cerebrovascular event has been excluded. 8. She continues to have significant cognitive problems. It is unclear if these problems are old or new. Recommendations RECOMMENDATIONS: 1. Continue present management. 2. Await carotid duplex to evaluate the patient for hemodynamically significant carotid disease. 3. Mobilize with the help of PT and OT. 4. Observe closely. Abran Padron M.D., M.S.P.H. Neurologist & Clinical Neurophysiologist Abran Padron MD February 10, 2020 15:04
--- NOTE | 2020-02-10 15:46 | Brief Operative Note ---
Immediate Post Operative Note Operative Note Pre-op Diagnosis: obstructive uropathy Procedure: Bilat nephrostomy Post-op Diagnosis: same as pre-op Surgeon: Debbie Rivers Anesthesia: local Specimen: none Complications: none Condition: stable Fluids: none Drains: other - Bilat 8.5 F pigtail drains Implant(s) used?: No George Rivers MD February 10, 2020 15:46
--- NOTE | 2020-02-10 17:51 | Diagnostic Imaging Report ---
INDICATION: Acute renal failure, hydronephrosis demonstrated on prior imaging studies TECHNIQUE: Informed consent obtained prior to commencement of the procedure from patient's daughter. Prior imaging studies reviewed. Procedural timeout performed. Patient given intraprocedural Ancef. Total sterile technique, including sterile gloves and hand hygiene, hat, mask, sterile gown, large sterile drape, and preparation with 2% chlorhexidine utilized. Attention initially turned to the right kidney. Local anesthesia with 1% lidocaine. Under real-time ultrasound guidance, puncture posterior lower pole calyx using 21-gauge Victoria stick needle. Return of urine visualized. Contrast injected, confirming intracalyceal placement of the needle. A 0.018 guidewire inserted followed by insertion of a 6 Kitt[place] Victoria introducer. Stiffener and dilator removed. 0.035 guidewire was inserted, directed into the ureter with a Kumpe catheter. Over the guidewire, a 8.5 Kittitian multipurpose drainage catheter was inserted. The pigtail was formed. Due to the small size of the renal pelvis, the pigtail was formed in the lower pole collecting system. Contrast injected, confirming satisfactory position of the nephrostomy tube. Attention turned to the left kidney. Local anesthesia with 1% lidocaine. Under real-time ultrasound guidance, puncture posterior lower pole calyx using 21-gauge Victoria stick needle. Return of urine visualized. Contrast injected, confirming intracalyceal placement of the needle. A 0.018 guidewire inserted followed by insertion of a 6 [place] Victoria introducer. Stiffener and dilator removed. 0.035 guidewire was inserted, directed into the upper pole collecting system with a Kumpe catheter. Over the guidewire, a 8.5 Kittitian multipurpose drainage catheter was inserted. The pigtail was formed. Due to the small size of the renal pelvis, the pigtail was formed in the lower pole infundibulum. Contrast injected, confirming satisfactory position of the nephrostomy tube. The patient tolerated the procedure well, without immediate complication. Fluoroscopy time: 335 seconds Total dose: 1.87 mGym2 Total number of images: 2 COMPARISON: CT abdomen pelvis 02/08/2020 FINDINGS: Bilateral hydronephrosis is demonstrated, appearing less striking than on the prior imaging studies. This is manifested primarily as caliectasis, with only minimal dilatation of the renal pelvis bilaterally and no significant ureterectasis. IMPRESSION: Successful placement of bilateral nephrostomies for bilateral obstructive uropathy, as described
--- NOTE | 2020-02-10 19:42 | NUR ---
HAND-OFF: Report given to Susu Tiwari RN. Patient stable. Plan of care endorsed.
--- NOTE | 2020-02-10 19:45 | NUR ---
NURSE NOTES: Received report and endorsement of care from Dee Castaneda RN. Pt in stable condition. No signs or symptoms of distress noted at this time. Will continue plan of care and monitor closely.
[2020-02-10] MEDS: Dyna-Hex 2% Top Sol 2oz TOPIC SCH (20:52)
[2020-02-11] VITALS: BP 90/48
[2020-02-11 04:00] VITALS: BP 110/51
[2020-02-11] MEDS: NovoLOG Insulin Flexpen SUBQ SCH ×4 (06:45→21:29)
--- NOTE | 2020-02-11 07:35 | NUR ---
HAND-OFF: Report given to Belia Castaneda RN. Pt in stable condition, appears to be resting comfortably. No signs or symptoms of distress noted at this time.
[2020-02-11 08:00] VITALS: BP 97/55
[2020-02-11 08:10] LABS: HEMATOCRIT 29.1 % (37.0-47.0); HEMOGLOBIN 9.2 G/DL (12.0-16.0); MEAN CORPUSCULAR VOLUME 96 FL (80-99); PLATELET COUNT 225 K/UL (150-450); RED BLOOD COUNT 3.04 M/UL (4.20-5.40); RED CELL DISTRIBUTION WIDTH 22.4 % (11.6-14.8); WHITE BLOOD COUNT 9.2 K/UL (4.8-10.8)
--- NOTE | 2020-02-11 08:27 | NUR ---
NURSE NOTES: Received report from RIVER Cristobal. Patient awake alert. IV fluids infusing. Bilateral nephrostomy draining minimal amount of serous sanguinous minimal amount. F/C draining dark . Zero output recorded for car shifter from BL nephrostomies and rivers. Dr. Wilson aware. 3mL of thickened water given to patient to test swallow function but patient was not able to swallow so water had to be wiped out of mouth. Side rails up. Bed low and call light within reach. Will continue with plan of care.
[2020-02-11 08:40] LABS: INR 1.2 (0.9-1.1)
[2020-02-11 08:56] LABS: ALANINE AMINOTRANSFERASE 111 U/L (12-78); ALBUMIN 1.9 G/DL (3.4-5.0); ALBUMIN/GLOBULIN RATIO 0.5 (1.0-2.7); ALKALINE PHOSPHATASE 1428 U/L (46-116); ANION GAP 20 mmol/L (5-15); ASPARTATE AMINO TRANSFERASE 197 U/L (15-37); BILIRUBIN,TOTAL 5.4 MG/DL (0.2-1.0); BLOOD UREA NITROGEN 73 mg/dL (7-18); CALCIUM 8.4 MG/DL (8.5-10.1); CARBON DIOXIDE 16 MMOL/L (21-32); CHLORIDE 108 MMOL/L (98-107); CREATININE 5.2 MG/DL (0.55-1.30); SODIUM 144 MMOL/L (136-145)
[2020-02-11] MEDS: Sodium Citrate 30ml ORAL SCH ×3 (09:00→18:00)
[2020-02-11] MEDS: Ascorbic Acid 500mg tab ORAL SCH (09:00)
[2020-02-11] MEDS: Pantoprazole Inj IVP SCH ×2 (09:30→21:19)
[2020-02-11 09:34] LABS: BILIRUBIN,DIRECT 4.6 MG/DL (0.0-0.3)
[2020-02-11 12:00] VITALS: BP 113/93
--- NOTE | 2020-02-11 12:10 | GI Progress Note ---
Assessment/Plan Problems: (1) Anemia ICD Codes: D64.9 - Anemia, unspecified SNOMED: 744236518 (2) Gastric cancer ICD Codes: C16.9 - Malignant neoplasm of stomach, unspecified SNOMED: 561295533 (3) Malnutrition ICD Codes: E46 - Unspecified protein-calorie malnutrition SNOMED: 96514331 (4) DM (diabetes mellitus) ICD Codes: E11.9 - Type 2 diabetes mellitus without complications SNOMED: 52757988 (5) Hypokalemia ICD Codes: E87.6 - Hypokalemia SNOMED: 98028099 Status: unchanged Status Narrative Discussed with Dr. Brooks. Assessment/Plan plan PEG for Thursday, patient consented. hold heparin drip at MN day prior procedure (8 hours prior procedure) NPO + IVF ppi prn transfusions The patient was seen and examined at bedside and all new and available data was reviewed in the patients chart. I agree with the above findings, impression and plan. (Patient seen earlier today. Signature stamp does not reflect patient encounter time.). - Erick Brooks MD Subjective Subjective limited Objective Last 24 Hour Vital Signs Date Time Temp Pulse Resp B/P (MAP) Pulse Ox O2 Delivery O2 Flow Rate FiO2 02/11/20 09:00 Room Air 02/11/20 08:00 97.9 20 97/55 (69) 98 02/11/20 07:50 94 02/11/20 04:00 98.8 18 110/51 (70) 97 02/11/20 04:00 84 02/11/20 00:00 97.1 18 90/48 (62) 98 02/11/20 00:00 69 02/10/20 21:00 Room Air 02/10/20 20:00 80 02/10/20 20:00 95.5 18 104/48 (66) 97 02/10/20 16:00 83 02/10/20 16:00 97.6 19 100/49 (66) 95 02/10/20 15:26 18 98/59 (72) 95 02/10/20 15:11 18 100/53 (69) 97 02/10/20 14:56 18 100/49 (66) 97 02/10/20 14:41 18 114/63 (80) 97 02/10/20 14:34 18 96/53 (67) 97 02/10/20 14:28 98.2 99 24 99 Nasal Cannula 2.0 78 99 92 02/10/20 14:26 18 90/46 (61) 97 02/10/20 14:17 98.2 78 21 99/55 (70) 99 02/10/20 14:11 18 107/54 (71) 96 02/10/20 14:00 97 19 95/52 (66) 100 02/10/20 13:55 89 19 104/51 (68) 100 02/10/20 13:50 95 20 87/52 (64) 100 02/10/20 13:50 97.8 18 129/52 (77) 96 02/10/20 13:45 81 20 102/53 (69) 100 02/10/20 13:40 22 98/51 (67) 100 02/10/20 13:35 87 21 100/51 (67) 99 02/10/20 13:30 87 21 104/58 (73) 99 02/10/20 13:11 78 24 2.0 Intake and Output 02/10/20 02/11/20 19:00 07:00 Output Total 75 ml 0 ml Balance -75 ml 0 ml Output Urine Total 30 ml 0 ml Other 45 ml Laboratory Tests Test 02/11/20 07:30 02/11/20 10:35 White Blood Count 9.2 K/UL (4.8-10.8) Red Blood Count 3.04 M/UL (4.20-5.40) L Hemoglobin 9.2 G/DL (12.0-16.0) L Hematocrit 29.1 % (37.0-47.0) L Mean Corpuscular Volume 96 FL (80-99) Mean Corpuscular Hemoglobin 30.3 PG (27.0-31.0) Mean Corpuscular Hemoglobin Concent 31.7 G/DL (32.0-36.0) L Red Cell Distribution Width 22.4 % (11.6-14.8) H Platelet Count 225 K/UL (150-450) Mean Platelet Volume 6.8 FL (6.5-10.1) Neutrophils (%) (Auto) % (45.0-75.0) Lymphocytes (%) (Auto) % (20.0-45.0) Monocytes (%) (Auto) % (1.0-10.0) Eosinophils (%) (Auto) % (0.0-3.0) Basophils (%) (Auto) % (0.0-2.0) Neutrophils % (Manual) Pending Lymphocytes % (Manual) Pending Platelet Estimate Pending Platelet Morphology Pending Prothrombin Time 12.8 SEC (9.30-11.50) H Prothromb Time International Ratio 1.2 (0.9-1.1) H Activated Partial Thromboplast Time 85 SEC (23-33) H Sodium Level 144 MMOL/L (136-145) Potassium Level 4.0 MMOL/L (3.5-5.1) Chloride Level 108 MMOL/L (98-107) H Carbon Dioxide Level 16 MMOL/L (21-32) L Anion Gap 20 mmol/L (5-15) H Blood Urea Nitrogen 73 mg/dL (7-18) H Creatinine 5.2 MG/DL (0.55-1.30) H Estimat Glomerular Filtration Rate 9.5 mL/min (>60) Glucose Level 213 MG/DL (74-106) H Lactic Acid Level 4.20 mmol/L (0.4-2.0) H 4.40 mmol/L (0.66-2.22) H Calcium Level 8.4 MG/DL (8.5-10.1) L Total Bilirubin 5.4 MG/DL (0.2-1.0) H Direct Bilirubin 4.6 MG/DL (0.0-0.3) H Aspartate Amino Transf (AST/SGOT) 197 U/L (15-37) H Alanine Aminotransferase (ALT/SGPT) 111 U/L (12-78) H Alkaline Phosphatase 1428 U/L (46-116) H Total Protein 5.4 G/DL (6.4-8.2) L Albumin 1.9 G/DL (3.4-5.0) L Globulin 3.5 g/dL Albumin/Globulin Ratio 0.5 (1.0-2.7) L Height (Feet): 5 Height (Inches): 6.00 Weight (Pounds): 151 General Appearance: WD/WN, no apparent distress, alert Cardiovascular: normal rate Respiratory/Chest: normal breath sounds, no respiratory distress Abdominal Exam: normal bowel sounds, non tender, soft Extremities: non-tender Cabrera,Harika-Erick [employer]PRES[employer] February 11, 2020 12:10
[2020-02-11 16:00] VITALS: BP 115/73
--- NOTE | 2020-02-11 17:45 | Neurology Progress Note ---
Interim History Interim History Interim History Ms. Philly Liao is an 89-year-old, right-handed, black lady, have a past history of dyslipidemia, coronary artery disease status post myocardial infarction, atrial fibrillation, gastroesophageal reflux disease, and gastric adenocarcinoma for which she is status post radiation therapy. She was recently discharged from [facility] to her home where she was noted to be generally weak. She was brought into the [facility] emergency room for generalized weakness. She was noted to be in atrial fibrillation with a rapid ventricular rate. As per her nurse in the early hours of 02/07/20 she was noted to be weaker on her left side with increased left facial drooping and inability to move her left side. However these problems improved rapidly. On 02/10/2020 she had nephrostomy tube placement performed. Following that she was barely arousable. At that time it was felt that she may still be under the influence of anesthesia. At this time the patient is still significantly sedated. She only responds to deep pain with brief eye opening and is nonverbal. Review of Systems Neuro Review of Systems Unable to obtain Objective Physical Exam Last Vital Signs Date Time Temp Pulse Resp B/P (MAP) Pulse Ox O2 Delivery O2 Flow Rate FiO2 02/11/20 16:00 97.9 80 20 115/73 (87) 94 02/11/20 09:00 Room Air 02/10/20 14:28 2.0 Laboratory Tests Test 02/11/20 07:30 02/11/20 10:35 White Blood Count 9.2 K/UL (4.8-10.8) Red Blood Count 3.04 M/UL (4.20-5.40) L Hemoglobin 9.2 G/DL (12.0-16.0) L Hematocrit 29.1 % (37.0-47.0) L Mean Corpuscular Volume 96 FL (80-99) Mean Corpuscular Hemoglobin 30.3 PG (27.0-31.0) Mean Corpuscular Hemoglobin Concent 31.7 G/DL (32.0-36.0) L Red Cell Distribution Width 22.4 % (11.6-14.8) H Platelet Count 225 K/UL (150-450) Mean Platelet Volume 6.8 FL (6.5-10.1) Neutrophils (%) (Auto) % (45.0-75.0) Lymphocytes (%) (Auto) % (20.0-45.0) Monocytes (%) (Auto) % (1.0-10.0) Eosinophils (%) (Auto) % (0.0-3.0) Basophils (%) (Auto) % (0.0-2.0) Differential Total Cells Counted 100 Neutrophils % (Manual) 90 % (45-75) H Lymphocytes % (Manual) 5 % (20-45) L Monocytes % (Manual) 5 % (1-10) Eosinophils % (Manual) 0 % (0-3) Basophils % (Manual) 0 % (0-2) Band Neutrophils 0 % (0-8) Nucleated Red Blood Cells 5 /100 WBC Platelet Estimate Adequate Platelet Morphology Normal Polychromasia 1+ Hypochromasia 2+ Poikilocytosis 2+ Anisocytosis 3+ Prothrombin Time 12.8 SEC (9.30-11.50) H Prothromb Time International Ratio 1.2 (0.9-1.1) H Activated Partial Thromboplast Time 85 SEC (23-33) H Sodium Level 144 MMOL/L (136-145) Potassium Level 4.0 MMOL/L (3.5-5.1) Chloride Level 108 MMOL/L (98-107) H Carbon Dioxide Level 16 MMOL/L (21-32) L Anion Gap 20 mmol/L (5-15) H Blood Urea Nitrogen 73 mg/dL (7-18) H Creatinine 5.2 MG/DL (0.55-1.30) H Estimat Glomerular Filtration Rate 9.5 mL/min (>60) Glucose Level 213 MG/DL (74-106) H Lactic Acid Level 4.20 mmol/L (0.4-2.0) H 4.40 mmol/L (0.66-2.22) H Calcium Level 8.4 MG/DL (8.5-10.1) L Total Bilirubin 5.4 MG/DL (0.2-1.0) H Direct Bilirubin 4.6 MG/DL (0.0-0.3) H Aspartate Amino Transf (AST/SGOT) 197 U/L (15-37) H Alanine Aminotransferase (ALT/SGPT) 111 U/L (12-78) H Alkaline Phosphatase 1428 U/L (46-116) H Total Protein 5.4 G/DL (6.4-8.2) L Albumin 1.9 G/DL (3.4-5.0) L Globulin 3.5 g/dL Albumin/Globulin Ratio 0.5 (1.0-2.7) L Neurologic Exam Objective PHYSICAL EXAMINATION: GENERAL: She is a well-developed, relatively well-nourished, black lady, lying in bed, in no acute distress. HEAD: Normocephalic and atraumatic. NECK: No neck rigidity was observed. EENT: Benign. NEUROLOGIC EXAMINATION: MENTAL STATUS EXAMINATION: She was lethargic. She only opened her eyes briefly on deep painful stimulation. She was unable to cooperate for further mental status testing. SPEECH: She was nonverbal. LANGUAGE: Could not be tested. CRANIAL NERVE EXAMINATION: II: She did not blink to threat. III, IV, : External ocular movements were present but subdued. The pupils were 3 mm in diameter equal, round, regular and reactive to light. V-VII: The corneal reflexes were present but brisker on the right than on the left. In addition she also had flattening of the left nasolabial fold VIII: The patient was unable to respond to loud sounds. She had no nystagmus. IX-X: Were not tested. XI: The sternocleidomastoids and trapezii functioned. XII: The tongue was in the midline. MOTOR SYSTEM: The tone was normal in all 4 extremities. Examination of muscle mass revealed no focal wasting. Examination of power was impossible to test as she only withdrew minimally to deep painful stimulation. SENSORY EXAMINATION: She only withdrew minimally on deep painful stimulation of all 4 extremities. COORDINATION: Could not be tested. REFLEXES: Trace+ and bilaterally symmetric at the biceps, triceps, brachioradialis, and knees. 0 at both ankles. The plantar responses were flexor bilaterally. STANCE & GAIT: Could not be tested. ABNORMAL MOVEMENTS: None Impression/Recommendations Diagnostic Impression DIAGNOSTIC IMPRESSION: 1. Ms. Philly Liao is an 89-year-old, right-handed, black lady, have a past history of dyslipidemia, coronary artery disease status post myocardial infarction, atrial fibrillation, gastroesophageal reflux disease, and gastric adenocarcinoma for which she is status post radiation therapy. 2. She was recently discharged from [facility] to her home where she was noted to be generally weak. She was brought into the [facility] emergency room for generalized weakness. She was noted to be in atrial fibrillation with a rapid ventricular rate. 3. As per her nurse in the early hours of 02/07/20 she was noted to be weaker on her left side with increased left facial drooping and inability to move her left side. However these problems improved rapidly. 4. On 02/10/2020 she had nephrostomy tube placement performed. Following that she was barely arousable. At that time it was felt that she may still be under the influence of anesthesia. 5. At this time she is significantly sedated. She only responds to deep pain with brief eye opening and is nonverbal. 6. On neurological examination, at this time, she is lethargic and can only be aroused briefly with deep painful stimulation. She is unable to cooperate for further mental status testing. She does have a left seventh central facial paresis. She is unable to cooperate for motor, sensory, or coordination testing. The deep tendon reflexes are globally diminished. 7. The MRI scan of the brain reveals atrophy and deep white matter changes but no acute pathology. 8. Her latest laboratory data revealed significant worsening of her renal function and in addition increasing lactate levels. 9. The patient's history and neurological examination are most consistent with pre-existing generalized weakness and now increased left-sided weakness. An acute cerebrovascular event has been excluded. 10. She is exhibiting worsening encephalopathy most probably related to toxic metabolic insults to the brain. Recommendations RECOMMENDATIONS: 1. Continue present management. 2. Correction of toxic metabolic imbalances. 3. Treatment of renal failure. 4. Treatment of infectious process. 5. Observe closely. Abran Padron M.D., M.S.P.H. Neurologist & Clinical Neurophysiologist Abran Padron MD February 11, 2020 17:45
--- NOTE | 2020-02-11 18:16 | Surgery Progress Note ---
Surgery Progress Note Subjective Additional Comments was able to get 2 peripheral lines discussed with RN plan to remove TLC Objective Last 24 Hour Vital Signs Date Time Temp Pulse Resp B/P (MAP) Pulse Ox O2 Delivery O2 Flow Rate FiO2 02/11/20 16:00 97.9 80 20 115/73 (87) 94 02/11/20 16:00 85 02/11/20 12:00 98.0 92 20 113/93 (100) 98 02/11/20 12:00 84 02/11/20 09:00 Room Air 02/11/20 08:00 97.9 20 97/55 (69) 98 02/11/20 07:50 94 02/11/20 04:00 98.8 18 110/51 (70) 97 02/11/20 04:00 84 02/11/20 00:00 97.1 18 90/48 (62) 98 02/11/20 00:00 69 02/10/20 21:00 Room Air 02/10/20 20:00 80 02/10/20 20:00 95.5 18 104/48 (66) 97 I&O Intake and Output 02/10/20 02/11/20 19:00 07:00 Output Total 75 ml 0 ml Balance -75 ml 0 ml Output Urine Total 30 ml 0 ml Other 45 ml Dressing: saturated Cardiovascular: RSR Respiratory: decreased breath sounds Abdomen: soft, non-tender, present bowel sounds Extremities: edema, no cyanosis, other Laboratory Tests Test 02/11/20 07:30 02/11/20 10:35 White Blood Count 9.2 K/UL (4.8-10.8) Red Blood Count 3.04 M/UL (4.20-5.40) L Hemoglobin 9.2 G/DL (12.0-16.0) L Hematocrit 29.1 % (37.0-47.0) L Mean Corpuscular Volume 96 FL (80-99) Mean Corpuscular Hemoglobin 30.3 PG (27.0-31.0) Mean Corpuscular Hemoglobin Concent 31.7 G/DL (32.0-36.0) L Red Cell Distribution Width 22.4 % (11.6-14.8) H Platelet Count 225 K/UL (150-450) Mean Platelet Volume 6.8 FL (6.5-10.1) Neutrophils (%) (Auto) % (45.0-75.0) Lymphocytes (%) (Auto) % (20.0-45.0) Monocytes (%) (Auto) % (1.0-10.0) Eosinophils (%) (Auto) % (0.0-3.0) Basophils (%) (Auto) % (0.0-2.0) Differential Total Cells Counted 100 Neutrophils % (Manual) 90 % (45-75) H Lymphocytes % (Manual) 5 % (20-45) L Monocytes % (Manual) 5 % (1-10) Eosinophils % (Manual) 0 % (0-3) Basophils % (Manual) 0 % (0-2) Band Neutrophils 0 % (0-8) Nucleated Red Blood Cells 5 /100 WBC Platelet Estimate Adequate Platelet Morphology Normal Polychromasia 1+ Hypochromasia 2+ Poikilocytosis 2+ Anisocytosis 3+ Prothrombin Time 12.8 SEC (9.30-11.50) H Prothromb Time International Ratio 1.2 (0.9-1.1) H Activated Partial Thromboplast Time 85 SEC (23-33) H Sodium Level 144 MMOL/L (136-145) Potassium Level 4.0 MMOL/L (3.5-5.1) Chloride Level 108 MMOL/L (98-107) H Carbon Dioxide Level 16 MMOL/L (21-32) L Anion Gap 20 mmol/L (5-15) H Blood Urea Nitrogen 73 mg/dL (7-18) H Creatinine 5.2 MG/DL (0.55-1.30) H Estimat Glomerular Filtration Rate 9.5 mL/min (>60) Glucose Level 213 MG/DL (74-106) H Lactic Acid Level 4.20 mmol/L (0.4-2.0) H 4.40 mmol/L (0.66-2.22) H Calcium Level 8.4 MG/DL (8.5-10.1) L Total Bilirubin 5.4 MG/DL (0.2-1.0) H Direct Bilirubin 4.6 MG/DL (0.0-0.3) H Aspartate Amino Transf (AST/SGOT) 197 U/L (15-37) H Alanine Aminotransferase (ALT/SGPT) 111 U/L (12-78) H Alkaline Phosphatase 1428 U/L (46-116) H Total Protein 5.4 G/DL (6.4-8.2) L Albumin 1.9 G/DL (3.4-5.0) L Globulin 3.5 g/dL Albumin/Globulin Ratio 0.5 (1.0-2.7) L Plan Problems: (1) Sepsis Assessment & Plan: lactic acidosis tachycardic hypotension altered unlikely related to decubitus ulcer and wounds likely chronically infected but not acute labs improving on abx and fluids cont current care plan improving trend h/h - prbc prn diet as tolerated improving overall off abx stable onc input noted. hx colon cancer dx in [facility]. GI bleed from Ca? unfortunately not operative candidate GI eval pending h/h stable neuro input noted pancreatitis meds vs lipids vs gb? US noted Gallbladder is not visualized. Common bile duct measures 5 mm in diameter. No intrahepatic biliary ductal dilatation. Liver demonstrates coarsened echogenicity. No focal abnormality Portal vein and hepatic veins are patent. Pancreas is obscured by bowel gas. Spleen is unremarkable. Left kidney measures 10.5 cm in length. Right kidney measures 12.8 cm length. Both kidneys demonstrate normal echogenicity. There is moderate bilateral hydronephrosis. There is a cyst in the lower pole of the left kidney. Abdominal aorta is partially obscured by bowel gas, visualized portions are non-aneurysmal . There is a right pleural effusion Impression: Nonvisualized gallbladder, likely surgically absent. Negative for dilated bile ducts Bilateral hydronephrosis, also previously reported Right pleural effusion Note nonvisualization of the pancreas and portions of the abdominal aorta CT noted duplex noted will plan for removal of line. on gtt hep will watch for bleeding b/l nephrostomy planned will follow with recs PEG was cancelled for today because family do not want both nephrostomy tube and PEG in a same day plan PEG for Thursday hold line removal for now (2) Anorexia (3) Malnutrition Assessment & Plan: DAILY ESTIMATED NEEDS: Needs based on Wound 57.6kg 30-35 kcals/kg 4435-4682 total kcals 1.25-1.5 g protein/kg 72-86 g total protein 25-30ml/kcal mL/kg 7975-6145 total fluid mLs NUTRITION DIAGNOSIS: Increased kcal and pro needs r/t wound healing as evidenced by pt w/ unstageable sacral wound. (CURRENT DIET: CCHO MED soft easy chew) PO DIET RECOMMENDATIONS: With current poor po intake, rec liberalized REGULAR diet/ texture as harman ADDITIONAL RECOMMENDATIONS: 1) Add Glucerna TID w/ meals 2) Maintain calibrated bed scale wts 3) Wound care: MVI w/ min qdaily, Vit C 500mg daily + EFREN FRUIT PUNCH BID as tolerated 4) Check lytes + hydration status daily as able 5) Monitor lipase, need for low fat diet 6) PAPER SAMPLE CLERK eval for appropriate diet texture (4) Gastric cancer (5) Atrial fibrillation with RVR (6) DM (diabetes mellitus) (7) Low BP (8) Acute on chronic renal failure (9) Anemia (10) Decubital ulcer Assessment & Plan: Pt presented on admission with stage 3 nearing almost a stage 4 as bone almost palpable if not palpable pressure injury to sacrum(L)1cm x (W)1cm. Base of wound has 100% slough Marginal erythema along edges. Periwound indurated with darker skin tone. Pt verbalized tenderness when minimally palpated. Bilat heels are boggy but blanchable . Pt denied tenderness when each heel individually palpated.Hemosiderin with Xerosis skin distal aspects of both lower ext.Both feet are edematous. Tx.Plan: Cleanse Sacral wound with Saline. Apply Therahoney. Apply Moisture Barrier Paste periwound. Cover with Optifoam drsg. Change every 3 days and prn. Apply Cavilon Skin Barrier to both heels. Cover each heel with Optifoam drsg.Change every 7 days and prn. Reposition at least every 2hours or as tolerated. Off-load heels with pillow. Jose Ponce February 11, 2020 18:16
--- NOTE | 2020-02-11 18:19 | General Progress Note ---
Assessment/Plan Problem List: (1) Anorexia ICD Codes: R63.0 - Anorexia SNOMED: 64847052 (2) Malnutrition ICD Codes: E46 - Unspecified protein-calorie malnutrition SNOMED: 20818777 (3) Atrial fibrillation with RVR ICD Codes: I48.91 - Unspecified atrial fibrillation SNOMED: 766831359569142 (4) DM (diabetes mellitus) ICD Codes: E11.9 - Type 2 diabetes mellitus without complications SNOMED: 47218382 (5) Low BP ICD Codes: I95.9 - Hypotension, unspecified SNOMED: 44406212 (6) Acute on chronic renal failure ICD Codes: N17.9 - Acute kidney failure, unspecified; N18.9 - Chronic kidney disease, unspecified SNOMED: 666434831 (7) Anemia ICD Codes: D64.9 - Anemia, unspecified SNOMED: 261669846 (8) Decubital ulcer ICD Codes: L89.90 - Pressure ulcer of unspecified site, unspecified stage SNOMED: 333397567 (9) Hypokalemia ICD Codes: E87.6 - Hypokalemia SNOMED: 37471853 (10) Hypomagnesemia ICD Codes: E83.42 - Hypomagnesemia SNOMED: 703814922 (11) Obstructive uropathy ICD Codes: N13.9 - Obstructive and reflux uropathy, unspecified SNOMED: 9714047 (12) Gastric cancer ICD Codes: C16.9 - Malignant neoplasm of stomach, unspecified SNOMED: 868393182 (13) DVT (deep venous thrombosis) ICD Codes: I82.409 - Acute embolism and thrombosis of unspecified deep veins of unspecified lower extremity SNOMED: 117013362 Assessment/Plan: IV D5W Discussed with RN rate control Follow labs Radiology to follow on nephrostomies await GT Subjective Allergies: Coded Allergies: No Known Allergies (Unverified , 01/30/20) Subjective had low urine output over night Objective Last 24 Hour Vital Signs Date Time Temp Pulse Resp B/P (MAP) Pulse Ox O2 Delivery O2 Flow Rate FiO2 02/11/20 16:00 97.9 80 20 115/73 (87) 94 02/11/20 16:00 85 02/11/20 12:00 98.0 92 20 113/93 (100) 98 02/11/20 12:00 84 02/11/20 09:00 Room Air 02/11/20 08:00 97.9 20 97/55 (69) 98 02/11/20 07:50 94 02/11/20 04:00 98.8 18 110/51 (70) 97 02/11/20 04:00 84 02/11/20 00:00 97.1 18 90/48 (62) 98 02/11/20 00:00 69 02/10/20 21:00 Room Air 02/10/20 20:00 80 02/10/20 20:00 95.5 18 104/48 (66) 97 Intake and Output 02/10/20 02/11/20 19:00 07:00 Output Total 75 ml 0 ml Balance -75 ml 0 ml Output Urine Total 30 ml 0 ml Other 45 ml Laboratory Tests 02/11/20 07:30: White Blood Count 9.2, Red Blood Count 3.04L, Hemoglobin 9.2L, Hematocrit 29.1L , Mean Corpuscular Volume 96, Mean Corpuscular Hemoglobin 30.3, Mean Corpuscular Hemoglobin Concent 31.7L, Red Cell Distribution Width 22.4H, Platelet Count 225, Mean Platelet Volume 6.8, Neutrophils (%) (Auto) , Lymphocytes (%) (Auto) , Monocytes (%) (Auto) , Eosinophils (%) (Auto) , Basophils (%) (Auto) , Differential Total Cells Counted 100, Neutrophils % ( Manual) 90H, Lymphocytes % (Manual) 5L, Monocytes % (Manual) 5, Eosinophils % ( Manual) 0, Basophils % (Manual) 0, Band Neutrophils 0, Nucleated Red Blood Cells 5, Platelet Estimate Adequate, Platelet Morphology Normal, Polychromasia 1 +, Hypochromasia 2+, Poikilocytosis 2+, Anisocytosis 3+, Prothrombin Time 12.8H , Prothromb Time International Ratio 1.2H, Activated Partial Thromboplast Time 85H, Sodium Level 144, Potassium Level 4.0, Chloride Level 108H, Carbon Dioxide Level 16L, Anion Gap 20H, Blood Urea Nitrogen 73H, Creatinine 5.2H, Estimat Glomerular Filtration Rate 9.5, Glucose Level 213H, Lactic Acid Level 4.20H, Calcium Level 8.4L, Total Bilirubin 5.4H, Direct Bilirubin 4.6H, Aspartate Amino Transf (AST/SGOT) 197H, Alanine Aminotransferase (ALT/SGPT) 111H, Alkaline Phosphatase 1428H, Total Protein 5.4L, Albumin 1.9L, Globulin 3.5, Albumin/Globulin Ratio 0.5L 02/11/20 10:35: Lactic Acid Level 4.40H Height (Feet): 5 Height (Inches): 6.00 Weight (Pounds): 151 Leno Wilson MD February 11, 2020 18:19
[2020-02-11] MEDS: Heparin 25,000u/D5W 500ml 500 ML IV SCH (18:20)
--- NOTE | 2020-02-11 19:14 | Cardiology Progress Note ---
Assessment/Plan Assessment/Plan 1. Poor p.o. intake. 2. Dehydration. 3. Acute renal failure likely secondary to above. 4. Anemia with history of the same status post prior transfusions. 5. Gastric adenocarcinoma, status post palliative radiation therapy and some chemotherapy. 6. History of H. pylori. 7. Atrial fibrillation with rapid ventricular response. 8. Hypotension. 9. History of hypertension. 10. Diabetes mellitus. 11. Elevated lipase, possible pancreatitis 12. dvt 13. bilateral pleural effusion 14. hydronephrosis was on heparin now off pending procedure blood cx neg covd 19 neg cardiac enzyme neg echo at [facility] 10/2019 had shown sig hyperdynamic systolic function labs noted no mri evidence for cva s/pt bilat nephrostomy pending peg renal function stabel min urin output form nephrostomy tube bp seem better hr seem okrn will order cxr bnp meaningless in light fo renal insuf Subjective ROS Limited/Unobtainable: Yes Subjective not communicative notoeating much Objective Last 24 Hour Vital Signs Date Time Temp Pulse Resp B/P (MAP) Pulse Ox O2 Delivery O2 Flow Rate FiO2 02/11/20 16:00 97.9 80 20 115/73 (87) 94 02/11/20 16:00 85 02/11/20 12:00 98.0 92 20 113/93 (100) 98 02/11/20 12:00 84 02/11/20 09:00 Room Air 02/11/20 08:00 97.9 20 97/55 (69) 98 02/11/20 07:50 94 02/11/20 04:00 98.8 18 110/51 (70) 97 02/11/20 04:00 84 02/11/20 00:00 97.1 18 90/48 (62) 98 02/11/20 00:00 69 02/10/20 21:00 Room Air 02/10/20 20:00 80 02/10/20 20:00 95.5 18 104/48 (66) 97 General Appearance: no apparent distress Intake and Output 02/10/20 02/11/20 19:00 07:00 Output Total 75 ml 0 ml Balance -75 ml 0 ml Output Urine Total 30 ml 0 ml Other 45 ml Laboratory Tests Test 02/11/20 07:30 02/11/20 10:35 White Blood Count 9.2 K/UL (4.8-10.8) Red Blood Count 3.04 M/UL (4.20-5.40) L Hemoglobin 9.2 G/DL (12.0-16.0) L Hematocrit 29.1 % (37.0-47.0) L Mean Corpuscular Volume 96 FL (80-99) Mean Corpuscular Hemoglobin 30.3 PG (27.0-31.0) Mean Corpuscular Hemoglobin Concent 31.7 G/DL (32.0-36.0) L Red Cell Distribution Width 22.4 % (11.6-14.8) H Platelet Count 225 K/UL (150-450) Mean Platelet Volume 6.8 FL (6.5-10.1) Neutrophils (%) (Auto) % (45.0-75.0) Lymphocytes (%) (Auto) % (20.0-45.0) Monocytes (%) (Auto) % (1.0-10.0) Eosinophils (%) (Auto) % (0.0-3.0) Basophils (%) (Auto) % (0.0-2.0) Differential Total Cells Counted 100 Neutrophils % (Manual) 90 % (45-75) H Lymphocytes % (Manual) 5 % (20-45) L Monocytes % (Manual) 5 % (1-10) Eosinophils % (Manual) 0 % (0-3) Basophils % (Manual) 0 % (0-2) Band Neutrophils 0 % (0-8) Nucleated Red Blood Cells 5 /100 WBC Platelet Estimate Adequate Platelet Morphology Normal Polychromasia 1+ Hypochromasia 2+ Poikilocytosis 2+ Anisocytosis 3+ Prothrombin Time 12.8 SEC (9.30-11.50) H Prothromb Time International Ratio 1.2 (0.9-1.1) H Activated Partial Thromboplast Time 85 SEC (23-33) H Sodium Level 144 MMOL/L (136-145) Potassium Level 4.0 MMOL/L (3.5-5.1) Chloride Level 108 MMOL/L (98-107) H Carbon Dioxide Level 16 MMOL/L (21-32) L Anion Gap 20 mmol/L (5-15) H Blood Urea Nitrogen 73 mg/dL (7-18) H Creatinine 5.2 MG/DL (0.55-1.30) H Estimat Glomerular Filtration Rate 9.5 mL/min (>60) Glucose Level 213 MG/DL (74-106) H Lactic Acid Level 4.20 mmol/L (0.4-2.0) H 4.40 mmol/L (0.66-2.22) H Calcium Level 8.4 MG/DL (8.5-10.1) L Total Bilirubin 5.4 MG/DL (0.2-1.0) H Direct Bilirubin 4.6 MG/DL (0.0-0.3) H Aspartate Amino Transf (AST/SGOT) 197 U/L (15-37) H Alanine Aminotransferase (ALT/SGPT) 111 U/L (12-78) H Alkaline Phosphatase 1428 U/L (46-116) H Total Protein 5.4 G/DL (6.4-8.2) L Albumin 1.9 G/DL (3.4-5.0) L Globulin 3.5 g/dL Albumin/Globulin Ratio 0.5 (1.0-2.7) L Brian Sweeney MD February 11, 2020 19:14
--- NOTE | 2020-02-11 19:30 | NUR ---
NURSE NOTES: Received pt and report from RIVER Celaya. Observed pt resting in bed with both eyes closed; arousable to voice. Pt is A/Ox1. equipment monitor phototypesetting is in placed; pt is A. Fib. Pt has a triple lumen catheter; saline locked and currently leaking. Dr. Ponce is aware and will remove it. Pt has IV site on Lt FA; intact, asymptomatic and patent; running Heparin drip @ 9 units/kg/hr; rate= 12.24 ml/hr. IV site on MARITZA; intact, asymptomatic and patent; running D5W @ 75ml/hr. Pt has bilateral nephrostomy; patent and drainage is pinkish red in color. Pt is on a P200, low air loss mattress. Bed is in the lowest position and locked. Call light and bedside table is within reach. No signs/symptoms of acute distress noted at this time. Will continue plan of care.
[2020-02-11 20:00] VITALS: BP 141/92
[2020-02-11] MEDS: Dyna-Hex 2% Top Sol 2oz TOPIC SCH (20:10)
[2020-02-12] VITALS (36 sets, daily range): BP systolic 58–131; BP diastolic 20–76
--- NOTE | 2020-02-12 01:30 | NUR ---
NURSE NOTES: Daughter Chrissy Kramer at bedside. Followed up with her regarding her conversation with Dr. Carlos Wilson and she decided to make patient DNR. Does not know if she wants comfort care at this time. Dr. Wilson notified. Addendum: 02/12/20 at 1638 by BEV GUAN RN DISREGARD INCORRECT TIME STAMP
--- NOTE | 2020-02-12 06:00 | NUR ---
NURSE NOTES: Contacted lab three times at 0400, 0500, and 0545 to draw PTT. Per Colleen in laboratory, funeral planner will come to unit around 0430. From [id number], no funeral planner was present. Lab was finally drawn around 0550 by funeral planner. Awaiting for PTT results.
--- NOTE | 2020-02-12 06:03 | NUR ---
NURSE NOTES: Notified Dr. Sweeney regarding 7 beats of Vtach around 0300. Pt asymptomatic. No orders at this time. Will monitor pt closely.
[2020-02-12] MEDS: NovoLOG Insulin Flexpen SUBQ SCH ×4 (06:21→21:53)
[2020-02-12 06:24] LABS: HEMATOCRIT 26.4 % (37.0-47.0); HEMOGLOBIN 8.5 G/DL (12.0-16.0); MEAN CORPUSCULAR VOLUME 93 FL (80-99); PLATELET COUNT 224 K/UL (150-450); RED BLOOD COUNT 2.85 M/UL (4.20-5.40); RED CELL DISTRIBUTION WIDTH 21.4 % (11.6-14.8); WHITE BLOOD COUNT 9.7 K/UL (4.8-10.8)
[2020-02-12 06:50] LABS: ANION GAP 18 mmol/L (5-15); BLOOD UREA NITROGEN 79 mg/dL (7-18); CALCIUM 8.6 MG/DL (8.5-10.1); CARBON DIOXIDE 18 MMOL/L (21-32); CHLORIDE 102 MMOL/L (98-107); CREATININE 5.4 MG/DL (0.55-1.30); SODIUM 138 MMOL/L (136-145)
--- NOTE | 2020-02-12 07:48 | NUR ---
HAND-OFF: Report given to R[facility] Cel[facility]. Endorsed to RIVER Celaya that pt's Rt Nephrostomy tube may be leaking and pt's PTT result came back this morning at 121. Plan of care endorsed.
[2020-02-12] MEDS ORDERED: Heparin 25,000u/D5W 500ml 500 ML IV SCH ×2 (08:00→15:00)
[2020-02-12] MEDS: Pantoprazole Inj IVP SCH (08:12)
[2020-02-12] MEDS: Sodium Citrate 30ml ORAL SCH (08:23)
[2020-02-12] MEDS: Ascorbic Acid 500mg tab ORAL SCH (08:24)
--- NOTE | 2020-02-12 10:02 | GI Progress Note ---
Assessment/Plan Problems: (1) Anemia ICD Codes: D64.9 - Anemia, unspecified SNOMED: 251854105 (2) Gastric cancer ICD Codes: C16.9 - Malignant neoplasm of stomach, unspecified SNOMED: 694455576 (3) Malnutrition ICD Codes: E46 - Unspecified protein-calorie malnutrition SNOMED: 60332716 (4) DM (diabetes mellitus) ICD Codes: E11.9 - Type 2 diabetes mellitus without complications SNOMED: 74596426 (5) Hypokalemia ICD Codes: E87.6 - Hypokalemia SNOMED: 97866832 Status: unchanged Status Narrative Discussed with Dr. Brooks. Assessment/Plan plan PEG for Thursday, patient consented. hold heparin drip at [place] tonight. NPO + IVF ppi prn transfusions The patient was seen and examined at bedside and all new and available data was reviewed in the patients chart. I agree with the above findings, impression and plan. (Patient seen earlier today. Signature stamp does not reflect patient encounter time.). - Erick Brooks MD Subjective Subjective limited Objective Last 24 Hour Vital Signs Date Time Temp Pulse Resp B/P (MAP) Pulse Ox O2 Delivery O2 Flow Rate FiO2 02/12/20 04:00 85 02/12/20 04:00 96.8 75 19 97/69 (78) 95 02/12/20 00:00 69 02/12/20 00:00 97.7 69 17 131/76 (94) 100 02/11/20 21:00 Room Air 02/11/20 21:00 81 141/92 02/11/20 20:00 97.5 79 17 141/92 (108) 97 02/11/20 20:00 83 02/11/20 16:00 97.9 80 20 115/73 (87) 94 02/11/20 16:00 85 02/11/20 12:00 98.0 92 20 113/93 (100) 98 02/11/20 12:00 84 Intake and Output 02/11/20 02/12/20 19:00 07:00 Intake Total 12.24 ml 122.40 ml Output Total 180 ml 70 ml Balance -167.76 ml 52.40 ml IV Total 12.24 ml 122.40 ml Output Urine Total 30 ml 10 ml Other 150 ml 60 ml Laboratory Tests Test 02/11/20 10:35 02/12/20 05:05 Lactic Acid Level 4.40 mmol/L (0.66-2.22) H White Blood Count 9.7 K/UL (4.8-10.8) Red Blood Count 2.85 M/UL (4.20-5.40) L Hemoglobin 8.5 G/DL (12.0-16.0) L Hematocrit 26.4 % (37.0-47.0) L Mean Corpuscular Volume 93 FL (80-99) Mean Corpuscular Hemoglobin 30.0 PG (27.0-31.0) Mean Corpuscular Hemoglobin Concent 32.3 G/DL (32.0-36.0) Red Cell Distribution Width 21.4 % (11.6-14.8) H Platelet Count 224 K/UL (150-450) Mean Platelet Volume 7.3 FL (6.5-10.1) Neutrophils (%) (Auto) % (45.0-75.0) Lymphocytes (%) (Auto) % (20.0-45.0) Monocytes (%) (Auto) % (1.0-10.0) Eosinophils (%) (Auto) % (0.0-3.0) Basophils (%) (Auto) % (0.0-2.0) Neutrophils % (Manual) Pending Lymphocytes % (Manual) Pending Platelet Estimate Pending Platelet Morphology Pending Activated Partial Thromboplast Time 121 SEC (23-33) H Sodium Level 138 MMOL/L (136-145) Potassium Level 4.0 MMOL/L (3.5-5.1) Chloride Level 102 MMOL/L (98-107) Carbon Dioxide Level 18 MMOL/L (21-32) L Anion Gap 18 mmol/L (5-15) H Blood Urea Nitrogen 79 mg/dL (7-18) H Creatinine 5.4 MG/DL (0.55-1.30) H Estimat Glomerular Filtration Rate 9.0 mL/min (>60) Glucose Level 176 MG/DL (74-106) H Calcium Level 8.6 MG/DL (8.5-10.1) Height (Feet): 5 Height (Inches): 6.00 Weight (Pounds): 151 General Appearance: no apparent distress, alert Cardiovascular: normal rate Respiratory/Chest: normal breath sounds Abdominal Exam: soft Cabrera,Harika-Erick BUNDLER [place] February 12, 2020 10:02
--- NOTE | 2020-02-12 11:30 | NUR ---
SAND DRIER Note: SAND DRIER was called at 1050 by Maricel Godfrey RN, and notified MD Leno Wilson. See SAND DRIER documentation form for full report.
--- NOTE | 2020-02-12 12:17 | Diagnostic Imaging Report ---
EXAM: XR Chest, 1 View CLINICAL HISTORY: VOMITING TECHNIQUE: Frontal view of the chest. COMPARISON: Chest x-ray 01/30/20 FINDINGS: Lungs: The lungs are otherwise clear. Pleural space: Hazy density in the right lower lung suggesting a layering right pleural effusion. Heart: Unremarkable. No cardiomegaly. Mediastinum: Unremarkable. Bones/joints: Degenerative changes throughout the visualized spine and shoulder joints. Vasculature: Atherosclerotic calcifications within the aortic arch. Tubes, lines and devices: Telemetry leads overlie the thorax. IMPRESSION: Hazy density in the right lower lung suggesting a layering right pleural effusion. Possible superimposed atelectasis or infiltrate in the right lung base.
--- NOTE | 2020-02-12 12:42 | General Progress Note ---
Assessment/Plan Problem List: (1) Anorexia ICD Codes: R63.0 - Anorexia SNOMED: 11785904 (2) Malnutrition ICD Codes: E46 - Unspecified protein-calorie malnutrition SNOMED: 09094559 (3) Atrial fibrillation with RVR ICD Codes: I48.91 - Unspecified atrial fibrillation SNOMED: 421271178499564 (4) DM (diabetes mellitus) ICD Codes: E11.9 - Type 2 diabetes mellitus without complications SNOMED: 33720757 (5) Low BP ICD Codes: I95.9 - Hypotension, unspecified SNOMED: 28021787 (6) Acute on chronic renal failure ICD Codes: N17.9 - Acute kidney failure, unspecified; N18.9 - Chronic kidney disease, unspecified SNOMED: 819495853 (7) Anemia ICD Codes: D64.9 - Anemia, unspecified SNOMED: 510809098 (8) Decubital ulcer ICD Codes: L89.90 - Pressure ulcer of unspecified site, unspecified stage SNOMED: 933452435 (9) Hypokalemia ICD Codes: E87.6 - Hypokalemia SNOMED: 37099782 (10) Hypomagnesemia ICD Codes: E83.42 - Hypomagnesemia SNOMED: 076837921 (11) Obstructive uropathy ICD Codes: N13.9 - Obstructive and reflux uropathy, unspecified SNOMED: 7628042 (12) Gastric cancer ICD Codes: C16.9 - Malignant neoplasm of stomach, unspecified SNOMED: 423015033 (13) DVT (deep venous thrombosis) ICD Codes: I82.409 - Acute embolism and thrombosis of unspecified deep veins of unspecified lower extremity SNOMED: 626697976 (14) Aspiration into airway ICD Codes: T17.908A - Unspecified foreign body in respiratory tract, part unspecified causing other injury, initial encounter SNOMED: 003640376 Status: unchanged Assessment/Plan: IVF NPO transfer to ICU will need dialysis if BP stable will discuss level of care with daughterChrissy Scot [phone] Discussed with RN Follow labs Radiology to follow on nephrostomies pulm consult Subjective Allergies: Coded Allergies: No Known Allergies (Unverified , 01/30/20) Subjective nephrostomies not working pt became hypotensive Aspirated now wheezing Objective Last 24 Hour Vital Signs Date Time Temp Pulse Resp B/P (MAP) Pulse Ox O2 Delivery O2 Flow Rate FiO2 02/12/20 11:49 54 34 82 02/12/20 09:00 Room Air 02/12/20 08:00 96.3 91 18 93/53 (66) 93 02/12/20 08:00 84 02/12/20 04:00 85 02/12/20 04:00 96.8 75 19 97/69 (78) 95 02/12/20 00:00 69 02/12/20 00:00 97.7 69 17 131/76 (94) 100 02/11/20 21:00 Room Air 02/11/20 21:00 81 141/92 02/11/20 20:00 97.5 79 17 141/92 (108) 97 02/11/20 20:00 83 02/11/20 16:00 97.9 80 20 115/73 (87) 94 02/11/20 16:00 85 Intake and Output 02/11/20 02/12/20 19:00 07:00 Intake Total 12.24 ml 122.40 ml Output Total 180 ml 70 ml Balance -167.76 ml 52.40 ml IV Total 12.24 ml 122.40 ml Output Urine Total 30 ml 10 ml Other 150 ml 60 ml Laboratory Tests 02/12/20 05:05: White Blood Count 9.7, Red Blood Count 2.85L, Hemoglobin 8.5L, Hematocrit 26.4L , Mean Corpuscular Volume 93, Mean Corpuscular Hemoglobin 30.0, Mean Corpuscular Hemoglobin Concent 32.3, Red Cell Distribution Width 21.4H, Platelet Count 224, Mean Platelet Volume 7.3, Neutrophils (%) (Auto) , Lymphocytes (%) (Auto) , Monocytes (%) (Auto) , Eosinophils (%) (Auto) , Basophils (%) (Auto) , Differential Total Cells Counted 100, Neutrophils % ( Manual) 88H, Lymphocytes % (Manual) 7L, Monocytes % (Manual) 5, Eosinophils % ( Manual) 0, Basophils % (Manual) 0, Band Neutrophils 0, Nucleated Red Blood Cells 18, Platelet Estimate Adequate, Platelet Morphology Normal, Polychromasia 1+, Hypochromasia 1+, Anisocytosis 3+, Activated Partial Thromboplast Time 121H , Sodium Level 138, Potassium Level 4.0, Chloride Level 102, Carbon Dioxide Level 18L, Anion Gap 18H, Blood Urea Nitrogen 79H, Creatinine 5.4H, Estimat Glomerular Filtration Rate 9.0, Glucose Level 176H, Calcium Level 8.6 02/12/20 10:48: Arterial Blood pH 7.381, Arterial Blood Partial Pressure CO2 23.9*L, Arterial Blood Partial Pressure O2 81.9, Arterial Blood HCO3 13.9*L, Arterial Blood Oxygen Saturation 94.9L, Arterial Blood Base Excess -10.0*L, Otoniel Test Positive Height (Feet): 5 Height (Inches): 6.00 Weight (Pounds): 151 Cardiovascular: tachycardia Respiratory/Chest: rhonchi - bilaterally Edema: 1+ Generalized Leno Wilson MD February 12, 2020 12:42
--- NOTE | 2020-02-12 12:56 | Infectious Diseases Prog Note ---
Assessment/Plan Assessment/Plan IMPRESSION: Acute renal failure. Negative COVID-19 test Pyuria, Sacral pressure ulcer, Severe anemia, Gastric cancer on palliative treatment, Diabetes mellitus. MRSA carrier Atrial fibrillation History of colon cancer DVT Abdominal mass Hydronephrosis RECOMMENDATION: Start on Rocephin Poor prognosis Case was D/W primary MD Subjective ROS Limited/Unobtainable: Yes Cardiovascular: Reports: other - become hypotensive & Hypothermic Allergies: Coded Allergies: No Known Allergies (Unverified , 01/30/20) Objective Vital Signs Last 24 Hour Vital Signs Date Time Temp Pulse Resp B/P (MAP) Pulse Ox O2 Delivery O2 Flow Rate FiO2 02/12/20 11:49 54 34 82 02/12/20 09:00 Room Air 02/12/20 08:00 96.3 91 18 93/53 (66) 93 02/12/20 08:00 84 02/12/20 04:00 85 02/12/20 04:00 96.8 75 19 97/69 (78) 95 02/12/20 00:00 69 02/12/20 00:00 97.7 69 17 131/76 (94) 100 02/11/20 21:00 Room Air 02/11/20 21:00 81 141/92 02/11/20 20:00 97.5 79 17 141/92 (108) 97 02/11/20 20:00 83 02/11/20 16:00 97.9 80 20 115/73 (87) 94 02/11/20 16:00 85 Height (Feet): 5 Height (Inches): 6.00 Weight (Pounds): 151 HEENT: mucous membranes moist Respiratory/Chest: lungs clear Cardiovascular: bradycardia Genitourinary: other - bilateral nephrostomies Extremities: other - legs edema Neurologic/Psychiatric: alert Laboratory Tests Test 02/12/20 05:05 02/12/20 10:48 White Blood Count 9.7 K/UL (4.8-10.8) Red Blood Count 2.85 M/UL (4.20-5.40) L Hemoglobin 8.5 G/DL (12.0-16.0) L Hematocrit 26.4 % (37.0-47.0) L Mean Corpuscular Volume 93 FL (80-99) Mean Corpuscular Hemoglobin 30.0 PG (27.0-31.0) Mean Corpuscular Hemoglobin Concent 32.3 G/DL (32.0-36.0) Red Cell Distribution Width 21.4 % (11.6-14.8) H Platelet Count 224 K/UL (150-450) Mean Platelet Volume 7.3 FL (6.5-10.1) Neutrophils (%) (Auto) % (45.0-75.0) Lymphocytes (%) (Auto) % (20.0-45.0) Monocytes (%) (Auto) % (1.0-10.0) Eosinophils (%) (Auto) % (0.0-3.0) Basophils (%) (Auto) % (0.0-2.0) Differential Total Cells Counted 100 Neutrophils % (Manual) 88 % (45-75) H Lymphocytes % (Manual) 7 % (20-45) L Monocytes % (Manual) 5 % (1-10) Eosinophils % (Manual) 0 % (0-3) Basophils % (Manual) 0 % (0-2) Band Neutrophils 0 % (0-8) Nucleated Red Blood Cells 18 /100 WBC Platelet Estimate Adequate Platelet Morphology Normal Polychromasia 1+ Hypochromasia 1+ Anisocytosis 3+ Activated Partial Thromboplast Time 121 SEC (23-33) H Sodium Level 138 MMOL/L (136-145) Potassium Level 4.0 MMOL/L (3.5-5.1) Chloride Level 102 MMOL/L (98-107) Carbon Dioxide Level 18 MMOL/L (21-32) L Anion Gap 18 mmol/L (5-15) H Blood Urea Nitrogen 79 mg/dL (7-18) H Creatinine 5.4 MG/DL (0.55-1.30) H Estimat Glomerular Filtration Rate 9.0 mL/min (>60) Glucose Level 176 MG/DL (74-106) H Calcium Level 8.6 MG/DL (8.5-10.1) Arterial Blood pH 7.381 (7.350-7.450) Arterial Blood Partial Pressure CO2 23.9 mmHg (35.0-45.0) *L Arterial Blood Partial Pressure O2 81.9 mmHg (75.0-100.0) Arterial Blood HCO3 13.9 mmol/L (22.0-26.0) *L Arterial Blood Oxygen Saturation 94.9 % (95-100) L Arterial Blood Base Excess -10.0 (-2-2) *L Otoniel Test Positive Current Medications Medications (Trade) Dose Ordered Sig/Wally Route PRN Reason Start Time Stop Time Status Last Admin Dose Admin Acetaminophen (Tylenol) 650 mg Q4H PRN ORAL Mild Pain (Pain Scale 1-3) 02/07/20 15:03 03/08/20 15:02 Allopurinol (allopurinoL) 300 mg DAILY ORAL 02/08/20 09:00 03/06/20 08:59 02/09/20 08:11 Ascorbic Acid (Vitamin C) 500 mg DAILY ORAL 02/08/20 09:00 03/03/20 08:59 02/09/20 08:11 Cefoxitin Sodium 1 gm/Dextrose 55 ml @ 110 mls/hr ONCE IV 02/13/20 08:00 02/13/20 11:00 Chlorhexidine Gluconate (Samla-Hex 2%) 1 applic DAILY@2000 TOPIC 02/07/20 20:00 04/30/20 19:59 02/11/20 20:10 Dextrose 1,000 ml @ 75 mls/hr [id number] IV 02/11/20 19:15 03/12/20 19:14 02/12/20 08:15 Dextrose (Dextrose 50%) 25 ml Q30M PRN IV Hypoglycemia 02/07/20 15:30 04/29/20 23:29 Dextrose (Dextrose 50%) 50 ml Q30M PRN IV Hypoglycemia 02/07/20 15:30 04/29/20 23:29 Folic Acid (Folate) 2 mg DAILY ORAL 02/08/20 09:00 03/04/20 13:14 02/09/20 08:11 Heparin Sodium/ Dextrose 500 ml @ 8.219 mls/ hr ADJUST PER PROTOCOL IV 02/12/20 08:00 03/13/20 07:59 02/12/20 08:22 Insulin Aspart (NovoLOG) BEFORE MEALS AND HS SUBQ 02/07/20 16:30 04/30/20 06:29 02/12/20 06:21 Metoclopramide HCl (Reglan) 5 mg EVERY 8 HOURS ORAL 02/07/20 22:00 03/01/20 08:59 02/08/20 22:13 Metoprolol Tartrate (Lopressor) 25 mg EVERY 12 HOURS ORAL 02/07/20 21:00 04/30/20 08:59 02/08/20 22:13 Multivitamins (Multivitamins) 1 tab DAILY ORAL 02/08/20 09:00 03/03/20 08:59 02/09/20 08:11 Ondansetron HCl (Zofran) 4 mg Q6H PRN IVP Nausea & Vomiting 02/07/20 15:04 03/08/20 15:03 Pantoprazole (Protonix) 40 mg EVERY 12 HOURS IVP 02/07/20 21:00 03/05/20 20:59 02/12/20 08:12 Sodium Citrate (Bicitra) 30 ml TID ORAL 02/07/20 18:00 03/04/20 17:59 02/09/20 08:11 Jassi Wilson MD February 12, 2020 12:56
--- NOTE | 2020-02-12 13:30 | NUR ---
NURSE NOTES: Daughter Chrissy Kramer at bedside. Followed up with her regarding her conversation with Dr. Carlos Wilson and she decided to make patient DNR. Does not know if she wants comfort care at this time. Dr. Wilson notified.
--- NOTE | 2020-02-12 14:40 | NUR ---
CODE BLUE: See Code sheet which remains on paper. Patient's blood pressure slowly dropped to 49/14 HR 72 at 1416. Nursing Passenger Attendant Misook present at this time. Spoke with daughter regarding code status since daughter still wanting patient on treatment even though she is now DNR. After discussion, code called at 1420. 1421 Ambu bag 1422 BS 86 BP 43/33 HR 92 1424 spO2 85% 1427 102/62 1429 Etomidate 20mg IVP given 1431 Rocuronium 100mg IVP given BP 55/28 HR 105 spO2 88% 1435 Code Terminated, spO2 100% 1438 BP 69/39 HR 86 spO2 100% 1939 Pt taken to ICU 0129-2627 Failed Intubation 1246-2117 Intubation
--- NOTE | 2020-02-12 14:48 | NUR ---
NURSE NOTES: Patient is transferred from and went to asystole, called code blue. See code blue sheet.
[2020-02-12] MEDS ORDERED: cefTRIAXone 2 GM in D5W 55 ML IVPB SCH ×2 (15:00→16:00)
--- NOTE | 2020-02-12 15:00 | NUR ---
NURSE NOTES: Started levophed 100mcg/min.
--- NOTE | 2020-02-12 15:12 | Consultation ---
Consult Note Consult Note NEUROLOGY FOLLOW-UP PROGRESS NOTE This morning the patient was noted to be poorly responsive and hypotensive. It was felt that she had aspirated and was septic. She was transferred to the intensive care unit. At this point in time she is undergoing a CODE BLUE. I will defer a neurological evaluation at this time. Abran Padron MD, [facility]. Neurologist & Clinical Neurophysiologist. Abran Padron MD February 12, 2020 15:12
--- NOTE | 2020-02-12 15:25 | Consultation ---
Consult Note Consult Note Advanced care Planning Assessment/Plan I had a discussion with daughter, Chrissy Bliss, regarding patient's code Status. A total time of 40 min spent to go over her current condition and prognosis, in addition to talking about the process of CPR, cardiac compression and possible outcomes, that may include not getting off the vent or brain damage from anoxic encephalopathy. Chrissy told me that her mother has said before that she wants everything to be done to keep her alive. Patient will be full code. total time spent 40 min Leno Wilson MD February 12, 2020 15:25
--- NOTE | 2020-02-12 15:27 | NUR ---
HAND-OFF: Report given to Steve RN PERINATAL. Patient unstable. Not responsive at this time. Orders received from Dr. Carlos Wilson and Dr. Sweeney for levophed. Holding heparin for now. Belongings given to daughter.
--- NOTE | 2020-02-12 15:28 | NUR ---
NURSE NOTES: Received report from Maricel.
--- NOTE | 2020-02-12 15:30 | NUR ---
NURSE NOTES: Patient is not responding to levophed. Increased levophed to 30mcg/min.
--- NOTE | 2020-02-12 15:40 | NUR ---
NURSE NOTES: Seen by Dr. Sweeney and assessed patient with new order.
[2020-02-12] MEDS ORDERED: Hydrocortisone 100mg Inj IV SCH (15:45)
--- NOTE | 2020-02-12 15:48 | Emergency Room Report ---
History of Present Illness General Chief Complaint: Generalized Weakness Source: Patient, Medical Record Present Illness Allergies: Coded Allergies: No Known Allergies (Unverified , 01/30/20) COVID-19 Screening Contact w/high risk pt: No Recent Travel to affected area: No Experienced COVID-19 symptoms?: No Patient History Last Menstrual Period: na Now: No Nursing Documentation-PMH Past Medical History: No History, Except For Hx Cardiac Problems: Yes Hx Hypertension: Yes Hx Diabetes: Yes Hx Cancer: Yes Hx Gastrointestinal Problems: Yes - STOMACH CA Hx Neurological Problems: No Physical Exam Vital Signs Date Time Temp Pulse Resp B/P (MAP) Pulse Ox O2 Delivery O2 Flow Rate FiO2 02/08/20 08:00 96.8 87 20 102/63 (76) 96 02/08/20 09:00 Room Air 02/10/20 13:11 2.0 02/12/20 15:08 100 Procedures Intubation Intubation : Consent: Emergent Intubation Method: orotracheal Tube Size (cm): 7.5 Medications: Etomidate, Rocuronium Breath Sounds after Intubation: equal Intubation Complications: no complications Post Intubation Xray: Yes Progress/Xray Impression: Tip of endotracheal tube projecting over the left mainstem bronchus Attempts: One Patient Tolerated: Well Complications: None Medical Decision Making Diagnostic Impression: Primary Impression: Sepsis Additional Impression: Atrial fibrillation with RVR ER Course Called to patient bedside for SCOTT BLUE. Patient found with palpable pulse, hypotensive, agonal respirations. She was intubated using glide scope on first attempt without complication. Positive misting in tube, positive color change, improved oxygenation. Chest x-ray showed the tip of the endotracheal tube was projecting over the left mainstem bronchus and tube was retracted. She was transferred to the ICU for further care. Shortly after transfer to ICU another CODE BLUE was called. Patient reportedly had a brief episode of asystole. She received 1 round of compressions with 1 round of epinephrine and 1 bicarb delivered prior to my arrival. She had a palpable pulse, adequate blood pressures and oxygenating in the 90s. EKG showed a supraventricular tachycardia. Remainder of care per ICU team. Recall as needed. Other X-Ray Diagnostic Results Other X-Ray Diagnostic Results : Indication: Other EP Interpretation: Yes Interpretation: other - Endotracheal tube projecting the left mainstem bronchus. Impression: Other - Endotracheal intubation tip slightly over left mainstem bronchus Electronically Signed by: Electronically signed by Dr. Durga Escobedo Last Vital Signs Date Time Temp Pulse Resp B/P (MAP) Pulse Ox O2 Delivery O2 Flow Rate FiO2 02/12/20 15:26 117 14 86/32 (50) 100 02/12/20 15:12 Mechanical Ventilator 100 02/12/20 08:00 96.3 02/10/20 14:28 2.0 Disposition: ADMITTED INPATIENT Condition: Critical Referrals: [facility],REFERR[facility] (PCP) Durga Escobedo MD February 12, 2020 15:48
[2020-02-12] MEDS ORDERED: Tubing IV Secondary IV ONE (15:59)
[2020-02-12] MEDS ORDERED: D5NS 1000ml IV ONE (15:59)
[2020-02-12] MEDS ORDERED: NS 275ml ONE (15:59)
--- NOTE | 2020-02-12 15:59 | Cardiology Progress Note ---
Assessment/Plan Assessment/Plan 1. Poor p.o. intake. 2. Dehydration. 3. Acute renal failure likely secondary to above. 4. Anemia with history of the same status post prior transfusions. 5. Gastric adenocarcinoma, status post palliative radiation therapy and some chemotherapy. 6. History of H. pylori. 7. Atrial fibrillation with rapid ventricular response. 8. Hypotension. 9. History of hypertension. 10. Diabetes mellitus. 11. Elevated lipase, possible pancreatitis 12. dvt 13. bilateral pleural effusion 14. hydronephrosis pt [facility] critical care cardiolgoy note dicatated [id number] prognosis is poor Subjective Subjective not communicative notoeating much Objective Last 24 Hour Vital Signs Date Time Temp Pulse Resp B/P (MAP) Pulse Ox O2 Delivery O2 Flow Rate FiO2 02/12/20 15:26 117 14 86/32 (50) 100 02/12/20 15:22 116 0 80/31 (47) 02/12/20 15:15 111 0 02/12/20 15:12 113 14 100 Mechanical Ventilator 100 02/12/20 15:08 111 14 100 02/12/20 15:07 116 5 61/21 (34) 02/12/20 15:00 120 17 118/27 (57) 02/12/20 11:49 54 34 82 02/12/20 09:00 Room Air 02/12/20 08:00 96.3 91 18 93/53 (66) 93 02/12/20 08:00 84 02/12/20 04:00 85 02/12/20 04:00 96.8 75 19 97/69 (78) 95 02/12/20 00:00 69 02/12/20 00:00 97.7 69 17 131/76 (94) 100 02/11/20 21:00 Room Air 02/11/20 21:00 81 141/92 02/11/20 20:00 97.5 79 17 141/92 (108) 97 02/11/20 20:00 83 02/11/20 16:00 97.9 80 20 115/73 (87) 94 02/11/20 16:00 85 Intake and Output 02/11/20 02/12/20 19:00 07:00 Intake Total 12.24 ml 122.40 ml Output Total 180 ml 70 ml Balance -167.76 ml 52.40 ml IV Total 12.24 ml 122.40 ml Output Urine Total 30 ml 10 ml Other 150 ml 60 ml Laboratory Tests Test 02/12/20 05:05 02/12/20 10:48 02/12/20 14:52 White Blood Count 9.7 K/UL (4.8-10.8) Red Blood Count 2.85 M/UL (4.20-5.40) L Hemoglobin 8.5 G/DL (12.0-16.0) L Hematocrit 26.4 % (37.0-47.0) L Mean Corpuscular Volume 93 FL (80-99) Mean Corpuscular Hemoglobin 30.0 PG (27.0-31.0) Mean Corpuscular Hemoglobin Concent 32.3 G/DL (32.0-36.0) Red Cell Distribution Width 21.4 % (11.6-14.8) H Platelet Count 224 K/UL (150-450) Mean Platelet Volume 7.3 FL (6.5-10.1) Neutrophils (%) (Auto) % (45.0-75.0) Lymphocytes (%) (Auto) % (20.0-45.0) Monocytes (%) (Auto) % (1.0-10.0) Eosinophils (%) (Auto) % (0.0-3.0) Basophils (%) (Auto) % (0.0-2.0) Differential Total Cells Counted 100 Neutrophils % (Manual) 88 % (45-75) H Lymphocytes % (Manual) 7 % (20-45) L Monocytes % (Manual) 5 % (1-10) Eosinophils % (Manual) 0 % (0-3) Basophils % (Manual) 0 % (0-2) Band Neutrophils 0 % (0-8) Nucleated Red Blood Cells 18 /100 WBC Platelet Estimate Adequate Platelet Morphology Normal Polychromasia 1+ Hypochromasia 1+ Anisocytosis 3+ Activated Partial Thromboplast Time 121 SEC (23-33) H Sodium Level 138 MMOL/L (136-145) Potassium Level 4.0 MMOL/L (3.5-5.1) Chloride Level 102 MMOL/L (98-107) Carbon Dioxide Level 18 MMOL/L (21-32) L Anion Gap 18 mmol/L (5-15) H Blood Urea Nitrogen 79 mg/dL (7-18) H Creatinine 5.4 MG/DL (0.55-1.30) H Estimat Glomerular Filtration Rate 9.0 mL/min (>60) Glucose Level 176 MG/DL (74-106) H Calcium Level 8.6 MG/DL (8.5-10.1) Arterial Blood pH 7.381 (7.350-7.450) 7.163 (7.350-7.450) Arterial Blood Partial Pressure CO2 23.9 mmHg (35.0-45.0) *L 46.9 mmHg (35.0-45.0) H Arterial Blood Partial Pressure O2 81.9 mmHg (75.0-100.0) 400.6 mmHg (75.0-100.0) H Arterial Blood HCO3 13.9 mmol/L (22.0-26.0) *L 16.5 mmol/L (22.0-26.0) *L Arterial Blood Oxygen Saturation 94.9 % (95-100) L 99.5 % (95-100) Arterial Blood Base Excess -10.0 (-2-2) *L -11.4 (-2-2) *L Otoniel Test Positive Positive Brian Sweeney MD February 12, 2020 15:59
[2020-02-12] MEDS: Hydrocortisone 100mg Inj IV SCH ×2 (16:00→23:44)
--- NOTE | 2020-02-12 16:02 | NUR ---
NURSE NOTES: Temp AX 94 F. Put warmer.
--- NOTE | 2020-02-12 16:30 | NUR ---
NURSE NOTES: Inserted left subclavian TLC by Dr. Ponce.
--- NOTE | 2020-02-12 17:00 | NUR ---
NURSE NOTES: Removed right femoral TLC by Dr. Ponce.
--- NOTE | 2020-02-12 17:02 | Diagnostic Imaging Report ---
EXAM: XR Chest, 1 View CLINICAL HISTORY: Central line placement. TECHNIQUE: Frontal view of the chest. COMPARISON: 02/12/2020. FINDINGS: Lungs: There is complete atelectasis of the right upper lobe. This finding is new since the previous study. Mild prominence of central pulmonary vasculature. Pleural space: Small left pleural effusion. No pneumothorax. Heart: Cardiomediastinal silhouette unchanged. Mediastinum: See above. Bones/joints: Osteopenia. Tubes, lines and devices: Left subclavian catheter is noted in place with tip at the level of the mid superior vena cava. Endotracheal tube is noted in place with tip in the left mainstem bronchus. Other findings: Hypoaeration. IMPRESSION: 1. The tip of the endotracheal tube is within the left mainstem bronchus. 2. There is complete atelectasis of the right upper lobe. 3. Left subclavian catheter is noted in place with tip at level of mid superior vena cava. 4. Hypoaeration. Prominence of central pulmonary vasculature. 5. Small left pleural effusion. 6. Clinical correlation is advised to assess for the possibility of incipient congestive heart failure. <MYCVCSECTION> Communications: 02/12/20 17:16 Call Doctor Regarding Above results, called net trainer March in ICU on 02/11 17:16 (-07:00)
--- NOTE | 2020-02-12 17:14 | NUR ---
Called Dr. Sweeney. Informed that patient is not responding to levophed, Still SBP 60s. Ordered Scotty.
--- NOTE | 2020-02-12 17:23 | Surgery Progress Note ---
Surgery Progress Note Subjective Additional Comments acute decompensation cardovascular compromise ACLS intubated and in ICU now on pressors ET tube withdrawn 5cm given left mainstem with right upper lobe collapse line okay cont vent Objective Last 24 Hour Vital Signs Date Time Temp Pulse Resp B/P (MAP) Pulse Ox O2 Delivery O2 Flow Rate FiO2 02/12/20 17:00 120 16 67/23 (38) 96 02/12/20 16:30 116 14 63/20 (34) 96 02/12/20 16:00 123 14 89/71 (77) 100 02/12/20 16:00 119 02/12/20 15:26 117 14 86/32 (50) 100 02/12/20 15:12 113 14 100 Mechanical Ventilator 100 02/12/20 15:08 111 14 100 02/12/20 15:07 116 14 61/21 (34) 100 02/12/20 15:00 120 14 118/27 (57) 100 02/12/20 11:49 54 34 82 02/12/20 09:00 Room Air 02/12/20 08:00 96.3 91 18 93/53 (66) 93 02/12/20 08:00 84 02/12/20 04:00 85 02/12/20 04:00 96.8 75 19 97/69 (78) 95 02/12/20 00:00 69 02/12/20 00:00 97.7 69 17 131/76 (94) 100 02/11/20 21:00 Room Air 02/11/20 21:00 81 141/92 02/11/20 20:00 97.5 79 17 141/92 (108) 97 02/11/20 20:00 83 I&O Intake and Output 02/11/20 02/12/20 19:00 07:00 Intake Total 12.24 ml 122.40 ml Output Total 180 ml 70 ml Balance -167.76 ml 52.40 ml IV Total 12.24 ml 122.40 ml Output Urine Total 30 ml 10 ml Other 150 ml 60 ml Dressing: other Wound: other Drains: other Cardiovascular: RSR Respiratory: decreased breath sounds Abdomen: soft, decreased bowel sounds Extremities: no cyanosis, other Laboratory Tests Test 02/12/20 05:05 02/12/20 10:48 02/12/20 14:52 02/12/20 16:57 White Blood Count 9.7 K/UL (4.8-10.8) Red Blood Count 2.85 M/UL (4.20-5.40) L Hemoglobin 8.5 G/DL (12.0-16.0) L Hematocrit 26.4 % (37.0-47.0) L Mean Corpuscular Volume 93 FL (80-99) Mean Corpuscular Hemoglobin 30.0 PG (27.0-31.0) Mean Corpuscular Hemoglobin Concent 32.3 G/DL (32.0-36.0) Red Cell Distribution Width 21.4 % (11.6-14.8) H Platelet Count 224 K/UL (150-450) Mean Platelet Volume 7.3 FL (6.5-10.1) Neutrophils (%) (Auto) % (45.0-75.0) Lymphocytes (%) (Auto) % (20.0-45.0) Monocytes (%) (Auto) % (1.0-10.0) Eosinophils (%) (Auto) % (0.0-3.0) Basophils (%) (Auto) % (0.0-2.0) Differential Total Cells Counted 100 Neutrophils % (Manual) 88 % (45-75) H Lymphocytes % (Manual) 7 % (20-45) L Monocytes % (Manual) 5 % (1-10) Eosinophils % (Manual) 0 % (0-3) Basophils % (Manual) 0 % (0-2) Band Neutrophils 0 % (0-8) Nucleated Red Blood Cells 18 /100 WBC Platelet Estimate Adequate Platelet Morphology Normal Polychromasia 1+ Hypochromasia 1+ Anisocytosis 3+ Activated Partial Thromboplast Time 121 SEC (23-33) H Sodium Level 138 MMOL/L (136-145) Potassium Level 4.0 MMOL/L (3.5-5.1) Chloride Level 102 MMOL/L (98-107) Carbon Dioxide Level 18 MMOL/L (21-32) L Anion Gap 18 mmol/L (5-15) H Blood Urea Nitrogen 79 mg/dL (7-18) H Creatinine 5.4 MG/DL (0.55-1.30) H Estimat Glomerular Filtration Rate 9.0 mL/min (>60) Glucose Level 176 MG/DL (74-106) H Calcium Level 8.6 MG/DL (8.5-10.1) Arterial Blood pH 7.381 (7.350-7.450) 7.163 (7.350-7.450) 7.105 (7.350-7.450) Arterial Blood Partial Pressure CO2 23.9 mmHg (35.0-45.0) *L 46.9 mmHg (35.0-45.0) H 39.6 mmHg (35.0-45.0) Arterial Blood Partial Pressure O2 81.9 mmHg (75.0-100.0) 400.6 mmHg (75.0-100.0) H 82.6 mmHg (75.0-100.0) Arterial Blood HCO3 13.9 mmol/L (22.0-26.0) *L 16.5 mmol/L (22.0-26.0) *L 12.2 mmol/L (22.0-26.0) *L Arterial Blood Oxygen Saturation 94.9 % (95-100) L 99.5 % (95-100) 90.8 % (95-100) L Arterial Blood Base Excess -10.0 (-2-2) *L -11.4 (-2-2) *L -16.3 (-2-2) *L Otoniel Test Positive Positive Positive Plan Problems: (1) Sepsis Assessment & Plan: acute compromise Cardiovascular colaspase s/p ACLS resuscitated in ICU 02/11 discussed with family right fem line not functional now very necessary left subclavian placed lactic acidosis tachycardic hypotension altered unlikely related to decubitus ulcer and wounds likely chronically infected but not acute labs improving on abx and fluids cont current care plan improving trend h/h - prbc prn diet as tolerated improving overall off abx stable onc input noted. hx colon cancer dx in [facility]. GI bleed from Ca? unfortunately not operative candidate GI eval pending h/h stable neuro input noted pancreatitis meds vs lipids vs gb? US noted Gallbladder is not visualized. Common bile duct measures 5 mm in diameter. No intrahepatic biliary ductal dilatation. Liver demonstrates coarsened echogenicity. No focal abnormality Portal vein and hepatic veins are patent. Pancreas is obscured by bowel gas. Spleen is unremarkable. Left kidney measures 10.5 cm in length. Right kidney measures 12.8 cm length. Both kidneys demonstrate normal echogenicity. There is moderate bilateral hydronephrosis. There is a cyst in the lower pole of the left kidney. Abdominal aorta is partially obscured by bowel gas, visualized portions are non-aneurysmal . There is a right pleural effusion Impression: Nonvisualized gallbladder, likely surgically absent. Negative for dilated bile ducts Bilateral hydronephrosis, also previously reported Right pleural effusion Note nonvisualization of the pancreas and portions of the abdominal aorta CT noted duplex noted will plan for removal of line. on gtt hep will watch for bleeding b/l nephrostomy planned will follow with recs PEG was cancelled for today because family do not want both nephrostomy tube and PEG in a same day plan PEG for Thursday hold line removal for now (2) Anorexia (3) Malnutrition Assessment & Plan: DAILY ESTIMATED NEEDS: Needs based on Wound 57.6kg 30-35 kcals/kg 8140-2768 total kcals 1.25-1.5 g protein/kg 72-86 g total protein 25-30ml/kcal mL/kg 5571-5573 total fluid mLs NUTRITION DIAGNOSIS: Increased kcal and pro needs r/t wound healing as evidenced by pt w/ unstageable sacral wound. (CURRENT DIET: CCHO MED soft easy chew) PO DIET RECOMMENDATIONS: With current poor po intake, rec liberalized REGULAR diet/ texture as harman ADDITIONAL RECOMMENDATIONS: 1) Add Glucerna TID w/ meals 2) Maintain calibrated bed scale wts 3) Wound care: MVI w/ min qdaily, Vit C 500mg daily + EFREN FRUIT PUNCH BID as tolerated 4) Check lytes + hydration status daily as able 5) Monitor lipase, need for low fat diet 6) DESK MANAGER eval for appropriate diet texture (4) Gastric cancer (5) Atrial fibrillation with RVR (6) DM (diabetes mellitus) (7) Low BP (8) Acute on chronic renal failure (9) Anemia (10) Decubital ulcer Assessment & Plan: Pt presented on admission with stage 3 nearing almost a stage 4 as bone almost palpable if not palpable pressure injury to sacrum(L)1cm x (W)1cm. Base of wound has 100% slough Marginal erythema along edges. Periwound indurated with darker skin tone. Pt verbalized tenderness when minimally palpated. Bilat heels are boggy but blanchable . Pt denied tenderness when each heel individually palpated.Hemosiderin with Xerosis skin distal aspects of both lower ext.Both feet are edematous. Tx.Plan: Cleanse Sacral wound with Saline. Apply Therahoney. Apply Moisture Barrier Paste periwound. Cover with Optifoam drsg. Change every 3 days and prn. Apply Cavilon Skin Barrier to both heels. Cover each heel with Optifoam drsg.Change every 7 days and prn. Reposition at least every 2hours or as tolerated. Off-load heels with pillow. Jose Ponce February 12, 2020 17:23
--- NOTE | 2020-02-12 17:26 | Operative Note - PDOC ---
Operative Note Operative Note Date of Operation/Procedure: February 12, 2020 Pre-op Diagnosis: Sepsis, hypotension, cardiovascular collapse Poor peripheral IV access Deep vein thrombosis Rule out COVID Procedure: 1 left subclavian central venous catheter insertion 2 removal of right femoral central venous catheter Post-op Diagnosis: same as pre-op Surgeon: Jose Ponce MD Anesthesia: local Specimen: none Complications: none Condition: unstable Fluids: none Estimated Blood Loss: minimal Drains: none Implant(s) used?: No Indications for Procedure 89-year-old female recent acute decompensation cardiovascular collapse ACLS resuscitated intubated currently in the intensive care unit on pressors right femoral line would not withdraw blood and leaking as well as history of known DVT. Line is nonfunctional and needs to be removed following given recent events of emergency such as catheterization necessary for pressors fluids medications given patient's critically ill condition discussed with family members at the bedside consent obtained procedure medically necessary and emergent Description of Procedure Patient was made comfortable at the bedside and placed in the supine position. She was intubated on ventilatory support on pressors. The left chest wall was prepped in the surgical fashion. Finder needle was used and the left subclavian vein was cannulated without complication with good venous flow noted. Guidewire placed and the needle removed. Small skin incision was made and the dilator was used. Triple-lumen catheter was inserted over the guidewire and guidewire was removed and discarded. All 3 ports flushed and aspirated appropriately. Line was sutured in place and dressings were applied. Local anesthetic was infiltrated being in the procedure for patient's comfort. Following this chest x-ray was performed which identified catheter in appropriate positioning without complication. At this time the right groin line medications were placed onto the left subclavian and the right groin dressings were removed. The sutures were cut. The line was removed and pressure was held no hemostasis obtained. Dressings were applied. Patient taught procedure well. Jose Ponce February 12, 2020 17:26
[2020-02-12] MEDS ORDERED: Phenylephrine 50 MG in D5W 245 ML IV SCH (17:30)
--- NOTE | 2020-02-12 17:36 | NUR ---
RESPIRATORY NOTES Per doctor's orders, ET tube has been retracted a total three times - resulting of the original lip line of 26cm to now 19.5cm. RIVER Wilson present during each ET tube retraction.
--- NOTE | 2020-02-12 17:38 | NUR ---
NURSE NOTES: Informed Dr. Watson of patient's ABG results. No new orders at this time. Dr. Watson will contact Dr. Carlos Wilson for HCO3.
--- NOTE | 2020-02-12 17:43 | Diagnostic Imaging Report ---
EXAM: XR Chest, 1 View CLINICAL HISTORY: Assess endotracheal tube placement. TECHNIQUE: Frontal view of the chest. COMPARISON: Earlier study performed today. FINDINGS: Lungs: There is continued atelectasis of the right upper lobe. Prominence of central pulmonary vasculature again noted. Pleural space: Small left pleural effusion. No pneumothorax. Heart: Unremarkable. No cardiomegaly. Mediastinum: Unremarkable. Bones/joints: Osteopenia. Tubes, lines and devices: The endotracheal tube tip is now are above the kareem in good position. Left subclavian catheter remains in place. IMPRESSION: Endotracheal tube is now in good position. Continued atelectasis of the right upper lobe.
[2020-02-12] MEDS ORDERED: Sodium Citrate 30ml ORAL SCH (18:00)
[2020-02-12] MEDS ORDERED: Rocuronium Bromide 50mg/5ml Inj IV ONE (18:01)
[2020-02-12] MEDS ORDERED: Etomidate 40mg/20ml Inj IV ONE (18:01)
--- NOTE | 2020-02-12 18:03 | NUR ---
NURSE NOTES: Started Scotty 100mcg/min.
[2020-02-12] MEDS ORDERED: Sodium Bicarbonate 100 ML in Sodium Chloride 1,000 ML IV SCH (19:00)
--- NOTE | 2020-02-12 19:00 | NUR ---
NURSE NOTES: Patient is on Levophed 30mcg/min, Scotty 240mcg/min and IV fluid at this time. BP 100/52, P 115 at this time. Will continue to monitor closely.
--- NOTE | 2020-02-12 19:30 | NUR ---
HAND-OFF: Report given to RIVER Phillip. Endorsed plan of care.
--- NOTE | 2020-02-12 19:35 | NUR ---
NURSE NOTES: Received report from Steve HOLMAN. patient in bed unresponsive to verbal and tactile stimuli. patient not stable. Post MAILER/Code Blue. Orally intubated ETT 7.5/19.5cm lip line AC 14. TV 500, Fi02 100% Peep of 5 satting 80-97%. Left subclavian TLC intact infusing Levophed 30mcg/min, Phenylephrine 240mcg/min, and Sodium bicarb at 100mls/hr BP 103/55 HR 114, Afib on equipment monitor phototypesetting. Jenkins intact. P200 mattress for wound care. dressing intact on sacral area. family at bedside. repositioned patient. Temp 95 axillary alycia hugger provided. comfort measure provided. will continue patient and plan of care.
--- NOTE | 2020-02-12 19:47 | NUR ---
NURSE NOTES: Family at bedside.
[2020-02-12] MEDS ORDERED: Dyna-Hex 2% Top Sol 2oz TOPIC SCH (20:00)
[2020-02-12] MEDS ORDERED: Pantoprazole Inj IVP SCH (21:00)
--- NOTE | 2020-02-12 21:36 | NUR ---
NURSE NOTES: Called Dr Brooks regarding patient inserted NGt with residual. connected to low intermittent suction with 700cc tarry gastric output. HOB elevated. waiting for awaiting for MD's call back.
[2020-02-12] MEDS ORDERED: Phenylephrine 100 MG in D5W 500ml 490 ML IV SCH (22:00)
--- NOTE | 2020-02-12 22:25 | NUR ---
NURSE NOTES: Spoke with Dr Watson regarding patient on 2 max pressors BP on 80's also patient NGT with 700cc tarry color gastric output. with new order noted and carried out. Patients daughter Chrissy HILLIARD came and updated regarding patient condition and informed about blood transfusion order. will continue to monitor patient.
[2020-02-12] MEDS ORDERED: Metoclopramide 10mg/2ml Inj IVP PRN (22:30)
[2020-02-12] MEDS ORDERED: Norepinephrine Bitartrate 16 MG in D5W 500ml 500 ML IV SCH (23:00)
--- NOTE | 2020-02-12 23:33 | NUR ---
NURSE NOTES: Called Dr. Watson regarding patient SBP 68/70's patient already on Max dose for Levophed and Phenylephrine. no new order will continue to monitor and waiting for blood bank call to pickle sorter the blood. charge nurse aware.
--- NOTE | 2020-02-12 23:38 | Diagnostic Imaging Report ---
EXAM: XR Abdomen, 2 Views CLINICAL HISTORY: NGT TECHNIQUE: Frontal view of the abdomen/pelvis with upright view of the abdomen. COMPARISON: No relevant prior studies available. IMPRESSION: NG tube side port terminates just past the GE junction. Recommend advancing 5 cm.
[2020-02-13] VITALS: BP 61/28
--- NOTE | 2020-02-13 00:09 | NUR ---
CODE BLUE: See Code sheet which remains on paper.
[2020-02-13 00:15] VITALS: BP 117/44
--- NOTE | 2020-02-13 00:25 | NUR ---
NURSE NOTES: Called Responsible alliance party Chrissy Kramer daughter regarding the patient coded and able to revive. updated daughter regarding the patient status./ per daughter she will call back and talk to the family regarding changing the code status to DNR. supervisor blast furnace aware.
[2020-02-13 00:30] VITALS: BP 101/48
[2020-02-13 00:45] VITALS: BP 87/40
[2020-02-13 01:00] VITALS: BP 54/12
--- NOTE | 2020-02-13 01:05 | NUR ---
NURSE NOTES: Chrissy Kramer Patient daughter responsible green party called back and requesting to change the code status to DNR, Charge Nurse also spoke with the daughter. Called Dr. Watson with new order to change the code status of patient to DNR per family request. comfort measure provided.
--- NOTE | 2020-02-13 01:14 | NUR ---
CODE BLUE: Noted asystole. Started CPR and call code blue. See Code sheet which remains on paper. Addendum: 02/13/20 at 0321 by BORIS HEAD RN RN Charting error. Wrong pt's charting.
[2020-02-13] MEDS ORDERED: Sodium Bicarbonate 8.4% 50ml Inj ONE (01:26)
--- NOTE | 2020-02-13 01:40 | NUR ---
NURSE NOTES: Left message to Dr. Watson and Dr. Wilson
--- NOTE | 2020-02-13 01:42 | NUR ---
NURSE NOTES: Patient at 0127. Pronounced by ER MD Dr. Cabrera. family called spoke with Chrissy Kramer. Family verbalizes appreciation of notification.
--- NOTE | 2020-02-13 02:00 | NUR ---
NURSE NOTES: Post mortem care done.
--- NOTE | 2020-02-13 02:30 | Consultation ---
DATE OF CONSULTATION: 02/12/2020 CARDIOLOGY CONSULTATION CONSULTING PHYSICIAN: Brian Sweeney M.D. REASON FOR EVALUATION: Management for hypotension and cardiac arrest. HISTORY OF PRESENT ILLNESS: This is a very unfortunate 89-year-old female with history of multiple medical problems. Approximately 45 minutes or so ago, I was notified by Dr. Wilson that the patient has had several episodes of Code Blue. EKG was sent to me to review and I urgently drove here to see the patient. The history that was obtained was from the patient's nursing staff with her at the time and subsequent to the arrest. The patient apparently was hypotensive earlier today, was mentating at her baseline according to the nursing staff, but blood pressure started to drop. The patient received several boluses of IV fluids to which she would temporarily response, but the blood pressure would drop. Conversation was made between Dr. Wilson and the family members. Initially, DNR was felt to be appropriate. Subsequently, the patient's daughter arrived and indicated that her mom had advance directive of wanting everything done and she requested that the DNR be reversed. At that time, the patient was intubated and was transferred to the intensive care unit and in the intensive care unit, to put the defibrillator patches on her back as she has lost her pulse. She became asystolic for approximately 3 minutes requiring ACLS and BCLS for that duration and subsequently came back, remained hypotensive. When I discussed with them, the patient's blood pressure was 60s over 20s. I recommended that Levophed drip to be started until I arrive to the hospital to evaluate her. On my arrival, she is completely unresponsive in the intensive care unit on the mechanical ventilator with Levophed at approximately 30 mcg. Blood pressure has improved. The patient is not communicating, not verbal and her lungs appeared mainly clear, although she does have some rhonchi. She is tachycardic with systolic murmurs noted. Her abdomen is soft, not able to determine any tenderness. She has 2+ edema of the lower extremities at this time. Neurologically, she is not communicating, not responsive whatsoever. LABORATORY DATA: The patient's laboratory data was reviewed. Her electrocardiogram showed low voltage QRS complex at least in the arm leads. It is difficult to tell whether this is atrial activity or not on this EKG. There are some nonspecific T-wave changes noted, premature ventricular complexes also noted. The patient's other labs showed a white count of 9.7, hemoglobin 8.5, and platelet count of 224,000, this is from 5 o'clock this morning. Blood gases two have been drawn initially approximately 10 minutes to 11 o'clock, 7.38, pCO2 of 24, pO2 of 82, and bicarb of 14 with 95% saturation. Subsequently, pH is 7.163, pCO2 of 46, pO2 of 100 with a bicarb of 16.5, 99% saturation. Sodium is 138, potassium 4.0, chloride 102, bicarb 18, BUN 79, creatinine 5.4, and glucose of 176. Lactic acid level is 4.2 and 4.4. Calcium is 8.6. Alkaline phosphatase was 1428 earlier today and AST and ALT are 197 and 111. Albumin 1.9. Her coags, PTT of 121 and no other abnormalities are available. Her last COVID-19 not detected on 01/30/2020 and the last imaging was chest x-ray that was performed today that showed hazy density in the right lower lung right pleural effusion, possible superimposed atelectasis or infiltrates in the right lung. ASSESSMENT AND PLAN: 1. Cardiopulmonary arrest. 2. Hypotension. 3. Renal failure. 4. Anemia. 5. Hydronephrosis, status post bilateral nephrostomy tubes. 6. Gastric adenocarcinoma, status post failure of radiation therapy and chemo . 7. Acute renal failure. 8. Helicobacter pylori. 9. Atrial fibrillation. 10. Diabetes mellitus. 11. Deep venous thrombosis. 12. Hydronephrosis. This patient has hypotension that need for intubation. Initially made DNR as I understand because of the family and subsequently the decision about DNR was reversed and the patient at that time was intubated. The patient was intubated and subsequently had asystolic arrest . She has been on anticoagulation, which we just stopped in light of the cardiac arrest. Her EKG shows some low voltage QRS complexes. She has had CT scan findings of severe intra-abdominal pathology and serum cortisol level has been pending. I have instructed the nursing staff to administer some hydrocortisone for the time being even though the cortisol level is not available. Levophed pressors have been started. She has already been intubated on ventilator. She requires probable increasing respiratory rate to help loss some of the CO2 that is present and likely contributing to the acidosis in addition to metabolic acidosis including lactic acidosis that she has at this time. Her prognosis is extremely poor and I suspect her chances of recovery are extremely dull. The patient's family members have decided that they would like for her to be undergoing advanced measures to help her with possibility of survival. Levophed to be continued and her hydrocortisone will be continued, if additional medications will be needed in terms of other pressors will be added including dopamine. An echocardiogram has not been done. The patient has received several boluses of IV fluids. IV fluid has been ongoing for the past few days that is an issue any further and especially in light of the fact that she has pleural effusions. It is of note the last echocardiogram is available from [facility] is showing an ejection fraction of 75% and systolic function, moderate diastolic dysfunction, pulmonary hypertension with PA pressure of 67 and normal IVC size. The total duration of critical care time 45 minutes. Brian Sweeney M.D. DR: Darion JOB#: [id number] CC:
--- NOTE | 2020-02-13 04:37 | Emergency Room Report ---
Physical Exam Vital Signs Date Time Temp Pulse Resp B/P (MAP) Pulse Ox O2 Delivery O2 Flow Rate FiO2 02/09/20 07:59 98.6 76 20 102/84 (90) 96 02/09/20 09:00 Room Air 02/10/20 13:11 2.0 02/12/20 15:08 100 Medical Decision Making Diagnostic Impression: Primary Impression: Sepsis Additional Impressions: Atrial fibrillation with RVR Cardiac arrest ER Course This an 89-year-old female admitted to the hospital for rapid A. fib and generalized weakness. She had a cardiac arrest during her hospitalization and was intubated and sent to the ICU. Tonight I responded to a CODE BLUE. Patient became asystolic. Patient received 2 mg of epinephrine. Afterward there was a spontaneous return of pulse. Patient is currently on pressors and shortly afterward family made patient DNR. Patient coded again and remained in asystole. Patient was pronounced at 1:27 AM. Last Vital Signs Date Time Temp Pulse Resp B/P (MAP) Pulse Ox O2 Delivery O2 Flow Rate FiO2 02/13/20 01:00 54/12 02/13/20 00:45 93 7 98 02/13/20 00:32 100 02/13/20 00:00 Mechanical Ventilator 02/13/20 00:00 96.0 02/10/20 14:28 2.0 Disposition: ADMITTED INPATIENT Condition: Referrals: [facility],REFERR[facility] (PCP) Yordan Cabrera MD February 13, 2020 04:37
[2020-02-13] MEDS ORDERED: Metoclopramide 10mg/2ml Inj IVP SCH (06:30)
[2020-02-13] MEDS ORDERED: cefOXitin Sod 1 GM in D5W 55 ML IV SCH (08:00)
[2020-02-13] MEDS ORDERED: cefOXitin Sod 1 GM in D5W 55 ML IV ONE (08:00)
[2020-02-13] MEDS ORDERED: Ascorbic Acid 500mg tab ORAL SCH (09:00)
--- NOTE | 2020-02-13 17:22 | NUR ---
*-* INSURANCE *-* UPDATED AVAILABLE CLINICALS HAVE BEEN FAXED TO: CASEY BUI:LARRY REF# [id number] P: [phone] T: [phone] F: [phone]
--- NOTE | 2020-02-14 12:24 | Discharge Summary ---
Discharge Summary Discharge Summary _ SUMMARY DATE OF ADMISSION: 01/30/2020 DATE OF EXPIRATION: 02/13/2020 REASON FOR ADMISSION: 89 years old female, , recently discharged from longterm facility , with past medical history of gastric and colon cancer , status post palliative radiation and chemotherapy, brought to emergency room for generalized weakness. Upon further evaluation patient was found to be in atrial fibrillation with rapid ventricular response and was admitted for further management. Laboratory work-up was significant for anemia with hemoglobin 7.9, hematocrit 26. BUN 64, creatinine 2.7. Lactic acid 2.1, repeated 2.2. Troponin negative, pro BNP 84534. Stable LFT initially, lipase 690. Chest x-ray demonstrated right basilar atelectasis and /or pleural fluid , possible some consolidation as well. Urinalysis revealed +1 protein , pyuria and moderate bacteria . Septic work-up initiated : patient received IV hydration, pancultured ,started on empiric antibiotics and admitted for further management. Patient was also swabbed for COVID-19. CONSULTANTS: processing associate Dr. Sweeney neurologist Dr. Padron ID specialist Dr. Jassi Wilson GI specialist Dr. Brooks haul cane brakeman/oncologist Dr Brown general surgery Dr. Ponce urologist Dr. Hager [facility] COURSE: Patient was admitted to monitored floor... Patient started on IV hydration. Superintendent Of Generation followed. Rate was controlled with beta brannon. Serial troponin were negative. Echocardiogram done in [facility] in October 2019, showed significant hyperdynamic systolic function Rate was controlled with beta-brannon. Venous duplex bilateral lower extremity revealed extensive right common femoral , femoral, popliteal and calf vein deep vein thrombosis. No evidence of DVT left lower extremity. Patient started on heparin drip. Renal ultrasound revealed bilateral mild to moderate hydronephrosis ,right greater than left. Slightly increased bilateral renal echogenicity consistent with medical renal disease. Follow-up renal ultrasound revealed bilateral hydronephrosis ,slightly worse compared to the previous one. Creatinine was trending up. Urologist recommended nephrostomy tube placement. Patient undergone bilateral nephrostomy tube placement on 02/09 by interventional radiology due to bilateral obstructive uropathy. Creatinine remains elevated. Organizational Effectiveness Consultant recommended to start hemodialysis if blood pressure remains stable. Blood cultures were negative. Influenza swab was negative. Urine culture revealed mixed urogenital contaminants. SARS-CoV-2 by PCR on 01/29 was not detected. Antibiotics provided as per ID specialist recommendations. Neurologist followed. MRI of the brain revealed no evidence of acute intracranial bleeding mass-effect or infarct. Per neurologist, patient history and neurological examination were most consistent with pre-existing generalized weakness and increased left-sided weakness. Acute CVA had been excluded by MRI. Patient exhibited worsening encephalopathy , most probably related to toxic metabolic insult to the brain. Neurologist recommended continue current management and correction of toxic metabolic imbalances and treatment of infectious process along with acute renal failure. GI specialist followed. AST and ALT were trending up. Abdominal ultrasound revealed no evidence of dilated bile ducts. Bilateral hydronephrosis. Nonvisualized gallbladder , likely surgically absent. CT scan of abdomen and pelvis demonstrated possibility of gastric outlet obstruction . Right adrenal mass , could indicate metastatic involvement or the adenoma. Extensive retroperitoneal, peripancreatic and gastrocolic ligament lymphadenopathy , most likely metastatic in nature. The cylindrical soft tissue collection may represent an unusual manifestation of bilateral ovarian malignancy or could represent confluent retroperitoneal lymphadenopathy. Lipase trended down to 366. PEG placement was planned due to poor oral intake. Family agreed with PEG placement , but did not want nephrostomy tube placement and PEG to be done on the same day. PEG was canceled and planned for later. Hemoglobin and hematocrit were closely monitored with goal to keep hemoglobin above 7. Patient undergone transfusion of 1 unit of packed red blood cells. Blood sugar was managed with sliding scale of insulin. Hemoglobin A1c 6.0. Calorie count implemented . Protein supplements provided as per processing associate recommendation Wound care for sacral decubitus ulcer stage 3- 4 provided as per surgeon recommendation. Oncologist seen and evaluated the patient. Patient with history of gastric and colon cancer. Patient overall condition remained poor . Patient was minimally responsive. Per oncologist , patient was not a candidate for chemotherapy given her general condition. On 02/11 CODE BLUE was called . patient was orally intubated with return of spontaneous circulation. Patient was transferred to ICU, and shortly afterwards another CODE BLUE was called with successful resuscitation. Patient required though initiation of of pressors: Levophed and phenylephrine. Hemodynamic status was closely monitored with goal to keep mean arterial blood pressure above 65. Pressors correspondingly titrated. Patient sustained another cardiopulmonary arrest due to asystole. Patient resuscitated with spontaneous return of pulse. Patient remained on pressors. Family decided to make patient DNR/DNI. After that patient coded again and remained in asystole. Patient was pronounced at 1:27 AM on 02/12. Cause of : cardiopulmonary arrest. FINAL DIAGNOSES: Status post cardiopulmonary arrest x4 Shock Acute respiratory failure requiring intubation Acute on chronic renal failure Atrial fibrillation with rapid ventricular response Suspected COVID-19 infection- ruled out Severe anemia , requiring blood transfusion Toxic metabolic encephalopathy Sepsis DVT right lower extremity Metastatic gastric CA, status post palliative radiation therapy and chemotherapy Obstructive uropathy/bilateral hydronephrosis Status post bilateral nephrostomy tube placement Dehydration gastric adenocarcinoma Diabetes mellitus Protein calorie malnutrition Pyuria History of hypertension Elevated lipase, possible pancreatitis Sacral decubitus ulcer stage III 4 present on admission I have been assigned to dictate discharge summary for this account. I was not involved in the patient's management. June Wall NP February 14, 2020 12:24
--- NOTE | 2020-02-14 16:06 | NUR ---
*-* INSURANCE *-* DISCHARGE SUMMARY HAS BEEN FAXED TO: CASE[facility] BUI:LARRY REF# [id number] P: [phone] T: [phone] F: [phone]
== END 2020-02-13 01:27 | disposition expired | DRG 871 ==
LOC: EDBD 19:59 → EMR 20:20 → EDBEDREQSVC 20:39 → 2W 20:53 → EDBEDREQ 21:06 → 2W 02-02 02:59 → 2E 02-07 14:40 → ICU 02-12 14:45
PROC: 06HM33Z Insertion of Infusion Device into Right Femoral Vein, Percutaneous Approach (ICD-10-PCS; principal; 2020-01-30)
PROC: 0T9030Z Drainage of Right Kidney with Drainage Device, Percutaneous Approach (ICD-10-PCS; 2020-02-10)
PROC: 0T9130Z Drainage of Left Kidney with Drainage Device, Percutaneous Approach (ICD-10-PCS; 2020-02-10)
PROC: 06PYX3Z Removal of Infusion Device from Lower Vein, External Approach (ICD-10-PCS; 2020-02-12)
PROC: 05H633Z Insertion of Infusion Device into Left Subclavian Vein, Percutaneous Approach (ICD-10-PCS; 2020-02-12)
PROC: 5A12012 Performance of Cardiac Output, Single, Manual (ICD-10-PCS; 2020-02-12)
PROC: 0BH17EZ Insertion of Endotracheal Airway into Trachea, Via Natural or Artificial Opening (ICD-10-PCS; 2020-02-12)
PROC: 5A1935Z Respiratory Ventilation, Less than 24 Consecutive Hours (ICD-10-PCS; 2020-02-12)
DX: A41.9 Sepsis, unspecified organism (principal); L89.154 Pressure ulcer of sacral region, stage 4; K85.90 Acute pancreatitis without necrosis or infection, unspecified; E43 Unspecified severe protein-calorie malnutrition; G92 Toxic encephalopathy; C16.9 Malignant neoplasm of stomach, unspecified; N17.9 Acute kidney failure, unspecified; N13.39 Other hydronephrosis; K92.2 Gastrointestinal hemorrhage, unspecified; I82.411 Acute embolism and thrombosis of right femoral vein; I82.431 Acute embolism and thrombosis of right popliteal vein; J90 Pleural effusion, not elsewhere classified; E86.0 Dehydration; R57.0 Cardiogenic shock; I48.91 Unspecified atrial fibrillation; I25.2 Old myocardial infarction; K21.9 Gastro-esophageal reflux disease without esophagitis; E78.5 Hyperlipidemia, unspecified; D63.0 Anemia in neoplastic disease; Z85.038 Personal history of other malignant neoplasm of large intestine; I12.9 Hypertensive chronic kidney disease with stage 1 through stage 4 chronic kidney disease, or unspecified chronic kidney disease; E11.22 Type 2 diabetes mellitus with diabetic chronic kidney disease; N18.9 Chronic kidney disease, unspecified; I95.9 Hypotension, unspecified; Z68.24 Body mass index [BMI] 24.0-24.9, adult; Z20.828 Contact with and (suspected) exposure to other viral communicable diseases; R62.7 Adult failure to thrive; E87.6 Hypokalemia; E83.42 Hypomagnesemia
CPT/HCPCS: 36415; 36600; 50432; 70551; 71045; 74018; 74176; 76700; 76770; 80048; 80053; 80061; 80076; 81003; 82150; 82248; 82306; 82533; 82550; 82553; 82607; 82728; 82746; 82803; 82962; 82977; 83036; 83540; 83550; 83605; 83615; 83690; 83735; 83880; 84100; 84443; 84484; 84550; 85007; 85025; 85610; 85651; 85730; 86140; 86592; 86710; 86850; 86900; 86901; 86920; 87040; 87081; 87086; 87635; 93005; 93970; 94002; 94664; 96360; 99291; 99292; J0171; J1815; J2250; J2370; J2765; J7030